=== PATIENT | female | born 1935 | race Caucasian/White ===

== ENCOUNTER 2016-09-29 20:48 | Inpatient (IN) ==
[2016-09-29] MEDS: SALINE FLUSH 10ml SYRINGE IVF PRN (20:55)
[2016-09-29] MEDS ORDERED: NS 1,000 ML IV ONE (21:09)
[2016-09-29] MEDS ORDERED: HYDRALAZINE 20 MG/ML INJECTION IVP ONE (21:35)
--- NOTE | 2016-09-29 21:39 | Emergency Department Report ---
General Adult HPI - General Chief complaint: Altered Mental Status Stated complaint: Numbness one side of body Time Seen by Provider: 09/29/16 21:09 - History of Present Illness HPI narrative: 80-year-old female presents with left-sided weakness onset at 6:30 PM. She noticed decreased and left-sided and strength initially, which lasted for about 20 minutes. They resolve spontaneously and she then had another episode of left- sided weakness which went more extensively left arm left leg and some facial numbness, which started at 7:30 PM. Her brought her to the ED approximately 9:00. I did a quick evaluation, noticed no slurring of speech, appropriate cranial nerves II through XII. She did have some decreased digital ad trafficker strength on the left, otherwise no muscular difference noted. She noted numbness on the left hand and arm, but sensation was intact. She takes no blood thinners and is on multiple blood pressure medication. CT head was ordered and Tylenol and neurology was consulted. Dr. Dawson returned the phone call immediately, listened to the history of the patient and recommended that we not considered TPA, we get an MRI in the morning, and give her an aspirin. He did agree to evaluate the patient and review the CT. - Related Data Home Medications Medication Instructions Recorded Confirmed Aspirin 1 tab PO DAILY #0 tab 01/28/14 Amlodipine Besylate [Norvasc] 5 mg PO DAILY #0 tab 08/20/14 Calcium Carbonate/Vitamin D3 1 tab PO DAILY #0 08/20/14 [Oystercal-D 500 mg-400 Unit Tb] Olmesartan/Hydrochlorothiazide 1 tab PO DAILY #0 08/20/14 [Benicar Hct 40-25 mg Tablet] Potassium Chloride ER Tab [K-Dur] 1 tab PO DAILY #0 08/20/14 Pravastatin Sodium 10 mg PO HS #0 tab 08/20/14 Sotalol HCl [Sotalol] 40 mg PO ACBID #0 tab 08/20/14 Allergies Allergy/AdvReac Type Severity Reaction Status Date / Time lisinopril Allergy Unknown Unverified 09/29/16 21:29 Penicillins Allergy Unknown Unverified 09/29/16 21:29 Review of Systems All systems: reviewed and negative except as stated PFSH Patient Stated Medical History Cataracts Yes Hearing Loss Yes Coronary Artery Disease Yes Hypertension Yes Medical History Updates: Hypertension - Social History Smoking status: Never smoker Substance use type: does not use Physical Exam - Limitations Limitations: no limitations - General General appearance: alert - Normal Exams: Head:: Normocephalic without trauma Chest/Respirations:: Clear all [place] Cardiovascular:: Regular rate and rhythm, without murmur or gallop, Pulses 2+ all extremities, capillary refill, <2 seconds all extremities Neurological:: Patient is alert, and oriented, cranial nerves, exams w/o gross deficits, to observation Psychiatric:: Patient exhibits, appropriate attention, emotion and affect - Head Head exam: other (slight droop left side of mouth.) - Neurological Exam Neurological exam: Present: other (left-sided digital ad trafficker strength decreased otherwise cranial nerves II through XII intact, strength and DTRs exam as well sensory exam normal except for that mentioned.) Course Vital Signs Temperature 97.8 F 09/29/16 20:52 Pulse Rate 75 09/29/16 20:52 Respiratory Rate 20 09/29/16 20:52 Blood Pressure 200/86 H 09/29/16 20:52 Pulse Oximetry 97 09/29/16 20:52 Temperature 97.8 F 09/29/16 20:52 Pulse Rate 75 09/29/16 20:52 Respiratory Rate 20 09/29/16 20:52 Blood Pressure 200/86 H 09/29/16 20:52 Pulse Oximetry 97 09/29/16 20:52 Medical Decision Making - [facility] Narrative Medical decision making narrative: Stroke protocol initiated. Patient sent to radiology for CT exam of head. Neuro exam performed and history obtained. Patient had very slight left-sided weakness in digital ad trafficker and facial droop. She felt she had numbness in the left hand. Sensory exam was appropriate. Telestroke was contacted, Dr. Dawson responded. History was given and he recommended no TPA, given aspirin, MRI in the a.m. He did agree to do an exam on the patient and review the CT brain. Esteban was activated. Initial blood pressure was 220 systolic. Hydralazine 5 mg IV was ordered. However on recheck patient's blood pressure dropped to 176/76 and nausea and was held. At this time blood pressure is maintained 170-185 systolic. Concern is that if she is truly had a TIA or CVA that we want to maintain slightly elevated blood pressure per protocol. Tele hospitalist contacted. Dr. Ngo agreed to admit the patient and the patient is turned over to him. - Differential Diagnosis TIA, CVA, atypical migraine - Lab Data Result diagrams: 09/29/16 21:04 09/29/16 21:04 Lab Results 09/29/16 09/29/16 09/29/16 Range/Units 21:04 21:04 21:04 WBC 10.4 (4.5-11.0) T/MM3 RBC 4.31 (4.00-5.20) M/MM3 Hgb 13.2 (12-16) GM/DL Hct 40.4 (36-46) % MCV 93.7 (80-100) UM3 MCH 30.6 (26-34) UUG MCHC 32.7 (31-37) GM/DL RDW Std Deviation 42.9 (36.9-50.2) FL Plt Count 245 (130-400) T/MM3 MPV 9.5 (9.4-12.4) UM3 Immature Gran % (Auto) Not performed Neut % (Auto) Not performed Lymph % (Auto) Not performed [place] % (Auto) Not performed Eos % (Auto) Not performed Baso % (Auto) Not performed Neut # Not performed Lymph # Not performed [place] # Not performed Eos # Not performed Baso # Not performed Abs Immat Gran (auto) Not performed Neutrophils % (Manual) 62.0 (33-66) % Lymphocytes % (Manual) 21.0 L (23-45) % Monocytes % (Manual) 11.0 H (0-9.0) % Eosinophils % (Manual) 6.0 H (0-4) % Neutrophils # (Manual) 6.4 (1.8-7.7) T/MM3 Lymphocytes # (Manual) 2.2 (1-4.8) T/MM3 Monocytes # (Manual) 1.1 H (0-0.8) T/MM3 Eosinophils # (Manual) 0.6 H (0-0.5) T/MM3 RBC Morph Comment Normal INR 1.07 (0.99-1.21) APTT 32.1 (24-36) SEC Turbidity < 20 (0-20) Sodium 135 (134-144) MEQ/L Potassium 4.3 (3.6-5) MEQ/L Chloride 99 (98-107) MEQ/L Carbon Dioxide 28 (22-30) MEQ/L Anion Gap 8 (5-15) MEQ/L BUN 19.0 H (7-17) MG/DL Creatinine 0.8 (0.7-1.2) MG/DL GFR Calculation 69 BUN/Creatinine Ratio 24 (6-26) RATIO Glucose 103 (65-110) MG/DL Calculated Osmolality 262 (261-280) MOSM/KG Calcium 9.9 (8.4-10.2) MG/DL Total Bilirubin 0.50 (0.20-1.30) MG/DL Icterus Index < 2 (0-7) AST 26 (14-36) U/L ALT 37 (9-52) U/L Alkaline Phosphatase 78 (38-126) U/L Troponin I < 0.012 (0-0.12) ng/ml Total Protein 7.0 (6.3-8.2) G/DL Albumin 4.5 (3.5-5.0) G/DL Globulin 2.5 (2.4-3.6) G/DL Albumin/Globulin Ratio 1.8 (1.1-2.2) RATIO TSH (0.47-4.68) MIU/L Specimen Hemolysis 22 (0-25) 07/14/17 Range/Units 21:04 WBC (4.5-11.0) T/MM3 RBC (4.00-5.20) M/MM3 Hgb (12-16) GM/DL Hct (36-46) % MCV (80-100) UM3 MCH (26-34) UUG MCHC (31-37) GM/DL RDW Std Deviation (36.9-50.2) FL Plt Count (130-400) T/MM3 MPV (9.4-12.4) UM3 Immature Gran % (Auto) Neut % (Auto) Lymph % (Auto) [place] % (Auto) Eos % (Auto) Baso % (Auto) Neut # Lymph # [place] # Eos # Baso # Abs Immat Gran (auto) Neutrophils % (Manual) (33-66) % Lymphocytes % (Manual) (23-45) % Monocytes % (Manual) (0-9.0) % Eosinophils % (Manual) (0-4) % Neutrophils # (Manual) (1.8-7.7) T/MM3 Lymphocytes # (Manual) (1-4.8) T/MM3 Monocytes # (Manual) (0-0.8) T/MM3 Eosinophils # (Manual) (0-0.5) T/MM3 RBC Morph Comment INR (0.99-1.21) APTT (24-36) SEC Turbidity (0-20) Sodium (134-144) MEQ/L Potassium (3.6-5) MEQ/L Chloride (98-107) MEQ/L Carbon Dioxide (22-30) MEQ/L Anion Gap (5-15) MEQ/L BUN (7-17) MG/DL Creatinine (0.7-1.2) MG/DL GFR Calculation BUN/Creatinine Ratio (6-26) RATIO Glucose (65-110) MG/DL Calculated Osmolality (261-280) MOSM/KG Calcium (8.4-10.2) MG/DL Total Bilirubin (0.20-1.30) MG/DL Icterus Index (0-7) AST (14-36) U/L ALT (9-52) U/L Alkaline Phosphatase (38-126) U/L Troponin I (0-0.12) ng/ml Total Protein (6.3-8.2) G/DL Albumin (3.5-5.0) G/DL Globulin (2.4-3.6) G/DL Albumin/Globulin Ratio (1.1-2.2) RATIO TSH 1.78 (0.47-4.68) MIU/L Specimen Hemolysis (0-25) Disposition Clinical Impression: Acute left-sided weakness Disposition: To [facility] Condition: Stable Prescriptions: No Action Aspirin 1 tab PO DAILY #0 tab Potassium Chloride ER Tab [K-Dur] 1 tab PO DAILY #0 Amlodipine Besylate [Norvasc] 5 mg PO DAILY #0 tab Olmesartan/Hydrochlorothiazide [Benicar Hct 40-25 mg Tablet] 1 tab PO DAILY # 0 Calcium Carbonate/Vitamin D3 [Oystercal-D 500 mg-400 Unit Tb] 1 tab PO DAILY #0 Pravastatin Sodium 10 mg PO HS #0 tab Sotalol HCl [Sotalol] 40 mg PO ACBID #0 tab Referrals: Deepak Duarte MD [Family Provider] - Time of Disposition: 22:28 - Seen By: physician
--- NOTE | 2016-09-30 00:07 | History & Physical Report ---
<Kiet Chavarria P - Last Filed: 09/30/16 00:03> History of Present Illness Date: 09/30/16 Chief complaint: left sided weakness HPI: Please note that the patient was seen with nursing assistance via telemedicine on 09/29/2016 Mrs. Machado is an 80yo woman with h/o HTN, bilateral CEAs for PAD, and cataract surgeries who denies previous CAD, CVA or DM2. She denies arrhythmias as well despite being on sotalol, and her daughter and are at the bedside and confirm. The patient denies constitutional complaints or recent medication changes prior to 09/29 onset of L hand/arm numbness and weakness which improved in 20min only to have recurrence 1929 which was worse with leg involved along with face as well. ED presentation 2100 and please see that documentation. All agree that she is now normalized with no other headache with SBP over 200 on arrival. R handed with NIH stroke scale by nursing to be done, but seems better. NO fevers, chills, nausea, pain, other. Review of Systems Review of systems: 10+ systems reviewed and negative aside from in HPI PFSH Medical History Updates: Hypertension Surgical History: cataracts and 2016 bilateral CEAs - Social History Smoking status: Former smoker Alcohol intake frequency: does not drink Housing: house Household members: spouse Current occupational status: retired Medications Home Medications Medication Instructions Recorded Confirmed Type Aspirin 1 tab PO DAILY #0 tab 01/28/14 09/29/16 History Amlodipine Besylate [Norvasc] 5 mg PO DAILY #0 tab 08/20/14 09/29/16 History Calcium Carbonate/Vitamin D3 1 tab PO DAILY #0 08/20/14 09/29/16 History [Oystercal-D 500 mg-400 Unit Tb] Potassium Chloride ER Tab [K-Dur] 1 tab PO DAILY #0 08/20/14 09/29/16 History Pravastatin Sodium 10 mg PO HS #0 tab 08/20/14 09/29/16 History Sotalol HCl [Sotalol] 40 mg PO ACBID #0 tab 08/20/14 09/29/16 History Anastrozole 1 mg PO QDRHS 09/29/16 09/30/16 History Losartan/Hctz 100/25 [Hyzaar 1 tab PO DAILY 09/30/16 09/30/16 History 100/25] Allergies Allergy/AdvReac Type Severity Reaction Status Date / Time lisinopril Allergy Unknown Verified 09/30/16 11:58 Penicillins Allergy Unknown Verified 09/30/16 11:58 Exam Vital Signs: Temperature 98.1 F 09/29/16 23:16 Pulse Rate 80 09/29/16 23:16 Respiratory Rate 18 09/29/16 23:16 Blood Pressure 171/71 H 09/29/16 23:16 Pulse Oximetry 98 09/29/16 23:16 Oxygen Delivery Method Room Air Telemetry Rhythm: Sinus Rhythm Height: 1.68 m Weight: 74 kg - Constitutional Present: no acute distress - Routine HEENT Exam Head: Present: normocephalic, atraumatic Eye: Present: EOMI, normal accommodation - Routine Neck Exam Present: full ROM - Routine Respiratory Exam Present: CTA bilaterally. Absent: accessory muscle use, respiratory distress - Routine Cardiovascular Exam Present: RRR, S1, S2, no murmur - Routine Abdominal Exam Present: soft, normoactive bowel sounds - Routine Skin Exam Present: intact. Absent: cyanosis, erythema - Routine Neurological Exam Present: alert, oriented X3, CN II-XII intact, normal speech Results - Labs CBC & Chem 7: 09/29/16 21:04 09/29/16 21:04 Assessment and Plan (1) TIA (transient ischemic attack) Current visit: Yes Status: Acute 09/30/16 00:10 obs admit with telemetry and noted no DM2 or tobacco. statin higher dose with am lipid profile and MRVee Continue ASA and await teleneurology formal recc. Consider carotids and echo if available on weekend. (2) HTN (hypertension) Current visit: Yes Status: Acute 09/30/16 00:11 amlodipine extra dose now and confirm olmesartan/hct dose, monitor with likely elevation reflexive with TIA (3) Dyslipidemia Current visit: Yes Status: Acute 09/30/16 00:11 patient denies being on pravastatin 10mg which is on med list. Atorvastatin 20mg PO now and am lipid profile (4) PAD (peripheral artery disease) Current visit: Yes Status: Acute 09/30/16 00:12 see above DVT Prophylaxis: SCD's Resuscitation Status: Full Code Hospital Course Summary Disclaimer: The visit summary below is not to be considered part of the above Progress Note. <Nga Lopez - Last Filed: 09/30/16 15:53> History of Present Illness Date: 09/30/16 [facility] Patient Stated Medical History Cataracts Yes Hearing Loss Yes Coronary Artery Disease Yes Hypertension Yes Exam Vital Signs: Temperature 97.7 F 09/30/16 07:41 Pulse Rate 82 09/30/16 08:00 Respiratory Rate 16 09/30/16 07:41 Blood Pressure 169/73 H 09/30/16 07:41 Pulse Oximetry 99 09/30/16 07:41 Oxygen Delivery Method Room Air Height: 1.68 m Weight: 76.6 kg Results - Labs CBC & Chem 7: 09/29/16 21:04 09/29/16 21:04 Assessment and Plan (1) TIA (transient ischemic attack) Current visit: Yes Status: Acute (2) HTN (hypertension) Current visit: Yes Status: Acute (3) Dyslipidemia Current visit: Yes Status: Acute (4) PAD (peripheral artery disease) Current visit: Yes Status: Acute Assessment and Plan: 09/30/2016-Dr. Lopez I reviewed the H&P above from the telemedicine hospitalist. I have seen and examined the patient independently. I agree with H&P above, please see my additions below. The patient was seen today accompanied by her daughter, son-in- law, and the patient's . Chief complaint: Numbness of the left side of the face, hand and leg History of present illness: The patient states that yesterday afternoon she had some numbness in the left hand, face and leg. It resolved and then returned. She did present to the emergency room and symptoms had almost completely resolved. She did have elevated blood pressure in the emergency room and was given hydralazine. Currently, the numbness has completely resolved. She has no new symptoms such as weakness, vision difficulties, speech problems or swallowing problems. She states that a week ago she noticed that when she would roll over in bed she felt like she might pass out and this happened on 2 occasions. She never did pass out. She otherwise denies any TIA or strokelike symptoms other than yesterday. Today she states she feels back to normal. Any chest pains or palpitations. She is eating and drinking well. She was able to walk in the halls with the nurse without any difficulties. Past medical history significant for hypertension, bilateral carotid endarterectomies, and cataract surgery. She also has history of breast cancer and underwent what sounds like lumpectomy and was placed on anastrozole by Dr. Monreal. Social history significant for the patient being a former smoker Family history significant for stroke in her mother. No family history of clots. Medication list is reviewed and losartan hydrochlorothiazide was not listed as a home medicine but this will be added. Comprehensive review of systems as above in history of present illness Physical exam GEN-alert, oriented, no acute distress, speech is normal HEENT-pupils are equal round and reactive, extraocular movements are intact, oropharynx is moist NECK-, bilateral carotid bruits greater on the left CV-regular rate and rhythm with a 2/6 systolic murmur. Telemetry shows sinus rhythm CHEST-clear to auscultation bilaterally ABD-soft, nontender, nondistended with positive bowel sounds -no Cummings EXT-trace pretibial edema and trace to +1 bilateral pedal edema NEURO-patient is alert and oriented 3. Cranial nerves II through XII are grossly intact. Motor strength is equal bilaterally. Sensation is normal. SKIN-warm and dry and without rashes MRI brain shows acute posterior circulation infarcts involving the right occipital lobe and left cerebellum CT head reveals no acute findings Chest x-ray on my read shows no acute cardiopulmonary abnormalities. EKG reveals sinus rhythm with occasional PVCs. 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 Increase Lipitor to 80 mg. Await lipid panel. Discussed with Dr. Galvez and he recommends CTA head and neck. Echocardiogram and carotid Dopplers have been ordered. Continue Norvasc, add sotalol. Hold losartan and hydrochlorothiazide for now to allow some mild permissive hypertension and since we are giving IV contrast. Repeat lab tomorrow Every 4 hours neuro checks Every 4 hours vital signs Change to full admission secondary to acute stroke and need for continued monitoring and workup. Hold anastrozole for now since it can increase risk of stroke and discussed with Dr. Arrieta. Greater than 1 hour of time spent seeing and evaluating the patient today. Hospital Course Summary Disclaimer: The visit summary below is not to be considered part of the above Progress Note.
[2016-09-30] MEDS ORDERED: ATORVASTATIN 20 MG TABLET PO SCH (00:15)
[2016-09-30 00:17] VITALS: BMI 27.5
[2016-09-30] MEDS ORDERED: ONDANSETRON 4 MG/2 ML INJECTION IVP PRN (00:23)
[2016-09-30] MEDS ORDERED: ACETAMINOPHEN 325 MG TABLET PO PRN (00:23)
[2016-09-30] MEDS: AMLODIPINE 5 MG TABLET PO SCH ×2 (00:50→08:16)
[2016-09-30] MEDS ORDERED: SALINE FLUSH 10ml SYRINGE ONE ×3 (08:40→16:52)
[2016-09-30] MEDS ORDERED: GADOBUTROL 10mMol/10ml INJECTION IVP ONE (08:40)
[2016-09-30] MEDS ORDERED: ASPIRIN 325 MG TABLET PO SCH (09:00)
--- NOTE | 2016-09-30 09:42 | Magnetic Resonance Report ---
Indication: TIA vs CVA left-sided tingling numbness and weakness PROCEDURE: MR head/brain wo/w con: Encounter: Initial Comparisons: Head CT dated September 29, 2016 Technique: Multiplanar, multisequence, MR imaging of the head with and without contrast was acquired. Contrast: 7.5 mL of Gadavist FINDINGS: Acute diffusion restriction seen in the left cerebellum with a small focus in the medial anterior right occipital lobe. These areas have expected T2/FLAIR hyperintensity. Mild atrophy. The ventricles are of normal size, shape, and contour for the patient's age. There are small nonspecific punctate areas of T2-weighted and T2 FLAIR weighted signal abnormality in the deep frontoparietal white matter that most likely represent small vessel ischemic disease. This is of a degree that is considered to be normal for the patient's age. The brain stem, cerebellum, and cerebral hemispheres otherwise have a normal morphologic appearance as well as MR signal intensity on all pulse sequences. Following intravenous administration of contrast, no areas of abnormal enhancement are evident. There is no evidence of an intracranial mass lesion, intracranial hemorrhage, or hydrocephalus. The visualized portions of the orbits, calvarium, paranasal sinuses, and skull base demonstrate no significant abnormality. IMPRESSION: Acute posterior circulation infarcts involving the right occipital lobe and left cerebellum. .
[2016-09-30] MEDS ORDERED: CLOPIDOGREL 75 MG TABLET PO SCH (15:15)
[2016-09-30] MEDS ORDERED: IOHEXOL 350mg/ml 75ml INJECTION ONE (16:28)
[2016-09-30] MEDS ORDERED: NS 100 ML ONE (16:28)
[2016-09-30] MEDS: SOTALOL 80 MG TABLET PO SCH (16:38)
[2016-09-30] MEDS: ATORVASTATIN 40 MG TABLET PO SCH (22:18)
[2016-10-01] MEDS: SOTALOL 80 MG TABLET PO SCH ×2 (06:12→17:19)
--- NOTE | 2016-10-01 08:50 | Progress Note ---
<Karli King V - Last Filed: 10/01/16 08:57> Subjective: Belen is seen this morning in follow up rounding. She is alert and orientated. States that she had a difficult time sleeping overnight as the bed is not comfortable. Telemetry reports she did go into A-fib overnight however has not converted to sinus rhythm. She denies any known history of "Afib" however she is on Sotolol chronically. During her A-fib overnight she remained asymptomatic. This morning she denies having chest pain. dizziness/ lightheadedness, shortness of breath, numbness or other complaints. Objective Vital signs: Temperature 98.4 F 10/01/16 04:23 Pulse Rate 71 10/01/16 08:00 Respiratory Rate 18 10/01/16 08:00 Blood Pressure 156/69 H 10/01/16 08:00 Pulse Oximetry 95 10/01/16 08:00 Oxygen Delivery Method Room Air Rhythm: Normal Sinus Rhythm Weight: 76.6 kg - Constitutional Present: no acute distress - Routine HEENT Exam Head: Present: normocephalic, atraumatic Eye: Present: EOMI, PERRL ENT: Present: mucous membranes moist, dentition normal - Routine Respiratory Exam Present: CTA bilaterally. Absent: wheezes - Routine Cardiovascular Exam Present: RRR, S1, S2. Absent: murmur - Routine Abdominal Exam Present: soft, normoactive bowel sounds, non distended, non tender. Absent: tenderness - Routine Extremities Exam Present: full ROM, normal capillary refill - Routine Back/Spine/Pelvis Exam Back/Spine: Present: full ROM - Routine Skin Exam Present: dry, warm - Routine Neurological Exam Present: alert, oriented X3, CN II-XII intact - Routine Lymphatic Exam Lymphatic: Absent: adenopathy - Routine Psychiatric Exam Present: normal affect Results - Labs CBC & Chem 7: 09/29/16 21:04 09/29/16 21:04 Assessment and Plan (1) TIA (transient ischemic attack) Current visit: Yes Status: Acute 09/30/16 00:10 obs admit with telemetry and noted no DM2 or tobacco. statin higher dose with am lipid profile and Continue ASA and await teleneurology formal recc. Consider carotids and echo if available on weekend. (2) HTN (hypertension) Current visit: Yes Status: Acute 09/30/16 00:11 amlodipine extra dose now and confirm olmesartan/hct dose, monitor with likely elevation reflexive with TIA (3) Dyslipidemia Current visit: Yes Status: Acute 09/30/16 00:11 patient denies being on pravastatin 10mg which is on med list. Atorvastatin 20mg PO now and am lipid profile (4) PAD (peripheral artery disease) Current visit: Yes Status: Acute 09/30/16 00:12 see above Assessment and Plan: 10/01 She did have A-fib overnight, however has now converted to NSR. Carotid doppler and ECHO completed and pending cardiology read. Consult placed for further cardiac evalaution. All symptoms of CVA have resolved. Continues on ASA, Plavix and Lovenox Continue to monitor blood pressure 150s systolic this morning. Continue on Sotolol and Norvasc Continue with Lipitor Discuss further orders and plan of care with attending, Dr Lopez. Sepsis Assessment - Evaluation Sepsis screening result: No Definite Risk Hospital Course Summary Disclaimer: The visit summary below is not to be considered part of the above Progress Note. Hospital Course: 09/30 Will add Plavix to the patient's aspirin. Increase Lipitor to 80 mg. Await lipid panel. Discussed with Dr. Galvez and he recommends CTA head and neck. Echocardiogram and carotid Dopplers have been ordered. Continue Norvasc, add sotalol. Hold losartan and hydrochlorothiazide for now to allow some mild permissive hypertension and since we are giving IV contrast. Repeat lab tomorrow Every 4 hours neuro checks Every 4 hours vital signs Change to full admission secondary to acute stroke and need for continued monitoring and workup. Hold anastrozole for now since it can increase risk of stroke and discussed with Dr. Arrieta. Greater than 1 hour of time spent seeing and evaluating the patient today. 10/01 She did have A-fib overnight, however has now converted to NSR. Carotid doppler and ECHO completed and pending cardiology read. Consult placed for further cardiac evalaution. All symptoms of CVA have resolved. Continues on ASA, Plavix and Lovenox Continue to monitor blood pressure 150s systolic this morning. Continue on Sotolol and Norvasc Continue with Lipitor Discuss further orders and plan of care with attending, Dr Lopez. <Nga Lopez - Last Filed: 10/01/16 11:38> Objective Vital signs: Temperature 98.4 F 10/01/16 04:23 Pulse Rate 71 10/01/16 08:00 Respiratory Rate 18 10/01/16 08:00 Blood Pressure 156/69 H 10/01/16 08:00 Pulse Oximetry 95 10/01/16 08:00 Oxygen Delivery Method Room Air Results - Labs CBC & Chem 7: 09/29/16 21:04 09/29/16 21:04 Assessment and Plan (1) TIA (transient ischemic attack) Current visit: Yes Status: Acute (2) HTN (hypertension) Current visit: Yes Status: Acute (3) Dyslipidemia Current visit: Yes Status: Acute (4) PAD (peripheral artery disease) Current visit: Yes Status: Acute Assessment and Plan: 10/01/2016-I reviewed this chart, the patient history, and the HADOOP ADMIN's/PA's documented findings as above. We discussed and formulated the assessment and plan as above with the additions below. I've seen and examined the patient independently-Dr. Lopez Patient was seen this morning in her room accompanied by her daughter and . The patient states that she feels normal. She denies any recurrence of numbness or tingling. She denies any new stroke symptoms such as weakness, speech difficulties, swallowing difficulties, gait instability or vision problems. She denies any complaints today. She did go into A. fib with RVR last night and it appears she is going in and out of A. fib at this time. Heart rate was as high as 120 last night. She denied having any chest discomfort or pressure yesterday or today. She denied any pain in her neck, jaw or shoulders or back. She denied any shortness of breath or nausea. She states she feels normal. The night hospitalist was notified of the patient's A. fib with RVR last night and EKG and troponin were ordered. The patient was given Lovenox subcutaneous twice a day Troponin was 0.4 and on recheck is 1.49. EKG last night showed A. fib with RVR with rate of [address]-T wave abnormality with ST depression throughout On exam today the patient is alert and oriented and in no acute distress. On neurologic exam her speech is normal and fluent. Cranial nerves II through XII are grossly intact. Motor strength is equal in upper and lower extremities. Sensation is intact. HEENT reveals sclerae to be anicteric and oropharynx is moist. Neck is supple. Chest is clear to auscultation. Cardiovascular reveals a normal rate with a mildly irregular rhythm. Abdomen is soft and nontender. Extremities are free of edema. Skin is warm and dry and without rashes. Potassium is 3.3 Echocardiogram is pending but verbal report shows normal LV with EF of 65%, mild MR, mild to moderate AI, aortic sclerosis, mild TR with PA pressure of 35, mild PI. No intracardiac thrombus or mass seen. CTA head showed no signs of stenosis or occlusion, no thrombus, no aneurysm, no infarct, hemorrhage or mass were seen. CTA neck showed 60% left subclavian proximal artery lesion which is moderate. No hemodynamically significant stenosis of the carotids or vertebrals. No occlusion or dissection. Carotid Doppler 50-60% stenosis in both proximal ICAs by velocity criteria although the ICA to CCA ratios would suggest a lesser degree of stenosis. 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 fib with RVR, now with a controlled rate and what looks like intermittent A. fib (uncertain if the patient has had A. fib in the past-she is chronically on sotalol) Elevated troponin with ST T-wave abnormality on EKG last night. Mild Hypokalemia Hyperlipidemia History of hypertension History of breast cancer on anastrozole which is on hold Plan Continue on telemetry. We'll discuss optimal anticoagulation versus antiplatelets with neurology. Will hold Lovenox, Plavix and aspirin at this time. Discuss anastrozole with Dr. Arrieta tomorrow. Replace potassium orally and check magnesium level. Continue SCDs for DVT prophylaxis. Dr. Matson has been consulted regarding A. fib with RVR and elevated troponin. Continue statin Hospital Course Summary Disclaimer: The visit summary below is not to be considered part of the above Progress Note.
[2016-10-01] MEDS: AMLODIPINE 5 MG TABLET PO SCH (08:58)
[2016-10-01] MEDS ORDERED: ENOXAPARIN 80 MG/0.8 ML INJECTION SQ SCH (09:00)
--- NOTE | 2016-10-01 10:08 | Ultrasound Report ---
Indication: acute cva PROCEDURE: US carotid doppler BI: TECHNIQUE: Grayscale, color and duplex Doppler imaging was performed of the carotid systems bilaterally. Velocities in cm/sec - validated velocity measurements with angiographic measurements, velocity criteria are extrapolated from diameter data as defined by the Society of Radiologists in Ultrasound Consensus Conference Radiology 2003; 229;340-346. RIGHT: PSV ICA 128 EDV ICA 14 PSV CCA 122 EDV CCA 10.3 SVR 1.0 PSV ECA 229 ICA Diameter reduction 50-60% LEFT: PSV ICA 132 EDV ICA 11.2 PSV CCA 186 EDV CCA 20.5 SVR .7 PSV ECA 275 ICA Diameter reduction 50-60% The right vertebral artery is patent with cephalic flow. The left vertebral artery is patent with cephalic flow. History of bilateral carotid endarterectomies. Scattered atherosclerotic plaque in the carotid bulbs and ICAs. Intimal wall thickening in both common carotid arteries. 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 There is a preliminary report by [facility]. .
--- NOTE | 2016-10-01 10:58 | CT Scan Report ---
Indication: acute ischemic cva posterior circulation PROCEDURE: CT angio head and neck: Encounter: Initial Comparison: Brain MRI dated September 30, 2016 Technique: CT Head: Axial images were obtained through the head without and with intravenous contrast. CTA: Angiographic phase axial images were acquired from the aortic arch through the entire head following intravenous contrast administration. Multiplanar 2-D reconstructions and maximum intensity projection images were produced for additional assessment. 3-D volume rendered images of the [place] were also produced by the technologist. Automated Exposure Control and Iterative Reconstruction dose reducing techniques were utilized. Contrast: Omnipaque 300 74mL Findings: CT head without and with contrast: Left cerebellar infarct seen on MRIs faintly visible by CT. The ventricles are of normal size, shape, and contour for the patient's age. The brainstem, cerebellum, and cerebral hemispheres otherwise have a normal morphology and CT attenuation. No hemorrhage, mass effect, mass lesions, or edema is evident. No areas of abnormal enhancement are seen. The visualized portions of the skull base and calvarium demonstrate no acute abnormality. CTA head with intravenous contrast: The distal cervical, petrous, cavernous, and supraclinoid segments of the internal carotid arteries are widely patent without significant stenosis or other vascular abnormalities. The anterior, middle, and posterior cerebral arteries are also widely patent without significant stenosis or occlusion. No aneurysms, vascular malformations, flow-limiting stenoses, or other arterial abnormality are evident. The visualized portion of the dural sinuses and cortical veins are also well seen and show no definite stenosis or occlusion. 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 Prior bilateral carotid endarterectomies. No significant focal plaque formation or luminal narrowing identified. Scattered tiny areas of peripheral calcified plaque. The aortic arch, brachiocephalic artery, right subclavian artery, bilateral common carotid arteries, bilateral vertebral arteries, and bilateral internal carotid arteries are widely patent without significant stenosis or other vascular abnormality. The carotid bifurcations are widely patent without significant stenosis or occlusion. 1. CT head: Subtle left cerebellar infarct better seen on MRI. No acute intracranial hemorrhage. 2. CTA head: No aneurysms, vascular malformations, or flow limiting stenoses. 3. CTA neck: No flow limiting stenosis of the carotids. No hemodynamically significant carotid stenosis by NASCET criteria. 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 There is a preliminary report by [facility]. .
--- NOTE | 2016-10-01 11:00 | XRay Report ---
INDICATION: weakness PROCEDURE: CHEST 2-VIEWS UPRIGHT (PA & LAT) Encounter: Initial COMPARISON: August 21, 2014 FINDINGS: Bilateral calcified granulomas. No focal consolidation. There is no pleural effusion or pneumothorax. The heart size, mediastinal contours and pulmonary vascularity are within normal limits. There is no significant skeletal abnormality. IMPRESSION: No acute cardiopulmonary disease. .
--- NOTE | 2016-10-01 11:03 | CT Scan Report ---
Indication: unilateral weakness PROCEDURE: CT head/brain wo con: Encounter: Initial Comparison: Brain MRI dated September 30, 2016 Technique: Axial CT images through the head were performed without contrast. Iterative Reconstruction dose reducing technique was utilized. FINDINGS: Mild atrophy. The ventricles are of normal size, shape, and contour for the patient's age. There are scattered areas of low attenuation in the white matter which most likely represent changes from chronic microvascular ischemia. The brainstem, cerebellum, and cerebral hemispheres otherwise have a normal morphology and CT attenuation. There is no evidence of midline displacement. No hemorrhage, signs of acute territorial stroke, mass effect, mass lesions, or edema is evident. The visualized portions of the skull base, midface, and calvarium demonstrate no abnormality. Chronic appearing opacification of the right sphenoid sinus. The tympanic and mastoid cavities appear normal. IMPRESSION: No acute intracranial abnormality or hemorrhage. There is a preliminary report by [facility]. .
--- NOTE | 2016-10-01 13:19 | Cardiology Consult Note ---
History of Present Illness Consult date: 10/01/16 <Evelyn Calvillo - 10/01/16 13:19> Requesting physician: Nga Lopez <Evelyn Calvillo - 10/01/16 15:50> Consult reason: atrial fibrillation <Evelyn Calvillo - 10/01/16 13:19> Chief complaint: Afib RVR, CVA <Evelyn Calvillo - 10/01/16 15:50> History of present illness: Pt presented to the ED eulalia night, 09/29/16, with left sided numbness and CVA symptoms. CT scan was negative and she was admitted for observation. MRI revealed to small areas of infarct, consistent with ischemic CVA. She was placed on aspirin and plavix. An echo was obtained yesterday to asses thrombus and cardiac function. Her left sided numbness resolved. Last night she had an episode of AFib RVT rate 130's, captured on ECG, ECG revealed significant ST depression which corrected in repeat ECG this am after conversion back to SR. Her subsequent Troponin's were elevated at .14, 1.4 and a pending 1600 value. Upon interview with pt and family she denies chest pain, palpitations, exertional dyspnea, near syncope. She denies a previously known history of AFib ; of note she is on sotalol 40mg bid as a home med, she believes she's been on for many years. Positive for hx of bilateral CEA's, her CTA of neck revealed no significant carotid stenosis at this time, she does have a left bruit. She lives at home with her spouse, she denies frequent falls, ambulates without assistive devices. <Evelyn Calvillo - 10/01/16 15:50> Review of Systems - Constitutional Constitutional: Absent: fatigue, weakness <Evelyn Calvillo 10/01/16 15:50> - EENMT Eyes: Absent: loss of vision <Evelyn Calvillo 10/01/16 15:50> Ears: Absent: tinnitus <Evelyn Calvillo 10/01/16 15:50> Balance: Absent: vertigo, falling to one side <Evelyn Calvillo 10/01/16 15: 50> Mouth/Throat: Absent: dry mouth <Evelyn Calvillo L 10/01/16 15:50> - Cardiovascular Cardiovascular: Present: heart murmur. Absent: chest pain, palpitations, syncope, dyspnea on exertion, edema <Evelyn Calvillo L 10/01/16 15:50> Rhythm: Present: regular rhythm <Evelyn Calvillo L 10/01/16 15:50> Vascular: Absent: pedal edema <Evelyn Calvillo 10/01/16 15:50> - Respiratory Respiratory: Absent: dyspnea <Evelyn Calvillo 10/01/16 15:50> - Gastrointestinal Gastrointestinal: Absent: abdominal pain <Evelyn Calvillo 10/01/16 15:50> - Musculoskeletal Musculoskeletal: Present: arthralgias <Evelyn Calvillo 10/01/16 15:50> - Integumentary/Breasts Integumentary: Absent: erythema, rash <Evelyn Calvillo 10/01/16 15:50> - Neurological Neurological: Absent: focal weakness <Evelyn Calvillo 10/01/16 15:50> - Psychiatric Psychiatric: Absent: abnormal sleep pattern <Evelyn Calvillo 10/01/16 15:50 > - Endocrine Endocrine: Absent: palpitations <Evelyn Calvillo 10/01/16 15:50> - Hematologic/Lymphatic Hematologic/Lymphatic: Absent: lymphadenopathy <Evelyn Calvillo 10/01/16 15 :50> [facility], [facility] Medical History Updates: Hypertension <Evelyn Calvillo 10/01/16 13:19> Surgical History: cataracts and 2016 bilateral CEAs <QuitaEvelyn 15:50> - Social History Smoking status: Former smoker <Evelyn Calvillo 10/01/16 13:19> Housing: house <Evelyn Calvillo 10/01/16 15:50> Household members: spouse <Evelyn Calvillo 10/01/16 15:50> service: No <Evelyn Calvillo 10/01/16 15:50> Current occupational exposures/hazards: No <QuitamaryEvelyn Raines - 10/01/16 15:50> Current residence: Apartment/Private Home <Evelyn Calvillo - 10/01/16 15:50> Medications Home Medications Medication Instructions Recorded Confirmed Type Aspirin 1 tab PO DAILY #0 tab 01/28/14 09/29/16 History Amlodipine Besylate [Norvasc] 5 mg PO DAILY #0 tab 08/20/14 09/29/16 History Calcium Carbonate/Vitamin D3 1 tab PO DAILY #0 08/20/14 09/29/16 History [Oystercal-D 500 mg-400 Unit Tb] Potassium Chloride ER Tab [K-Dur] 1 tab PO DAILY #0 08/20/14 09/29/16 History Pravastatin Sodium 10 mg PO HS #0 tab 08/20/14 09/29/16 History Sotalol HCl [Sotalol] 40 mg PO ACBID #0 tab 08/20/14 09/29/16 History Anastrozole 1 mg PO AM 09/29/16 10/01/16 History Losartan/Hctz 100/25 [Hyzaar 1 tab PO DAILY 09/30/16 09/30/16 History 100/25] <Rodolfo Matson - 10/04/16 11:40> Allergies Allergy/AdvReac Type Severity Reaction Status Date / Time lisinopril Allergy Unknown Verified 09/30/16 11:58 Penicillins Allergy Unknown Verified 09/30/16 11:58 <Rodolfo Matson - 10/04/16 11:40> Exam Vital signs: Temperature 98.1 F 10/02/16 15:44 Pulse Rate 109 H 10/02/16 18:30 Respiratory Rate 17 10/02/16 18:30 Blood Pressure 193/81 H 10/02/16 18:30 Pulse Oximetry 95 10/02/16 18:30 Oxygen Delivery Method Room Air <Rodolfo Matson - 10/04/16 11:40> Temperature 98.4 F 10/01/16 04:23 Pulse Rate 71 10/01/16 08:00 Respiratory Rate 18 10/01/16 08:00 Blood Pressure 156/69 H 10/01/16 08:00 Pulse Oximetry 95 10/01/16 08:00 Oxygen Delivery Method Room Air <Mikayla Calvilloca L - 10/01/16 13:19> - Constitutional no acute distress, well developed, cooperative <Mikayla Calvilloca L - 10/01/16 15 :50> - Routine HEENT Exam Head: Present: normocephalic, atraumatic <Mikayla Calvilloca L - 10/01/16 15:50> Eye: Present: PERRL, conjunctivae pink <Mikayla Calvilloca L - 10/01/16 15:50> ENT: Present: mucous membranes moist <QuitaiMikaylaEvelyn L - 10/01/16 15:50> Nose: moist mucous membranes <QuitaiEvelyn L 10/01/16 15:50> - Routine Neck Exam Present: carotid bruit (left), trachea midline. Absent: JVD <Mikayla Calvilloca L - 10/01/16 15:50> - Routine Chest/Breast/Axilla Exam Chest wall: Absent: tenderness <Mikayla Calvilloca L 10/01/16 15:50> - Routine Respiratory Exam Present: CTA bilaterally <Mikayla Calvilloca L 10/01/16 15:50> - Routine Cardiovascular Exam Present: murmur (II/IV) <Mikayla Calvilloca L - 10/01/16 15:50> - Routine Abdominal Exam Present: soft, normoactive bowel sounds, non tender <Mikayla Calvilloca L 15:50> - Routine Extremities Exam Present: no edema, normal capillary refill <Mikayla Calvilloca L 10/01/16 15:50> - Routine Back/Spine/Pelvis Exam Back/Spine: Absent: pain with flexion <Mikayla Calvilloca L 10/01/16 15:50> - Routine Skin Exam Present: intact <Mikayla Calvilloca L - 10/01/16 15:50> - Routine Neurological Exam Present: alert, oriented X3 <Mikayla Calvilloca L - 10/01/16 15:50> grossly intact <KarliEvelyn L 10/01/16 15:50> - Routine Psychiatric Exam Present: normal affect, normal thought process, cooperative <Quitai,Evelyn L - 10/01/16 15:50> Results 10/02/16 03:54 10/02/16 03:54 <Rodolfo Matson - 10/04/16 11:40> Cardiac Enzymes 10/01/16 10/01/16 Range/Units 05:05 10:16 Troponin I 0.415 H D 1.490 H D (0-0.12) ng/ml CBC 10/01/16 Range/Units 05:05 WBC 9.4 (4.5-11.0) T/MM3 RBC 3.74 L (4.00-5.20) M/MM3 Hgb 11.3 L (12-16) GM/DL Hct 34.8 L (36-46) % Plt Count 200 (130-400) T/MM3 Comprehensive Metabolic Panel 10/01/16 10/01/16 Range/Units 05:05 10:16 Sodium 138 Cancelled (134-144) MEQ/L Potassium 3.3 L Cancelled (3.6-5) MEQ/L Chloride 105 Cancelled (98-107) MEQ/L Carbon Dioxide 26 Cancelled (22-30) MEQ/L BUN 12.0 Cancelled (7-17) MG/DL Creatinine 0.6 L Cancelled (0.7-1.2) MG/DL Glucose 91 Cancelled (65-110) MG/DL Calcium 9.2 Cancelled (8.4-10.2) MG/DL Intake and Output 09/30/16 10/01/16 10/01/16 22:59 06:59 14:59 Intake Total 400 / 400 150 / 150 250 / 250 Balance 400 / 400 150 / 150 250 / 250 Intake: Oral 400 / 400 150 / 150 250 / 250 Other: # Voids 1 1 Weight 76.6 kg Patient Weight 10/02/16 06:59 Weight 76.6 kg <KarliMikaylaEvelyn L - 10/01/16 15:50> - Imaging and Cardiology Echo: other (discussed with Dano) <KarliMikaylaEvelyn L - 10/01/16 15:50> EKG results: image reviewed <KarliEvelyn L - 10/01/16 15:50> Imaging & Cardiology Narrative: 10/01/16 15:33 Echo shows EF 65%, Mild MR, mild to moderate AI, Aortic sclerosis with no Stenosis, Mild TR, PA pressure 35mmHg, mild PI, no intracardiac thrombus or mass. 10/01/16 15:54 Carotid duplex IMPRESSION: 50-60% stenosis in both proximal ICAs by velocity criteria although the ICA to CCA ratios would suggest a lesser degree of stenosis. <Mikayla Calvilloca L - 10/01/16 16:07> - EKG Interpretation EKG shows: sinus rhythm, atrial fibrillation (RVR w/ST depression) <Anginli Evelyn L - 10/01/16 15:50> EKG interpretations - EKG EKG shows: sinus rhythm, atrial fibrillation <AnginliEvelyn L - 10/01/16 15: 50> - Dysrhythmias Supraventricular dysrhythmia: atrial fibrillation <AnginliEvelyn L - 15:50> Assessment and Plan (1) TIA (transient ischemic attack) Status: Acute (2) HTN (hypertension) Status: Chronic (3) Dyslipidemia Status: Chronic (4) PAD (peripheral artery disease) Status: Chronic (5) Atrial fibrillation Status: Acute (6) NSTEMI (non-ST elevated myocardial infarction) Status: Acute <Rodolfo Matson - 10/04/16 11:40> (1) Atrial fibrillation Status: Acute Continue sotalol 40mg PO bid. Initiate lovenox 1mg/kg bid 2/2 NSTEMI. Monitor tele, ecg prn rhythm changes. (2) TIA (transient ischemic attack) Status: Acute Hold aspirin and plavix, initiate lovenox 2/2 NSTEMI. Benefit of lovenox outweighs risk for NSTEMI management, CVA small with no residual effects. (3) Dyslipidemia Status: Chronic Atorvastatin 40mg daily. Lipid panel pending. (4) HTN (hypertension) Status: Chronic Continue home meds, monitor. (5) PAD (peripheral artery disease) Status: Chronic aspirin and plavix on hold for now, plan resume as NSTEMI, CVA, Afib management indicates. On atorvastatin. (6) NSTEMI (non-ST elevated myocardial infarction) Status: Acute Significant ST depression on ECG during AFib RVR. Subsequent troponin elevated .14, 1.4, third pending. Recommend lovenox 1mg/kg bid, benefit outweighs the risk in the context of NSTEMI, CVA small with no major effects. NPO after MN, hold AM lovenox in prep for possible Cardiac cath tomorrow after full evaluation by Dr. Matson. Unable to initiate KASSY therapy, pt is allergic. On atorvastatin daily. Holding aspirin therapy 2/2 to acute CVA. <Evelyn Calvillo - 10/01/16 15:54> - Attestation Attestation Narrative: 10/04/16 11:40 Recommendation After examining the patient I agree with the above assessment. I am involved in the formulation of the patient's plan of care. <Rodolfo Matson - 10/04/16 11:40> Hospital Course Summary Disclaimer: The visit summary below is not to be considered part of the above Progress Note. <Rodolfo Matson - 10/04/16 11:40> The visit summary below is not to be considered part of the above Progress Note. <Evelyn Calvillo - 10/01/16 16:07> Hospital Course: 09/30 Will add Plavix to the patient's aspirin. Increase Lipitor to 80 mg. Await lipid panel. Discussed with Dr. Galvez and he recommends CTA head and neck. Echocardiogram and carotid Dopplers have been ordered. Continue Norvasc, add sotalol. Hold losartan and hydrochlorothiazide for now to allow some mild permissive hypertension and since we are giving IV contrast. Repeat lab tomorrow Every 4 hours neuro checks Every 4 hours vital signs Change to full admission secondary to acute stroke and need for continued monitoring and workup. Hold anastrozole for now since it can increase risk of stroke and discussed with Dr. Arrieta. Greater than 1 hour of time spent seeing and evaluating the patient today. 10/01 She did have A-fib overnight, however has now converted to NSR. Carotid doppler and ECHO completed and pending cardiology read. Consult placed for further cardiac evalaution. All symptoms of CVA have resolved. Continues on ASA, Plavix and Lovenox Continue to monitor blood pressure 150s systolic this morning. Continue on Sotolol and Norvasc Continue with Lipitor Discuss further orders and plan of care with attending, Dr Lopez. <Evelyn Calvillo - 10/01/16 13:19> Sepsis Assessment - Evaluation Sepsis screening result: No Definite Risk <Evelyn Calvillo - 10/01/16 13:19>
[2016-10-01] MEDS: SALINE FLUSH 10ml SYRINGE IVF PRN (21:12)
[2016-10-01] MEDS: ATORVASTATIN 40 MG TABLET PO SCH (21:13)
[2016-10-01] MEDS: ENOXAPARIN 80 MG/0.8 ML INJECTION SQ SCH (21:14)
[2016-10-02] MEDS: SOTALOL 80 MG TABLET PO SCH (06:18)
[2016-10-02] MEDS ORDERED: NS 1,000 ML IV SCH (08:45)
[2016-10-02] MEDS: AMLODIPINE 5 MG TABLET PO SCH (09:09)
[2016-10-02] MEDS: ENOXAPARIN 80 MG/0.8 ML INJECTION SQ SCH (10:18)
[2016-10-02 12:25] VITALS: TEMP 98.1
--- NOTE | 2016-10-02 14:26 | Progress Note ---
Subjective: Patient was seen in her room earlier this morning. She denies any recurrence of numbness or tingling. She denies any other symptoms of stroke such as vision difficulties, speech problems, swallowing difficulties, or weakness. Her appetite is good. She denies any chest pains or palpitations. She denies shortness of breath. She denies lightheadedness. She states she feels like normal. Objective Vital signs: Temperature 98.1 F 10/02/16 12:00 Pulse Rate 118 H 10/02/16 12:00 Respiratory Rate 16 10/02/16 12:00 Blood Pressure 162/75 H 10/02/16 12:00 Pulse Oximetry 96 10/02/16 12:00 Oxygen Delivery Method Room Air Weight: 75.8 kg Comments: GEN-alert, oriented, no acute distress HEENT-sclera anicteric, pupils equal, oropharynx is moist NECK-supple CV-irregular with a borderline tachycardic rate CHEST-clear to auscultation bilaterally ABD-soft, nontender with positive bowel sounds -no Cummings EXT-no edema NEURO-cranial nerves II-12 are grossly intact, motor strength is equal bilaterally, speech is normal SKIN-warm and dry and without rashes Results - Labs CBC & Chem 7: 10/02/16 03:54 10/02/16 03:54 Labs: Troponin got up to 1.6 yesterday afternoon and today is down to 0.9 Assessment and Plan (1) TIA (transient ischemic attack) Current visit: Yes Status: Acute (2) HTN (hypertension) Current visit: Yes Status: Chronic (3) Dyslipidemia Current visit: Yes Status: Chronic (4) PAD (peripheral artery disease) Current visit: Yes Status: Chronic Assessment and Plan: 10/02/2016 Impression Non-ST elevation ND -asymptomatic, troponin is trending down this morning 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 fib with RVR, Mild Hypokalemia Hyperlipidemia Hypertension-the patient is on amlodipine. Losartan hydrochlorothiazide is currently on hold. History of breast cancer on anastrozole which is on hold Plan Continue on telemetry. After discussion yesterday with family and consultants, the decision was made to continue Lovenox for non-ST elevation ND and A. fib. The patient did have small strokes on admission and has a slight risk of hemorrhagic conversion with Lovenox. Fortunately the patient continues to be asymptomatic from a neurologic standpoint. Without full anticoagulation, the patient also is at risk for worsening of non-ST elevation ND and at risk for recurrent ischemic strokes. Discuss anastrozole with Dr. Arrieta . Replace potassium orally, and recheck level tomorrow. Possible heart catheter today with Dr. Matson regarding non-ST elevation ND Continue statin Sepsis Assessment - Evaluation Sepsis screening result: No Definite Risk Hospital Course Summary Disclaimer: The visit summary below is not to be considered part of the above Progress Note. Hospital Course: 09/30 Will add Plavix to the patient's aspirin. Increase Lipitor to 80 mg. Await lipid panel. Discussed with Dr. Galvez and he recommends CTA head and neck. Echocardiogram and carotid Dopplers have been ordered. Continue Norvasc, add sotalol. Hold losartan and hydrochlorothiazide for now to allow some mild permissive hypertension and since we are giving IV contrast. Repeat lab tomorrow Every 4 hours neuro checks Every 4 hours vital signs Change to full admission secondary to acute stroke and need for continued monitoring and workup. Hold anastrozole for now since it can increase risk of stroke and discussed with Dr. Arrieta. Greater than 1 hour of time spent seeing and evaluating the patient today. 10/01 She did have A-fib overnight, however has now converted to NSR. Carotid doppler and ECHO completed and pending cardiology read. Consult placed for further cardiac evalaution. All symptoms of CVA have resolved. Continues on ASA, Plavix and Lovenox Continue to monitor blood pressure 150s systolic this morning. Continue on Sotolol and Norvasc Continue with Lipitor Discuss further orders and plan of care with attending, Dr Lopez. 10/01/2016-Dr. Lopez Impression Acute ischemic CVA of the right occipital lobe and left cerebellum-her only symptoms were numbness on the left side of the body which have resolved completely A. fib with RVR, now with a controlled rate and what looks like intermittent A. fib (uncertain if the patient has had A. fib in the past-she is chronically on sotalol) Elevated troponin with ST T-wave abnormality on EKG last night. Mild Hypokalemia Hyperlipidemia History of hypertension History of breast cancer on anastrozole which is on hold Plan Continue on telemetry. We'll discuss optimal anticoagulation versus antiplatelets with neurology. Will hold Lovenox, Plavix and aspirin at this time. Discuss anastrozole with Dr. Arrieta tomorrow. Replace potassium orally and check magnesium level. Continue SCDs for DVT prophylaxis. Dr. Matson has been consulted regarding A. fib with RVR and elevated troponin. Continue statin
--- NOTE | 2016-10-02 16:14 | Echocardiogram ---
DATE OF PROCEDURE September 30, 2016 This is a two-dimensional echo with spectral Doppler, color-flow and M-mode. It was obtained in a patient with CVA. Left atrial dimension is normal. Left ventricular end-diastolic dimension is normal. Left ventricular wall thickness is normal. LV systolic function is normal with ejection fraction of 60%. Right atrium is normal. Right ventricle is normal. Aortic root dimension is normal. Mitral valve annulus is calcified. Mitral valve leaflets are normal with mild mitral regurgitation. Aortic valve is a trileaflet structure with fibrocalcific changes with no stenosis. Mloa-xs-[id number] aortic insufficiency is present. Tricuspid valve shows mild tricuspid regurgitation with mild pulmonary hypertension with estimated pulmonary artery systolic pressure of 38. Pulmonary valve shows mild pulmonary insufficiency. There is no pericardial effusion. Grossly, there is no intracardiac thrombus or mass. IMPRESSION 1. Normal LV systolic function with ejection fraction of 60%. 2. Grossly, no intracardiac thrombus or mass. 3. Mitral annulus calcification with mild mitral regurgitation. 4. Aortic sclerosis with [id number] aortic insufficiency. 5. Mild tricuspid regurgitation with mild pulmonary hypertension with estimated pulmonary artery systolic pressure of 38. 6. Mild pulmonary insufficiency. MTDD
[2016-10-02] MEDS ORDERED: HEPARIN 1,000 UNITS/500 ML PREMIX (*CVL ONLY*) IV ONE (17:09)
[2016-10-02] MEDS ORDERED: LIDOCAINE 1% (10mg/ml) 30ml SDV INJ ONE (17:09)
[2016-10-02] MEDS ORDERED: NITROGLYCERIN 50MG INJECTION IV ONE (17:13)
[2016-10-02] MEDS ORDERED: HEPARIN 1,000unit/ml INJECTION 10ml ONE (17:13)
[2016-10-02] MEDS ORDERED: FentaNYL 100 MCG/2 ML INJECTION ONE (17:13)
[2016-10-02] MEDS ORDERED: MIDAZOLAM 2mg/2ml INJECTION ONE (17:13)
[2016-10-02] MEDS ORDERED: Verapamil 5 MG/2 ML VIAL ONE (17:13)
[2016-10-02] MEDS ORDERED: PROMETHAZINE 25 MG INJECTION IVP PRN (17:52)
[2016-10-02] MEDS ORDERED: NITROGLYCERIN 0.4 MG SUBLINGUAL TABLET SL PRN (17:52)
[2016-10-02] MEDS ORDERED: ATROPINE 1 MG/ML INJECTION IVP PRN (17:52)
[2016-10-02] MEDS ORDERED: MORPHINE SULFATE 4mg INJECTION IVP PRN ×2 (17:52)
[2016-10-02] MEDS ORDERED: METOCLOPRAMIDE 10mg/2ml INJECTION IVP PRN (17:52)
[2016-10-02] MEDS ORDERED: BISACODYL 10 MG SUPPOSITORY RECTALLY PRN (17:52)
[2016-10-02] MEDS ORDERED: MAG-AL + SIM ORAL LIQUID 30ml PO PRN (17:52)
[2016-10-02] MEDS ORDERED: ONDANSETRON 4 MG/2 ML INJECTION IVP PRN (17:52)
[2016-10-02] MEDS ORDERED: Bisacodyl EC TAB 5 MG TABLET PO PRN (17:52)
[2016-10-02] MEDS ORDERED: LORazepam 0.5 MG TABLET PO PRN (17:52)
[2016-10-02] MEDS ORDERED: ACETAMINOPHEN 325 MG TABLET PO PRN (17:52)
[2016-10-02] MEDS ORDERED: HYDROCODONE/APAP 5mg/325mg TABLET PO PRN (17:52)
--- NOTE | 2016-10-02 18:13 | Discharge Instructions ---
<Norma Ann - Last Filed: 10/02/16 18:05> Discharge Plan - Med Rec/Dispo Referrals/Follow Up: Rodolfo Matson MD [Physician] - [facility] Instructions: [facility] Heart Cath Trans Rad, Transient Ischemic Attack (GEN) Prescriptions: New Aspirin *EC* [Ecotrin] 81 mg PO DAILY tablet Enoxaparin Sodium [Lovenox] 80 mg SQ BID syringe Continue Aspirin 1 tab PO DAILY #0 tab Potassium Chloride ER Tab [K-Dur] 1 tab PO DAILY #0 Amlodipine Besylate [Norvasc] 5 mg PO DAILY #0 tab Losartan/Hctz 100/25 [Hyzaar 100/25] 1 tab PO DAILY Calcium Carbonate/Vitamin D3 [Oystercal-D 500 mg-400 Unit Tb] 1 tab PO DAILY #0 Pravastatin Sodium 10 mg PO HS #0 tab Sotalol HCl [Sotalol] 40 mg PO ACBID #0 tab Anastrozole 1 mg PO AM - Disposition 02 To [facility] Acute Care <Rodolfo Matson - Last Filed: 10/04/16 11:59> Discharge Plan - Med Rec/Dispo - Attestation Attestation Narrative: 10/04/16 11:59 Recommendation After examining the patient I agree with the above assessment. I am involved in the formulation of the patient's plan of care.
[2016-10-02 19:30] VITALS: BP 193/81; PULSE 109; RESP 17; O2SAT 95
--- NOTE | 2016-10-03 07:34 | Cardiac Catheterization Report ---
DATE OF PROCEDURE October 02, 2016 HISTORY Patient is a pleasant 80-year-old lady with [id number] myocardial infarction and ST-T changes and was referred for further evaluation by cardiac catheterization and possible intervention. Informed consent was obtained after explaining the procedure and the potential risks to the patient who agreed to proceed with the procedure. PROCEDURE 1. Left heart catheterization. 2. Coronary angiography. 3. Left ventriculography. TECHNIQUE The patient was prepped and draped in the usual sterile techniques. Conscious sedation was performed using Versed and fentanyl. 1% lidocaine was used for local anesthesia. Using modified Seldinger technique, arterial access was obtained into the right radial artery with placement of a 6-[place] arterial sheath. LEFT VENTRICULOGRAPHY Left ventriculography in single-plane HARDING shallow projection showed normal LV systolic function with ejection fraction of about 70% with no mitral regurgitation or gradient across the aortic valve. LVEDP was about 16. CORONARY ANGIOGRAPHY Left main had distal 60-70% stenosis. LAD was a medium caliber vessel which was diffusely irregular with no hemodynamically significant lesions. Left circumflex artery was small with no significant lesions. Right coronary artery was dominant with subtotal occlusion in mid segment with thrombus. The patient tolerated the procedure well with no complications. IMPRESSION 1. Multivessel coronary artery disease including left main. 2. Normal LV systolic function with ejection fraction of 70%. PLAN Will transfer and consult surgery for possible surgical revascularization of his coronary artery disease. TEJA
[2016-10-03] MEDS ORDERED: ASPIRIN *EC* 81 MG TABLET PO SCH (09:00)
--- NOTE | 2016-12-19 11:46 | Discharge Summary ---
Discharge Information Date of admission: 09/30/16 15:54 Attending Physician: Nga Lopez MD Primary care physician: Deepak Duarte MD Consults: 10/01/16 08:15 Physician Consult [CONS] Routine Consulting Provider: Rodolfo Matson Reason For Exam: A-fib Ordering Provider has Notified Teaching Fellow: Yes Comment: called Nissa - Discharge Diagnosis (1) HTN (hypertension) Status: Chronic (2) Dyslipidemia Status: Chronic (3) PAD (peripheral artery disease) Status: Chronic (4) NSTEMI (non-ST elevated myocardial infarction) Status: Acute (5) CVA (cerebral vascular accident) Status: Acute - Procedures Procedures: Heart catheterization with Dr. Matson DATE OF PROCEDURE October 02, 2016 HISTORY Patient is a pleasant 80-year-old lady with [id number] myocardial infarction and ST-T changes and was referred for further evaluation by cardiac catheterization and possible intervention. Informed consent was obtained after explaining the procedure and the potential risks to the patient who agreed to proceed with the procedure. PROCEDURE 1. Left heart catheterization. 2. Coronary angiography. 3. Left ventriculography. TECHNIQUE The patient was prepped and draped in the usual sterile techniques. Conscious sedation was performed using Versed and fentanyl. 1% lidocaine was used for local anesthesia. Using modified Seldinger technique, arterial access was obtained into the right radial artery with placement of a 6-Bangladeshi arterial sheath. LEFT VENTRICULOGRAPHY Left ventriculography in single-plane HARDING shallow projection showed normal LV systolic function with ejection fraction of about 70% with no mitral regurgitation or gradient across the aortic valve. LVEDP was about 16. CORONARY ANGIOGRAPHY Left main had distal 60-70% stenosis. LAD was a medium caliber vessel which was diffusely irregular with no hemodynamically significant lesions. Left circumflex artery was small with no significant lesions. Right coronary artery was dominant with subtotal occlusion in mid segment with thrombus. The patient tolerated the procedure well with no complications. IMPRESSION 1. Multivessel coronary artery disease including left main. 2. Normal LV systolic function with ejection fraction of 70%. PLAN Will transfer and consult surgery for possible surgical revascularization of his coronary artery disease. - Laboratory Labs: 10/02/16 03:54 10/02/16 03:54 Troponin max was 1.6 on 10/01/2016 and trended down to 0.9 on 10/02/2016 Lipid panel showed triglycerides 43, cholesterol total 111, LDL 60.4, VLDL 8.6, HDL 42, cholesterol/HDL ratio 2.6 TSH normal at 1.78 Liver enzymes essentially normal - Radiology Radiology: Chest x-ray on 09/29/2016 showed no acute cardiopulmonary disease CT head Type of Exam(s): CT head/brain wo con Reason for Exam(s): unilateral weakness Indication: unilateral weakness PROCEDURE: CT head/brain wo con: Encounter: Initial Comparison: Brain MRI dated September 30, 2016 Technique: Axial CT images through the head were performed without contrast. Iterative Reconstruction dose reducing technique was utilized. FINDINGS: Mild atrophy. The ventricles are of normal size, shape, and contour for the patient's age. There are scattered areas of low attenuation in the white matter which most likely represent changes from chronic microvascular ischemia. The brainstem, cerebellum, and cerebral hemispheres otherwise have a normal morphology and CT attenuation. There is no evidence of midline displacement. No hemorrhage, signs of acute territorial stroke, mass effect, mass lesions, or edema is evident. The visualized portions of the skull base, midface, and calvarium demonstrate no abnormality. Chronic appearing opacification of the right sphenoid sinus. The tympanic and mastoid cavities appear normal. IMPRESSION: No acute intracranial abnormality or hemorrhage. Carotid Doppler showed 50-60% stenosis in both proximal ICAs by velocity criteria although the ICA to CCA ratios would suggest a lesser degree of stenosis Echocardiogram DATE OF PROCEDURE September 30, 2016 This is a two-dimensional echo with spectral Doppler, color-flow and M-mode. It was obtained in a patient with CVA. Left atrial dimension is normal. Left ventricular end-diastolic dimension is normal. Left ventricular wall thickness is normal. LV systolic function is normal with ejection fraction of 60%. Right atrium is normal. Right ventricle is normal. Aortic root dimension is normal. Mitral valve annulus is calcified. Mitral valve leaflets are normal with mild mitral regurgitation. Aortic valve is a trileaflet structure with fibrocalcific changes with no stenosis. Nbsu-gd-vuzluisx aortic insufficiency is present. Tricuspid valve shows mild tricuspid regurgitation with mild pulmonary hypertension with estimated pulmonary artery systolic pressure of 38. Pulmonary valve shows mild pulmonary insufficiency. There is no pericardial effusion. Grossly, there is no intracardiac thrombus or mass. IMPRESSION 1. Normal LV systolic function with ejection fraction of 60%. 2. Grossly, no intracardiac thrombus or mass. 3. Mitral annulus calcification with mild mitral regurgitation. 4. Aortic sclerosis with rinz-qs-[id number] aortic insufficiency. 5. Mild tricuspid regurgitation with mild pulmonary hypertension with estimated pulmonary artery systolic pressure of 38. 6. Mild pulmonary insufficiency. MRI brain PROCEDURE: MR head/brain wo/w con: Encounter: Initial Comparisons: Head CT dated September 29, 2016 Technique: Multiplanar, multisequence, MR imaging of the head with and without contrast was acquired. Contrast: 7.5 mL of Gadavist FINDINGS: Acute diffusion restriction seen in the left cerebellum with a small focus in the medial anterior right occipital lobe. These areas have expected T2/FLAIR hyperintensity. Mild atrophy. The ventricles are of normal size, shape, and contour for the patient's age. There are small nonspecific punctate areas of T2-weighted and T2 FLAIR weighted signal abnormality in the deep frontoparietal white matter that most likely represent small vessel ischemic disease. This is of a degree that is considered to be normal for the patient's age. The brain stem, cerebellum, and cerebral hemispheres otherwise have a normal morphologic appearance as well as MR signal intensity on all pulse sequences. Following intravenous administration of contrast, no areas of abnormal enhancement are evident. There is no evidence of an intracranial mass lesion, intracranial hemorrhage, or hydrocephalus. The visualized portions of the orbits, calvarium, paranasal sinuses, and skull base demonstrate no significant abnormality. IMPRESSION: Acute posterior circulation infarcts involving the right occipital lobe and left cerebellum. CTA head and neck Type of Exam(s): CT angio head Reason for Exam(s): acute ischemic cva posterior circulation Indication: acute ischemic cva posterior circulation PROCEDURE: CT angio head and neck: Encounter: Initial Comparison: Brain MRI dated September 30, 2016 Technique: CT Head: Axial images were obtained through the head without and with intravenous contrast. CTA: Angiographic phase axial images were acquired from the aortic arch through the entire head following intravenous contrast administration. Multiplanar 2-D reconstructions and maximum intensity projection images were produced for additional assessment. 3-D volume rendered images of the [place] of [place] were also produced by the technologist. Automated Exposure Control and Iterative Reconstruction dose reducing techniques were utilized. Contrast: Omnipaque 300 74mL Findings: CT head without and with contrast: Left cerebellar infarct seen on MRIs faintly visible by CT. The ventricles are of normal size, shape, and contour for the patient's age. The brainstem, cerebellum, and cerebral hemispheres otherwise have a normal morphology and CT attenuation. No hemorrhage, mass effect, mass lesions, or edema is evident. No areas of abnormal enhancement are seen. The visualized portions of the skull base and calvarium demonstrate no acute abnormality. CTA head with intravenous contrast: The distal cervical, petrous, cavernous, and supraclinoid segments of the internal carotid arteries are widely patent without significant stenosis or other vascular abnormalities. The anterior, middle, and posterior cerebral arteries are also widely patent without significant stenosis or occlusion. No aneurysms, vascular malformations, flow-limiting stenoses, or other arterial abnormality are evident. The visualized portion of the dural sinuses and cortical veins are also well seen and show no definite stenosis or occlusion. origin of the left PHOTOLITHOGRAPHIC STRIPPER, normal anatomic variant. 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 Prior bilateral carotid endarterectomies. No significant focal plaque formation or luminal narrowing identified. Scattered tiny areas of peripheral calcified plaque. The aortic arch, brachiocephalic artery, right subclavian artery, bilateral common carotid arteries, bilateral vertebral arteries, and bilateral internal carotid arteries are widely patent without significant stenosis or other vascular abnormality. The carotid bifurcations are widely patent without significant stenosis or occlusion. 1. CT head: Subtle left cerebellar infarct better seen on MRI. No acute intracranial hemorrhage. 2. CTA head: No aneurysms, vascular malformations, or flow limiting stenoses. 3. CTA neck: No flow limiting stenosis of the carotids. No hemodynamically significant carotid stenosis by NASCET criteria. 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 There is a preliminary report by [employer]. . History of Present Illness HPI: Please note that the patient was seen with nursing assistance via telemedicine on 09/29/2016 Mrs. Machado is an 80yo woman with h/o HTN, bilateral CEAs for PAD, and cataract surgeries who denies previous CAD, CVA or DM2. She denies arrhythmias as well despite being on sotalol, and her daughter and are at the bedside and confirm. The patient denies constitutional complaints or recent medication changes prior to 09/29 onset of L hand/arm numbness and weakness which improved in 20min only to have recurrence 1929 which was worse with leg involved along with face as well. ED presentation 2100 and please see that documentation. All agree that she is now normalized with no other headache with SBP over 200 on arrival. R handed with NIH stroke scale by nursing to be done, but seems better. NO fevers, chills, nausea, pain, other. Objective Vital signs: Temperature 98.1 F 10/02/16 15:44 Pulse Rate 109 H 10/02/16 18:30 Respiratory Rate 17 10/02/16 18:30 Blood Pressure 193/81 H 10/02/16 18:30 Pulse Oximetry 95 10/02/16 18:30 Rhythm: Normal Sinus Rhythm Height/Weight/BMI: Weight 75.8 kg Hospital Course This is a general summary of the patient's hospital course. For more details refer to the complete medical record. Hospital course: 09/30 Will add Plavix to the patient's aspirin. Increase Lipitor to 80 mg. Await lipid panel. Discussed with Dr. Galvez and he recommends CTA head and neck. Echocardiogram and carotid Dopplers have been ordered. Continue Norvasc, add sotalol. Hold losartan and hydrochlorothiazide for now to allow some mild permissive hypertension and since we are giving IV contrast. Repeat lab tomorrow Every 4 hours neuro checks Every 4 hours vital signs Change to full admission secondary to acute stroke and need for continued monitoring and workup. Hold anastrozole for now since it can increase risk of stroke and discussed with Dr. Arrieta. Greater than 1 hour of time spent seeing and evaluating the patient today. 10/01 She did have A-fib overnight, however has now converted to NSR. Carotid doppler and ECHO completed and pending cardiology read. Consult placed for further cardiac evalaution. All symptoms of CVA have resolved. Continues on ASA, Plavix and Lovenox Continue to monitor blood pressure 150s systolic this morning. Continue on Sotolol and Norvasc Continue with Lipitor Discuss further orders and plan of care with attending, Dr Lopez. 10/01/2016-Dr. Lopez Impression Acute ischemic CVA of the right occipital lobe and left cerebellum-her only symptoms were numbness on the left side of the body which have resolved completely A. fib with RVR, now with a controlled rate and what looks like intermittent A. fib (uncertain if the patient has had A. fib in the past-she is chronically on sotalol) Elevated troponin with ST T-wave abnormality on EKG last night. Mild Hypokalemia Hyperlipidemia History of hypertension History of breast cancer on anastrozole which is on hold Plan Continue on telemetry. We'll discuss optimal anticoagulation versus antiplatelets with neurology. Will hold Lovenox, Plavix and aspirin at this time. Discuss anastrozole with Dr. Arrieta tomorrow. Replace potassium orally and check magnesium level. Continue SCDs for DVT prophylaxis. Dr. Matson has been consulted regarding A. fib with RVR and elevated troponin. Continue statin 10/02/2016 Impression Non-ST elevation VA -asymptomatic, troponin is trending down this morning 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 fib with RVR, Mild Hypokalemia Hyperlipidemia Hypertension-the patient is on amlodipine. Losartan hydrochlorothiazide is currently on hold. History of breast cancer on anastrozole which is on hold Plan Continue on telemetry. After discussion yesterday with family and consultants, the decision was made to continue Lovenox for non-ST elevation VA and A. fib. The patient did have small strokes on admission and has a slight risk of hemorrhagic conversion with Lovenox. Fortunately the patient continues to be asymptomatic from a neurologic standpoint. Without full anticoagulation, the patient also is at risk for worsening of non-ST elevation VA and at risk for recurrent ischemic strokes. Discuss anastrozole with Dr. Arrieta . Replace potassium orally, and recheck level tomorrow. Possible heart catheter today with Dr. Matson regarding non-ST elevation VA Continue statin Addendum The patient went for heart catheterization later in the day with significant atherosclerosis as noted above under heart catheter report. Dr. Matson did recommend transfer to [facility] for surgical evaluation for possible bypass. The patient was transferred later that day. Discharge Plan - Med Rec/Dispo Referrals/Follow Up: Rodolfo Matson MD [Physician] - [place] Instructions: [facility] [place] Heart Cath Trans Rad, Transient Ischemic Attack (GEN) Prescriptions: No Action Calcium Carbonate/Vitamin D2 [Oyster Shell Calcium-Vit D Tab] 1 tab PO NOON Aspirin [Adult Low Dose Aspirin EC] 81 mg PO DAILY Nitroglycerin 0.4 mg SL [id number] PRN PRN Reason: Chest Pain Anastrozole [Arimidex] 1 mg PO DAILY tablet DiltiaZEM CD [Cardizem Cd] 240 mg PO DAILY #30 cap Mirtazapine [Remeron] 15 mg PO HS #30 tab Bumetanide Tab [Bumex Tab] 2 mg PO DAILY #60 tab Magnesium Oxide [Magox] 400 mg PO HS #30 tab Atorvastatin [Lipitor] 20 mg PO HS Rivaroxaban [Xarelto] 20 mg PO NOON Ascorbic Acid [Vitamin C] 500 mg PO WL tablet Ferrous Sulfate [Feosol] 325 mg PO WL Metoprolol Tartrate [Lopressor] 100 mg PO BID #60 tab Potassium Chloride [K-Dur] 20 meq PO NOON - Disposition 02 To [facility] Acute Care
== END 2016-10-02 18:45 | disposition short-term general hospital (02) | DRG 64 ==
LOC: ED 20:48 → MED 20:48 → SRG 10-02 17:40
PROVIDERS: ADMIT Internal Medicine; ATTEND Internal Medicine

== ENCOUNTER 2016-10-24 09:31 | Inpatient (IN) ==
[2016-10-24] MEDS ORDERED: DiltiaZEM 25 MG/5 ML INJECTION IVP ONE ×2 (09:54→10:55)
[2016-10-24] MEDS ORDERED: DiltiaZEM Drip 125 MG in NS 100 ML IV SCH ×2 (10:00→10:31)
--- NOTE | 2016-10-24 10:01 | Emergency Department Report ---
General Adult HPI - General Chief complaint: Shortness of Breath/Dyspnea Stated complaint: unk Time Seen by Provider: 10/24/16 09:41 Source: patient, family Mode of arrival: EMS Limitations: no limitations - History of Present Illness HPI narrative: 81-year-old female presents to the emergency department with a chief complaint of feeling off. Patient notes that she is feeling short of breath and lightheadedness which is how she describes her symptoms. Patient denies any pain or discomfort. Patient noted onset of symptoms earlier today prior to arrival to the emergency department. Patient denies any other complaints or associated symptoms. Patient does note that she had CABG [address] Jayro Lindquist in via [facility] 2 weeks ago. Patient is anticoagulated on Xarelto. She was at home when her symptoms began. Symptoms have been persistent in nature since onset. She does not note any exacerbating or remitting factors. - Related Data Home Medications Medication Instructions Recorded Confirmed Potassium Chloride ER Tab [K-Dur] 20 meq PO NOON #0 08/20/14 10/24/16 Anastrozole 1 mg PO DAILY 09/29/16 10/24/16 Aspirin [Adult Low Dose Aspirin EC] 81 mg PO DAILY 10/24/16 10/24/16 Atorvastatin [Lipitor] 20 mg PO HS 10/24/16 10/24/16 Calcium Carbonate/Vitamin D2 1 tab PO NOON 10/24/16 10/24/16 [Oyster Shell Calcium-Vit D Tab] Digoxin 125 mcg PO DAILY 10/24/16 10/24/16 Furosemide [Lasix] 20 mg PO DAILY 10/24/16 10/24/16 Losartan [Cozaar] 50 mg PO DAILY 10/24/16 10/24/16 Metoprolol Tartrate [Lopressor] 100 mg PO BID 10/24/16 10/24/16 Nitroglycerin 0.4 mg SL Q5MIN3 PRN 10/24/16 10/24/16 Rivaroxaban [Xarelto] 20 mg PO NOON 10/24/16 10/24/16 Allergies Allergy/AdvReac Type Severity Reaction Status Date / Time lisinopril Allergy Unknown Verified 10/24/16 10:17 Penicillins Allergy Unknown Verified 10/24/16 10:17 Review of Systems Constitutional: Denies: fever, chills Eyes: Denies: eye pain, vision change ENT: Denies: ear pain, throat pain Cardiovascular: Reports: palpitations. Denies: chest pain, dyspnea on exertion Respiratory: Reports: dyspnea. Denies: cough Gastrointestinal: Denies: abdominal pain, nausea Genitourinary: Denies: urgency, dysuria Musculoskeletal: Denies: back pain, arthralgia Integumentary: Denies: erythema, rash Neurological: Denies: headache, numbness Psychiatric: Denies: anxiety, depression Endocrine: Denies: fatigue, heat or cold intolerance Hematological/Lymphatic: Denies: easy bleeding, easy bruising Allergic/Immunologic: Denies: facial swelling, urticaria PFSH Patient Stated Medical History Cerebrovascular Accident Yes: 09/29/16 Cataracts Yes Hearing Loss Yes Coronary Artery Disease Yes Hypertension Yes Hx Renal Disease No Medical History Updates: Hypertension, Afib, CAD, Surgical History: cataracts and 2016 bilateral CEAs, CABG Family History: Reviewed and Non-contributory. - Social History Smoking status: Former smoker Substance use type: does not use Alcohol intake frequency: does not drink Physical Exam - Limitations Limitations: no limitations - General General appearance: alert, in no apparent distress - Normal Exams: Head:: Normocephalic without trauma Eyes:: Pupils are PERRLA w/ EOMI, No scleral icterus, irritation, or foreign bodies noted ENMT:: No facial trauma, nasal exudates, pharyngeal erythema, or exudates are noted Dental: No fractured, loose, or missing teeth noted Neck:: Full range of motion, without adenopathy, JVD, bruits or thyromegaly Chest/Respirations:: Clear all santana, with good airflow, and symmetry bilaterally Cardiovascular:: without murmur or gallop, Pulses 2+ all extremities, capillary refill, <2 seconds all extremities (Irregularly Irregular) Abdomen:: Bowel sounds positive, soft, non-tender, non-distended, no hepatosplenomegaly, masses or bruits noted Lymphatic:: No lymphadenopathy, or lymphedema noted Musculoskeletal:: No tenderness, or deformity noted, good range of motion, all extremities (1+ BLE Edema.) Integumentary:: No rashes, hives, or bruising noted, hair and nails, without abnormality Neurological:: Patient is alert, and oriented, cranial nerves, motor/sensory/ cerebellar, exams w/o gross deficits, to observation Psychiatric:: Patient exhibits, appropriate attention, emotion and affect Course Vital Signs Temperature 98.1 F 10/24/16 09:31 Pulse Rate 144 H 10/24/16 09:31 Respiratory Rate 22 10/24/16 09:31 Blood Pressure 176/85 H 10/24/16 09:31 Pulse Oximetry 99 10/24/16 09:31 Temperature 98.1 F 10/24/16 09:31 Pulse Rate 134 H 10/24/16 12:15 Respiratory Rate 46 H 10/24/16 12:15 Blood Pressure 186/81 H 10/24/16 12:15 Pulse Oximetry 95 10/24/16 12:15 Medical Decision Making - MDM Narrative Medical decision making narrative: Labs / imaging were discussed in detail with the patient and family and questions are answered. Patient is given 500 mL normal saline bolus times one. Patient is started on a Cardizem drip and titrated to effect after receiving a 10 mg bolus of Cardizem in the emergency Department. Patient is anticoagulated on Xarelto. Patient is discussed with her job putter up and ticket preparer Dr. Matson who agrees to accept the patient to his service. Patient was started on Doxycycline in the ED at 1049 when the CXR was reviewed and the pleural effusion was noted and we are unable to rule out infiltrate in the LLL of the lung. 60 minutes of critical care time was assessed to the patient as the patient was maintained on a Cardizem drip in the emergency department. Patient required repeated assessment at bedside, had potential for decompensation, and required complex medical decision-making. Patient is admitted to the ICU in improved condition to cardiology. No further orders from cardiology who is in agreement with the current plan of management. EKG was reviewed by Cardiology who is in agreement with the current plan of management and will keep the patient at [facility] at this time. Patient is admitted to the hospital in improved condition. Patient and family are in agreement with the current plan of management. - Differential Diagnosis afib with rvr, metabolic disorder, pleural effusion, chf - Lab Data Result diagrams: 10/24/16 10:40 10/24/16 10:40 Lab Results 10/24/16 10/24/16 10/24/16 Range/Units 10:40 10:40 11:09 WBC 15.9 H (4.5-11.0) T/MM3 RBC 3.18 L (4.00-5.20) M/MM3 Hgb 9.6 L (12-16) GM/DL Hct 30.7 L (36-46) % MCV 96.5 (80-100) UM3 MCH 30.2 (26-34) UUG MCHC 31.3 (31-37) GM/DL RDW Std Deviation 48.6 (36.9-50.2) FL Plt Count 379 D (130-400) T/MM3 MPV 9.3 L (9.4-12.4) UM3 Immature Gran % (Auto) Not performed Neut % (Auto) Not performed Lymph % (Auto) Not performed [place] % (Auto) Not performed Eos % (Auto) Not performed Baso % (Auto) Not performed Neut # Not performed Lymph # Not performed [place] # Not performed Eos # Not performed Baso # Not performed Abs Immat Gran (auto) Not performed Neutrophils % (Manual) 83.0 H (33-66) % Band Neutrophils % 4.0 (0-6) % Lymphocytes % (Manual) 11.0 L (23-45) % Monocytes % (Manual) 2.0 (0-9.0) % Neutrophils # (Manual) 13.2 H (1.8-7.7) T/MM3 Band Neutrophils # 0.6 T/MM3 Lymphocytes # (Manual) 1.7 (1-4.8) T/MM3 Monocytes # (Manual) 0.3 (0-0.8) T/MM3 RBC Morph Comment Normal Turbidity < 20 (0-20) Sodium 139 (134-144) MEQ/L Potassium 4.3 (3.6-5) MEQ/L Chloride 102 (98-107) MEQ/L Carbon Dioxide 28 (22-30) MEQ/L Anion Gap 9 (5-15) MEQ/L BUN 40.0 H (7-17) MG/DL Creatinine 0.6 L (0.7-1.2) MG/DL GFR Calculation 96 BUN/Creatinine Ratio 67 H (6-26) RATIO Glucose 113 H (65-110) MG/DL Calculated Osmolality 279 (261-280) MOSM/KG Calcium 9.1 (8.4-10.2) MG/DL Total Bilirubin 0.60 (0.20-1.30) MG/DL Icterus Index < 2 (0-7) AST 21 (14-36) U/L ALT 42 (9-52) U/L Alkaline Phosphatase 97 (38-126) U/L Troponin I 0.037 (0-0.12) ng/ml Total Protein 6.1 L (6.3-8.2) G/DL Albumin 3.5 (3.5-5.0) G/DL Globulin 2.6 (2.4-3.6) G/DL Albumin/Globulin Ratio 1.3 (1.1-2.2) RATIO Plasma Lactate 1.2 (0.6-2.2) MMOL/L Specimen Hemolysis 28 H (0-25) Digoxin 0.7 L (0.8-2.0) NG/ML - Radiology Data CXR: Moderate left-sided pleural effusion. Otherwise no acute processes. - EKG Data EKG #1 EKG results narrative: Atrial fibrillation with rapid ventricular response. 127 bpm. No STEMI. Critical Care Time Critical Care Time: Yes Total Critical Care Time: 60 Attestation: 60 minutes of critical care time was assessed to the patient due to the complex medical decision-making, repeated assessment at bedside and potential for decompensation. The critical care time was spent treating the patient, discussing the patient's labs and condition with family, making telephone calls related to patient care, and documenting the medical record. Disposition Clinical Impression: AFIB, Pleural effusion Disposition: 02 To [facility] Condition: Improved Time of Disposition: 11:00 - Seen By: physician
[2016-10-24] MEDS: SALINE FLUSH 10ml SYRINGE IVF PRN ×2 (10:02→11:02)
--- NOTE | 2016-10-24 10:10 | XRay Report ---
Indication: Afib XR chest 1V: Comparison: 09/29/2016 Technique: Single portable upright chest Findings: Since patient's previous study patient has undergone coronary artery bypass graft changes. Moderate size left-sided pleural effusion and either infiltrate or atelectasis suspected in the left base with obliteration of the diaphragm. Heart size and central vascularity are unremarkable. Patient shows a series of stable granulomas. No new bony abnormality appreciated. Impression: 1. Since previous study postop changes of recent coronary artery bypass grafting with left-sided pleural effusion and either infiltrate or atelectasis with obliteration of the left diaphragm. 2. No suggestion of cardiac decompensation identified. 3. Stable granulomatous changes. .
[2016-10-24] MEDS ORDERED: DOXYCYCLINE 100 MG in NS 250ml 250 ML IV ONE (10:49)
[2016-10-24] MEDS ORDERED: NS 1,000 ML IV ONE (11:00)
[2016-10-24] MEDS ORDERED: --POM--FUROSEMIDE 20 MG TABLET PO SCH (12:56)
--- NOTE | 2016-10-24 14:19 | Cardiology History & Physical ---
History of Present Illness Chief complaint: SOA, lightheadedness HPI: Sayda is a 81-year-old female who is well known to Dr. Matson with a history of CAD with CABG X2 on 10/04/16, chronic AFib, ischemic stroke on 09/30/16, HTN, HLD, and anemia. She presented to the ED feeling short of breath and lightheaded. She reports being unable to lay flat due to breathing difficulty. She denies any pain or discomfort. She is anticoagulated on Xarelto. Her EKG revealed Atrial fibrillation, HR 127. She was given bolus of cardizem and drip began while in the ED and admitted to CCU for rate control. Review of Systems - Constitutional Constitutional: Present: weakness. Absent: chills, fever(s) - EENMT Eyes: Absent: change in vision Balance: Absent: vertigo Mouth/Throat: Absent: sore throat - Cardiovascular Cardiovascular: Present: chest pain, dyspnea on exertion, orthopnea. Absent: palpitations, syncope Vascular: Present: pedal edema - Respiratory Respiratory: Absent: cough - Gastrointestinal Gastrointestinal: Absent: diarrhea, nausea, vomiting - Genitourinary Genitourinary: Absent: dysuria - Neurological Neurological: Present: dizziness - Endocrine Endocrine: Absent: palpitations PFSH Patient Stated Medical History Cerebrovascular Accident Yes: 09/29/16 Cataracts Yes Hearing Loss Yes Cardiac Arrhythmia Yes: afib Coronary Artery Disease Yes Hypertension Yes Myocardial Infarction Yes Hx Renal Disease No Osteoarthritis Yes Medical History Updates: Hypertension, Afib, CAD, Surgical History: cataracts and 2016 bilateral CEAs, CABG - Social History Smoking status: Former smoker Substance use type: does not use Alcohol intake frequency: does not drink Household members: spouse Current occupational status: retired Current residence: Apartment/Private Home Medications Home Medications Medication Instructions Recorded Confirmed Type Potassium Chloride ER Tab [K-Dur] 20 meq PO NOON #0 08/20/14 10/24/16 History Anastrozole 1 mg PO DAILY 09/29/16 10/24/16 History Aspirin [Adult Low Dose Aspirin EC] 81 mg PO DAILY 10/24/16 10/24/16 History Atorvastatin [Lipitor] 20 mg PO HS 10/24/16 10/24/16 History Calcium Carbonate/Vitamin D2 1 tab PO NOON 10/24/16 10/24/16 History [Oyster Shell Calcium-Vit D Tab] Digoxin 125 mcg PO DAILY 10/24/16 10/24/16 History Furosemide [Lasix] 20 mg PO DAILY 10/24/16 10/24/16 History Losartan [Cozaar] 50 mg PO DAILY 10/24/16 10/24/16 History Metoprolol Tartrate [Lopressor] 100 mg PO BID 10/24/16 10/24/16 History Nitroglycerin 0.4 mg SL Q5MIN3 PRN 10/24/16 10/24/16 History Rivaroxaban [Xarelto] 20 mg PO NOON 10/24/16 10/24/16 History Allergies Allergy/AdvReac Type Severity Reaction Status Date / Time lisinopril Allergy Unknown Verified 10/24/16 10:17 Penicillins Allergy Unknown Verified 10/24/16 10:17 Exam Vital signs: Temperature 98.4 F 10/24/16 12:30 Pulse Rate 124 H 10/24/16 13:15 Respiratory Rate 24 10/24/16 13:15 Blood Pressure 196/93 H 10/24/16 13:15 Pulse Oximetry 100 10/24/16 13:15 - Constitutional no acute distress, cooperative - Routine HEENT Exam Head: Present: normocephalic - Routine Neck Exam Absent: JVD, carotid bruit - Routine Chest/Breast/Axilla Exam Chest wall: Absent: tenderness - Routine Respiratory Exam Present: decreased breath sounds (left), rales. Absent: CTA bilaterally, wheezes - Routine Cardiovascular Exam Present: irregularly irregular. Absent: JVD - Routine Abdominal Exam Present: soft, normoactive bowel sounds - Routine Extremities Exam Present: edema - Routine Skin Exam Present: intact, dry, warm - Routine Neurological Exam Present: alert, oriented X3 - Routine Psychiatric Exam Present: normal affect, normal thought process Results 10/26/16 04:24 10/26/16 04:24 Intake and Output 10/23/16 10/24/16 10/24/16 22:59 06:59 14:59 Intake Total 12.06 Balance 12.06 Intake: IV 12.06 Cardizem IV 125 mg In 12.06 Normal Saline 100 ml @ Per Protocol IV .Q0M [facility] Rx#:[id number] Other: Weight 164 lb 7.437 oz Patient Weight 10/25/16 06:59 Weight 164 lb 7.437 oz Laboratory Results - last 72 hr 10/24/16 10/24/16 10/24/16 10:40 10:40 11:09 WBC 15.9 H RBC 3.18 L Hgb 9.6 L Hct 30.7 L MCV 96.5 MCH 30.2 MCHC 31.3 RDW Std Deviation 48.6 Plt Count 379 D MPV 9.3 L Immature Gran % (Auto) Not performed Neut % (Auto) Not performed Lymph % (Auto) Not performed [place] % (Auto) Not performed Eos % (Auto) Not performed Baso % (Auto) Not performed Neut # Not performed Lymph # Not performed [place] # Not performed Eos # Not performed Baso # Not performed Abs Immat Gran (auto) Not performed Neutrophils % (Manual) 83.0 H Band Neutrophils % 4.0 Lymphocytes % (Manual) 11.0 L Monocytes % (Manual) 2.0 Neutrophils # (Manual) 13.2 H Band Neutrophils # 0.6 Lymphocytes # (Manual) 1.7 Monocytes # (Manual) 0.3 RBC Morph Comment Normal Turbidity < 20 Sodium 139 Potassium 4.3 Chloride 102 Carbon Dioxide 28 Anion Gap 9 BUN 40.0 H Creatinine 0.6 L GFR Calculation 96 BUN/Creatinine Ratio 67 H Glucose 113 H Calculated Osmolality 279 Calcium 9.1 Total Bilirubin 0.60 Icterus Index < 2 AST 21 ALT 42 Alkaline Phosphatase 97 Troponin I 0.037 Total Protein 6.1 L Albumin 3.5 Globulin 2.6 Albumin/Globulin Ratio 1.3 Plasma Lactate 1.2 Specimen Hemolysis 28 H Digoxin 0.7 L - Imaging and Cardiology EKG results: image reviewed Imaging & Cardiology Narrative: Date of Exam: 10/24/16 Ordering Provider: Haim Vargas DO Type of Exam(s): XR chest 1V Reason for Exam(s): Afib Indication: Afib XR chest 1V: Comparison: 09/29/2016 Technique: Single portable upright chest Findings: Since patient's previous study patient has undergone coronary artery bypass graft changes. Moderate size left-sided pleural effusion and either infiltrate or atelectasis suspected in the left base with obliteration of the diaphragm. Heart size and central vascularity are unremarkable. Patient shows a series of stable granulomas. No new bony abnormality appreciated. Impression: 1. Since previous study postop changes of recent coronary artery bypass grafting with left-sided pleural effusion and either infiltrate or atelectasis with obliteration of the left diaphragm. 2. No suggestion of cardiac decompensation identified. 3. Stable granulomatous changes. 10/24/16 14:41 EKG interpretations - EKG EKG shows: atrial fibrillation - Blocks, axis, hypertrophy, ST abn Repolarization changes or abnormalities: nonspecific abnormality, ST segment, and/or T wave Hospital Course This is a general summary of the patient's hospital course. For more details refer to the complete medical record. Assessment and Plan (1) Atrial fibrillation Current visit: No Status: Chronic Chronic, poor rate control as Cardizem was discontinued during last hospitalization due to pauses. Plan to restart and watch cardiac telemetry. (2) Pleural effusion Current visit: Yes Status: Acute Appreciate Dr. Sarkar's help with thoracentesis. (3) Coronary artery disease Current visit: Yes Status: Chronic (4) S/P 2-vessel coronary artery bypass Current visit: Yes Status: Chronic (5) HTN (hypertension) Current visit: No Status: Chronic (6) Dyslipidemia Current visit: No Status: Chronic (7) PAD (peripheral artery disease) Current visit: No Status: Chronic - Attestation Attestation Narrative: 10/26/16 13:52 Recommendation After examining the patient I agree with the above assessment. I am involved in the formulation of the patient's plan of care. Sepsis Assessment - Evaluation Sepsis screening result: No Definite Risk
--- NOTE | 2016-10-24 17:01 | General Surgery Consult Note ---
Consult date: 10/24/16 Attending Physician: Rodolfo Matson MD Reason for consult: other (pleural effusion) [facility] Patient Stated Medical History Cerebrovascular Accident Yes: 09/29/16 Cataracts Yes Hearing Loss Yes Cardiac Arrhythmia Yes: afib Coronary Artery Disease Yes Hypertension Yes Myocardial Infarction Yes Hx Renal Disease No Osteoarthritis Yes Medical History Updates: Hypertension, Afib, CAD, stroke Surgical History: cataracts and 2016 bilateral CEAs, 2 vessel CABG 10-04-2016 Family History: non-contributory for reason of consult - Social History Smoking status: Former smoker Household members: spouse Current residence: Apartment/Private Home Medications Home Medications Medication Instructions Recorded Confirmed Type Potassium Chloride ER Tab [K-Dur] 20 meq PO NOON #0 08/20/14 10/24/16 History Anastrozole 1 mg PO DAILY 09/29/16 10/24/16 History Aspirin [Adult Low Dose Aspirin EC] 81 mg PO DAILY 10/24/16 10/24/16 History Atorvastatin [Lipitor] 20 mg PO HS 10/24/16 10/24/16 History Calcium Carbonate/Vitamin D2 1 tab PO NOON 10/24/16 10/24/16 History [Oyster Shell Calcium-Vit D Tab] Digoxin 125 mcg PO DAILY 10/24/16 10/24/16 History Furosemide [Lasix] 20 mg PO DAILY 10/24/16 10/24/16 History Losartan [Cozaar] 50 mg PO DAILY 10/24/16 10/24/16 History Metoprolol Tartrate [Lopressor] 100 mg PO BID 10/24/16 10/24/16 History Nitroglycerin 0.4 mg SL Q5MIN3 PRN 10/24/16 10/24/16 History Rivaroxaban [Xarelto] 20 mg PO NOON 10/24/16 10/24/16 History Allergies Allergy/AdvReac Type Severity Reaction Status Date / Time lisinopril Allergy Unknown Verified 10/24/16 10:17 Penicillins Allergy Unknown Verified 10/24/16 10:17 Review of Systems 10-point ROS: negative except for HPI and the following: (information gleaned from the family) - Eyes/Ears/Nose/Throat Ear Nose Throat: Present: hearing problems - Cardiovascular Cardiovascular: Present: chest pain (angina), irregular heart beat (a-fib), edema/swelling (legs) - Respiratory Respiratory: Present: difficulty breathing - Hematologic/Lymphatic Hematologic/Lymphatic: Present: easy bruising, use of blood thinners - Vital Signs Last Vital Signs Temp 98.4 F 10/24/16 15:35 Pulse 93 10/24/16 16:30 Resp 20 10/24/16 16:30 BP 159/77 H 10/24/16 16:30 Pulse Ox 100 10/24/16 16:30 - Laboratory Result Diagrams: 10/24/16 10:40 10/24/16 10:40 Hospital Course Summary Disclaimer: The visit summary below is not to be considered part of the above Progress Note. Sepsis Assessment - Evaluation Sepsis screening result: No Definite Risk
[2016-10-24] MEDS ORDERED: RIVAROXABAN 20 MG TABLET PO SCH (17:30)
[2016-10-24] MEDS ORDERED: --POM--RIVAROXABAN 20 MG TABLET PO SCH (17:30)
[2016-10-24] MEDS: LOSARTAN 50 MG TABLET PO SCH (17:41)
[2016-10-24] MEDS: ASPIRIN *EC* 81 MG TABLET PO SCH (17:42)
[2016-10-24] MEDS: DIGOXIN 125 MCG TABLET PO SCH (17:43)
[2016-10-24] MEDS: FUROSEMIDE 40 MG/4 ML INJECTION IVP SCH ×2 (17:50→21:34)
--- NOTE | 2016-10-24 20:50 | Consultation ---
DATE OF CONSULTATION 10/24/2016 FINDINGS Mrs. Machado is an 81-year-old female whom I was asked to see today for possible thoracentesis. The patient did undergo cardiac bypass grafting about three weeks ago at [facility]. Apparently she had originally presented to our facility as a result of suspicion of having a mini stroke. Further evaluation was undertaken and she did unremarkable go a heart catheterization that revealed severe atherosclerotic coronary artery disease. The patient, as stated above, had undergone coronary bypass grafting and was discharged to home. Ever since she has arrived at home the patient apparently has been sleeping in a recliner. She has been unable to lay flat for shortness of breath. Today the states that she had more difficulty with walking. She was requesting that she needed her "walker." Apparently also the states that the "patient didn't sleep very well last night" and did not seem to be her "normal self today." As a result of these circumstances they presented to the emergency room for further evaluation. The patient was resting quietly upon entering the ICU room this evening. PAST MEDICAL HISTORY, PAST SURGICAL HISTORY, MEDICATIONS, ALLERGIES, SOCIAL HISTORY, FAMILY HISTORY, REVIEW OF SYSTEMS Performed by my nurse practitioner, Jarrett Fernandez APRN. PHYSICAL EXAMINATION GENERAL: Mrs. Machado is an 81-year-old female who did appear fairly somnolent this evening. I was able to awaken the patient and she was conversant. She was without significant complaints this evening. VITAL SIGNS: Afebrile, slightly hypertensive. Current vitals include temperature 98.4, pulse 97, blood pressure 191/76, SAO2 100% on 2 L/nasal cannula, respiratory rate around 20. HEENT: Normocephalic. Pupils are equally round and react to light and accommodation. CHEST: Visualization of the chest reveals a healing sternotomy incision. Auscultation of the chest does reveal some diminished breath sounds on the left base compared to the right. A few rales are noted. ABDOMEN: Palpation of the abdomen reveals it to be soft and nontender. I do not appreciate any evidence for hepatosplenomegaly or other abnormal masses. EXTREMITIES: Without clubbing, cyanosis, or edema. NEURO: Cranial nerves II-XII grossly intact. Patient is without focal motor or sensory deficits. LABORATORY/RADIOGRAPHIC EVALUATION The patient had a CBC upon admission and her white count was elevated at 15.9. Hemoglobin slightly low at 9.6. CMP was obtained and her BUN was elevated at 40.0. Creatinine was elevated at 0.6. Radiographically, she did have a chest x-ray. I reviewed the chest x-ray personally as well as the dictated report. The patient has a [id number] left pleural effusion with some blunting of the costophrenic angle. Perhaps about half of the cardiac silhouette along the costophrenic angle is obliterated by atelectasis versus effusion. ASSESSMENT 81-year-old frail female with multiple associated medical comorbidities who recently had undergone coronary bypass grafting and is found to have small-to- moderate left pleural effusion. Patient does not appear to be in any respiratory distress at this time. PLAN I did discuss this case with Dr. Matson's nurse practitioner. I do feel that her pleural effusion is somewhat "borderline" and one could make an argument for perhaps proceeding with thoracentesis versus being conservative in nature and trying to see if the pleural effusion may improve with medical management/ diuresis. Given the fact she is anticoagulated, I would recommend that we be conservative initially and try to optimize the patient's medical management and diurese the patient. Will follow with serial chest x-rays. If pleural effusion would begin to increase in nature or if she develops increasing oxygen requirement, will proceed with thoracentesis at that time. TEJA
[2016-10-24] MEDS: ATORVASTATIN 20 MG TABLET PO SCH (21:36)
[2016-10-25] MEDS: SALINE FLUSH 10ml SYRINGE IVF PRN ×5 (04:37→22:20)
[2016-10-25] MEDS: DIGOXIN 125 MCG TABLET PO SCH (08:51)
[2016-10-25] MEDS: FUROSEMIDE 40 MG/4 ML INJECTION IVP SCH ×2 (08:51→22:20)
[2016-10-25] MEDS: ASPIRIN *EC* 81 MG TABLET PO SCH (08:51)
[2016-10-25] MEDS: LOSARTAN 50 MG TABLET PO SCH (08:52)
--- NOTE | 2016-10-25 10:00 | XRay Report ---
Indication: pleural effusion PROCEDURE: XR chest w decubitus: Encounter: Subsequent Comparison: Portable chest, 10/24/2016 Findings: Upright portable as well as left side down decubitus radiographs demonstrates a moderately large free-flowing left pleural effusion.. Some associated left basilar atelectasis. Calcified granuloma in the right mid lung. Median sternotomy. Monitor leads overlie the chest. Bony structures intact. Impression: Free-flowing left pleural effusion. .
--- NOTE | 2016-10-25 16:43 | Cardiology Progress Note ---
Subjective Principal diagnosis: AFib RVR <Norma Ann - 10/25/16 16:49> Interval history: Sayda is seen in her room on [facility], her and family are at the bedside. They have many questions about her need for a PPM. She denies cardiac complaints <Norma Ann - 10/27/16 10:34> Exam Vital signs: Temperature 97.6 F 10/29/16 08:16 Pulse Rate 73 10/29/16 08:16 Respiratory Rate 16 10/29/16 08:16 Blood Pressure 147/66 H 10/29/16 08:16 Pulse Oximetry 91 10/29/16 08:16 Oxygen Delivery Method [Pre- Nasal Cannula Procedure] Oxygen Delivery Method Room Air Oxygen Flow Rate [Pre- 0.5 Procedure] Oxygen Flow Rate 0.5 <Rodolfo Matson - 10/30/16 12:54> Temperature 96.8 F 10/25/16 15:14 Pulse Rate 71 10/25/16 15:14 Respiratory Rate 18 10/25/16 15:14 Blood Pressure 128/65 10/25/16 15:14 Pulse Oximetry 93 10/25/16 15:14 Oxygen Delivery Method Room Air <Norma Ann - 10/25/16 16:49> - Constitutional no acute distress, thin, cooperative <Norma Ann 10/25/16 16:49> - Routine HEENT Exam Head: Present: normocephalic <Norma Ann 10/25/16 16:49> ENT: Present: mucous membranes moist <Norma Ann 10/25/16 16:49> - Routine Neck Exam Absent: JVD, carotid bruit <Norma Ann 10/25/16 16:49> - Routine Chest/Breast/Axilla Exam Chest wall: Absent: tenderness <Norma Ann 10/25/16 16:49> - Routine Respiratory Exam Present: rales. Absent: CTA bilaterally, wheezes <Norma Ann 10/25/16 16:49> - Routine Cardiovascular Exam Present: no murmur, irregular rhythm. Absent: JVD <Norma Ann 10/25/16 16:49> - Routine Abdominal Exam Present: soft, normoactive bowel sounds <Norma Ann 10/25/16 16:49> - Routine Extremities Exam Present: edema <Norma Ann 10/25/16 16:49> - Routine Skin Exam Present: intact, dry, warm <Norma Ann 10/25/16 16:49> - Routine Neurological Exam Present: alert <Norma Ann 10/25/16 16:49> - Routine Psychiatric Exam Present: normal affect <Norma Ann 10/25/16 16:49> Progress Note-A&P (1) HTN (hypertension) Status: Chronic (2) Dyslipidemia Status: Chronic (3) PAD (peripheral artery disease) Status: Chronic (4) Atrial fibrillation Status: Chronic (5) Pleural effusion Status: Acute (6) Coronary artery disease Status: Chronic (7) 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 (2) Presence of permanent cardiac pacemaker (3) Pleural effusion Status: Acute Assessment and plan: No intervention needed by Surgical consult (4) Atrial fibrillation Status: Chronic Assessment and plan: Cardizem stopped due to tachy-bello syndrome (5) Coronary artery disease Status: Chronic (6) S/P 2-vessel coronary artery bypass Status: Chronic (7) HTN (hypertension) Status: Chronic (8) Dyslipidemia Status: Chronic (9) PAD (peripheral artery disease) Status: Chronic <Norma Ann 10/27/16 10:33> - Time Spent With Patient Total time spent is greater than 50% in coordination of care (as documented) at patient's floor/unit and/or counseling patient: <Prema Matsonsein 10/30/16 12:54> Total time spent is greater than 50% in coordination of care (as documented) at patient's floor/unit and/or counseling patient: <Norma Ann 10/25/16 16:49> less than 15 minutes <Norma Ann - 10/27/16 10:34> - Attestation Attestation Narrative: Recommendation After examining the patient I agree with the above assessment. I am involved in the formulation of the patient's plan of care. <Rodolfo Matson - 10/30/16 12:54> Sepsis Assessment - Evaluation Sepsis screening result: No Definite Risk <Norma Ann - 10/25/16 16:49> Hospital Course Summary Disclaimer: The visit summary below is not to be considered part of the above Progress Note. <Rodolfo Matson - 10/30/16 12:54> The visit summary below is not to be considered part of the above Progress Note. <Norma Ann - 10/25/16 16:49> Hospital Course: 10/24/16 Chronic, poor rate control as Cardizem was discontinued during last hospitalization due to pauses. Plan to restart and watch cardiac telemetry. 10/25/16 Multiple 2-3 second pauses seen on telemetry, plan to hold Xarelto and insert PPM tomorrow afternoon. <Norma Ann - 10/25/16 16:49>
[2016-10-25] MEDS ORDERED: --POM--RIVAROXABAN 20 MG TABLET PO SCH (17:30)
[2016-10-25] MEDS: CITALOPRAM 20 MG TABLET PO SCH (18:06)
[2016-10-25] MEDS: ATORVASTATIN 20 MG TABLET PO SCH (22:21)
[2016-10-25] MEDS: DOCUSATE SODIUM 100 MG CAPSULE PO SCH (22:59)
[2016-10-25] MEDS: SENNOSIDES 8.6 MG TABLET PO SCH (22:59)
[2016-10-25] MEDS ORDERED: METOCLOPRAMIDE 10mg/2ml INJECTION IVP PRN (23:17)
[2016-10-25] MEDS ORDERED: MAG-AL + SIM ORAL LIQUID 30ml PO PRN ×2 (23:19)
[2016-10-25] MEDS ORDERED: CALCIUM CARBONATE Chewable 500mg TABLET PO PRN (23:22)
[2016-10-25] MEDS: ONDANSETRON 4 MG/2 ML INJECTION IVP PRN (23:36)
[2016-10-26] MEDS ORDERED: CALCIUM CARBONATE Chewable 500mg TABLET PO PRN (01:19)
--- NOTE | 2016-10-26 08:10 | Progress Note ---
DATE 10/25/2016 FINDINGS Ms. Machado this evening stated she is feeling somewhat nauseated. She denied significant shortness of breath. She was off oxygen at this time. VITALS: Temperature 96.8, pulse 75, respirations 18, blood pressure 128/65, SaO2 93% on room air. HEENT: Normocephalic. Pupils are equal, round and reactive to light and accommodation. CHEST: Auscultation of the chest revealed a few rales bilaterally. Upon auscultation of the posterior chest one can appreciate some diminished breath sounds on the left when compared to the right. HEART: Regular rate and rhythm. ABDOMEN: Soft, nontender. LABORATORY/RADIOGRAPH EVALUATION The patient had a CBC today and the white count was 15.6. Hemoglobin overall stable at 8.1. BMP obtained and found to be within normal limits with the exception that her BUN is elevated at 30.0. This improved from yesterday. Chest x-ray was obtained that revealed that the patient had a moderate-sized effusion that was layering out upon decubitus film. There was no type of underlying infiltrate noted within the left base. ASSESSMENT 81-year-old female status post coronary bypass grafting. Patient with finding to of tachy-bello syndrome. Left pleural effusion stable. PLAN Apparently tomorrow the patient is undergoing placement of a permanent pacemaker as a result of her tachy-bello syndrome. Will go ahead and repeat a chest x-ray tomorrow. If the patient continues to have a moderate pleural effusion and is off her anticoagulation, may also proceed tomorrow with thoracentesis. TEJA
[2016-10-26 08:58] VITALS: BMI 27.4
[2016-10-26] MEDS: CITALOPRAM 20 MG TABLET PO SCH (09:05)
[2016-10-26] MEDS: SENNOSIDES 8.6 MG TABLET PO SCH (09:05)
[2016-10-26] MEDS: DOCUSATE SODIUM 100 MG CAPSULE PO SCH ×2 (09:05→22:55)
[2016-10-26] MEDS: DIGOXIN 125 MCG TABLET PO SCH (09:06)
[2016-10-26] MEDS: LOSARTAN 50 MG TABLET PO SCH (09:06)
[2016-10-26] MEDS: FUROSEMIDE 40 MG/4 ML INJECTION IVP SCH ×2 (09:07→22:56)
[2016-10-26] MEDS: ASPIRIN *EC* 81 MG TABLET PO SCH (09:07)
[2016-10-26] MEDS: ONDANSETRON 4 MG/2 ML INJECTION IVP PRN (09:17)
[2016-10-26] MEDS ORDERED: BACITRACIN 50,000 UNIT INJECTION ONE (12:03)
[2016-10-26] MEDS ORDERED: SALINE FLUSH 10ml SYRINGE ONE ×2 (12:03→13:30)
[2016-10-26] MEDS ORDERED: LIDOCAINE 1% (10mg/ml) 30ml SDV INJ ONE (12:03)
[2016-10-26] MEDS ORDERED: FentaNYL 100 MCG/2 ML INJECTION ONE (13:20)
[2016-10-26] MEDS ORDERED: MIDAZOLAM 2mg/2ml INJECTION ONE (13:22)
--- NOTE | 2016-10-26 13:52 | XRay Report ---
Indication: effusion PROCEDURE: XR chest 2V: Encounter: Initial Comparison: 10/25/2016 Findings: There is a moderate left pleural effusion that is similar in severity to prior exam. The patient is status post median sternotomy. No pneumothorax. There is a calcified granuloma in the lateral right midlung. Impression: Evidence for prior granulomatous disease. Moderate left pleural effusion, similar to prior exam. .
[2016-10-26] MEDS ORDERED: SALINE FLUSH 10ml SYRINGE IVF PRN (14:44)
[2016-10-26] MEDS: CEFAZOLIN 1 G in NS 100 ML IV SCH (16:45)
--- NOTE | 2016-10-26 17:30 | XRay Report ---
Indication: PPM PROCEDURE: XR chest 1V: Encounter: Initial Comparison: 10/26/2016 Findings: There is a moderate left pleural effusion, similar to prior exam. Patient is status post median sternotomy. There is a left subclavian single-lead pacemaker in place. No pneumothorax. There is mild process of the cardiac silhouette which is probably accentuated by the AP portable technique. Impression: Persistent left pleural effusion. No pneumothorax post left subclavian pacer insertion. .
[2016-10-26] MEDS: SALINE FLUSH 10ml SYRINGE IVF PRN (22:56)
[2016-10-26] MEDS: ATORVASTATIN 20 MG TABLET PO SCH (23:31)
[2016-10-27] MEDS: CEFAZOLIN 1 G in NS 100 ML IV SCH ×3 (01:49→17:05)
--- NOTE | 2016-10-27 08:29 | XRay Report ---
Indication: PPM Procedure: XR chest 2V: Encounter: Subsequent Comparison: 10/26/2016 Technique: Life support devices: Unchanged left pectoral single chamber pacer device. Findings: Lungs and airways: Normal lung volumes. Persistent left basilar relaxation atelectasis. Normal pulmonary vasculature. Pleura: Persistent small to moderate left pleural effusion. No pneumothorax. Heart and mediastinum: The cardiomediastinal silhouette and great vessels appear unchanged with redemonstration of aortic atherosclerosis and postoperative changes of CABG. Osseous structures and soft tissues: No acute osseous abnormality is seen. Postoperative changes of median sternotomy. Impression: Persistent small to moderate left pleural effusion with associated left basilar relaxation atelectasis. .
[2016-10-27] MEDS: CITALOPRAM 20 MG TABLET PO SCH (08:53)
[2016-10-27] MEDS: DOCUSATE SODIUM 100 MG CAPSULE PO SCH (08:54)
[2016-10-27] MEDS: LOSARTAN 50 MG TABLET PO SCH (08:55)
[2016-10-27] MEDS: ASPIRIN *EC* 81 MG TABLET PO SCH (08:56)
[2016-10-27] MEDS: DIGOXIN 125 MCG TABLET PO SCH (08:56)
[2016-10-27] MEDS: MINOCYCLINE 100 MG CAPSULE PO SCH ×2 (08:57→21:08)
[2016-10-27] MEDS: SENNOSIDES 8.6 MG TABLET PO SCH (08:58)
[2016-10-27] MEDS: FUROSEMIDE 40 MG/4 ML INJECTION IVP SCH (09:14)
--- NOTE | 2016-10-27 10:54 | Progress Note ---
DATE 10/26/2016 FINDINGS Ms. Machado this evening was resting. She has been fairly nonverbal since her admission. She did have a pacemaker placed earlier today. The patient's family states that she has been doing well overall. VITALS: Afebrile. Normotensive. Current vitals include temperature 96.1, pulse 72, blood pressure 149/65, SaO2 96% on 1 liter per nasal cannula. LABORATORY/RADIOGRAPH EVALUATION I did go ahead and repeat her chest x-ray this morning. I have reviewed her films personally as well as the dictated report. On her lateral view it does appear that she has more fluid than is appreciated on her AP film that only shows some element of obscuring the cardiophrenic angle. ASSESSMENT 81-year-old female status post coronary artery bypass grafting, status post, today, placement of a permanent pacemaker. Patient with a stable moderate- sized left pleural effusion. PLAN Will discuss with cardiology. Will see if cardiology feels that they can manage this effusion with diuretics and improved cardiac function following placement of pacemaker versus proceeding with thoracentesis. Clinically the patient does seem to be tolerating this moderate-sized pleural effusion without difficulty. She is only on 1 liter per nasal cannula. Will continue with current care at this time. TEJA
--- NOTE | 2016-10-27 12:59 | Cardiology Progress Note ---
Subjective Principal diagnosis: AFib RVR, tachy-bello syndrome, S/P PPM <Norma Ann - 10/27/16 13:06> Interval history: Sayda is seen in her room on [facility], she is sitting in the recliner with her at the bedside. She asks if her pulse oximeter is okay on her left hand due to the restricted extremity bracelet on the left arm. I reassured her that the restricted extremity bracelet is due to the PPM. She denies chest pain. She is currently on O2 at 2L/NC. Dr. Sarkar has decided to proceed with thoracentesis today. <Norma Ann - 10/27/16 13:06> Exam Vital signs: Temperature 97.6 F 10/29/16 08:16 Pulse Rate 73 10/29/16 08:16 Respiratory Rate 16 10/29/16 08:16 Blood Pressure 147/66 H 10/29/16 08:16 Pulse Oximetry 91 10/29/16 08:16 Oxygen Delivery Method [Pre- Nasal Cannula Procedure] Oxygen Delivery Method Room Air Oxygen Flow Rate [Pre- 0.5 Procedure] Oxygen Flow Rate 0.5 <Rodolfo Matson - 10/30/16 12:54> Temperature 96.1 F L 10/27/16 08:00 Pulse Rate 77 10/27/16 08:56 Respiratory Rate 16 10/27/16 08:00 Blood Pressure 144/74 H 10/27/16 08:00 Pulse Oximetry 99 10/27/16 08:00 Oxygen Delivery Method Nasal Cannula Oxygen Flow Rate 2 <Norma Ann - 10/27/16 13:06> - Constitutional no acute distress, thin, cooperative <Norma Ann - 10/27/16 13:06> - Routine HEENT Exam Head: Present: normocephalic <Norma Ann - 10/27/16 13:06> ENT: Present: mucous membranes moist <Norma Ann - 10/27/16 13:06> - Routine Neck Exam Absent: JVD, carotid bruit <Norma Ann - 10/27/16 13:06> - Routine Chest/Breast/Axilla Exam Chest wall: Present: tenderness, pacemaker <Norma Ann - 10/27/16 13:06> - Routine Respiratory Exam Present: rales (bibasilar). Absent: CTA bilaterally <Norma Ann 13:06> - Routine Cardiovascular Exam Present: RRR, no murmur. Absent: JVD <Norma Ann 10/27/16 13:06> - Routine Abdominal Exam Present: soft, normoactive bowel sounds <Norma Ann 10/27/16 13:06> - Routine Extremities Exam Present: no edema <Norma Ann 10/27/16 13:06> - Routine Skin Exam Present: intact, dry, warm <Norma Ann 10/27/16 13:06> Comments: pacer incision well approximated, BEULAH <Norma Ann 10/27/16 13:06> - Routine Neurological Exam Present: alert, oriented X3 <Norma Ann 10/27/16 13:06> - Routine Psychiatric Exam Present: normal thought process, depressed <Norma Ann 10/27/16 13:06> - Additional findings Additional findings: Laboratory Results - last 48 hr 10/26/16 10/26/16 10/27/16 04:24 04:24 01:39 WBC 14.5 H RBC 2.87 L Hgb 8.6 L Hct 28.4 L MCV 99.0 MCH 30.0 MCHC 30.3 L RDW Std Deviation 50.0 Plt Count 327 MPV 9.8 Immature Gran % (Auto) Neut % (Auto) Lymph % (Auto) Starr % (Auto) Eos % (Auto) Baso % (Auto) Neut # Lymph # Starr # Eos # Baso # Abs Immat Gran (auto) Neutrophils % (Manual) Lymphocytes % (Manual) Monocytes % (Manual) Neutrophils # (Manual) Lymphocytes # (Manual) Monocytes # (Manual) Anisocytosis RBC Morph Comment Turbidity < 20 Sodium 141 Potassium 4.1 Chloride 101 Carbon Dioxide 32 H Anion Gap 8 BUN 32.0 H Creatinine 0.7 GFR Calculation 80 BUN/Creatinine Ratio 46 H Glucose 119 H Glucometer 137 Calculated Osmolality 279 Calcium 8.9 Magnesium Icterus Index < 2 Specimen Hemolysis < 15 10/27/16 10/27/16 10/27/16 04:30 04:30 04:30 WBC 16.6 H RBC 2.70 L Hgb 8.2 L Hct 26.9 L MCV 99.6 MCH 30.4 MCHC 30.5 L RDW Std Deviation 51.4 H Plt Count 298 MPV 9.4 Immature Gran % (Auto) Not performed Neut % (Auto) Not performed Lymph % (Auto) Not performed Starr % (Auto) Not performed Eos % (Auto) Not performed Baso % (Auto) Not performed Neut # Not performed Lymph # Not performed Starr # Not performed Eos # Not performed Baso # Not performed Abs Immat Gran (auto) Not performed Neutrophils % (Manual) 88.0 H Lymphocytes % (Manual) 8.0 L Monocytes % (Manual) 4.0 Neutrophils # (Manual) 14.6 H Lymphocytes # (Manual) 1.3 Monocytes # (Manual) 0.7 Anisocytosis 2+ RBC Morph Comment Abnormal Turbidity < 20 Sodium 143 Potassium 3.2 L D Chloride 101 Carbon Dioxide 33 H Anion Gap 9 BUN 35.0 H Creatinine 0.9 D GFR Calculation 60 BUN/Creatinine Ratio 39 H Glucose 112 H Glucometer Calculated Osmolality 284 H Calcium 8.8 Magnesium 2.0 Icterus Index < 2 Specimen Hemolysis < 15 Acetaminophen/Codeine Phosphate (Tylenol With Codeine #3 (300/30)) 1 - 2 tab PO Q4H PRN PRN Reason: Pain Al Hydroxide/Mg Hydroxide (Maalox Plus) 30 ml PO DAILY PRN PRN Reason: Indigestion Aspirin (Ecotrin) 81 mg PO DAILY [facility] Last Admin: 10/27/16 08:56 Dose: 81 mg Atorvastatin Calcium (Lipitor) 20 mg PO HS [facility] Last Admin: 10/26/16 23:31 Dose: 20 mg Calcium Carbonate (Tums) 500 mg PO Q4H PRN Citalopram Hydrobromide (Celexa) 20 mg PO DAILY [facility] Last Admin: 10/27/16 08:53 Dose: 20 mg Digoxin (Lanoxin) 125 mcg PO DAILY [facility] Last Admin: 10/27/16 08:56 Dose: 125 mcg Diltiazem HCl (Cardizem Cd) 120 mg PO DAILY [facility] Last Admin: 10/27/16 08:58 Dose: 120 mg Docusate Sodium (Colace) 100 mg PO BID [facility] Last Admin: 10/27/16 08:54 Dose: 100 mg Furosemide (Lasix) 40 mg IVP Q12HR [facility] Last Admin: 10/27/16 09:14 Dose: 40 mg Cefazolin Sodium 1 g/ Sodium (Chloride) 100 mls @ 200 mls/hr IV Q8HR [facility] Last Infusion: 10/27/16 09:22 Dose: Infused Losartan Potassium (Cozaar) 50 mg PO DAILY [facility] Last Admin: 10/27/16 08:55 Dose: 50 mg Metoclopramide HCl (Reglan) 10 mg IVP Q6H PRN Metoprolol Tartrate (Lopressor) 100 mg PO BIDBS [facility] Last Admin: 10/27/16 08:52 Dose: 100 mg Minocycline HCl (Minocin) 100 mg PO BID [facility] Last Admin: 10/27/16 08:57 Dose: 100 mg Ondansetron HCl (Zofran) 4 mg IVP Q6H PRN PRN Reason: Nausea &/or vomiting Last Admin: 10/26/16 09:17 Dose: 4 mg Potassium Chloride (K-Dur) 20 meq PO NOON [facility] Last Admin: 10/27/16 12:19 Dose: 20 meq Rivaroxaban (Xarelto) 20 mg PO [facility] Senna (Senna Lax) 8.6 mg PO DAILY [facility] Last Admin: 10/27/16 08:58 Dose: 8.6 mg Sodium Chloride (Iv Flush) 10 - 80 ml IVF PRN PRN PRN Reason: Flushing Last Admin: 10/26/16 22:56 Dose: 10 ml Sodium Chloride (Iv Flush) 10 - 80 ml IVF PRN PRN PRN Reason: Flushing <Norma Ann - 10/27/16 13:06> Progress Note-A&P (1) HTN (hypertension) Status: Chronic (2) Dyslipidemia Status: Chronic (3) PAD (peripheral artery disease) Status: Chronic (4) Atrial fibrillation Status: Chronic (5) Pleural effusion Status: Acute (6) Coronary artery disease Status: Chronic (7) S/P 2-vessel coronary artery bypass Status: Chronic (8) Tachy-bello syndrome Status: Acute (9) Presence of permanent cardiac pacemaker Status: Acute (10) Leukocytosis Status: Acute <Rodolfo Matson - 10/30/16 12:54> (1) Tachy-bello syndrome Status: Acute Assessment and plan: S/P [employer] PPM (2) Presence of permanent cardiac pacemaker Status: Acute (3) Pleural effusion Status: Acute Assessment and plan: On lateral view it does appear that she has more fluid than is appreciated on her AP film. will proceed with Thoracentesis today. Decrease Lasix to daily (4) Atrial fibrillation Status: Chronic Assessment and plan: Cardizem restarted since S/P PPM for rate control. Stop digoxin, may need to adjust Cardizem, rate controlled well now. (5) Coronary artery disease Status: Chronic (6) S/P 2-vessel coronary artery bypass Status: Chronic (7) HTN (hypertension) Status: Chronic (8) Dyslipidemia Status: Chronic (9) PAD (peripheral artery disease) Status: Chronic (10) Leukocytosis Status: Acute Assessment and plan: Consult Hospitalist <Norma Ann - 10/27/16 13:59> - Time Spent With Patient Total time spent is greater than 50% in coordination of care (as documented) at patient's floor/unit and/or counseling patient: <Rodolfo Matson - 10/30/16 12:54> Total time spent is greater than 50% in coordination of care (as documented) at patient's floor/unit and/or counseling patient: <Norma Ann - 10/27/16 13:06> less than 15 minutes <Norma Ann - 10/27/16 13:06> - Attestation Attestation Narrative: Recommendation After examining the patient I agree with the above assessment. I am involved in the formulation of the patient's plan of care. <Rodolfo Matson - 10/30/16 12:54> Sepsis Assessment - Evaluation Sepsis screening result: No Definite Risk <Norma Ann - 10/27/16 13:06> Hospital Course Summary Disclaimer: The visit summary below is not to be considered part of the above Progress Note. <Rodolfo Matson - 10/30/16 12:54> The visit summary below is not to be considered part of the above Progress Note. <Norma Ann - 10/27/16 13:06> Hospital Course: 10/24/16 Chronic, poor rate control as Cardizem was discontinued during last hospitalization due to pauses. Plan to restart and watch cardiac telemetry. 10/25/16 Multiple 2-3 second pauses seen on telemetry, plan to hold Xarelto and insert PPM tomorrow afternoon. <Norma Ann - 10/27/16 13:06>
[2016-10-27] MEDS ORDERED: FALL RISK - PHARMACY CONSULT MC PRN (13:24)
[2016-10-27] MEDS ORDERED: PredniSONE 20 MG TABLET PO ONE (14:07)
[2016-10-27] MEDS ORDERED: PredniSONE 20 MG TABLET PO SCH (14:15)
--- NOTE | 2016-10-27 14:21 | Progress Note ---
DATE 10/27/2016 FINDINGS Ms. Machado still was essentially nonverbal today. It is difficult to have the patient speak to you during the process of conversation. Apparently the patient has been complaining of some nausea but is refusing antiemetics. She did require being placed back on supplemental oxygen this afternoon. The patient was sitting in the chair and did not appear to be in acute distress. PHYSICAL EXAM VITALS: Temperature 96.1. Pulse 77. Respirations 16. Blood pressure 144/74. SaO2 99% on 2 liters per nasal cannula. CHEST: Diminished breath sounds on the left. HEART: Regular rate and rhythm. ABDOMEN: Soft, nontender. LABORATORY/RADIOGRAPHIC EVALUATION The patient had a CBC today and her white count remains to be slightly elevated at 16.6. Hemoglobin is overall stable at 8.2. BMP was obtained and she was found to be hypokalemic. The patient is receiving potassium supplementation. Radiographically she did have a chest x-ray obtained again today. She continues to have a moderate sized left pleural effusion. This is more noted on her lateral film than the AP. ASSESSMENT 81-year-old female with multiple medical comorbidities, status post coronary artery bypass grafting, status post placement of permanent pacemaker, patient with persistent moderate sized left pleural effusion. PLAN Left thoracentesis. Given her ongoing oxygen requirements and the fact that upon radiograph evaluation, her pleural effusion does not appear to be improving , it would be my recommendation that we go ahead and proceed with a left thoracentesis. I did discuss with the patient and her what a thoracentesis entailed and its associated risks, which include but are not exclusive of, hemopneumothorax. Patient and understood and wished to proceed. TEJA
--- NOTE | 2016-10-27 15:37 | Consult Note ---
<Gilda Stewart Stefano - Last Filed: 10/27/16 15:32> Consult Information - Data of Consult Patient: known to practice within the last 3 years Consult date: 10/27/16 Requesting Physician: Rodolfo Matson MD Primary Care Provider: Deepak Duarte MD Family Provider: Deepak Duarte MD - Consult Narrative Reason for consult: nausea, depressed affect History of present illness: Sayda Machado is an 81 y/o seen in consultation from Dr. Matson for weakness, nausea, and depression. Her of 59 years, Louis, was present and provided much of the hx. Sayda has had multiple diagnoses since September - she had a stroke in September then underwent CABG X2 on 10/04/16 (Dr. Jayro Plaza). Per Louis, she was able to go home and was moving around fairly well until just a few days ago when she became short of breath and lightheaded. He took her to [facility], where she was found to be in A-fib with RVR (hx of chronic A-fib, rate controlled) and she also had a right pleural effusion. She was given IV cardizem and telemetry was monitored. Multiple 2-3 second pauses were seen, and a PPM was inserted by Dr. Matson on 10/26/16. Dr. Sarkar was consulted for the effusion and is planning on thoracentesis on 10/27/16. She has had persistent leukocytosis as well. Initial sepsis w/u on admission has been neg thus far. Sayda has a flat affect and kept her eyes closed most of the time, but did smile and chuckle a few times, especially when her spoke. She states that she feels miserable and is "just sick of it". She denies feeling depressed, hopeless, or anxious. Her agrees - he doesn't think she's depressed, just feels terrible. (Celexa was started during this hospital course for depression.) She hasn't been sleeping well b/c feet cramps wake her up at inconvenient hours. She denies nausea at the moment but has an emesis bag in her lap. She denies abdominal pain but c/o not being able to swallow well and food not tasting well. She doesn't have any appetite. Her also reports that her bowels are working like they used to - she is having looser but small stools. Ns staff describe "smears" that are black in color and quite infrequent. She denies feeling short of breath and denies any pain. No dysuria. She was able to ambulate 67' today - much improved from yesterday when she walked 8'. They are hopeful that with the thoracentesis she will feel better. The plan is to go to IRU, and she's already been accepted there. [facility] Acute ischemic stroke involving the posterior circulation in the right occipital lobe and left cerebellum - September, History of peripheral vascular disease with bilateral carotid endarterectomies in the remote past Atrial fibrillation CAD, recent CABGx2 10/04/16 Hypertension Hyperlipidemia History of breast cancer Overweight BMI 27.4 Surgical History: cataracts. 2016 bilateral CEAs. Echo September,. 1. Normal LV systolic function with ejection fraction of 60%. 2. Grossly, no intracardiac thrombus or mass. 3. Mitral annulus calcification with mild mitral regurgitation. 4. Aortic sclerosis with [id number] aortic insufficiency. 5. Mild tricuspid regurgitation with mild pulmonary hypertension with estimated pulmonary artery systolic pressure of 38. 6. Mild pulmonary insufficiency. 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 Jayro Plaza. 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 Matson Family History: Mother - stroke - Social History Smoking status: Former smoker Substance use type: does not use Alcohol intake frequency: does not drink Household members: spouse ( x 59 years - Louis) Current occupational status: retired Current residence: Apartment/Private Home Review of Systems Comprehensive ROS: completed and no additional positive findings except those as stated - Constitutional Constitutional: Present: as per HPI - EENMT Mouth/Throat: Present: as per HPI - Cardiovascular Vascular: Present: pedal edema - Respiratory Respiratory: Present: as per HPI - Gastrointestinal Gastrointestinal: Present: as per HPI - Genitourinary Genitourinary: Present: as per HPI - Musculoskeletal Musculoskeletal: Present: as per HPI - Integumentary/Breasts Integumentary: Present: as per HPI - Neurological Neurological: Present: as per HPI - Psychiatric Psychiatric: Present: as per HPI - Hematologic/Lymphatic Hematologic/Lymphatic: Present: easy bruising Medications Home Medications Medication Instructions Recorded Confirmed Type Potassium Chloride ER Tab [K-Dur] 20 meq PO NOON #0 08/20/14 10/24/16 History Anastrozole 1 mg PO DAILY 09/29/16 10/24/16 History Aspirin [Adult Low Dose Aspirin EC] 81 mg PO DAILY 10/24/16 10/24/16 History Atorvastatin [Lipitor] 20 mg PO HS 10/24/16 10/24/16 History Calcium Carbonate/Vitamin D2 1 tab PO NOON 10/24/16 10/24/16 History [Oyster Shell Calcium-Vit D Tab] Digoxin 125 mcg PO DAILY 10/24/16 10/24/16 History Furosemide [Lasix] 20 mg PO DAILY 10/24/16 10/24/16 History Losartan [Cozaar] 50 mg PO DAILY 10/24/16 10/24/16 History Metoprolol Tartrate [Lopressor] 100 mg PO BID 10/24/16 10/24/16 History Nitroglycerin 0.4 mg SL Q5MIN3 PRN 10/24/16 10/24/16 History Rivaroxaban [Xarelto] 20 mg PO NOON 10/24/16 10/24/16 History Allergies Allergy/AdvReac Type Severity Reaction Status Date / Time lisinopril Allergy Unknown Verified 10/24/16 10:17 Penicillins Allergy Unknown Verified 10/24/16 10:17 Exam Vital Signs: Temperature 98.4 F 10/27/16 15:15 Pulse Rate 73 10/27/16 15:15 Respiratory Rate 20 10/27/16 15:15 Blood Pressure 133/79 10/27/16 15:15 Pulse Oximetry 96 10/27/16 15:15 Oxygen Delivery Method [Pre- Nasal Cannula Procedure] Oxygen Delivery Method Nasal Cannula Oxygen Flow Rate [Pre- 1 Procedure] Oxygen Flow Rate 0.5 Height: 1.68 m Weight: 77.111 kg Body Mass Index: 27.4 - Constitutional Present: mild distress, well nourished, well developed, thin - Routine HEENT Exam Eye: Present: PERRL. Absent: conjunctival icterus, scleral injection ENT: Present: mucous membranes dry, oropharynx clear - Routine Neck Exam Absent: lymphadenopathy - Routine Chest/Breast/Axilla Exam Comments: PPM - Routine Respiratory Exam Present: decreased breath sounds, crackles (at bases) - Routine Cardiovascular Exam Present: RRR, S1, S2 - Routine Abdominal Exam Present: non tender, distended (mild). Absent: normoactive bowel sounds ( hypoactive) - Routine Extremities Exam Present: edema (b/l) - Routine Skin Exam Present: dry, pallor - Routine Neurological Exam Present: alert, oriented X3, CN II-XII intact, vision grossly intact, hearing grossly intact (slightly [place]K), normal speech. Absent: sensory deficit, hemineglect, facial asymmetry - Routine Psychiatric Exam Present: normal thought process, cooperative, good insight, good judgment. Absent: normal affect (flat/depressed) Results - Labs CBC & Chem 7: 10/27/16 04:30 10/27/16 04:30 Assessment and Plan (1) Leukocytosis Current visit: Yes Status: Acute DVT Prophylaxis: Xarelto GI Prophylaxis: Protonix Assessment and Plan: ASSESSMENT Leukocytosis Progressive normocytic anemia with reports of black colored stools Nausea, dysphagia, anorexia, constipation Hypokalemia Feet cramps/spasms, worse at night Hypoxia; acute resp failure Atrial fibrillation on Xarelto, ASA CAD, recent CABGx2 10/04/16 Acute ischemic stroke involving the posterior circulation in the right occipital lobe and left cerebellum - September, History of peripheral vascular disease with bilateral carotid endarterectomies in the remote past Hypertension Hyperlipidemia History of breast cancer Overweight BMI 27.4 PLAN Leukocytosis -check procalcitonin -BC neg. Lactate neg on admit. -UA neg. Denies dysuria. -Pleural fluid to be sent s/p thoracentesis. Normocytic anemia -check stool for occult blood - consider scope -September hgb was 13.2; now 8.2, which is interesting considering she's been diuresing (though she's also postop so some degree of ABLA is expected) -assess iron studies Nausea, dysphagia, anorexia, constipation -concern for ileus -check KUB -decrease dose of Celexa to 10 mg and change to HS - has side effect of nausea - ? need to continue Celexa -consult speech therapy d/t dysphagia -start Protonix IV, switch to oral when sx improve Feet cramps/spasms -hypokalemia - potassium being replaced per attending. mg is stable. -start magnesium to help with cramps -iron deficiency can also contribute to RLS Hypoxia/pleural effusion -Thoracentesis today per Dr. Antonina -wean oxygen as able CAD/A-fib/HTN/HLD/PPM -per attending Discharge planning -accepted for IRU on 10/29/[address] Rocha Hospital Course Summary Disclaimer: The visit summary below is not to be considered part of the above Progress Note. Hospital Course: 10/24/16 Chronic, poor rate control as Cardizem was discontinued during last hospitalization due to pauses. Plan to restart and watch cardiac telemetry. 10/25/16 Multiple 2-3 second pauses seen on telemetry, plan to hold Xarelto and insert PPM tomorrow afternoon. Sepsis Assessment - Evaluation Sepsis screening result: No Definite Risk <SundayCele Olu - Last Filed: 10/27/16 22:52> Consult Information - Data of Consult Requesting Physician: Rodolfo Matson MD Primary Care Provider: Deepak Duarte MD Family Provider: Deepak Duarte MD [facility] Patient Stated Medical History Sleep Apnea No Exam Vital Signs: Temperature 97.1 F 10/27/16 20:25 Pulse Rate 70 10/27/16 20:25 Respiratory Rate 16 10/27/16 20:25 Blood Pressure 137/66 10/27/16 20:25 Pulse Oximetry 98 10/27/16 20:25 Oxygen Delivery Method [Pre- Nasal Cannula Procedure] Oxygen Delivery Method Nasal Cannula Oxygen Flow Rate [Pre- 0.5 Procedure] Oxygen Flow Rate 0.5 Height: 1.68 m Weight: 77.111 kg Results - Labs CBC & Chem 7: 10/27/16 04:30 10/27/16 04:30 Microbiology Results: Microbiology 10/27/16 15:30 Thoracic Fluid Body Fluid Culture - Preliminary Culture Initiated - Results Pending Assessment and Plan (1) Leukocytosis Current visit: Yes Status: Acute Assessment and Plan: I have independently evaluated and examined this patient. I reviewed the chart, the patient's history, and the PRODUCE ASSOCIATE/PA's documented findings as above. We discussed and formulated the assessment and plan as above with additions as below: Mrs. Machado was seen following thoracentesis at which time she reported significant fatigue due to multiple recent procedures. She was unsure if her breathing was any more comfortable following thoracentesis. She described to recent episodes of nausea but did not correlate nausea specifically with recent surgery. She did describe increased belching compared to baseline. Examination revealed a drowsy frail-appearing female with generalized pallor. Left arm in sling-pacemaker site left upper chest wall clean and dry Respirations nonlabored decreased inspiratory effort, anterior lungs clear Regular cardiac rhythm Abdomen soft +1-2 bilateral lower extremity edema Repeat procalcitonin nondetectable; preliminary studies from thoracentesis reviewed-will obtain LDH and total protein level with a.m. labs for comparison not present at the time of my assessment, agree with need to evaluate anemia further and will check via [facility] records for discharge hemoglobin and if any assessment done at that time. I suspect there is need for continued use of an SSRI although may benefit from switching to mirtazapine if appetite remains poor after acid suppression initiated. We'll discuss esophagram versus EGD with Dr. Sarkar after initial anemia studies are available. Chest x-ray reviewed by myself-moderate left-sided pleural effusion, lungs appear hyperinflated, left-sided pacemaker, prior sternotomy. Status post with cardiology and nursing; old records reviewed. Hospital Course Summary Disclaimer: The visit summary below is not to be considered part of the above Progress Note.
--- NOTE | 2016-10-27 15:48 | General Surgery Procedure Note ---
Date of Procedure: 10/27/16 Surgeon: Antonina Postoperative Diagnosis: left pleural effustion Procedure: left thoracentesis with 800 slightly bloody fluid aspirated and sent for studies Estimated Blood Loss: See Anesthesia Record.
[2016-10-27] MEDS ORDERED: NS 1,000 ML IV SCH (16:00)
--- NOTE | 2016-10-27 16:25 | XRay Report ---
Indication: post thoracentesis Procedure: XR chest 1V: Encounter: Subsequent Comparison: Prior chest radiographs of the same day Technique: A single portable AP chest radiograph was obtained. Findings: Life support devices: Unchanged left pectoral single chamber pacer device. Lungs and airways: Normal lung volumes. Right middle lung zone calcified granuloma. Improved but persistent left basilar relaxation atelectasis.. Normal pulmonary vasculature. Pleura: Improved but persistent small left pleural effusion. No pneumothorax. Heart and mediastinum: The cardiomediastinal silhouette and great vessels appear unchanged with redemonstration of aortic atherosclerosis. Osseous structures and soft tissues: No acute osseous abnormality is seen. Postoperative changes of median sternotomy. Impression: Improved but persistent small left pleural effusion and associated left basilar atelectasis status post thoracentesis with no pneumothorax identified. .
[2016-10-27] MEDS: PANTOPRAZOLE 40 MG INJECTION IVP SCH (17:04)
[2016-10-27] MEDS: MAGNESIUM OXIDE 400 MG TABLET PO SCH ×2 (17:04→21:08)
[2016-10-27] MEDS: NS FLUSH BAG 500ml IV PRN (17:07)
[2016-10-27] MEDS: ATORVASTATIN 20 MG TABLET PO SCH (21:07)
[2016-10-27] MEDS: SENNA + DOCUSATE TABLET PO SCH (21:08)
[2016-10-27] MEDS: CITALOPRAM 10 MG TABLET PO SCH (21:08)
[2016-10-28] MEDS: CEFAZOLIN 1 G in NS 100 ML IV SCH ×2 (01:43→08:26)
--- NOTE | 2016-10-28 06:49 | XRay Report ---
Indication: nausea; constipation ?ileus PROCEDURE: XR KUB: Encounter: Initial Comparison: None Findings: Two supine abdominal radiographs demonstrates a nonspecific bowel gas pattern. There is moderate stool identified in the rectal vault. No free air. Psoas margins well-defined. Significant pathological abdominal calcifications are not apparent. Left pleural effusion with associated basilar atelectasis suspected. Age compatible degenerative changes of the bony elements. Median sternotomy. Monitor leads overlie the trunk. IMPRESSION: 1. Negative for obstruction, ileus, or pneumoperitoneum. 2. Moderate stool in the rectal vault. 3. Left basal atelectasis with effusion. .
[2016-10-28] MEDS: MINOCYCLINE 100 MG CAPSULE PO SCH ×2 (08:24→20:12)
[2016-10-28] MEDS: LOSARTAN 50 MG TABLET PO SCH (08:24)
[2016-10-28] MEDS: SENNA + DOCUSATE TABLET PO SCH ×2 (08:25→20:13)
[2016-10-28] MEDS: PANTOPRAZOLE 40 MG INJECTION IVP SCH (08:25)
[2016-10-28] MEDS: ASPIRIN *EC* 81 MG TABLET PO SCH (08:25)
[2016-10-28] MEDS: SENNOSIDES 8.6 MG TABLET PO SCH (08:25)
[2016-10-28] MEDS: POLYETHYL GLYCOL 3350 17gm PACKET PO SCH (08:25)
[2016-10-28] MEDS: NS FLUSH BAG 500ml IV PRN (08:43)
[2016-10-28] MEDS ORDERED: FUROSEMIDE 40 MG/4 ML INJECTION IVP SCH (09:00)
[2016-10-28] MEDS: APAP/CODEINE 300 MG/30 MG TABLET PO PRN ×2 (09:22→20:12)
--- NOTE | 2016-10-28 09:22 | Operative Note ---
DATE OF OPERATION 10/27/2016 SURGEON Santosh Sarkar MD PREOPERATIVE DIAGNOSIS Left symptomatic left pleural effusion. POSTOPERATIVE DIAGNOSIS Left symptomatic left pleural effusion. PROCEDURE Left thoracentesis. ANESTHESIA Local. BRIEF HISTORY/INDICATIONS Mrs. Machado is an 81-year-old female who recently had underwent coronary artery bypass grafting. She was recently admitted to our facility and was found to have a moderate-sized left pleural effusion. She has been complaining of some shortness of breath. She has been requiring some supplemental oxygen periodically. Initially I had elected to be conservative in nature and not proceed with thoracentesis. Her pleural effusion, however, has not been improving with medical therapy. A chest x-ray lateral film was obtained that did reveal a moderate amount of fluid more than what I had anticipated upon her prior AP films. As a result of the above indications, I recommended to the patient that she undergo left thoracentesis. DESCRIPTION OF PROCEDURE Patient was brought to the preoperative area and placed upon the table in a sitting position. Next, the level of the right hemidiaphragm was ascertained by percussion and auscultation. The level of the right hemidiaphragm was marked out percutaneously. A point parallel to this was then marked out upon the left posterior/lateral chest wall. This area was then prepped and draped in a sterile fashion. Then, 1% lidocaine was injected just beneath the intercostal space above the level of the left hemidiaphragm. A 22-gauge needle was then introduced through this area of analgesia and up and over the underlying rib and into the left thorax with aspiration. Serosanguineous fluid was obtained. Next, a 4-5 mm incision was then made overlying the area of analgesia. A thoracentesis needle and catheter were then advanced through the small incision and into the left thorax with aspiration. Once again serosanguineous fluid was obtained. Catheter was advanced over the needle as the needle was being withdrawn. A total of 800 mL of fluid was then aspirated without difficulty. Catheter was then removed. Sterile dressing was applied. Patient was subsequently sent to Radiology where a postprocedure chest x-ray was obtained. It did reveal marked improvement of her pleural effusion. There was still some small residual fluid present within the costophrenic angle. Patient was sent back to the surgical floor in stable condition. Patient is in the process of being sent back to the surgical floor in stable condition. [facility]ITALStefano
--- NOTE | 2016-10-28 13:42 | Progress Note ---
Subjective: Mrs. Machado was seen with her at the bedside. She complains of difficulty sleeping again last night due to persistent cramping in her feet all night long. She continues to describe difficulty eating but can't specify what the problem is. Her reports that she's been drinking ensure at home and she indicated that she likes it but doesn't like "shakes". Her expressed concern that her dentures don't fit well and her old/worn out which may contribute to difficulty chewing solid foods. Mrs. Machado reports nausea off and on. She denied dyspnea and thinks her breathing is better/deeper today than it was prior to thoracentesis. She is unsure when her last bowel movement was. She denied pain or lightheadedness. Objective Vital signs: Temperature 95.9 F L 10/28/16 12:14 Pulse Rate 71 10/28/16 12:14 Respiratory Rate 16 10/28/16 12:14 Blood Pressure 133/60 10/28/16 12:14 Pulse Oximetry 94 10/28/16 12:14 Oxygen Delivery Method Room Air EXAM General-NAD, drowsy, eyes typically closed, left arm in sling Lungs-respirations nonlabored, decreased airflow, crackles at the bases Cardiac-regular rhythm, S1-S2 Abd-soft, nontender, bowel sounds present/diminished Ext-+2 edema bilateral lower extremities Neuro-sensation intact 4 extremities, moving right upper extremity in normal pattern, no tremors Psych-flat affect although smiles occasionally, slow verbal responses - Body Mass Index: 27.4 Results - Labs CBC & Chem 7: 10/28/16 04:11 10/28/16 04:11 Labs: Iron studies pending Liver enzymes unremarkable, albumin 3.4, total protein 5.7, LDH 425 Pleural fluid studies: Glucose 138, total protein < 3, LDH 316, amylase 41, RBCs 42,000, WBCs 1450 with lymphocyte predominance Microbiology Results: Microbiology 10/27/16 15:30 Thoracic Fluid Gram Stain -no organisms seen 10/27/16 15:30 Thoracic Fluid Body Fluid Culture - Preliminary Culture Initiated - Results Pending 10/27/16 15:30 Fluid Acid Fast Bacilli Culture & Smear -negative Blood cultures 2 drawn 10/24 negative after 4 days Assessment and Plan (1) Leukocytosis Current visit: Yes Status: Acute DVT Prophylaxis: SCD's GI Prophylaxis: Protonix Assessment and Plan: Leukocytosis Progressive normocytic anemia with reports of black colored stools Nausea, dysphagia, anorexia, constipation Hypokalemia Depression, probable Feet cramps/spasms, worse at night Hypoxia; acute resp failure Left pleural effusion, exudate; thoracentesis 10/27 Atrial fibrillation on Xarelto, ASA CAD, recent CABGx2 10/04/16 Acute ischemic stroke involving the posterior circulation in the right occipital lobe and left cerebellum - September, History of peripheral vascular disease with bilateral carotid endarterectomies in the remote past Hypertension Hyperlipidemia History of breast cancer Overweight BMI 27.4 Persistent sleep disruption due to nocturnal leg cramps. Ongoing poor oral intake, leukocytosis slightly improved, hypoxia resolved, and hypokalemia improved following replacement yesterday. I remain concerned that there is a component of depression and am going to start low-dose mirtazapine 7.5 mg tonight with plan to titrate citalopram off over the next day or 2. Hopefully mirtazapine will help with appetite and sleep. Nutritional supplements with ensure and trial of Magic cups initiated. Diet switch to soft due to difficulty chewing. Hemoglobin down slightly, iron studies pending. If iron level low would benefit from IV iron for replacement. Patient is not overtly describe indigestion today, continue IV PPI today-will convert to by mouth tomorrow. Thoracentesis yesterday with removal of 800 mL slightly blood-tinged fluid, LDH elevated with racial compatible with exudate although clinical scenario more compatible with transudate. Cultures pending-no organisms seen on Gram stain. I don't believe antibiotics need to be continued for this purpose. Blood cultures negative after 4 days-although white count remains modestly elevated there is no clear indication of systemic infection and I'm inclined to discontinue his Ancef. Discussed with cardiology-surgical prophylaxis for pacemaker; discontinued. Anticipate transfer to IRU tomorrow for strengthening. Discussed with cardiology, supplemental history provided by patient's , discussed with nursing; laboratory data reviewed. Sepsis Assessment - Evaluation Sepsis screening result: No Definite Risk Hospital Course Summary Disclaimer: The visit summary below is not to be considered part of the above Progress Note. Hospital Course: 10/24/16 Chronic, poor rate control as Cardizem was discontinued during last hospitalization due to pauses. Plan to restart and watch cardiac telemetry. 10/25/16 Multiple 2-3 second pauses seen on telemetry, plan to hold Xarelto and insert PPM tomorrow afternoon. 10/28/16 14:16 Persistent sleep disruption due to nocturnal leg cramps. Ongoing poor oral intake, leukocytosis slightly improved, hypoxia resolved, and hypokalemia improved following replacement yesterday. I remain concerned that there is a component of depression and am going to start low-dose mirtazapine 7.5 mg tonight with plan to titrate citalopram off over the next day or 2. Hopefully mirtazapine will help with appetite and sleep. Nutritional supplements with ensure and trial of Magic cups initiated. Diet switch to soft due to difficulty chewing. Hemoglobin down slightly, iron studies pending. If iron level low would benefit from IV iron for replacement. Patient is not overtly describe indigestion today, continue IV PPI today-will convert to by mouth tomorrow. Thoracentesis yesterday with removal of 800 mL slightly blood-tinged fluid, LDH elevated with racial compatible with exudate although clinical scenario more compatible with transudate. Cultures pending-no organisms seen on Gram stain. I don't believe antibiotics need to be continued for this purpose. Blood cultures negative after 4 days-although white count remains modestly elevated there is no clear indication of systemic infection and I'm inclined to discontinue his Ancef. Discussed with cardiology-surgical prophylaxis for pacemaker; discontinued. Anticipate transfer to IRU tomorrow for strengthening. 10/28/16 14:18
--- NOTE | 2016-10-28 13:58 | Progress Note ---
DATE OF SERVICE 10/28/2016 FINDINGS Mrs. Machado this morning stated that she was up most of the evening as a result of cramps within her feet. Denies any chest discomfort. PHYSICAL EXAMINATION VITAL SIGNS: Afebrile. Normotensive. Current vitals include temperature 97.6 , pulse 77, blood pressure 134/71, SaO2 95% on 0.5 liters. CHEST: Clear to auscultation. Breath sounds are somewhat diminished bilaterally. HEART: Regular rate and rhythm. ABDOMEN: Soft, nontender. LABORATORY/RADIOGRAPH EVALUATION Patient's CBC was obtained and found to be stable. White count was 14.2. Hemoglobin stable at 8.1. BMP was obtained today and her potassium is improved at 3.9. ASSESSMENT An 81-year-old female with multiple medical comorbidities, status post coronary artery bypass grafting, placement of permanent pacemaker, status post left thoracentesis. PLAN Patient overall is doing well. I do believe that her recovery is going to be quite prolonged. We will go ahead and sign off the patient's care at this time after completing thoracentesis. TEJA
[2016-10-28] MEDS: RIVAROXABAN 20 MG TABLET PO SCH ×2 (14:15→18:11)
[2016-10-28] MEDS: SALINE FLUSH 10ml SYRINGE IVF PRN (14:19)
--- NOTE | 2016-10-28 16:18 | Cardiology Progress Note ---
Subjective Principal diagnosis: AFib RVR, tachy-bello syndrome, S/P PPM <Norma Ann - 10/28/16 16:22> Interval history: Sayda is seen in her room on [facility], she is sitting in the recliner with her at the bedside. She is non-verbal but in no acute distress. Her asks many questions about her move to IRU planned for tomorrow. <Norma Ann - 10/28/16 16:22> Exam Vital signs: Temperature 97.6 F 10/29/16 08:16 Pulse Rate 73 10/29/16 08:16 Respiratory Rate 16 10/29/16 08:16 Blood Pressure 147/66 H 10/29/16 08:16 Pulse Oximetry 91 10/29/16 08:16 Oxygen Delivery Method [Pre- Nasal Cannula Procedure] Oxygen Delivery Method Room Air Oxygen Flow Rate [Pre- 0.5 Procedure] Oxygen Flow Rate 0.5 <Rodolfo Matson - 10/30/16 13:16> Temperature 96.5 F L 10/28/16 15:56 Pulse Rate 70 10/28/16 16:00 Respiratory Rate 14 10/28/16 15:56 Blood Pressure 124/58 10/28/16 15:56 Pulse Oximetry 93 10/28/16 15:56 Oxygen Delivery Method [Pre- Nasal Cannula Procedure] Oxygen Delivery Method Room Air Oxygen Flow Rate [Pre- 0.5 Procedure] Oxygen Flow Rate 0.5 <Norma Ann - 10/28/16 16:22> - Constitutional no acute distress, thin <Norma Ann 10/28/16 16:22> - Routine HEENT Exam Head: Present: normocephalic <Norma Ann 10/28/16 16:22> ENT: Present: mucous membranes moist <Norma Ann 10/28/16 16:22> - Routine Neck Exam Absent: JVD, carotid bruit <Norma Ann 10/28/16 16:22> - Routine Chest/Breast/Axilla Exam Chest wall: Present: pacemaker. Absent: tenderness <Norma Ann 16:22> - Routine Respiratory Exam Present: rales (bibasilar). Absent: CTA bilaterally <Norma Ann - 16:22> - Routine Cardiovascular Exam Present: RRR, no murmur. Absent: JVD <Norma Ann 10/28/16 16:22> - Routine Abdominal Exam Present: soft, normoactive bowel sounds <Norma Ann 10/28/16 16:22> - Routine Extremities Exam Present: edema <Norma Ann 10/28/16 16:22> - Routine Skin Exam Present: intact, dry, warm <Norma Ann 10/28/16 16:22> - Routine Neurological Exam Present: alert <Norma Ann 10/28/16 16:22> - Routine Psychiatric Exam Present: depressed <Norma Ann 10/28/16 16:22> Progress Note-A&P (1) HTN (hypertension) Status: Chronic (2) Dyslipidemia Status: Chronic (3) PAD (peripheral artery disease) Status: Chronic (4) Atrial fibrillation Status: Chronic (5) Pleural effusion Status: Acute (6) Coronary artery disease Status: Chronic (7) S/P 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 change Lasix to 40mg PO daily (4) Atrial fibrillation Status: Chronic Assessment and plan: Cardizem restarted since S/P PPM for rate control. Stop digoxin, may need to adjust Cardizem, rate controlled well now. (5) Coronary artery disease Status: Chronic (6) S/P 2-vessel coronary artery bypass Status: Chronic (7) HTN (hypertension) Status: Chronic (8) Dyslipidemia Status: Chronic (9) PAD (peripheral artery disease) Status: Chronic (10) Leukocytosis Status: Acute Assessment and plan: Consult Hospitalist. thank you for your assistance <Norma Ann - 10/30/16 11:01> - Time Spent With Patient Total time spent is greater than 50% in coordination of care (as documented) at patient's floor/unit and/or counseling patient: <Rodolfo Matson - 10/30/16 13:16> Total time spent is greater than 50% in coordination of care (as documented) at patient's floor/unit and/or counseling patient: <Norma Ann - 10/28/16 16:22> less than 15 minutes <Norma Ann Tor - 10/30/16 11:02> - Attestation Attestation Narrative: Recommendation After examining the patient I agree with the above assessment. I am involved in the formulation of the patient's plan of care. <Prema Matsonsein - 10/30/16 13:16> Sepsis Assessment - Evaluation Sepsis screening result: No Definite Risk <Norma Ann - 10/28/16 16:22> Hospital Course Summary Disclaimer: The visit summary below is not to be considered part of the above Progress Note. <Prema Matsonsein - 10/30/16 13:16> The visit summary below is not to be considered part of the above Progress Note. <Norma Ann Tor - 10/28/16 16:22> Hospital Course: 10/24/16 Chronic, poor rate control as Cardizem was discontinued during last hospitalization due to pauses. Plan to restart and watch cardiac telemetry. 10/25/16 Multiple 2-3 second pauses seen on telemetry, plan to hold Xarelto and insert PPM tomorrow afternoon. 10/28/16 14:16 Persistent sleep disruption due to nocturnal leg cramps. Ongoing poor oral intake, leukocytosis slightly improved, hypoxia resolved, and hypokalemia improved following replacement yesterday. I remain concerned that there is a component of depression and am going to start low-dose mirtazapine 7.5 mg tonight with plan to titrate citalopram off over the next day or 2. Hopefully mirtazapine will help with appetite and sleep. Nutritional supplements with ensure and trial of Magic cups initiated. Diet switch to soft due to difficulty chewing. Hemoglobin down slightly, iron studies pending. If iron level low would benefit from IV iron for replacement. Patient is not overtly describe indigestion today, continue IV PPI today-will convert to by mouth tomorrow. Thoracentesis yesterday with removal of 800 mL slightly blood-tinged fluid, LDH elevated with racial compatible with exudate although clinical scenario more compatible with transudate. Cultures pending-no organisms seen on Gram stain. I don't believe antibiotics need to be continued for this purpose. Blood cultures negative after 4 days-although white count remains modestly elevated there is no clear indication of systemic infection and I'm inclined to discontinue his Ancef. Discussed with cardiology-surgical prophylaxis for pacemaker; discontinued. Anticipate transfer to IRU tomorrow for strengthening. 10/28/16 14:18 <Norma Ann - 10/28/16 16:22>
[2016-10-28 19:47] VITALS: RESP 16
[2016-10-28] MEDS: ATORVASTATIN 20 MG TABLET PO SCH (21:46)
[2016-10-28] MEDS: MAGNESIUM OXIDE 400 MG TABLET PO SCH (21:46)
[2016-10-28] MEDS: CITALOPRAM 10 MG TABLET PO SCH (21:52)
[2016-10-28] MEDS ORDERED: MIRTAZAPINE 15 MG TABLET PO SCH (22:00)
[2016-10-29 01:15] VITALS: O2SAT 91
[2016-10-29 08:16] VITALS: PULSE 73
[2016-10-29 08:25] VITALS: BP 147/66; TEMP 97.6
[2016-10-29] MEDS: PANTOPRAZOLE 40 MG INJECTION IVP SCH (08:46)
[2016-10-29] MEDS: POLYETHYL GLYCOL 3350 17gm PACKET PO SCH (08:46)
[2016-10-29] MEDS: MINOCYCLINE 100 MG CAPSULE PO SCH (08:46)
[2016-10-29] MEDS: LOSARTAN 50 MG TABLET PO SCH (08:47)
[2016-10-29] MEDS: ASPIRIN *EC* 81 MG TABLET PO SCH (08:47)
[2016-10-29] MEDS: SALINE FLUSH 10ml SYRINGE IVF PRN (08:47)
[2016-10-29] MEDS: SENNA + DOCUSATE TABLET PO SCH (08:47)
[2016-10-29] MEDS: SENNOSIDES 8.6 MG TABLET PO SCH (08:47)
[2016-10-29] MEDS ORDERED: FUROSEMIDE 40 MG TABLET PO SCH (09:00)
--- NOTE | 2016-10-29 10:08 | Discharge Summary ---
<Norma Ann - Last Filed: 10/29/16 10:05> Discharge Information Date of admission: 10/25/16 11:39 Anticipated date of discharge: 10/29/16 Attending Physician: Rodolfo Matson MD Primary care physician: Deepak Duarte MD Consults: 10/24/16 Physician consult Routine Consulting Provider: Santosh Sarkar Reason for Exam: Left pleural effusion 10/26/16 IRU Screening [Inpatient Rehab Screening] [CONS] Routine 10/27/16 09:48 Physician Consult [CONS] Routine Consulting Provider: Rex Bhagat Reason For Exam: cont care Ordering Provider has Notified Associate Professor Of Criminal Justice: Yes 10/27/16 13:58 Physician Consult [CONS] Routine Consulting Provider: Cele Brand Reason For Exam: medical management Ordering Provider has Notified Associate Professor Of Criminal Justice: Yes 10/27/16 14:47 Dietary Consult [CONS] Routine Comment: Reason For Exam: - Discharge Diagnosis Discharge Diagnosis: Atrial fibrillation with RVR, tachybrady syndrome with PPM insertion. CAD, S/P CABG, post op left pleural effusion with thoracentesis. - Procedures Procedures: 10/26/16 Medtronic single chamber permanent pacemaker insertion. DATE OF OPERATION 10/27/2016 SURGEON Santosh Sarkar MD PREOPERATIVE DIAGNOSIS Left symptomatic left pleural effusion. POSTOPERATIVE DIAGNOSIS Left symptomatic left pleural effusion. PROCEDURE Left thoracentesis. ANESTHESIA Local. BRIEF HISTORY/INDICATIONS Mrs. Machado is an 81-year-old female who recently had underwent coronary artery bypass grafting. She was recently admitted to our facility and was found to have a moderate-sized left pleural effusion. She has been complaining of some shortness of breath. She has been requiring some supplemental oxygen periodically. Initially I had elected to be conservative in nature and not proceed with thoracentesis. Her pleural effusion, however, has not been improving with medical therapy. A chest x-ray lateral film was obtained that did reveal a moderate amount of fluid more than what I had anticipated upon her prior AP films. As a result of the above indications, I recommended to the patient that she undergo left thoracentesis. DESCRIPTION OF PROCEDURE Patient was brought to the preoperative area and placed upon the table in a sitting position. Next, the level of the right hemidiaphragm was ascertained by percussion and auscultation. The level of the right hemidiaphragm was marked out percutaneously. A point parallel to this was then marked out upon the left posterior/lateral chest wall. This area was then prepped and draped in a sterile fashion. Then, 1% lidocaine was injected just beneath the intercostal space above the level of the left hemidiaphragm. A 22-gauge needle was then introduced through this area of analgesia and up and over the underlying rib and into the left thorax with aspiration. Serosanguineous fluid was obtained. Next, a 4-5 mm incision was then made overlying the area of analgesia. A thoracentesis needle and catheter were then advanced through the small incision and into the left thorax with aspiration. Once again serosanguineous fluid was obtained. Catheter was advanced over the needle as the needle was being withdrawn. A total of 800 mL of fluid was then aspirated without difficulty. Catheter was then removed. Sterile dressing was applied. Patient was subsequently sent to Radiology where a postprocedure chest x-ray was obtained. It did reveal marked improvement of her pleural effusion. There was still some small residual fluid present within the costophrenic angle. Patient was sent back to the surgical floor in stable condition. Patient is in the process of being sent back to the surgical floor in stable condition. - Laboratory Labs: 10/29/16 04:44 10/29/16 04:43 Laboratory Tests 10/24/16 10/24/16 10/24/16 10:10 10:40 10:40 WBC 15.9 H RBC 3.18 L Hgb 9.6 L Hct 30.7 L MCV 96.5 MCH 30.2 MCHC 31.3 RDW Std Deviation 48.6 Plt Count 379 D MPV 9.3 L Immature Gran % (Auto) Not performed Neut % (Auto) Not performed Lymph % (Auto) Not performed Wilkinson % (Auto) Not performed Eos % (Auto) Not performed Baso % (Auto) Not performed Neut # Not performed Lymph # Not performed Wilkinson # Not performed Eos # Not performed Baso # Not performed Abs Immat Gran (auto) Not performed Neutrophils % (Manual) 83.0 H Band Neutrophils % 4.0 Lymphocytes % (Manual) 11.0 L Monocytes % (Manual) 2.0 Neutrophils # (Manual) 13.2 H Band Neutrophils # 0.6 Lymphocytes # (Manual) 1.7 Monocytes # (Manual) 0.3 Anisocytosis RBC Morph Comment Normal Turbidity < 20 Sodium 139 Potassium 4.3 Chloride 102 Carbon Dioxide 28 Anion Gap 9 BUN 40.0 H Creatinine 0.6 L GFR Calculation 96 BUN/Creatinine Ratio 67 H Glucose 113 H Glucometer Calculated Osmolality 279 Calcium 9.1 Phosphorus Magnesium Total Bilirubin 0.60 Icterus Index < 2 AST 21 ALT 42 Alkaline Phosphatase 97 Lactate Dehydrogenase Troponin I 0.037 Total Protein 6.1 L Albumin 3.5 Globulin 2.6 Albumin/Globulin Ratio 1.3 Plasma Lactate 1.2 Procalcitonin TSH Specimen Hemolysis 28 H Ur Collection Type Not provided Urine Color Yellow Urine Clarity Clear Urine pH 5.5 Ur Specific [place] 1.015 Urine Protein Negative Urine Glucose (UA) Negative Urine Ketones Negative Urine Occult Blood Trace-intact Urine Nitrate Negative Urine Bilirubin Negative Urine Urobilinogen 0.2 Ur Leukocyte Esterase 1+ A Urine RBC 0-1 Urine WBC 1-3 Ur Squamous Epith Cells 0-5 Urine Bacteria None seen Ur Culture Indicated? Cult not indicated Urinalysis Comment Fluid Type Fluid Color Fluid Turbidity Fluid pH Fluid RBC Fld Tot Nucleated Cell Fluid Neutrophils Fluid Lymphocytes Fluid Monocytes Fluid Eosinophils Fluid Basophils Fluid Other Cells % Fluid Glucose Fluid Total Protein Fluid LDH Fluid Amylase Digoxin 10/24/16 10/24/16 10/24/16 10:40 11:09 14:42 WBC RBC Hgb Hct MCV MCH MCHC RDW Std Deviation Plt Count MPV Immature Gran % (Auto) Neut % (Auto) Lymph % (Auto) Wilkinson % (Auto) Eos % (Auto) Baso % (Auto) Neut # Lymph # Wilkinson # Eos # Baso # Abs Immat Gran (auto) Neutrophils % (Manual) Band Neutrophils % Lymphocytes % (Manual) Monocytes % (Manual) Neutrophils # (Manual) Band Neutrophils # Lymphocytes # (Manual) Monocytes # (Manual) Anisocytosis RBC Morph Comment Turbidity Sodium Potassium Chloride Carbon Dioxide Anion Gap BUN Creatinine GFR Calculation BUN/Creatinine Ratio Glucose Glucometer Calculated Osmolality Calcium Phosphorus Magnesium 1.9 Total Bilirubin Icterus Index AST ALT Alkaline Phosphatase Lactate Dehydrogenase Troponin I Total Protein Albumin Globulin Albumin/Globulin Ratio Plasma Lactate 1.0 Procalcitonin TSH 1.82 Specimen Hemolysis Ur Collection Type Urine Color Urine Clarity Urine pH Ur Specific [place] Urine Protein Urine Glucose (UA) Urine Ketones Urine Occult Blood Urine Nitrate Urine Bilirubin Urine Urobilinogen Ur Leukocyte Esterase Urine RBC Urine WBC Ur Squamous Epith Cells Urine Bacteria Ur Culture Indicated? Urinalysis Comment Fluid Type Fluid Color Fluid Turbidity Fluid pH Fluid RBC Fld Tot Nucleated Cell Fluid Neutrophils Fluid Lymphocytes Fluid Monocytes Fluid Eosinophils Fluid Basophils Fluid Other Cells % Fluid Glucose Fluid Total Protein Fluid LDH Fluid Amylase Digoxin 0.7 L 10/25/16 10/25/16 10/26/16 08: 08: 04:24 WBC 15.6 H 14.5 H RBC 2.70 L 2.87 L Hgb 8.1 L D 8.6 L Hct 26.5 L D 28.4 L MCV 98.1 99.0 MCH 30.0 30.0 MCHC 30.6 L 30.3 L RDW Std Deviation 49.3 50.0 Plt Count 313 327 MPV 9.1 L 9.8 Immature Gran % (Auto) Neut % (Auto) Lymph % (Auto) Wilkinson % (Auto) Eos % (Auto) Baso % (Auto) Neut # Lymph # Wilkinson # Eos # Baso # Abs Immat Gran (auto) Neutrophils % (Manual) Band Neutrophils % Lymphocytes % (Manual) Monocytes % (Manual) Neutrophils # (Manual) Band Neutrophils # Lymphocytes # (Manual) Monocytes # (Manual) Anisocytosis RBC Morph Comment Turbidity < 20 Sodium 140 Potassium 4.1 Chloride 104 Carbon Dioxide 30 Anion Gap 6 BUN 30.0 H Creatinine 0.6 L GFR Calculation 96 BUN/Creatinine Ratio 50 H Glucose 93 Glucometer Calculated Osmolality 275 Calcium 8.6 Phosphorus Magnesium 1.9 Total Bilirubin Icterus Index < 2 AST ALT Alkaline Phosphatase Lactate Dehydrogenase Troponin I Total Protein Albumin Globulin Albumin/Globulin Ratio Plasma Lactate Procalcitonin TSH Specimen Hemolysis < 15 Ur Collection Type Urine Color Urine Clarity Urine pH Ur Specific [place] Urine Protein Urine Glucose (UA) Urine Ketones Urine Occult Blood Urine Nitrate Urine Bilirubin Urine Urobilinogen Ur Leukocyte Esterase Urine RBC Urine WBC Ur Squamous Epith Cells Urine Bacteria Ur Culture Indicated? Urinalysis Comment Fluid Type Fluid Color Fluid Turbidity Fluid pH Fluid RBC Fld Tot Nucleated Cell Fluid Neutrophils Fluid Lymphocytes Fluid Monocytes Fluid Eosinophils Fluid Basophils Fluid Other Cells % Fluid Glucose Fluid Total Protein Fluid LDH Fluid Amylase Digoxin 10/26/16 10/27/16 10/27/16 04:24 01:39 04:27 WBC RBC Hgb Hct MCV MCH MCHC RDW Std Deviation Plt Count MPV Immature Gran % (Auto) Neut % (Auto) Lymph % (Auto) Wilkinson % (Auto) Eos % (Auto) Baso % (Auto) Neut # Lymph # Wilkinson # Eos # Baso # Abs Immat Gran (auto) Neutrophils % (Manual) Band Neutrophils % Lymphocytes % (Manual) Monocytes % (Manual) Neutrophils # (Manual) Band Neutrophils # Lymphocytes # (Manual) Monocytes # (Manual) Anisocytosis RBC Morph Comment Turbidity < 20 Sodium 141 Potassium 4.1 Chloride 101 Carbon Dioxide 32 H Anion Gap 8 BUN 32.0 H Creatinine 0.7 GFR Calculation 80 BUN/Creatinine Ratio 46 H Glucose 119 H Glucometer 137 Calculated Osmolality 279 Calcium 8.9 Phosphorus Magnesium Total Bilirubin Icterus Index < 2 AST ALT Alkaline Phosphatase Lactate Dehydrogenase Troponin I Total Protein Albumin Globulin Albumin/Globulin Ratio Plasma Lactate Procalcitonin < 0.05 TSH Specimen Hemolysis < 15 Ur Collection Type Urine Color Urine Clarity Urine pH Ur Specific [place] Urine Protein Urine Glucose (UA) Urine Ketones Urine Occult Blood Urine Nitrate Urine Bilirubin Urine Urobilinogen Ur Leukocyte Esterase Urine RBC Urine WBC Ur Squamous Epith Cells Urine Bacteria Ur Culture Indicated? Urinalysis Comment Fluid Type Fluid Color Fluid Turbidity Fluid pH Fluid RBC Fld Tot Nucleated Cell Fluid Neutrophils Fluid Lymphocytes Fluid Monocytes Fluid Eosinophils Fluid Basophils Fluid Other Cells % Fluid Glucose Fluid Total Protein Fluid LDH Fluid Amylase Digoxin 10/27/16 10/27/16 10/27/16 04:30 04:30 04:30 WBC 16.6 H RBC 2.70 L Hgb 8.2 L Hct 26.9 L MCV 99.6 MCH 30.4 MCHC 30.5 L RDW Std Deviation 51.4 H Plt Count 298 MPV 9.4 Immature Gran % (Auto) Not performed Neut % (Auto) Not performed Lymph % (Auto) Not performed Wilkinson % (Auto) Not performed Eos % (Auto) Not performed Baso % (Auto) Not performed Neut # Not performed Lymph # Not performed Wilkinson # Not performed Eos # Not performed Baso # Not performed Abs Immat Gran (auto) Not performed Neutrophils % (Manual) 88.0 H Band Neutrophils % Lymphocytes % (Manual) 8.0 L Monocytes % (Manual) 4.0 Neutrophils # (Manual) 14.6 H Band Neutrophils # Lymphocytes # (Manual) 1.3 Monocytes # (Manual) 0.7 Anisocytosis 2+ RBC Morph Comment Abnormal Turbidity < 20 Sodium 143 Potassium 3.2 L D Chloride 101 Carbon Dioxide 33 H Anion Gap 9 BUN 35.0 H Creatinine 0.9 D GFR Calculation 60 BUN/Creatinine Ratio 39 H Glucose 112 H Glucometer Calculated Osmolality 284 H Calcium 8.8 Phosphorus Magnesium 2.0 Total Bilirubin Icterus Index < 2 AST ALT Alkaline Phosphatase Lactate Dehydrogenase Troponin I Total Protein Albumin Globulin Albumin/Globulin Ratio Plasma Lactate Procalcitonin TSH Specimen Hemolysis < 15 Ur Collection Type Urine Color Urine Clarity Urine pH Ur Specific [place] Urine Protein Urine Glucose (UA) Urine Ketones Urine Occult Blood Urine Nitrate Urine Bilirubin Urine Urobilinogen Ur Leukocyte Esterase Urine RBC Urine WBC Ur Squamous Epith Cells Urine Bacteria Ur Culture Indicated? Urinalysis Comment Fluid Type Fluid Color Fluid Turbidity Fluid pH Fluid RBC Fld Tot Nucleated Cell Fluid Neutrophils Fluid Lymphocytes Fluid Monocytes Fluid Eosinophils Fluid Basophils Fluid Other Cells % Fluid Glucose Fluid Total Protein Fluid LDH Fluid Amylase Digoxin 10/27/16 10/27/16 10/27/16 15:30 15:30 16:48 WBC RBC Hgb Hct MCV MCH MCHC RDW Std Deviation Plt Count MPV Immature Gran % (Auto) Neut % (Auto) Lymph % (Auto) Wilkinson % (Auto) Eos % (Auto) Baso % (Auto) Neut # Lymph # Wilkinson # Eos # Baso # Abs Immat Gran (auto) Neutrophils % (Manual) Band Neutrophils % Lymphocytes % (Manual) Monocytes % (Manual) Neutrophils # (Manual) Band Neutrophils # Lymphocytes # (Manual) Monocytes # (Manual) Anisocytosis RBC Morph Comment Turbidity Sodium Potassium Chloride Carbon Dioxide Anion Gap BUN Creatinine GFR Calculation BUN/Creatinine Ratio Glucose Glucometer Calculated Osmolality Calcium Phosphorus Magnesium Total Bilirubin Icterus Index AST ALT Alkaline Phosphatase Lactate Dehydrogenase Troponin I Total Protein Albumin Globulin Albumin/Globulin Ratio Plasma Lactate Procalcitonin TSH Specimen Hemolysis Ur Collection Type Not provided Urine Color Yellow Urine Clarity Clear Urine pH 5.0 Ur Specific [place] 1.020 Urine Protein Negative Urine Glucose (UA) Negative Urine Ketones Negative Urine Occult Blood Negative Urine Nitrate Negative Urine Bilirubin Negative Urine Urobilinogen 0.2 Ur Leukocyte Esterase Negative Urine RBC Urine WBC Ur Squamous Epith Cells Urine Bacteria Ur Culture Indicated? Urinalysis Comment Microscopic not ind. Fluid Type Thoracentesis fluid Thoracente Fluid Color Red Fluid Turbidity Cloudy Fluid pH 7.82 Fluid RBC 95102 Fld Tot Nucleated Cell 1405 Fluid Neutrophils 21 Fluid Lymphocytes 48 Fluid Monocytes 6 Fluid Eosinophils 0 Fluid Basophils 0 Fluid Other Cells % 25 Fluid Glucose 138 Fluid Total Protein <3.0 Fluid LDH 316 Fluid Amylase 41 Digoxin 10/28/16 10/28/16 10/29/16 04:11 04:11 04:43 WBC 14.2 H RBC 2.68 L Hgb 8.1 L Hct 26.7 L MCV 99.6 MCH 30.2 MCHC 30.3 L RDW Std Deviation 52.4 H Plt Count 306 MPV 9.7 Immature Gran % (Auto) Neut % (Auto) Lymph % (Auto) Wilkinson % (Auto) Eos % (Auto) Baso % (Auto) Neut # Lymph # Wilkinson # Eos # Baso # Abs Immat Gran (auto) Neutrophils % (Manual) Band Neutrophils % Lymphocytes % (Manual) Monocytes % (Manual) Neutrophils # (Manual) Band Neutrophils # Lymphocytes # (Manual) Monocytes # (Manual) Anisocytosis RBC Morph Comment Turbidity < 20 < 20 Sodium 145 H 142 Potassium 3.9 D 3.4 L Chloride 103 102 Carbon Dioxide 34 H 34 H Anion Gap 8 6 BUN 39.0 H 42.0 H Creatinine 0.9 0.9 GFR Calculation 60 60 BUN/Creatinine Ratio 43 H 47 H Glucose 106 84 Glucometer Calculated Osmolality 288 H 283 H Calcium 9.2 9.1 Phosphorus 2.5 Magnesium 2.3 2.4 H Total Bilirubin 0.40 Icterus Index < 2 < 2 AST 28 ALT 32 Alkaline Phosphatase 86 Lactate Dehydrogenase 425 Troponin I Total Protein 5.7 L Albumin 3.4 L 3.1 L Globulin 2.3 L Albumin/Globulin Ratio 1.5 Plasma Lactate Procalcitonin TSH Specimen Hemolysis < 15 < 15 Ur Collection Type Urine Color Urine Clarity Urine pH Ur Specific [place] Urine Protein Urine Glucose (UA) Urine Ketones Urine Occult Blood Urine Nitrate Urine Bilirubin Urine Urobilinogen Ur Leukocyte Esterase Urine RBC Urine WBC Ur Squamous Epith Cells Urine Bacteria Ur Culture Indicated? Urinalysis Comment Fluid Type Fluid Color Fluid Turbidity Fluid pH Fluid RBC Fld Tot Nucleated Cell Fluid Neutrophils Fluid Lymphocytes Fluid Monocytes Fluid Eosinophils Fluid Basophils Fluid Other Cells % Fluid Glucose Fluid Total Protein Fluid LDH Fluid Amylase Digoxin 10/29/16 04:44 WBC 13.3 H RBC 2.69 L Hgb 7.9 L Hct 26.6 L MCV 98.9 MCH 29.4 MCHC 29.7 L RDW Std Deviation 51.2 H Plt Count 245 MPV 9.5 Immature Gran % (Auto) 0.2 Neut % (Auto) 69.8 H Lymph % (Auto) 17.2 L Wilkinson % (Auto) 12.2 H Eos % (Auto) 0.6 Baso % (Auto) 0.0 Neut # 9.3 H Lymph # 2.3 Wilkinson # 1.6 H Eos # 0.1 Baso # 0.0 Abs Immat Gran (auto) 0.02 Neutrophils % (Manual) Band Neutrophils % Lymphocytes % (Manual) Monocytes % (Manual) Neutrophils # (Manual) Band Neutrophils # Lymphocytes # (Manual) Monocytes # (Manual) Anisocytosis RBC Morph Comment Turbidity Sodium Potassium Chloride Carbon Dioxide Anion Gap BUN Creatinine GFR Calculation BUN/Creatinine Ratio Glucose Glucometer Calculated Osmolality Calcium Phosphorus Magnesium Total Bilirubin Icterus Index AST ALT Alkaline Phosphatase Lactate Dehydrogenase Troponin I Total Protein Albumin Globulin Albumin/Globulin Ratio Plasma Lactate Procalcitonin TSH Specimen Hemolysis Ur Collection Type Urine Color Urine Clarity Urine pH Ur Specific [place] Urine Protein Urine Glucose (UA) Urine Ketones Urine Occult Blood Urine Nitrate Urine Bilirubin Urine Urobilinogen Ur Leukocyte Esterase Urine RBC Urine WBC Ur Squamous Epith Cells Urine Bacteria Ur Culture Indicated? Urinalysis Comment Fluid Type Fluid Color Fluid Turbidity Fluid pH Fluid RBC Fld Tot Nucleated Cell Fluid Neutrophils Fluid Lymphocytes Fluid Monocytes Fluid Eosinophils Fluid Basophils Fluid Other Cells % Fluid Glucose Fluid Total Protein Fluid LDH Fluid Amylase Digoxin - Microbiology Microbiology 10/27/16 15:30 Thoracic Fluid Gram Stain - Final 10/27/16 15:30 Thoracic Fluid Body Fluid Culture - Preliminary No Growth After 1 Day 10/27/16 15:30 Fluid Acid Fast Bacilli Culture & Smear - Preliminary - Radiology Radiology: Date of Exam: 10/24/16 Ordering Provider: Haim Vargas DO Type of Exam(s): XR chest 1V Reason for Exam(s): Afib Indication: Afib XR chest 1V: Comparison: 09/29/2016 Technique: Single portable upright chest Findings: Since patient's previous study patient has undergone coronary artery bypass graft changes. Moderate size left-sided pleural effusion and either infiltrate or atelectasis suspected in the left base with obliteration of the diaphragm. Heart size and central vascularity are unremarkable. Patient shows a series of stable granulomas. No new bony abnormality appreciated. Impression: 1. Since previous study postop changes of recent coronary artery bypass grafting with left-sided pleural effusion and either infiltrate or atelectasis with obliteration of the left diaphragm. 2. No suggestion of cardiac decompensation identified. 3. Stable granulomatous changes. Date of Exam: 10/25/16 Ordering Provider: Arianne Fernandez APRN Type of Exam(s): XR chest w decubitus Reason for Exam(s): pleural effusion Indication: pleural effusion PROCEDURE: XR chest w decubitus: Encounter: Subsequent Comparison: Portable chest, 10/24/2016 Findings: Upright portable as well as left side down decubitus radiographs demonstrates a moderately large free-flowing left pleural effusion.. Some associated left basilar atelectasis. Calcified granuloma in the right mid lung. Median sternotomy. Monitor leads overlie the chest. Bony structures intact. Impression: Free-flowing left pleural effusion. Date of Exam: 10/26/16 Ordering Provider: Rodolfo Matson MD Type of Exam(s): XR chest 1V Reason for Exam(s): PPM Indication: PPM PROCEDURE: XR chest 1V: Encounter: Initial Comparison: 10/26/2016 Findings: There is a moderate left pleural effusion, similar to prior exam. Patient is status post median sternotomy. There is a left subclavian single-lead pacemaker in place. No pneumothorax. There is mild process of the cardiac silhouette which is probably accentuated by the AP portable technique. Impression: Persistent left pleural effusion. No pneumothorax post left subclavian pacer insertion. Date of Exam: 10/26/16 Ordering Provider: Santosh Sarkar MD Type of Exam(s): XR chest 2V Reason for Exam(s): effussion Indication: effusion PROCEDURE: XR chest 2V: Encounter: Initial Comparison: 10/25/2016 Findings: There is a moderate left pleural effusion that is similar in severity to prior exam. The patient is status post median sternotomy. No pneumothorax. There is a calcified granuloma in the lateral right midlung. Impression: Evidence for prior granulomatous disease. Moderate left pleural effusion, similar to prior exam. ate of Exam: 10/27/16 Ordering Provider: Rodolfo Matson MD Type of Exam(s): XR chest 2V Reason for Exam(s): PPM Indication: PPM Procedure: XR chest 2V: Encounter: Subsequent Comparison: 10/26/2016 Technique: Life support devices: Unchanged left pectoral single chamber pacer device. Findings: Lungs and airways: Normal lung volumes. Persistent left basilar relaxation atelectasis. Normal pulmonary vasculature. Pleura: Persistent small to moderate left pleural effusion. No pneumothorax. Heart and mediastinum: The cardiomediastinal silhouette and great vessels appear unchanged with redemonstration of aortic atherosclerosis and postoperative changes of CABG. Osseous structures and soft tissues: No acute osseous abnormality is seen. Postoperative changes of median sternotomy. Impression: Persistent small to moderate left pleural effusion with associated left basilar relaxation atelectasis. History of Present Illness HPI: Sayda is a 81-year-old female who is well known to Dr. Matson with a history of CAD with CABG X2 on 10/04/16, chronic AFib, ischemic stroke on 09/30/16, HTN, HLD, and anemia. She presented to the ED feeling short of breath and lightheaded. She reports being unable to lay flat due to breathing difficulty. She denies any pain or discomfort. She is anticoagulated on Xarelto. Her EKG revealed Atrial fibrillation, HR 127. She was given bolus of cardizem and drip began while in the ED and admitted to CCU for rate control. Hospital Course This is a general summary of the patient's hospital course. For more details refer to the complete medical record. Hospital course: 10/24/16 Atrial fibrillation: Chronic, poor rate control as Cardizem was discontinued during last hospitalization due to pauses. Plan to restart and watch cardiac telemetry. 10/25/16 Multiple 2-3 second pauses seen on telemetry, stop Cardizem, plan to hold Xarelto and insert PPM tomorrow afternoon. 10/26/16 Medtronic single chamber permanent pacemaker insertion without difficulty and patient returned to Surgical in stable condition. 10/27/16 Left thoracentesis performed by Dr. Sarkar. 800ml fluid removed. 10/28/16 14:16 Persistent sleep disruption due to nocturnal leg cramps. Ongoing poor oral intake, leukocytosis slightly improved, hypoxia resolved, and hypokalemia improved following replacement yesterday. I remain concerned that there is a component of depression and am going to start low-dose mirtazapine 7.5 mg tonight with plan to titrate citalopram off over the next day or 2. Hopefully mirtazapine will help with appetite and sleep. Nutritional supplements with ensure and trial of Magic cups initiated. Diet switch to soft due to difficulty chewing. Hemoglobin down slightly, iron studies pending. If iron level low would benefit from IV iron for replacement. Patient is not overtly describe indigestion today, continue IV PPI today-will convert to by mouth tomorrow. Thoracentesis yesterday with removal of 800 mL slightly blood-tinged fluid, LDH elevated with racial compatible with exudate although clinical scenario more compatible with transudate. Cultures pending-no organisms seen on Gram stain. I don't believe antibiotics need to be continued for this purpose. Blood cultures negative after 4 days-although white count remains modestly elevated there is no clear indication of systemic infection and I'm inclined to discontinue his Ancef. Discussed with cardiology-surgical prophylaxis for pacemaker; discontinued. Anticipate transfer to IRU tomorrow for strengthening. 10/28/16 14:18 Time spent with patient: 25 - 35 minutes DVT Prophylaxis: Xarelto Exam Vital signs: Temperature 97.6 F 10/29/16 08:16 Pulse Rate 73 10/29/16 08:16 Respiratory Rate 16 10/29/16 08:16 Blood Pressure 147/66 H 10/29/16 08:16 Pulse Oximetry 91 10/29/16 08:16 Oxygen Delivery Method [Pre- Nasal Cannula Procedure] Oxygen Delivery Method Room Air Oxygen Flow Rate [Pre- 0.5 Procedure] Oxygen Flow Rate 0.5 - Constitutional no acute distress, cooperative - Routine HEENT Exam Head: Present: normocephalic Nose: moist mucous membranes - Routine Neck Exam Absent: JVD, carotid bruit - Routine Chest/Breast/Axilla Exam Chest wall: Present: pacemaker. Absent: tenderness - Routine Respiratory Exam Present: rales (bibasilar), diminished air movement. Absent: CTA bilaterally - Routine Cardiovascular Exam Present: no murmur, irregularly irregular. Absent: JVD - Routine Abdominal Exam Present: soft, normoactive bowel sounds - Routine Extremities Exam Present: edema - Routine Skin Exam Present: intact, dry, warm - Routine Neurological Exam Present: alert, oriented X3 - Routine Psychiatric Exam Present: depressed - Additional findings Additional findings: Acetaminophen/Codeine Phosphate (Tylenol With Codeine #3 (300/30)) 1 - 2 tab PO Q4H PRN PRN Reason: Pain Last Admin: 10/28/16 20:12 Dose: 1 tab Al Hydroxide/Mg Hydroxide (Maalox Plus) 30 ml PO DAILY PRN PRN Reason: Indigestion Aspirin (Ecotrin) 81 mg PO DAILY [facility] Last Admin: 10/29/16 08:47 Dose: 81 mg Atorvastatin Calcium (Lipitor) 20 mg PO HS [facility] Last Admin: 10/28/16 21:46 Dose: 20 mg Calcium Carbonate (Tums) 500 mg PO Q4H PRN Citalopram Hydrobromide (Celexa) 10 mg PO HS [facility] Last Admin: 10/28/16 21:52 Dose: 10 mg Diltiazem HCl (Cardizem Cd) 120 mg PO DAILY [facility] Last Admin: 10/29/16 08:47 Dose: 120 mg Furosemide (Lasix) 40 mg PO DAILY [facility] Last Admin: 10/29/16 08:47 Dose: 40 mg Losartan Potassium (Cozaar) 50 mg PO DAILY [facility] Last Admin: 10/29/16 08:47 Dose: 50 mg Magnesium Hydroxide (Mom) 30 ml PO DAILY PRN PRN Reason: Constipation Magnesium Oxide (Magox) 400 mg PO HS [facility] Last Admin: 10/28/16 21:46 Dose: 400 mg Metoclopramide HCl (Reglan) 10 mg IVP Q6H PRN Metoprolol Tartrate (Lopressor) 100 mg PO BIDBS [facility] Last Admin: 10/29/16 08:47 Dose: 100 mg Minocycline HCl (Minocin) 100 mg PO BID [facility] Last Admin: 10/29/16 08:46 Dose: 100 mg Mirtazapine (Remeron) 7.5 mg PO HS [facility] Last Admin: 10/28/16 21:47 Dose: 7.5 mg Ondansetron HCl (Zofran) 4 mg IVP Q6H PRN PRN Reason: Nausea &/or vomiting Last Admin: 10/26/16 09:17 Dose: 4 mg Pantoprazole Sodium (Protonix Iv) 40 mg IVP DAILY [facility] Last Admin: 10/29/16 08:46 Dose: 40 mg Polyethylene Glycol (Miralax) 17 gm PO DAILY [facility] Last Admin: 10/29/16 08:46 Dose: 17 gm Potassium Chloride (K-Dur) 20 meq PO NOON [facility] Last Admin: 10/28/16 12:01 Dose: 20 meq Rivaroxaban (Xarelto) 20 mg PO WS [facility] Last Admin: 10/28/16 18:11 Dose: 20 mg Senna (Senna Lax) 8.6 mg PO DAILY [facility] Last Admin: 10/29/16 08:47 Dose: 8.6 mg Senna/Docusate Sodium (Senna Plus Tablet) 1 tab PO BID [facility] Last Admin: 10/29/16 08:47 Dose: 1 tab Sodium Chloride (Iv Flush) 10 - 80 ml IVF PRN PRN PRN Reason: Flushing Last Admin: 10/29/16 08:47 Dose: 20 ml Sodium Chloride (Iv Flush) 10 - 80 ml IVF PRN PRN PRN Reason: Flushing Sodium Chloride (Normal Saline) 500 ml IV PRN PRN Last Admin: 10/28/16 08:43 Dose: 500 ml Results 10/29/16 04:44 10/29/16 04:43 CBC 10/29/16 Range/Units 04:44 WBC 13.3 H (4.5-11.0) T/MM3 RBC 2.69 L (4.00-5.20) M/MM3 Hgb 7.9 L (12-16) GM/DL Hct 26.6 L (36-46) % Plt Count 245 (130-400) T/MM3 Neut # 9.3 H (1.8-7.7) T/MM3 Lymph # 2.3 (1-4.8) T/MM3 Wilkinson # 1.6 H (0-0.8) T/MM3 Eos # 0.1 (0-0.5) T/MM3 Baso # 0.0 (0-0.2) T/MM3 Comprehensive Metabolic Panel 10/29/16 Range/Units 04:43 Sodium 142 (134-144) MEQ/L Potassium 3.4 L (3.6-5) MEQ/L Chloride 102 (98-107) MEQ/L Carbon Dioxide 34 H (22-30) MEQ/L BUN 42.0 H (7-17) MG/DL Creatinine 0.9 (0.7-1.2) MG/DL Glucose 84 (65-110) MG/DL Calcium 9.1 (8.4-10.2) MG/DL Albumin 3.1 L (3.5-5.0) G/DL Intake and Output 10/28/16 10/29/16 10/29/16 22:59 06:59 14:59 Intake Total 1150 / 1150 190 / 190 Output Total 375 / 375 Balance 775 / 775 190 / 190 Intake: Oral 1150 / 1150 190 / 190 Output: Urine 375 / 375 Other: Weight 165 lb 5.547 oz 163 lb 2.273 oz Patient Weight 10/30/16 06:59 Weight 163 lb 2.273 oz - Imaging and Cardiology EKG results: image reviewed - EKG Interpretation EKG shows: atrial fibrillation Discharge Plan - Med Rec/Dispo Referrals/Follow Up: Rodolfo Matson MD [Physician] - Crow Instructions: [facility] [place], [place] Pacemaker, Pacemaker (DC) Prescriptions: New Magnesium Oxide [Magox] 400 mg PO HS #30 tablet Minocycline [Minocin] 100 mg PO BID #9 capsule Mirtazapine [Remeron] 7.5 mg PO HS #30 tablet Citalopram [Celexa] 10 mg PO HS #30 tablet DiltiaZEM CD [Cardizem Cd] 120 mg PO DAILY #30 capsule Continue Potassium Chloride ER Tab [K-Dur] 20 meq PO NOON #0 Calcium Carbonate/Vitamin D2 [Oyster Shell Calcium-Vit D Tab] 1 tab PO NOON Aspirin [Adult Low Dose Aspirin EC] 81 mg PO DAILY Metoprolol Tartrate [Lopressor] 100 mg PO BID Losartan [Cozaar] 50 mg PO DAILY Furosemide [Lasix] 20 mg PO DAILY Nitroglycerin 0.4 mg SL Q5MIN3 PRN PRN Reason: Chest Pain Anastrozole 1 mg PO DAILY Atorvastatin [Lipitor] 20 mg PO HS Rivaroxaban [Xarelto] 20 mg PO NOON Discontinued Digoxin 125 mcg PO DAILY - Disposition 62 To [facility] [place] [place] INPT Rehab <Rodolfo Matson - Last Filed: 10/30/16 13:15> Discharge Information Date of admission: 10/25/16 11:39 Attending Physician: Rodolfo Matson MD Primary care physician: Deepak Duarte MD Consults: 10/26/16 IRU Screening [Inpatient Rehab Screening] [CONS] Routine 10/27/16 09:48 Physician Consult [CONS] Routine Consulting Provider: Rex Bhagat Reason For Exam: cont care Ordering Provider has Notified Associate Professor Of Criminal Justice: Yes 10/27/16 13:58 Physician Consult [CONS] Routine Consulting Provider: Cele Brand Reason For Exam: medical management Ordering Provider has Notified Associate Professor Of Criminal Justice: Yes 10/27/16 14:47 Dietary Consult [CONS] Routine Comment: Reason For Exam: - Laboratory Labs: 10/29/16 04:44 10/29/16 04:43 - Microbiology Microbiology 10/27/16 15:30 Fluid Acid Fast Bacilli Culture & Smear - Preliminary 10/27/16 15:30 Thoracic Fluid Gram Stain - Final 10/27/16 15:30 Thoracic Fluid Body Fluid Culture - Preliminary No Growth After 2 Days Hospital Course This is a general summary of the patient's hospital course. For more details refer to the complete medical record. Exam Vital signs: Temperature 97.6 F 10/29/16 08:16 Pulse Rate 73 10/29/16 08:16 Respiratory Rate 16 10/29/16 08:16 Blood Pressure 147/66 H 10/29/16 08:16 Pulse Oximetry 91 10/29/16 08:16 Oxygen Delivery Method [Pre- Nasal Cannula Procedure] Oxygen Delivery Method Room Air Oxygen Flow Rate [Pre- 0.5 Procedure] Oxygen Flow Rate 0.5 Results 10/29/16 04:44 10/29/16 04:43 Discharge Plan - Med Rec/Dispo - Attestation Attestation Narrative: 10/30/16 13:15 Recommendation After examining the patient I agree with the above assessment. I am involved in the formulation of the patient's plan of care.
--- NOTE | 2016-10-29 13:11 | Progress Note ---
Subjective: Mrs. Machado reports that she slept a little last night; her reports that she slept well. Patient attributes improved sleep to her heels being raised off the bed. She complains that she can't chew well and subsequently is not eating well. She's remained off oxygen since it was discontinued yesterday and denied dyspnea. She denied pain and was noncommittal when asked about nausea. Objective Vital signs: Temperature 97.6 F 10/29/16 08:16 Pulse Rate 73 10/29/16 08:16 Respiratory Rate 16 10/29/16 08:16 Blood Pressure 147/66 H 10/29/16 08:16 Pulse Oximetry 91 10/29/16 08:16 Oxygen Delivery Method Room Air I/O 1380/825 Weight 74 kg, up 4 kg from admission EXAM General-NAD, drowsy, soft slow speech with some latency to responses HEENT-conjunctiva clear, eyes open during most of our interaction Lungs-respirations nonlabored, decreased airflow, breath sounds clear although slightly diminished left lateral base Cardiac-regular rhythm, S1 and S2 Abd-soft, nontender, bowel sounds present/diminished Ext-3+ edema bilateral lower extremities Skin-minor bruising at pacemaker site and along thoracotomy incision-both healing well Psych-flat - Weight: 74 kg Results - Labs CBC & Chem 7: 10/29/16 04:44 10/29/16 04:43 Labs: Mg 2.4 Microbiology Results: Microbiology 10/27/16 15:30 Thoracic Fluid Gram Stain - Final 10/27/16 15:30 Thoracic Fluid Body Fluid Culture - Preliminary No Growth After 1 Day 10/27/16 15:30 Fluid Acid Fast Bacilli Culture & Smear - Preliminary Assessment and Plan (1) Leukocytosis Status: Acute Assessment and Plan: Leukocytosis Progressive normocytic anemia with reports of black colored stools Nausea, dysphagia, anorexia, constipation Hypokalemia Depression, probable Feet cramps/spasms, worse at night Hypoxia; acute resp failure Left pleural effusion, exudate; thoracentesis 10/27 Atrial fibrillation on Xarelto, ASA CAD, recent CABGx2 10/04/16 Acute ischemic stroke involving the posterior circulation in the right occipital lobe and left cerebellum - September, History of peripheral vascular disease with bilateral carotid endarterectomies in the remote past Hypertension Hyperlipidemia History of breast cancer Overweight BMI 27.4 Suggestion of improved sleep after initial dose of mirtazapine-continue. Discontinue citalopram. Continue nutritional supplements. Leukocytosis slowly improving, no indication of systemic infection. Iron studies pending-should be run tomorrow. Potassium borderline low today-will give supplemental dose this evening with supper. Pleural fluid culture negative. Repeat chest x-ray in a couple of days to determine if reaccumulating. Oxygenation stable on room air today. Transferring to IRU. Discussed with nursing. Sepsis Assessment - Evaluation Sepsis screening result: No Definite Risk Hospital Course Summary Disclaimer: The visit summary below is not to be considered part of the above Progress Note. Hospital Course: 10/24/16 Atrial fibrillation: Chronic, poor rate control as Cardizem was discontinued during last hospitalization due to pauses. Plan to restart and watch cardiac telemetry. 10/25/16 Multiple 2-3 second pauses seen on telemetry, stop Cardizem, plan to hold Xarelto and insert PPM tomorrow afternoon. 10/26/16 [employer] single chamber permanent pacemaker insertion without difficulty and patient returned to Surgical in stable condition. 10/27/16 Left thoracentesis performed by Dr. Sarkar. 800ml fluid removed. 10/28/16 14:16 Persistent sleep disruption due to nocturnal leg cramps. Ongoing poor oral intake, leukocytosis slightly improved, hypoxia resolved, and hypokalemia improved following replacement yesterday. I remain concerned that there is a component of depression and am going to start low-dose mirtazapine 7.5 mg tonight with plan to titrate citalopram off over the next day or 2. Hopefully mirtazapine will help with appetite and sleep. Nutritional supplements with ensure and trial of Magic cups initiated. Diet switch to soft due to difficulty chewing. Hemoglobin down slightly, iron studies pending. If iron level low would benefit from IV iron for replacement. Patient is not overtly describe indigestion today, continue IV PPI today-will convert to by mouth tomorrow. Thoracentesis yesterday with removal of 800 mL slightly blood-tinged fluid, LDH elevated with racial compatible with exudate although clinical scenario more compatible with transudate. Cultures pending-no organisms seen on Gram stain. I don't believe antibiotics need to be continued for this purpose. Blood cultures negative after 4 days-although white count remains modestly elevated there is no clear indication of systemic infection and I'm inclined to discontinue his Ancef. Discussed with cardiology-surgical prophylaxis for pacemaker; discontinued. Anticipate transfer to IRU tomorrow for strengthening. 10/28/16 14:18
== END 2016-10-29 11:10 | DRG 243 ==
LOC: ED 09:31 → CCU 12:39 → INTOOBSV 12:39 → CCU 12:55 → SRG 10-25 13:19
PROVIDERS: ADMIT Internal Medicine Cardiovascular Disease; ATTEND Internal Medicine Cardiovascular Disease

== ENCOUNTER 2016-10-29 11:10 | Inpatient (IN) ==
[2016-10-29] MEDS ORDERED: NITROGLYCERIN 0.4 MG SUBLINGUAL TABLET SL PRN (13:00)
[2016-10-29] MEDS: RIVAROXABAN 20 MG TABLET PO SCH ×2 (17:36→18:49)
[2016-10-29] MEDS: ATORVASTATIN 20 MG TABLET PO SCH ×2 (20:08→21:06)
[2016-10-29] MEDS: MINOCYCLINE 100 MG CAPSULE PO SCH (20:08)
[2016-10-29] MEDS: MIRTAZAPINE 15 MG TABLET PO SCH ×2 (20:10→21:06)
[2016-10-29] MEDS: SALINE FLUSH 10ml SYRINGE IVF SCH (20:10)
[2016-10-29] MEDS: MAGNESIUM OXIDE 400 MG TABLET PO SCH ×2 (20:10→21:06)
[2016-10-29] MEDS ORDERED: CITALOPRAM 10 MG TABLET PO SCH (22:00)
--- NOTE | 2016-10-30 08:16 | Consult Note ---
<Gilda Stewart Stefano - Last Filed: 10/30/16 08:09> Consult Information - Data of Consult Patient: known to practice within the last 3 years Consult date: 10/30/16 Requesting Physician: Min Rocha MD Primary Care Provider: Deepak Duarte MD Family Provider: Deepak Duarte MD - Consult Narrative Reason for consult: anemia; depression History of present illness: Sayda Machado is an 81 y/o seen in consultation from Dr. Rocha for anemia, cerebrovascular disease, and depression. Sayda has had multiple diagnoses since September - she had a stroke in September then underwent CABG X2 on 10/04/16 (Dr. Jyaro Plaza). Per her , Louis, she was able to go home and was moving around fairly well until about 10/24/16 when she became short of breath and lightheaded. He took her to [facility], where she was found to be in A-fib with RVR and she also had a right pleural effusion. She was admitted to the CCU, where telemetry revealed multiple 2-[address] Matson subsequently inserted a PPM on 10/26/16. Dr. Sarkar was consulted for the effusion and took her for thoracentesis on 10/27/16. 800 mL fluid was removed, and following this procedure she was able to be weaned off of oxygen. She had persistent leukocytosis as well, but sepsis has been neg. Hgb decreased to the low 8's, but stabilized there. Iron studies were low. Sayda has had a flat affect and cardiology became concerned about depression - Celexa was started. The hospitalist service was also involved in her care and discontinued Celexa d/t concerns about nausea and started mirtazapine to counter both depression and anorexia. Despite all these diagnoses and complications, she improved clinically and was discharged from acute care to IRU on 10/29/16. She was seen along with her , Louis, who spent the night. She continues to have a flat aspect and kept her eyes closed most of the time. Her answered most of the questions. She states that she didn't sleep well last night , but her thought she had a peaceful night. She is weak and tired. She still doesn't have an appetite, but is no longer nauseated. She denies abdominal pain, bloating, diarrhea, or constipation. She had a bowel movement since arriving to IRU, and staff describe it as "black" in color. She denies dizziness. No chest pain or shortness of breath, cough/congestion. Her thinks that her leg swelling is better; she still has swelling to her right arm. ON LICENSE OF [facility] Acute ischemic stroke involving the posterior circulation in the right occipital lobe and left cerebellum - September, History of peripheral vascular disease with bilateral carotid endarterectomies in the remote past Atrial fibrillation CAD, recent CABGx2 10/04/16 Hypertension Hyperlipidemia History of breast cancer Overweight BMI 26.2 Surgical History: cataracts. 2016 bilateral CEAs. Echo September,. 1. Normal LV systolic function with ejection fraction of 60%. 2. Grossly, no intracardiac thrombus or mass. 3. Mitral annulus calcification with mild mitral regurgitation. 4. Aortic sclerosis with [id number] aortic insufficiency. 5. Mild tricuspid regurgitation with mild pulmonary hypertension with estimated pulmonary artery systolic pressure of 38. 6. Mild pulmonary insufficiency. 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 Jayro Plaza. 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 Matson. Thoracentesis with removal of 800 mL from left pleural effusion 10/27/[address] Sarkar. Family History: Mother -stroke - Social History Smoking status: Former smoker Substance use type: does not use Alcohol intake frequency: does not drink Household members: spouse ( to Louis x59 years) Current occupational status: retired Review of Systems Comprehensive ROS: completed and no additional positive findings except those as stated - Constitutional Constitutional: Present: as per HPI, anorexia - EENMT Eyes: Absent: change in vision Mouth/Throat: Absent: sore throat - Cardiovascular Cardiovascular: Absent: chest pain Vascular: Present: pedal edema (improving) - Respiratory Respiratory: Absent: cough, dyspnea - Gastrointestinal Gastrointestinal: Absent: abdominal pain, constipation, diarrhea, hematochezia, melena, nausea, vomiting - Musculoskeletal Musculoskeletal: Present: muscle weakness - Neurological Neurological: Present: weakness. Absent: dizziness, focal weakness - Psychiatric Psychiatric: Present: abnormal sleep pattern - Allergic/Immunologic Allergic/Immunologic: Absent: tongue swelling, lip swelling Medications Home Medications Medication Instructions Recorded Confirmed Type Potassium Chloride ER Tab [K-Dur] 20 meq PO NOON #0 08/20/14 10/29/16 History Anastrozole 1 mg PO DAILY 09/29/16 10/29/16 History Aspirin [Adult Low Dose Aspirin EC] 81 mg PO DAILY 10/24/16 10/29/16 History Atorvastatin [Lipitor] 20 mg PO HS 10/24/16 10/29/16 History Calcium Carbonate/Vitamin D2 1 tab PO NOON 10/24/16 10/29/16 History [Oyster Shell Calcium-Vit D Tab] Furosemide [Lasix] 20 mg PO DAILY 10/24/16 10/29/16 History Losartan [Cozaar] 50 mg PO DAILY 10/24/16 10/29/16 History Metoprolol Tartrate [Lopressor] 100 mg PO BID 10/24/16 10/29/16 History Nitroglycerin 0.4 mg SL Q5MIN3 PRN 10/24/16 10/29/16 History Rivaroxaban [Xarelto] 20 mg PO NOON 10/24/16 10/29/16 History Allergies Allergy/AdvReac Type Severity Reaction Status Date / Time lisinopril Allergy Unknown Verified 10/24/16 10:17 Penicillins Allergy Unknown Verified 10/24/16 10:17 Exam Vital Signs: Temperature 97.1 F 10/29/16 23:34 Pulse Rate 65 10/29/16 23:34 Respiratory Rate 18 10/29/16 23:34 Blood Pressure 134/61 10/29/16 23:34 Pulse Oximetry 94 10/29/16 23:34 Oxygen Delivery Method Room Air Height: 1.68 m Weight: 73.5 kg Body Mass Index: 26.1 - Constitutional Present: no acute distress, well nourished, well developed - Routine HEENT Exam Head: Present: normocephalic Eye: Present: PERRL. Absent: conjunctival icterus, scleral injection ENT: Present: mucous membranes dry, oropharynx clear - Routine Neck Exam Present: supple - Routine Respiratory Exam Present: decreased breath sounds, crackles (RLL) - Routine Cardiovascular Exam Present: RRR, S1, S2 - Routine Abdominal Exam Present: soft, non tender, distended (minimal). Absent: normoactive bowel sounds (hypoactive) - Routine Extremities Exam Present: edema (1-2+ b/l), pulses intact. Absent: calf tenderness - Routine Skin Exam Present: intact, dry, warm - Routine Neurological Exam Present: alert, oriented X3, CN II-XII intact, moving all extremities, vision grossly intact, hearing grossly intact. Absent: facial asymmetry - Routine Psychiatric Exam Present: cooperative. Absent: normal affect (flat, quiet) Results - Labs CBC & Chem 7: 10/30/16 04:08 10/30/16 04:08 Assessment and Plan (1) Leukocytosis Current visit: No Status: Acute DVT Prophylaxis: Xarelto GI Prophylaxis: Protonix Resuscitation Status: Full Code Assessment and Plan: ASSESSMENT Leukocytosis Normocytic anemia; iron deficiency anemia Hypokalemia, resolved, low-normal on admission to IRU (3.6) LLL pleural effusion, s/p thoracentesis 10/27/16 with 800 mL fluid removed. Hypoxia; acute resp failure - resolved. Weaned off oxygen. Situational depression Anorexia Atrial fibrillation on Xarelto, ASA CAD, recent CABGx2 10/04/16 Acute ischemic stroke involving the posterior circulation in the right occipital lobe and left cerebellum in September, History of peripheral vascular disease with bilateral carotid endarterectomies in the remote past Hypertension Hyperlipidemia History of breast cancer Overweight BMI 26.2 PLAN Leukocytosis -sepsis w/u negative during acute admission -Pleural fluid - cultures pending. -BC negative after 5 days Normocytic anemia; iron deficiency (iron level was 18) -check stool for occult blood -start Protonix daily. -start iron + vitamin C. Check Vitamin B12. Depression & anorexia -continue mirtazapine - will need Rx at time of DC Hypokalemia - resolved -K low-normal; give extra KDur today -recheck BMP in am CAD s/p CABG/A-fib/HTN/HLD/PPM -Consult cardiology Thank you for this consultation. We will follow Mrs. Machado along with you during her stay in IRU. Hospital Course Summary Disclaimer: The visit summary below is not to be considered part of the above Progress Note. Hospital Course: ASSESSMENT Leukocytosis Normocytic anemia; iron deficiency anemia Hypokalemia, resolved, low-normal on admission to IRU (3.6) LLL pleural effusion, s/p thoracentesis 10/27/16 with 800 mL fluid removed. Hypoxia; acute resp failure - resolved. Weaned off oxygen. Situational depression Anorexia Atrial fibrillation on Xarelto, ASA CAD, recent CABGx2 10/04/16 Acute ischemic stroke involving the posterior circulation in the right occipital lobe and left cerebellum in September, History of peripheral vascular disease with bilateral carotid endarterectomies in the remote past Hypertension Hyperlipidemia History of breast cancer Overweight BMI 26.2 10/30/16 PLAN Leukocytosis -sepsis w/u negative during acute admission -Pleural fluid - cultures pending. Normocytic anemia; iron deficiency (iron level was 18) -check stool for occult blood -start Protonix daily -start iron + vitamin C. Check Vitamin B12. Depression & anorexia -continue mirtazapine - will need Rx at time of DC Hypokalemia - resolved -K low-normal; give extra KDur today CAD s/p CABG/A-fib/HTN/HLD/PPM - Consult cardiology Sepsis Assessment - Evaluation Sepsis screening result: No Definite Risk <Kalin Foster - Last Filed: 10/30/16 18:10> Consult Information - Data of Consult Requesting Physician: Min Rocha MD Primary Care Provider: Deepak Duarte MD Family Provider: Deepak Duarte MD ON LICENSE OF [facility] Patient Stated Medical History Cerebrovascular Accident Yes: 09/29/16 Cataracts Yes Hearing Loss Yes Cardiac Arrhythmia Yes: afib Coronary Artery Disease Yes Heart Murmur Yes Hypertension Yes Myocardial Infarction Yes Sleep Apnea No Constipation Yes Hx Incontinence No Hx Renal Disease No Osteoarthritis Yes Exam Vital Signs: Temperature 96.1 F L 10/30/16 16:00 Pulse Rate 75 10/30/16 16:00 Respiratory Rate 20 10/30/16 16:00 Blood Pressure 137/61 10/30/16 16:00 Pulse Oximetry 98 10/30/16 16:00 Oxygen Delivery Method Room Air Height: 1.68 m Weight: 73.5 kg Results - Labs CBC & Chem 7: 10/30/16 04:08 10/30/16 04:08 Assessment and Plan (1) Leukocytosis Current visit: No Status: Acute Assessment and Plan: ASSESSMENT Leukocytosis Normocytic anemia; iron deficiency anemia Hypokalemia, resolved, low-normal on admission to IRU (3.6) LLL pleural effusion, s/p thoracentesis 10/27/16 with 800 mL fluid removed. Hypoxia; acute resp failure - resolved. Weaned off oxygen. Situational depression Anorexia Atrial fibrillation on Xarelto, ASA CAD, recent CABGx2 10/04/16 Acute ischemic stroke involving the posterior circulation in the right occipital lobe and left cerebellum in September, History of peripheral vascular disease with bilateral carotid endarterectomies in the remote past Hypertension Hyperlipidemia History of breast cancer Overweight BMI 26.2 Have independently interviewed and examined pt. Chart reviewed. Case discussed with my INDEPENDENT CONSULTANT. Above care plan developed with my supervision; agree with above. Feels very tired this evening. Worked with therapy. Appetite decreased. No nausea or ab pain. Breathing stable-not having cough or congestion. No chest pain. Lungs: decreased bilaterally, scattered crackles. No distress on RA. CV: regular AB: Soft nt/nd +BS MSE: awake alert, mood appears down, makes minimal eye contact. Gen: looks tired and weak. Plan: Will have pharmacy calculate and give IVF iron-will help increase blood counts and may also help her legs to be less restless and maybe make her ab feel better. Continue mirtazapine to help mood; Dr Brand had stopped citalopram. Will stop citalopram for now and monitor mood-may need to restart if mood not improving. Encourage continuation of therapy to improve strength and functional status-likely improved strength will increase her mood and spirits as well. Monitor respiratory status. Monitor lab. Medically stable for IRU floor activities. Hospital Course Summary Disclaimer: The visit summary below is not to be considered part of the above Progress Note.
[2016-10-30] MEDS ORDERED: ASPIRIN *EC* 81 MG TABLET PO SCH (09:00)
[2016-10-30] MEDS ORDERED: APAP/CODEINE 300 MG/30 MG TABLET PO PRN (09:48)
[2016-10-30] MEDS ORDERED: SALINE FLUSH 10ml SYRINGE IVF PRN (09:48)
[2016-10-30] MEDS ORDERED: CALCIUM CARBONATE Chewable 500mg TABLET PO PRN (09:48)
[2016-10-30] MEDS ORDERED: NS FLUSH BAG 500ml IV PRN (09:48)
[2016-10-30] MEDS ORDERED: FALL RISK - PHARMACY CONSULT MC PRN (09:48)
[2016-10-30] MEDS ORDERED: MAG-AL + SIM ORAL LIQUID 30ml PO PRN (09:48)
[2016-10-30] MEDS: LOSARTAN 50 MG TABLET PO SCH (10:07)
[2016-10-30] MEDS: PANTOPRAZOLE 20 MG TABLET PO SCH (10:08)
[2016-10-30] MEDS: ANASTROZOLE 1 MG TABLET PO SCH (10:08)
[2016-10-30] MEDS: MINOCYCLINE 100 MG CAPSULE PO SCH ×2 (10:08→20:34)
[2016-10-30] MEDS: SALINE FLUSH 10ml SYRINGE IVF SCH ×2 (10:15→20:45)
[2016-10-30] MEDS: FUROSEMIDE 20 MG TABLET PO SCH (10:15)
--- NOTE | 2016-10-30 11:27 | IRU History & Physical Report ---
[facility] Date: Chief complaint: I'm weak HPI: Sayda was interviewed and examined in her room with her present. She has had a very eventful last 4-6 weeks. Patient suffered a stroke back in September 2016. This was characterized predominately by left hand and left leg weakness. Most of that resolved apparently. On 09/30/2016 MRI was done demonstrating infarction in the right occipital lobe as well as left cerebellar region. The patient is noted to have paroxysmal atrial fibrillation. She subsequently underwent cardiac catheterization on 10/02/[address] Glass. She was noted to have multivessel disease. Left ventriculogram was done demonstrating ejection fraction of 70%. Her was a 60-70% left main lesion as well as right coronary artery in the midportion demonstrating a thrombus. She was transferred to [facility] and underwent coronary artery bypass graft procedure on 2 vessels on 10/02/[address] Ty. Ever since the bypass in the midportion of September she has developed extreme weakness and anorexia. According to her who is with her in the room, she did fairly well for several days after the bypass but then went downhill. On 10/24/2016 she presented with total body weakness and increased dyspnea. From her perspective she noted "shaking or pounding" in her head. She was noted to have atrial fibrillation with rapid ventricular response. She was again admitted to the hospital. 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 This resulted in the need for a permanent pacemaker which was placed in the last several days. She has also had elevated white blood cell count and anemia. She had developed a pleural effusion of uncertain etiology. This is on the left side. Attempts were made at medical management. However she was symptomatic with regard to hypoxemia and dyspnea and for this reason Dr. Sarkar was consulted who performed a thoracentesis on the left side. Approximately 800 cc of serosanguineous material was obtained. Analysis of this revealed 40% lymphocytes and 25% mesothelial cells. Even though the protein was less than 3.0 , LDH was elevated at 316 and it was felt to be an exudative effusion. Pathology on this is pending with regard to cytology. The patient does have history of breast cancer. In addition, she is had very poor eye contact and has had the appearance of depression. She was initially started on citalopram. This was discontinued and switched to mirtazapine to help with her appetite. She has therefore been on mirtazapine only for a short time. I asked her today if she felt blue or discouraged. She replied "I guess." According to her she has had severe anorexia for the past 30 days at least. Formerly she was living independently at home with her . They do have 3 steps at home. She has been having some edema over the past several weeks only. The following medical conditions are noted and require physician monitoring and treatment. 1. Recent left sided pleural exudative effusion, symptomatic with dyspnea and hypoxia 2. Leukocytosis 3. Depression: major 4. 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 Recent CVA with left sided weakness 6. Atrial fibrillation and risk for additional stroke 7. Anorexia and protein-calorie malnutrition The following therapies will be needed: 1. Physical therapy: for transfers and ambulation and stairs. 2. Occupational therapy: for ADL's and transfers. 3. Dietitian: to improve nutritional status 4. Medical management: for the above conditions. 5. 24 hour Rehabilitation Nursing to monitor and address the following: Monitoring neurologic status, hypoxemia, atrial fibrillation and evidence of bleeding related to her anticoagulant usage, chest pain recurrence (recent CABG) . Review of Systems - Constitutional Constitutional: Present: anorexia, fatigue, lethargy, malaise. Absent: headache (s) - EENMT Eyes: Absent: blurry vision, change in vision Mouth/Throat: Absent: sore throat - Cardiovascular Cardiovascular: Present: edema. Absent: chest pain, orthopnea Rhythm: Present: abnormal rhythm Vascular: Present: pedal edema (improving). Absent: intermittent claudication - Respiratory Respiratory: Present: dyspnea, dyspnea on exertion. Absent: cough, hemoptysis, wheezing - Gastrointestinal Gastrointestinal: Present: constipation. Absent: abdominal pain, change in bowel habits, change in stool character - Musculoskeletal Musculoskeletal: Present: muscle weakness - Neurological Neurological: Present: focal weakness. Absent: frequent falls, headache(s) - Psychiatric Psychiatric: Present: anhedonia, depression [facility] Patient Stated Medical History Cerebrovascular Accident Yes: 09/29/16 Cataracts Yes Hearing Loss Yes Cardiac Arrhythmia Yes: afib Coronary Artery Disease Yes Heart Murmur Yes Hypertension Yes Myocardial Infarction Yes Sleep Apnea No Constipation Yes Hx Incontinence No Hx Renal Disease No Osteoarthritis Yes Medical History Updates: Hypertension, Afib, CAD, tachy/bello syndrome with pauses, carotid artery stenoses, left exudative pleural effusion Surgical History: cataracts. 2016 bilateral CEAs. Echo September,. 1. Normal LV systolic function with ejection fraction of 60%. 2. Grossly, no intracardiac thrombus or mass. 3. Mitral annulus calcification with mild mitral regurgitation. 4. Aortic sclerosis with [id number] aortic insufficiency. 5. Mild tricuspid regurgitation with mild pulmonary hypertension with estimated pulmonary artery systolic pressure of 38. 6. Mild pulmonary insufficiency. 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 Jayro Plaza. 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 Matson. Thoracentesis with removal of 800 mL from left pleural effusion 10/27/[address] Sarkar. Family History: Her parents are . Father of heart attack and mother of reported stroke. - Social History Smoking status: Former smoker packs per day: 1 (Started smoking age19. 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 Medications Home Medications Medication Instructions Recorded Confirmed Type Potassium Chloride ER Tab [K-Dur] 20 meq PO NOON #0 08/20/14 10/29/16 History Anastrozole 1 mg PO DAILY 09/29/16 10/29/16 History Aspirin [Adult Low Dose Aspirin EC] 81 mg PO DAILY 10/24/16 10/29/16 History Atorvastatin [Lipitor] 20 mg PO HS 10/24/16 10/29/16 History Calcium Carbonate/Vitamin D2 1 tab PO NOON 10/24/16 10/29/16 History [Oyster Shell Calcium-Vit D Tab] Furosemide [Lasix] 20 mg PO DAILY 10/24/16 10/29/16 History Losartan [Cozaar] 50 mg PO DAILY 10/24/16 10/29/16 History Metoprolol Tartrate [Lopressor] 100 mg PO BID 10/24/16 10/29/16 History Nitroglycerin 0.4 mg SL Q5MIN3 PRN 10/24/16 10/29/16 History Rivaroxaban [Xarelto] 20 mg PO NOON 10/24/16 10/29/16 History Allergies Allergy/AdvReac Type Severity Reaction Status Date / Time lisinopril Allergy Unknown Verified 10/24/16 10:17 Penicillins Allergy Unknown Verified 10/24/16 10:17 Results IRU - Labs Labs: I reviewed extensive prior notes including lab results, echocardiogram, thoracentesis results etc. Exam Vital Signs: Temperature 97.9 F 10/30/16 08:56 Pulse Rate 75 10/30/16 08:56 Respiratory Rate 14 10/30/16 08:56 Blood Pressure 126/63 10/30/16 08:56 Pulse Oximetry 95 10/30/16 08:56 Oxygen Delivery Method Room Air Height: 1.68 m Weight: 73.5 kg Body Mass Index: 26.1 - Constitutional Present: no acute distress, disheveled, cooperative (Poor eye contact. Appears depressed. Answers slowly. ) - Routine HEENT Exam Head: Present: normocephalic, atraumatic Eye: Present: EOMI, PERRL ENT: Present: mucous membranes moist - Routine Neck Exam Present: supple, full ROM - Routine Chest/Breast/Axilla Exam Chest wall: Absent: tenderness - Routine Respiratory Exam Present: CTA bilaterally. Absent: accessory muscle use, dyspnea, decreased breath sounds, rhonchi, wheezes, crackles - Routine Cardiovascular Exam Present: RRR, S1, S2, no murmur - Routine Abdominal Exam Present: soft, normoactive bowel sounds, non distended, non tender. Absent: tenderness, organomegaly, mass - Routine Extremities Exam Present: edema. Absent: cyanosis - Routine Skin Exam Present: intact, dry. Absent: erythema, pallor - Routine Neurological Exam Present: oriented X3, CN II-XII intact - Routine Psychiatric Exam Present: normal thought process, cooperative, depressed. Absent: normal affect , good insight, good judgment Sepsis Assessment - Evaluation Sepsis screening result: No Definite Risk IRU A/P (1) Leukocytosis Qualifiers: Leukocytosis type: other Qualified Code(s): D72.828 - Other elevated white blood cell count Current visit: No Status: Acute Etiology unclear. Patient has had a recent thoracentesis. Battery lodged studies on that so far are negative. (2) TIA (transient ischemic attack) Qualifiers: Transient cerebral ischemia type: carotid artery syndrome (hemispheric) Qualified Code(s): G45.1 - Carotid artery syndrome (hemispheric) Current visit: No Status: Acute Patient had an episode of left-sided weakness in September. Further investigation has revealed atrial fibrillation. She is on Xarelto. She has had fairly good return of function bilaterally. However, she is at risk for further episodes. (3) Tachy-bello syndrome Current visit: No Status: Acute Patient was recently hospitalized with atrial fibrillation with rapid ventricular response. On telemetry was noted to have episodes of bradycardia with pauses around 3 seconds. A permanent pacemaker was placed. (4) Atrial fibrillation Qualifiers: Atrial fibrillation type: paroxysmal Qualified Code(s): I48.0 - Paroxysmal atrial fibrillation Current visit: No Status: Chronic On Xarelto. At risk for bleeding. Will monitor. (5) Presence of permanent cardiac pacemaker Current visit: No Status: Acute (6) Coronary artery disease Qualifiers: Coronary Disease-Associated Artery/Lesion type: [place] artery [place] vs. transplanted heart: [place] heart Associated angina: without angina Qualified Code(s): I25.10 - Atherosclerotic heart disease of [place] coronary artery without angina pectoris Current visit: No Status: Chronic Underwent coronary artery bypass graft surgery in mid September 2016. Since then she has "gone downhill" according to her . Much more weak and unable to take care of herself. Appears to be depressed as well. Denies any chest pain. Has some shortness of breath with activity. DVT Prophylaxis: Xarelto GI Prophylaxis: Protonix Resuscitation Status: Full Code - Course Hospital Course: Min Rocha MD: - Interventions to Obtain Goals PT Treatment Plan: Balance/Proprioception, Functional Activities, Gait Training , Patient/Family Education, Therapeutic Exercise Goals Progress/Modifications: Goal is for patient to be modified independent functioning and be able to return to her home with her .
--- NOTE | 2016-10-30 11:50 | IRU 24Hr Post Admit Eval ---
24 Hr Post Admission Physical - Relevant Changes Relevant Changes: No Reviewed: I have reviewed the patient's information and concur with the finding and results of the pre-admission screen. Certification: I certify the patient for rehabilitation. - Patient Condition (1) Leukocytosis Status: Acute Qualifiers: Leukocytosis type: other Qualified Code(s): D72.828 - Other elevated white blood cell count Code(s): D72.829 - Elevated white blood cell count, unspecified Additional Information: Monitor for episodes of sepsis/infection. Microbiologic studies on a pleural effusion negative. Repeat CBC. (2) TIA (transient ischemic attack) Status: Acute Qualifiers: Transient cerebral ischemia type: carotid artery syndrome (hemispheric) Qualified Code(s): G45.1 - Carotid artery syndrome (hemispheric) Code(s): G45.9 - Transient cerebral ischemic attack, unspecified (3) Tachy-bello syndrome Status: Acute Code(s): I49.5 - Sick sinus syndrome (4) Atrial fibrillation Status: Chronic Qualifiers: Atrial fibrillation type: paroxysmal Qualified Code(s): I48.0 - Paroxysmal atrial fibrillation Code(s): I48.91 - Unspecified atrial fibrillation (5) Presence of permanent cardiac pacemaker Status: Acute Code(s): Z95.0 - Presence of cardiac pacemaker (6) Coronary artery disease Status: Chronic Qualifiers: Coronary Disease-Associated Artery/Lesion type: [place] artery [place] vs. transplanted heart: [place] heart Associated angina: without angina Qualified Code(s): I25.10 - Atherosclerotic heart disease of [place] coronary artery without angina pectoris Code(s): I25.10 - Atherosclerotic heart disease of [place] coronary artery without angina pectoris - Prior Functional Status Lives With: Spouse Residence Type: Apartment/Private Home Assitive Devices: None Prior Functional Status: Indep. at home or school - Current Functional Status Failed Alternative Therapy: Arrived from Acute Care Patient Requirements: The patient requires oversight by rehabilitation physician to manage their rehabilitation treatment plan and multidisciplinary approach to care that can only be provided in an IRF and requires a multidisciplinary approach to care, provided by professional PTs, OTs, STs, dieticians, RTs, rehabilitation nurses and is not available in lesser levels of care. Limitiations Req: Mobility Impairment, ADL Impairment, Desire/Ability to Partici , Cognitive Impairment Speech Therapy Minutes: 30 Physical Therapy Minutes: 90 Occupational Therapy Minutes: 90 Therapy: The patient is to receive therapy at least 5 days a week. - Complications/Comorbidities Impact on Functional Outcomes: Patient's medical problems including recent placement of pacemaker, coronary artery disease, large pleural effusion with dyspnea, and depression all will impact her ability to recover and return home. Barriers to Discharge: Weakness, Endurance, Medical Limitation - Plan to Avoid Complications Plan to Avoid Complications: The patient cannot receive this care in a lesser intensive setting such as Assisted or Outpatient Therapy due to the patient requiring the following : Need for monitoring of her atrial fibrillation, chest pain, dyspnea in view of recent large pleural effusion which was evacuated. In addition she will need additional nutrition management to improve oral intake etc. .
--- NOTE | 2016-10-30 11:58 | Cardiology Consult Note ---
History of Present Illness Consult date: 10/30/16 <Norma Ann - 10/30/16 12:17> Requesting physician: Cele Brand <Norma Ann - 10/30/16 12:17> Consult reason: atrial fibrillation <Norma Ann - 10/30/16 12:17> Chief complaint: atrial fibrillation <Norma Ann - 10/30/16 12:17> History of present illness: Sayda is a 81-year-old female who is well known to Dr. Matson with a history of CAD with CABG X2 on 10/04/16, chronic AFib, ischemic stroke on 09/30/16, HTN, HLD, and anemia. She presented to the ED on 10/24 feeling short of breath and lightheaded. She reports being unable to lay flat due to breathing difficulty. She denies any pain or discomfort. She is anticoagulated on Xarelto. Her EKG revealed Atrial fibrillation, HR 127. She was given bolus of Cardizem and drip began while in the ED and admitted to CCU for rate control. During her last hospitalization Cardizem was discontinued due to pauses. On 10/25/16, Multiple 2-3 second pauses were seen on telemetry and Cardizem was stopped, Xarelto was held for PPM insertion. On 10/26/16, [employer] single chamber permanent pacemaker was inserted without difficulty and patient returned to the Surgical unit in stable condition. On 10/27/16 she underwent Left thoracentesis performed by Dr. Sarkar for post-CABG pleural effusion, 800ml of fluid was removed. On 10/29/16 she was transferred to IRU for strengthening. She is seen in the rehab gym, sitting in her wheelchair. She denies cardiac complaints. <Norma Ann - 10/30/16 14:39> Review of Systems - Constitutional Constitutional: Present: weakness. Absent: chills, fatigue, fever(s) < Norma Ann - 10/30/16 14:39> - EENMT Eyes: Absent: change in vision <Norma Ann - 10/30/16 14:39> Balance: Absent: vertigo <Seth,Norma Lentz - 10/30/16 14:39> Mouth/Throat: Absent: sore throat <Norma Ann 10/30/16 12:17> - Cardiovascular Cardiovascular: Present: orthopnea. Absent: palpitations, syncope, dyspnea on exertion <Norma Ann 10/30/16 14:39> Rhythm: Present: abnormal rhythm <Norma Ann 10/30/16 12:17> Vascular: Present: pedal edema (improving). Absent: intermittent claudication <Norma Ann 10/30/16 12:17> - Respiratory Respiratory: Absent: cough <Norma Ann 10/30/16 14:39> - Gastrointestinal Gastrointestinal: Absent: diarrhea, nausea, vomiting <Norma Ann 14:39> - Genitourinary Genitourinary: Absent: dysuria <Norma Ann 10/30/16 14:39> - Integumentary/Breasts Integumentary: Absent: rash <Norma Ann 10/30/16 14:39> - Neurological Neurological: Present: dizziness <Norma Ann 10/30/16 14:39> [facility] Patient Stated Medical History Cerebrovascular Accident Yes: 09/29/16 Cataracts Yes Hearing Loss Yes Cardiac Arrhythmia Yes: afib Coronary Artery Disease Yes Heart Murmur Yes Hypertension Yes Myocardial Infarction Yes Sleep Apnea No Constipation Yes Hx Incontinence No Hx Renal Disease No Osteoarthritis Yes <Rodolfo Matson - 11/02/16 12:48> Patient Stated Medical History Cerebrovascular Accident Yes: 09/29/16 Cataracts Yes Hearing Loss Yes Cardiac Arrhythmia Yes: afib Coronary Artery Disease Yes Heart Murmur Yes Hypertension Yes Myocardial Infarction Yes Sleep Apnea No Constipation Yes Hx Incontinence No Hx Renal Disease No Osteoarthritis Yes <Norma Ann 10/30/16 12:17> Medical History Updates: Hypertension, Afib, CAD, tachy/bello syndrome with pauses, carotid artery stenoses, left exudative pleural effusion <Norma Ann 10/30/16 12:17> Surgical History: cataracts. 2016 bilateral CEAs. Echo September,. 1. Normal LV systolic function with ejection fraction of 60%. 2. Grossly, no intracardiac thrombus or mass. 3. Mitral annulus calcification with mild mitral regurgitation. 4. Aortic sclerosis with [id number] aortic insufficiency. 5. Mild tricuspid regurgitation with mild pulmonary hypertension with estimated pulmonary artery systolic pressure of 38. 6. Mild pulmonary insufficiency. 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 Jayro Plaza. 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 Matson. Thoracentesis with removal of 800 mL from left pleural effusion 10/27/[address] Sarkar. <Norma Ann 10/30/16 12: 17> - Social History Smoking status: Former smoker <Norma Ann 10/30/16 12:17> Substance use type: does not use <Norma Ann 10/30/16 14:39> Alcohol intake frequency: does not drink <Norma Ann 10/30/16 14:39> Housing: house <Norma Ann 10/30/16 14:39> Household members: spouse <Norma Ann 10/30/16 14:39> Current occupational status: retired <Norma Ann 10/30/16 14:39> Does patient use chewing tobacco?: No <Norma Ann 10/30/16 12:17> Current residence: Apartment/Private Home <Norma Ann 10/30/16 12:17> Medications Home Medications Medication Instructions Recorded Confirmed Type Potassium Chloride ER Tab [K-Dur] 20 meq PO NOON #0 08/20/14 10/29/16 History Anastrozole 1 mg PO DAILY 09/29/16 10/29/16 History Aspirin [Adult Low Dose Aspirin EC] 81 mg PO DAILY 10/24/16 10/29/16 History Atorvastatin [Lipitor] 20 mg PO HS 10/24/16 10/29/16 History Calcium Carbonate/Vitamin D2 1 tab PO NOON 10/24/16 10/29/16 History [Oyster Shell Calcium-Vit D Tab] Furosemide [Lasix] 20 mg PO DAILY 10/24/16 10/29/16 History Losartan [Cozaar] 50 mg PO DAILY 10/24/16 10/29/16 History Metoprolol Tartrate [Lopressor] 100 mg PO BID 10/24/16 10/29/16 History Nitroglycerin 0.4 mg SL Q5MIN3 PRN 10/24/16 10/29/16 History Rivaroxaban [Xarelto] 20 mg PO NOON 10/24/16 10/29/16 History <Rodolfo Matson - 11/02/16 12:48> Allergies Allergy/AdvReac Type Severity Reaction Status Date / Time lisinopril Allergy Unknown Verified 10/24/16 10:17 Penicillins Allergy Unknown Verified 10/24/16 10:17 <Rodolfo Matson - 11/02/16 12:48> Exam Vital signs: Temperature 98.3 F 11/02/16 07:38 Pulse Rate 78 11/02/16 08:00 Respiratory Rate 14 11/02/16 07:38 Blood Pressure 129/66 11/02/16 07:38 Pulse Oximetry 95 11/02/16 07:38 Oxygen Delivery Method Nasal Cannula Oxygen Flow Rate 1 <Rodolfo Matson - 11/02/16 12:48> Temperature 97.9 F 10/30/16 08:56 Pulse Rate 75 10/30/16 08:56 Respiratory Rate 14 10/30/16 08:56 Blood Pressure 126/63 10/30/16 08:56 Pulse Oximetry 95 10/30/16 08:56 Oxygen Delivery Method Room Air <oNrma Ann 10/30/16 12:17> - Constitutional no acute distress, cooperative <Norma Ann - 10/30/16 14:39> - Routine HEENT Exam Head: Present: normocephalic <Norma Ann - 10/30/16 14:39> ENT: Present: mucous membranes moist <Norma Ann 10/30/16 14:39> - Routine Neck Exam Absent: JVD, carotid bruit <Norma Ann - 10/30/16 14:39> - Routine Chest/Breast/Axilla Exam Chest wall: Present: pacemaker. Absent: tenderness <Norma Ann 14:39> - Routine Respiratory Exam Present: rales (right basilar). Absent: CTA bilaterally, wheezes <Norma Ann 10/30/16 14:39> - Routine Cardiovascular Exam Present: no murmur, irregular rhythm. Absent: JVD <Norma Ann 10/30/16 14:39> - Routine Abdominal Exam Present: soft, normoactive bowel sounds <Norma Ann - 10/30/16 14:39> - Routine Extremities Exam Present: edema <Norma Ann - 10/30/16 14:39> - Routine Skin Exam Present: intact, dry, warm <Nomra Ann - 10/30/16 14:39> - Routine Neurological Exam Present: alert <Norma Ann - 10/30/16 14:39> - Routine Psychiatric Exam Present: normal affect <Norma Ann - 10/30/16 14:39> Results 11/02/16 09:59 11/02/16 09:59 <DanoTiaraRodolfo - 11/02/16 12:48> CBC 11/02/16 Range/Units 09:59 WBC 15.0 H (4.5-11.0) T/MM3 RBC 2.90 L (4.00-5.20) M/MM3 Hgb 8.6 L (12-16) GM/DL Hct 28.8 L (36-46) % Plt Count 253 (130-400) T/MM3 Neut # 10.9 H (1.8-7.7) T/MM3 Lymph # 2.0 (1-4.8) T/MM3 Real # 1.6 H (0-0.8) T/MM3 Eos # 0.4 (0-0.5) T/MM3 Baso # 0.0 (0-0.2) T/MM3 Comprehensive Metabolic Panel 11/02/16 Range/Units 09:59 Sodium 143 (134-144) MEQ/L Potassium 3.9 (3.6-5) MEQ/L Chloride 105 (98-107) MEQ/L Carbon Dioxide 29 (22-30) MEQ/L BUN 33.0 H (7-17) MG/DL Creatinine 0.8 (0.7-1.2) MG/DL Glucose 133 H (65-110) MG/DL Calcium 9.3 (8.4-10.2) MG/DL Intake and Output 11/01/16 11/02/16 11/02/16 22:59 06:59 14:59 Intake Total 240 / 240 120 / 120 237 / 237 Output Total 75 / 75 Balance 240 / 240 45 / 45 237 / 237 Intake: Oral 240 / 240 120 / 120 237 / 237 Output: Urine 75 / 75 Other: # Voids 1 1 # Incontinent Voids 0 # Bowel Movements 1 1 <Rodolfo Matson - 11/02/16 12:48> CBC 10/30/16 Range/Units 04:08 WBC 14.3 H (4.5-11.0) T/MM3 RBC 2.78 L (4.00-5.20) M/MM3 Hgb 8.2 L (12-16) GM/DL Hct 27.5 L (36-46) % Plt Count 231 (130-400) T/MM3 Neut # Not performed Lymph # Not performed Real # Not performed Eos # Not performed Baso # Not performed Comprehensive Metabolic Panel 10/30/16 Range/Units 04:08 Sodium 142 (134-144) MEQ/L Potassium 3.6 (3.6-5) MEQ/L Chloride 103 (98-107) MEQ/L Carbon Dioxide 34 H (22-30) MEQ/L BUN 44.0 H (7-17) MG/DL Creatinine 0.8 (0.7-1.2) MG/DL Glucose 78 (65-110) MG/DL Calcium 9.0 (8.4-10.2) MG/DL Intake and Output 10/29/16 10/30/16 10/30/16 22:59 06:59 14:59 Intake Total 236 / 236 Balance 236 / 236 Intake: Oral 236 / 236 <Norma Ann - 10/30/16 12:17> - Imaging and Cardiology Imaging & Cardiology Narrative: Date of Exam: 10/30/16 Ordering Provider: Norma Ann APRN Type of Exam(s): XR chest 2V Reason for Exam(s): right basilar rales INDICATION: right basilar rales PROCEDURE: CHEST 2-VIEWS UPRIGHT (PA & LAT) Encounter: Initial COMPARISON: October 27, 2016 FINDINGS: Increasing small to moderate left pleural effusion with associated compressive atelectasis. No pneumothorax. Trace right pleural effusion. No focal consolidative pneumonia. Calcified densities in the right midlung are unchanged. Heart size and mediastinal contours are stable. Prior CABG. Left pacemaker. Impression: Increasing small to moderate left effusion with trace right pleural fluid. 10/30/16 14:27 <Norma Ann - 10/30/16 14:39> - EKG Interpretation EKG shows: atrial fibrillation <Norma Ann - 10/30/16 14:39> EKG interpretations - EKG EKG shows: atrial fibrillation <Norma Ann - 10/30/16 14:39> Assessment and Plan (1) HTN (hypertension) Current visit: No Status: Chronic (2) Dyslipidemia Current visit: No Status: Chronic (3) PAD (peripheral artery disease) Current visit: No Status: Chronic (4) Atrial fibrillation Current visit: No Status: Chronic (5) Pleural effusion Current visit: No Status: Acute (6) Coronary artery disease Current visit: No Status: Chronic (7) S/P 2-vessel coronary artery bypass Current visit: No Status: Chronic (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 Continue Cardizem and Xarelto. Hold Aspirin (3) Coronary artery disease Current visit: No Status: Chronic (4) Dyslipidemia Current visit: No Status: Chronic (5) HTN (hypertension) Current visit: No Status: Chronic (6) Tachy-bello syndrome Current visit: No Status: Resolved (7) S/P 2-vessel coronary artery bypass Current visit: No Status: Chronic (8) PAD (peripheral artery disease) Current visit: No Status: Chronic (9) Presence of permanent cardiac pacemaker Current visit: No Status: Acute continue Minocycline through 11/02/16 <Norma Ann Tor - 10/30/16 14:23> - Attestation Attestation Narrative: 11/02/16 12:48 Recommendation After examining the patient I agree with the above assessment. I am involved in the formulation of the patient's plan of care. <Rodolfo Matson - 11/02/16 12:48> Hospital Course Summary Disclaimer: The visit summary below is not to be considered part of the above Progress Note. <Rodolfo Matson - 11/02/16 12:48> The visit summary below is not to be considered part of the above Progress Note. <Norma Ann - 10/30/16 12:17> Hospital Course: ASSESSMENT Leukocytosis Normocytic anemia; iron deficiency anemia Hypokalemia, resolved, low-normal on admission to IRU (3.6) LLL pleural effusion, s/p thoracentesis 10/27/16 with 800 mL fluid removed. Hypoxia; acute resp failure - resolved. Weaned off oxygen. Situational depression Anorexia Atrial fibrillation on Xarelto, ASA CAD, recent CABGx2 10/04/16 Acute ischemic stroke involving the posterior circulation in the right occipital lobe and left cerebellum in September, History of peripheral vascular disease with bilateral carotid endarterectomies in the remote past Hypertension Hyperlipidemia History of breast cancer Overweight BMI 26.2 10/30/16 PLAN Leukocytosis -sepsis w/u negative during acute admission -Pleural fluid - cultures pending. Normocytic anemia; iron deficiency (iron level was 18) -check stool for occult blood -start Protonix daily -start iron + vitamin C. Check Vitamin B12. Depression & anorexia -continue mirtazapine - will need Rx at time of DC Hypokalemia - resolved -K low-normal; give extra KDur today CAD s/p CABG/A-fib/HTN/HLD/PPM - Consult cardiology <Norma Ann - 10/30/16 14:39> Sepsis Assessment - Evaluation Sepsis screening result: No Definite Risk <Norma Ann - 10/30/16 12:17>
--- NOTE | 2016-10-30 12:25 | XRay Report ---
INDICATION: right basilar rales PROCEDURE: CHEST 2-VIEWS UPRIGHT (PA & LAT) Encounter: Initial COMPARISON: October 27, 2016 FINDINGS: Increasing small to moderate left pleural effusion with associated compressive atelectasis. No pneumothorax. Trace right pleural effusion. No focal consolidative pneumonia. Calcified densities in the right midlung are unchanged. Heart size and mediastinal contours are stable. Prior CABG. Left pacemaker. Impression: Increasing small to moderate left effusion with trace right pleural fluid. .
[2016-10-30] MEDS: ASCORBIC ACID 500 MG TABLET PO SCH (12:30)
[2016-10-30] MEDS: CALCIUM 500 + VIT D 200 TABLET PO SCH (12:30)
[2016-10-30] MEDS: FERROUS SULFATE 324 MG TABLET PO SCH (12:30)
[2016-10-30] MEDS ORDERED: RIVAROXABAN 20 MG TABLET PO SCH (17:30)
[2016-10-30] MEDS: RIVAROXABAN 20 MG TABLET PO SCH (18:30)
[2016-10-30] MEDS: MAGNESIUM OXIDE 400 MG TABLET PO SCH ×2 (20:34→21:35)
[2016-10-30] MEDS: SENNA + DOCUSATE TABLET PO SCH (20:35)
[2016-10-30] MEDS: ATORVASTATIN 20 MG TABLET PO SCH (20:35)
[2016-10-30] MEDS: MIRTAZAPINE 15 MG TABLET PO SCH ×2 (20:35→21:41)
[2016-10-30] MEDS ORDERED: MINOCYCLINE 100 MG CAPSULE PO SCH (21:00)
[2016-10-30] MEDS ORDERED: MIRTAZAPINE 15 MG TABLET PO SCH (21:00)
[2016-10-30] MEDS ORDERED: CITALOPRAM 10 MG TABLET PO SCH (22:00)
[2016-10-31] MEDS: LOSARTAN 50 MG TABLET PO SCH (08:33)
[2016-10-31] MEDS: ANASTROZOLE 1 MG TABLET PO SCH (08:34)
[2016-10-31] MEDS: FUROSEMIDE 20 MG TABLET PO SCH (08:34)
[2016-10-31] MEDS: PANTOPRAZOLE 20 MG TABLET PO SCH (08:34)
[2016-10-31] MEDS: POLYETHYL GLYCOL 3350 17gm PACKET PO SCH (08:37)
[2016-10-31] MEDS: SENNOSIDES 8.6 MG TABLET PO SCH (08:38)
[2016-10-31] MEDS ORDERED: IRON DEXTRAN COMPLEX 100mg/2ml INJECTION IV ONE (10:00)
[2016-10-31] MEDS: SALINE FLUSH 10ml SYRINGE IVF PRN ×2 (10:31→10:32)
[2016-10-31] MEDS: SENNA + DOCUSATE TABLET PO SCH ×2 (10:32→20:31)
--- NOTE | 2016-10-31 10:50 | IRU Progress Note ---
- Subjective/Serverity of Illness Mrs. Machado was evaluated in her room today after therapy. She is fatigued. She specifically denies any shortness of breath or chest pain. She is status post permanent pacemaker placement. I did review the telemetry strips. She is over 50% ventricular paced. Underlying rhythm appears to be atrial fibrillation. Concerning therapy, she does require encouragement but is cooperative. She is making good gains and is able to ambulate further. Requires assistance with transfers. She continues to appear to be depressed. She has virtually zero eye contact is her second tell. Answers slowly and in a weak voice. 1. Recent left sided pleural exudative effusion, symptomatic with dyspnea and hypoxia. She denies any current symptoms of dyspnea however since the thoracentesis. 2. Leukocytosis: Her white count is increased today. 3. Depression: major. She is on mirtazapine for both appetite and depression. 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 I reviewed the telemetry strips. She is greater than 50% ventricular paced. 5. Recent CVA with left sided weakness 6. Atrial fibrillation and risk for additional stroke: Remains on Xarelto. 7. Anorexia and protein-calorie malnutrition 8. Anemia: Stool is Hemoccult positive. However hemoglobin did increase today. Exam Vital Signs: Temperature 97.6 F 10/31/16 10:36 Pulse Rate 70 10/31/16 10:36 Respiratory Rate 24 10/31/16 10:36 Blood Pressure 118/45 10/31/16 10:36 Pulse Oximetry 94 10/31/16 10:36 Oxygen Delivery Method Room Air Height: 1.68 m Weight: 73.5 kg Body Mass Index: 26.1 - Constitutional Present: no acute distress Comments: The patient is awake, alert and oriented and in no acute distress. However she does appear to be depressed. She answers slowly. She is cooperative. She does not have eye contact.l. The neck is supple. Chest: Clear to auscultation bilaterally. Cor: irregular rhythm with no gallop nor click. There is a systolic murmur. Abd: soft with normo-active bowel sounds. There are no masses, no tenderness and no guarding. Extremities: 2+ edema is noted. Pulses are poor in the lower extremities. No cyanosis is present. Results IRU - Labs Labs: I reviewed her CBC today. Her white count is elevated. Hemoglobin is improved. Her stool is Hemoccult positive. Sepsis Assessment - Evaluation Sepsis screening result: No Definite Risk IRU A/P (1) Leukocytosis Qualifiers: Leukocytosis type: other Qualified Code(s): D72.828 - Other elevated white blood cell count Current visit: No Status: Acute White count increased to 17,000. No overt evidence of infection. Awaiting pathology/cytology report from pleural effusion. (2) Atrial fibrillation Qualifiers: Atrial fibrillation type: paroxysmal Qualified Code(s): I48.0 - Paroxysmal atrial fibrillation Current visit: No Status: Chronic Telemetry strips reviewed. She is greater than 50% ventricular paced. Underlying rhythm appears to be atrial fibrillation. (3) Presence of permanent cardiac pacemaker Current visit: No Status: Acute (4) Coronary artery disease Qualifiers: Coronary Disease-Associated Artery/Lesion type: [place] artery [place] vs. transplanted heart: [place] heart Associated angina: without angina Qualified Code(s): I25.10 - Atherosclerotic heart disease of [place] coronary artery without angina pectoris Current visit: No Status: Chronic She is status post coronary artery bypass graft procedure. Sternal precautions are being observed. Sternal wound is unremarkable. (5) CVA (cerebral vascular accident) Qualifiers: CVA mechanism: embolism Precerebral and cerebral artery: cerebellar artery Laterality of affected vessel: left Qualified Code(s): I63.442 - Cerebral infarction due to embolism of left cerebellar artery Current visit: Yes Status: Acute Patient expresses CVA about 30 days ago. This involved the left cerebellar region. Has had no further evidence of infarction at present. Remains on Xarelto. (6) Anemia Qualifiers: Anemia type: other cause Other causes of anemia: acute posthemorrhagic Qualified Code(s): D62 - Acute posthemorrhagic anemia Current visit: Yes Status: Acute Hemoglobin is improved at this time. However does have Hemoccult-positive stool. Uncertain how far to take the evaluation of view of her recent stroke, bypass etc. She is on Xarelto which could play a role as well. We will monitor hemoglobin for the time being. DVT Prophylaxis: Xarelto Resuscitation Status: Full Code - Course Hospital Course: Min Rocha MD: 10/31/16 10:56 She is making some good progress with therapy. Continues to be depressed. No evidence of active bleeding although stool is Hemoccult positive. Hemoglobin is up. White count is a bit worse today. Awaiting pathology/cytology from pleural effusion. - Interventions to Obtain Goals PT Treatment Plan: Balance/Proprioception, Functional Activities, Gait Training , Patient/Family Education, Therapeutic Exercise OT Treatment Plan: ADL (Basic Care), Balance Training, IADL, Pt./Family Education, Ther. Exercise for ADL
[2016-10-31] MEDS: SALINE FLUSH 10ml SYRINGE IVF SCH ×2 (10:53→20:30)
[2016-10-31] MEDS ORDERED: NS IV ONE ×2 (11:00→13:00)
[2016-10-31] MEDS ORDERED: IRON DEXTRAN IV ONE ×2 (11:00→13:00)
[2016-10-31] MEDS: MINOCYCLINE 100 MG CAPSULE PO SCH ×2 (11:06→20:30)
--- NOTE | 2016-10-31 11:46 | IRU Plan of Care ---
[facility] Overall Plan of Care - Date Date: 10/31/16 - Patient Impairments (1) Leukocytosis Qualifiers: Leukocytosis type: other Qualified Code(s): D72.828 - Other elevated white blood cell count Code(s): D72.829 - Elevated white blood cell count, unspecified Status: Acute Classification: Present on IRF Admission, IRF Tx That Should Address Diagnosis, Diagnosis Requiring Medical Follow Up (2) Atrial fibrillation Qualifiers: Atrial fibrillation type: paroxysmal Qualified Code(s): I48.0 - Paroxysmal atrial fibrillation Code(s): I48.91 - Unspecified atrial fibrillation Status: Chronic Classification: Present on IRF Admission, IRF Tx That Should Address Diagnosis, Diagnosis Requiring Medical Follow Up (3) Presence of permanent cardiac pacemaker Code(s): Z95.0 - Presence of cardiac pacemaker Status: Acute Classification: Present on IRF Admission, Diagnosis Requiring Medical Follow Up (4) Coronary artery disease Qualifiers: Coronary Disease-Associated Artery/Lesion type: [place] artery [place] vs. transplanted heart: [place] heart Associated angina: without angina Qualified Code(s): I25.10 - Atherosclerotic heart disease of [place] coronary artery without angina pectoris Code(s): I25.10 - Atherosclerotic heart disease of [place] coronary artery without angina pectoris Status: Chronic Classification: Present on IRF Admission, Diagnosis Requiring Medical Follow Up (5) CVA (cerebral vascular accident) Qualifiers: CVA mechanism: embolism Precerebral and cerebral artery: cerebellar artery Laterality of affected vessel: left Qualified Code(s): I63.442 - Cerebral infarction due to embolism of left cerebellar artery Code(s): I63.9 - Cerebral infarction, unspecified Status: Acute Classification: Present on IRF Admission, IRF Tx That Should Address Diagnosis, Diagnosis Requiring Medical Follow Up (6) Anemia Qualifiers: Anemia type: other cause Other causes of anemia: acute posthemorrhagic Qualified Code(s): D62 - Acute posthemorrhagic anemia Code(s): D64.9 - Anemia, unspecified Status: Acute Classification: Present on IRF Admission, IRF Tx That Should Address Diagnosis, Diagnosis Requiring Medical Follow Up - Relevant Changes Relevant Changes: No Reviewed: I have reviewed the patient's information and concur with the finding and results of the pre-admission screen. Certification: I certify the patient for rehabilitation. - Medical Prognosis Medical Prognosis: Good Vital Signs: Last Vital Signs Temp 97.8 F 10/31/16 11:17 Pulse 68 10/31/16 11:17 Resp 16 10/31/16 11:17 BP 116/62 10/31/16 11:17 Pulse Ox 95 10/31/16 11:17 - Anticipated Interventions Anticipated Interventions: The patient requires inpatient IRF care for PT, OT, and/or ST for residuals remaining from pleural effusion, recent CABG, recent permanent pacemaker due to tachy bello syndrome resulting in muscular weakness and strength deficits. - FIM Ambulation Distance: 78 Toileting Adaptive Equipment: Grab Bars Number of Continent Voids: 1 - Current Functional Status Failed Alternative Therapy: Arrived from Acute Care Patient Requires: The patient requires oversight by rehabilitation physician to manage their rehabilitation treatment plan and multidisciplinary approach to care that can only be provided in an IRF and requires a multidisciplinary approach to care, provided by professional PTs, OTs, STs, dieticians, RTs, rehabilitation nurses and is not available in lesser levels of care. Physical Therapy Minutes: 90 Occupational Therapy Minutes: 90 Therapy: The patient is to receive therapy at least [address] Treatment Plan: Swallow Retraining/Exercises, Swallow Precautions, Modified Diet ST Treatment Plan Duration: Two Weeks ST Treatment Plan Frequency: Five Times Per Week Plan of Care Comment: Continue POC. May consider a swallow function study if inconsistent s/s of aspiration persist. - Anticipated LOS/Outcomes Anticipated Functional Outcome: It is anticipated the patient will return to her home with independent functioning able to take care of herself. Anticipated DC Destination: Home, Self Long Term Safety Plan: The patient will be provided with the development of a Home Safety Plan for return to a home or home-like environment and and to ensure safety post discharge. - Plan to Avoid Complications Barriers to Attaining Goals: Weakness, Endurance, Medical Limitation Plan to Avoid Complications: The patient cannot receive this care in a lesser intensive setting such as Penitentiary or Outpatient Therapy due to the patient requiring the following : 24 hour rehabilitation nursing monitoring for chest discomfort, evidence of bleeding, recurrence of pleural effusion and shortness of breath. .
[2016-10-31] MEDS ORDERED: FUROSEMIDE 20 MG TABLET PO ONE (13:56)
--- NOTE | 2016-10-31 13:56 | Progress Note ---
Subjective: Belen is seen and examined today with her at the bedside. He verbalizes concern for her lack of appetite and oral intake. She has tried [employer] breakfast shakes that she does like and was able to finish one for lunch. She has been working with dietary regarding nutritional intake. She did complain of feeling short of breath earlier today and overnight and was placed on 1 liter of oxygen intermittently. Nursing staff does report that her sats did decrease into the upper 80s following ambulation. Test x-ray from yesterday did reveal increasing moderate left pleural effusion. Denies having chest pain, or GI complaints. Vital signs have been stable, blood pressure at noon, 110/67, room air saturations 95%. Objective Vital signs: Temperature 98.2 F 10/31/16 12:00 Pulse Rate 74 10/31/16 12:00 Respiratory Rate 22 10/31/16 12:00 Blood Pressure 110/67 10/31/16 12:00 Pulse Oximetry 95 10/31/16 12:00 Oxygen Delivery Method Room Air Height/Weight/BMI: Height 1.68 m Weight 73.5 kg Body Mass Index 26.1 - Constitutional Present: no acute distress, well nourished, well developed Comments: Anorexia - Routine HEENT Exam ENT: Present: mucous membranes moist, dentition normal - Routine Respiratory Exam Present: CTA bilaterally. Absent: wheezes - Routine Cardiovascular Exam Present: RRR, S1, S2. Absent: murmur - Routine Abdominal Exam Present: soft, normoactive bowel sounds, non distended. Absent: tenderness - Routine Extremities Exam Present: edema (trace), normal capillary refill - Routine Skin Exam Present: intact, dry, warm - Routine Neurological Exam Present: alert, oriented X3, CN II-XII intact - Routine Lymphatic Exam Lymphatic: Absent: adenopathy - Routine Psychiatric Exam Present: normal affect Results - Labs CBC & Chem 7: 10/31/16 04:19 10/31/16 04:19 Assessment and Plan (1) Leukocytosis Current visit: No Status: Acute Assessment and Plan: ASSESSMENT Leukocytosis Normocytic anemia; iron deficiency anemia Hypokalemia, resolved, low-normal on admission to IRU (3.6) LLL pleural effusion, s/p thoracentesis 10/27/16 with 800 mL fluid removed. Hypoxia; acute resp failure - resolved. Weaned off oxygen. Situational depression Anorexia Atrial fibrillation on Xarelto, ASA CAD, recent CABGx2 10/04/16 Acute ischemic stroke involving the posterior circulation in the right occipital lobe and left cerebellum in September, History of peripheral vascular disease with bilateral carotid endarterectomies in the remote past Hypertension Hyperlipidemia History of breast cancer Overweight BMI 26.2 Plan Chest x-ray from yesterday, 10/30 did reveal moderate left pleural effusion. Patient is status post thoracentesis from 10/27. Overnight with ambulation. Patient's sats did decrease into the high 80s and patient complained of feeling short of breath. We will give an extra dose of Lasix 20 milligrams by mouth 1 now. Will continue with daily Lasix. Will recheck a Chest x-ray tomorrow morning Increased Leukocytosis to 17.8. Condition did receive IV iron today without difficulty. Discussed case with dietitian regarding increased appetite and trial of different nutritional supplementations. Patient does like the Spangle breakfast drink. Discussed status and plan of care with patient's . He has no further questions. Overall feels patient is doing well and making improvements. Check CBC and BMP tomorrow morning to follow leukocytosis, electrolytes and renal function Sepsis Assessment - Evaluation Sepsis screening result: No Definite Risk Hospital Course Summary Disclaimer: The visit summary below is not to be considered part of the above Progress Note. Hospital Course: ASSESSMENT Leukocytosis Normocytic anemia; iron deficiency anemia Hypokalemia, resolved, low-normal on admission to IRU (3.6) LLL pleural effusion, s/p thoracentesis 10/27/16 with 800 mL fluid removed. Hypoxia; acute resp failure - resolved. Weaned off oxygen. Situational depression Anorexia Atrial fibrillation on Xarelto, ASA CAD, recent CABGx2 10/04/16 Acute ischemic stroke involving the posterior circulation in the right occipital lobe and left cerebellum in September, History of peripheral vascular disease with bilateral carotid endarterectomies in the remote past Hypertension Hyperlipidemia History of breast cancer Overweight BMI 26.2 10/30/16 PLAN Leukocytosis -sepsis w/u negative during acute admission -Pleural fluid - cultures pending. Normocytic anemia; iron deficiency (iron level was 18) -check stool for occult blood -start Protonix daily -start iron + vitamin C. Check Vitamin B12. Depression & anorexia -continue mirtazapine - will need Rx at time of DC Hypokalemia - resolved -K low-normal; give extra KDur today CAD s/p CABG/A-fib/HTN/HLD/PPM - Consult cardiology 10/31/16 Plan Chest x-ray from yesterday, 10/30 did reveal moderate left pleural effusion. Patient is status post thoracentesis from 10/27. Overnight with ambulation. Patient's sats did decrease into the high 80s and patient complained of feeling short of breath. We will give an extra dose of Lasix 20 milligrams by mouth 1 now. Will continue with daily Lasix. Will recheck a Chest x-ray tomorrow morning Increased Leukocytosis to 17.8. Condition did receive IV iron today without difficulty. Discussed case with dietitian regarding increased appetite and trial of different nutritional supplementations. Patient does like the Spangle breakfast drink. Discussed status and plan of care with patient's . He has no further questions. Overall feels patient is doing well and making improvements. Check CBC and BMP tomorrow morning to follow leukocytosis, electrolytes and renal function
[2016-10-31] MEDS: FERROUS SULFATE 324 MG TABLET PO SCH (14:03)
[2016-10-31] MEDS: ASCORBIC ACID 500 MG TABLET PO SCH (14:03)
[2016-10-31] MEDS: CALCIUM 500 + VIT D 200 TABLET PO SCH (14:03)
--- NOTE | 2016-10-31 15:54 | IRU Team Meeting ---
IRU Team Meeting - Nursing Vital Signs: Vital Signs - 24 hr 10/30/16 16:00 10/30/16 20:05 10/31/16 00:00 Temperature 96.1 F L 97.4 F Pulse Rate 70 70 70 Respiratory Rate 20 16 Blood Pressure 137/61 149/63 H Pulse Oximetry 98 92 10/31/16 08:00 10/31/16 10:36 10/31/16 11:01 Temperature 97.4 F 97.6 F 97.4 F Pulse Rate 73 70 75 Respiratory Rate 20 24 24 Blood Pressure 158/71 H 118/45 116/54 Pulse Oximetry 100 94 96 10/31/16 11:17 10/31/16 11:35 10/31/16 12:00 Temperature 97.8 F 98.2 F 98.2 F Pulse Rate 68 70 74 Respiratory Rate 16 22 22 Blood Pressure 116/62 114/57 110/67 Pulse Oximetry 95 95 95 10/31/16 15:14 Temperature 97.3 F Pulse Rate 75 Respiratory Rate 20 Blood Pressure 138/78 Pulse Oximetry 98 Current Medications: Acetaminophen/Codeine Phosphate (Tylenol With Codeine #3 (300/30)) 1 - 2 tab PO Q4H PRN PRN Reason: Pain Al Hydroxide/Mg Hydroxide (Maalox Plus) 30 ml PO DAILY PRN PRN Reason: Indigestion Anastrozole (Arimidex) 1 mg PO DAILY [facility] Last Admin: 10/31/16 08:34 Dose: 1 mg Ascorbic Acid (Vitamin C) 500 mg PO [facility] Last Admin: 10/31/16 14:03 Dose: 500 mg Atorvastatin Calcium (Lipitor) 20 mg PO 2100 [facility] Last Admin: 10/30/16 20:35 Dose: 20 mg Calcium Carbonate (Tums) 500 mg PO Q4H PRN Calcium/Vitamin D (Os Martin-D 500) 1 tab PO NOON [facility] Last Admin: 10/31/16 14:03 Dose: 1 tab Diltiazem HCl (Cardizem Cd) 120 mg PO DAILY [facility] Last Admin: 10/31/16 08:33 Dose: 120 mg Diltiazem HCl (Cardizem Cd) 120 mg PO DAILY [facility] Last Admin: 10/31/16 10:53 Dose: Not Given Ferrous Sulfate (Feosol) 324 mg PO [facility] Last Admin: 10/31/16 14:03 Dose: 324 mg Furosemide (Lasix) 20 mg PO DAILY [facility] Last Admin: 10/31/16 08:34 Dose: 20 mg Sodium Chloride (Normal Saline) 500 mls @ 15 mls/hr IV .Q24H [facility] Stop: 11/01/16 09:41 Last Admin: 10/31/16 10:45 Dose: Not Given Iron Dextran 1,550 mg/ Sodium (Chloride) 531 mls @ 125 mls/hr IV O ONE Stop: 10/31/16 17:14 Last Admin: 10/31/16 14:02 Dose: 125 mls/hr Losartan Potassium (Cozaar) 50 mg PO DAILY [facility] Last Admin: 10/31/16 08:33 Dose: 50 mg Magnesium Hydroxide (Mom) 30 ml PO DAILY PRN PRN Reason: Constipation Magnesium Oxide (Magox) 400 mg PO 2100 [facility] Last Admin: 10/30/16 20:34 Dose: 400 mg Magnesium Oxide (Magox) 400 mg PO HS [facility] Last Admin: 10/30/16 21:35 Dose: Not Given Metoprolol Tartrate (Lopressor) 100 mg PO BIDBS [facility] Last Admin: 10/31/16 08:34 Dose: 100 mg Minocycline HCl (Minocin) 100 mg PO BID [facility] Last Admin: 10/31/16 11:06 Dose: 100 mg Mirtazapine (Remeron) 7.5 mg PO HS [facility] Last Admin: 10/30/16 21:41 Dose: Not Given Nitroglycerin (Nitrostat) 0.4 mg SL Q5MIN3 PRN PRN Reason: Chest pain Pantoprazole Sodium (Protonix) 20 mg PO ACB [facility] Last Admin: 10/31/16 08:34 Dose: 20 mg Polyethylene Glycol (Miralax) 17 gm PO DAILY [facility] Last Admin: 10/31/16 08:37 Dose: Not Given Potassium Chloride (K-Dur) 20 meq PO NOON [facility] Last Admin: 10/31/16 14:03 Dose: 20 meq Rivaroxaban (Xarelto) 20 mg PO WS [facility] Last Admin: 10/30/16 18:30 Dose: 20 mg Senna (Senna Lax) 8.6 mg PO DAILY [facility] Last Admin: 10/31/16 08:38 Dose: Not Given Senna/Docusate Sodium (Senna Plus Tablet) 1 tab PO BID [facility] Last Admin: 10/31/16 10:32 Dose: Not Given Sodium Chloride (Iv Flush) 10 ml IVF Q12HR [facility] Last Admin: 10/31/16 10:53 Dose: Not Given Sodium Chloride (Iv Flush) 10 - 80 ml IVF PRN PRN PRN Reason: Flushing Last Admin: 10/31/16 10:31 Dose: 10 ml Sodium Chloride (Normal Saline) 500 ml IV PRN PRN Sodium Chloride (Iv Flush) 10 - 80 ml IVF PRN PRN PRN Reason: Flushing Last Admin: 10/31/16 10:32 Dose: 10 ml Sodium Chloride (Iv Flush) 10 - 80 ml IVF PRN PRN PRN Reason: Flushing Comments: Patient's white blood cell count is increased. She does have Hemoccult-positive stool. Hospitalists are monitoring this and are giving iron IV. She is working with a dietitian and we will plan to give her [place] Instant Breakfast or other supplement on a regular basis. She has denied any chest pain or shortness of breath. She is seen by speech therapy. Swallowing has improved and she is stable with this within liquids. She is working on phonation and cognitive issues. - Physical Therapy Comments: Patient is seen right away by physical therapy. She does have some easy fatigability and reduced endurance. She is making good gains however. She is ambulate further and with greater safety. Her transfers are improving. Has not worked on stairs yet. - Occupational Therapy Lower Body Dressing Comment: She is seen by occupational therapy. Her activities of daily living are improving. She is improving with grooming, toileting, bathing and dressing. - Care Plan Anticipated Length of Stay: 7 Anticipated DC Destination: Home, Self Care Interventions/Goals: Barriers to progress: 1. Anorexia with nutritional concerns 2. Depression 3. Endurance Goals 1. Increase tolerance to 60 minutes of therapy with 1-2 rest breaks 2. Improve bed mobility 3. Find food preferences and improve caloric intake for improved nutrition I certify that I personally led the interdisciplinary team meeting and agree with comments, barriers and goals indicated. Team meeting was held in the patient's room with the patient and the following family members present: .
[2016-10-31] MEDS: RIVAROXABAN 20 MG TABLET PO SCH (18:29)
[2016-10-31] MEDS: ATORVASTATIN 20 MG TABLET PO SCH (20:30)
[2016-10-31] MEDS: MAGNESIUM OXIDE 400 MG TABLET PO SCH ×3 (20:31→21:31)
[2016-10-31] MEDS: MIRTAZAPINE 15 MG TABLET PO SCH ×2 (20:31→21:26)
[2016-11-01] MEDS: PANTOPRAZOLE 20 MG TABLET PO SCH (06:40)
[2016-11-01] MEDS: MINOCYCLINE 100 MG CAPSULE PO SCH ×2 (08:39→20:25)
[2016-11-01] MEDS: ANASTROZOLE 1 MG TABLET PO SCH (08:39)
[2016-11-01] MEDS: FUROSEMIDE 20 MG TABLET PO SCH ×2 (08:40→15:33)
[2016-11-01] MEDS: LOSARTAN 50 MG TABLET PO SCH (08:40)
[2016-11-01] MEDS: SENNA + DOCUSATE TABLET PO SCH ×2 (08:43→20:26)
[2016-11-01] MEDS: POLYETHYL GLYCOL 3350 17gm PACKET PO SCH (08:43)
[2016-11-01] MEDS: SALINE FLUSH 10ml SYRINGE IVF SCH ×2 (08:43→20:25)
[2016-11-01] MEDS: SENNOSIDES 8.6 MG TABLET PO SCH (08:43)
--- NOTE | 2016-11-01 08:50 | XRay Report ---
INDICATION: pleural effusion PROCEDURE: CHEST 2-VIEWS UPRIGHT (PA & LAT) Encounter: Initial COMPARISON: October 30, 2016 FINDINGS: Chest is stable with a small to moderate left pleural effusion and small right pleural effusion. Hyperinflation. No pneumothorax. Continued bilateral lower lobe airspace disease. Heart size and mediastinal contours are stable. Pulmonary vascularity is unchanged. Support devices are stable. Impression: Stable pleural effusions. .
[2016-11-01] MEDS ORDERED: FALL RISK - PHARMACY CONSULT MC PRN (09:55)
--- NOTE | 2016-11-01 11:05 | IRU Progress Note ---
- Subjective/Serverity of Illness Sayda was evaluated in the therapy area today. She actually is much brighter and has better eye contact. She says that she slept reasonably well. She was seen by Dr. Kee yesterday. Pleural effusion noted. Chest x-ray from the was noted to show the left-sided pleural effusion. Repeat chest x- ray today does show improvement. He did start her on regular doses of furosemide. She says that she will try the supplements. She will be off of these on a regular basis. She currently denies any shortness of breath but does have some dyspnea with activity. She is progressing with therapy and is cooperative. Update on medical conditions as follows: 1. Recent left sided pleural exudative effusion: She is status post thoracentesis. The nature of the effusion is actually not clearly exudative. Protein is actually low even though LDH was a bit high. I would imagine this is simply post bypass transudative effusion most likely. Dr. Kee did see the patient. She did have some hypoxemia. Lasix was begun. We will start daily weights. Upon my personal review of the 2 chest x-rays, the effusion appears to have improved. 2. Leukocytosis: Her white count was at previously and now is back down a bit. Etiology not clear. 3. Depression: major. She is on mirtazapine for both appetite and depression. She seems to be improved regarding her outlook and eye contact. 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 Asymptomatic at present. 5. Recent CVA with left sided weakness 6. Atrial fibrillation and risk for additional stroke: Remains on Xarelto. No evidence of active bleeding although stool was Hemoccult positive. 7. Anorexia and protein-calorie malnutrition: She is receiving regular offerings of [place] Instant Breakfast. 8. Anemia: Stool is Hemoccult positive. Hemoglobin noted. Received iron without reaction yesterday. Exam Vital Signs: Temperature 97.7 F 11/01/16 07:45 Pulse Rate 73 11/01/16 08:08 Respiratory Rate 20 11/01/16 07:45 Blood Pressure 152/73 H 11/01/16 07:45 Pulse Oximetry 97 11/01/16 07:45 Oxygen Delivery Method Nasal Cannula Oxygen Flow Rate 1 Height/Weight/BMI: Height 1.68 m Weight 73.5 kg Body Mass Index 26.1 - Constitutional Present: no acute distress Comments: The patient is awake, alert and oriented and in no acute distress. She is more interactive and has better eye contact today. Pupils are equal. The neck is supple. Chest: Clear to auscultation bilaterally. Cor: irregular rhythm with no gallop, click nor murmur. Bypass wound appears to be healing adequately. Abd: soft with normo-active bowel sounds. There are no masses, no tenderness and no guarding. Extremities: She does have bilateral peripheral edema. Chest Reviewed and is improved. Results IRU - Labs Labs: I personally reviewed all laboratory and radiographic findings. Her chest x-ray is improved. Sepsis Assessment - Evaluation Sepsis screening result: No Definite Risk IRU A/P (1) Leukocytosis Qualifiers: Leukocytosis type: other Qualified Code(s): D72.828 - Other elevated white blood cell count Current visit: No Status: Acute White count is improved. Etiology of elevation not clear. No evidence of active infection. (2) Atrial fibrillation Qualifiers: Atrial fibrillation type: paroxysmal Qualified Code(s): I48.0 - Paroxysmal atrial fibrillation Current visit: No Status: Chronic Remains on Xarelto without evidence of active bleeding. (3) Presence of permanent cardiac pacemaker Current visit: No Status: Acute (4) Coronary artery disease Qualifiers: Coronary Disease-Associated Artery/Lesion type: [place] artery [place] vs. transplanted heart: [place] heart Associated angina: without angina Qualified Code(s): I25.10 - Atherosclerotic heart disease of [place] coronary artery without angina pectoris Current visit: No Status: Chronic Denies chest pain and denies shortness of breath although does have some objective tachypnea when she exerts herself. (5) CVA (cerebral vascular accident) Qualifiers: CVA mechanism: embolism Precerebral and cerebral artery: cerebellar artery Laterality of affected vessel: left Qualified Code(s): I63.442 - Cerebral infarction due to embolism of left cerebellar artery Current visit: Yes Status: Acute Continues to work with therapy and is improving with regard to ADLs and transfers and ambulation. (6) Anemia Qualifiers: Anemia type: other cause Other causes of anemia: acute posthemorrhagic Qualified Code(s): D62 - Acute posthemorrhagic anemia Current visit: Yes Status: Acute Hemoglobin back down slightly at 8.5. This is asymptomatic. She is receiving iron or at least to get a dose yesterday. DVT Prophylaxis: Xarelto Resuscitation Status: Full Code - Course Hospital Course: Min Rocha MD: 10/31/16 10:56 She is making some good progress with therapy. Continues to be depressed. No evidence of active bleeding although stool is Hemoccult positive. Hemoglobin is up. White count is a bit worse today. Awaiting pathology/cytology from pleural effusion. 11/01/16 11:08 Continues to cooperate with therapy. She is more bright, alert and has better eye contact. Working on nutrition with [place] Instant Breakfast. Her chest radiograph shows somewhat improved effusion on the left. Dr. Kee has started Lasix. We will start daily weights. - Interventions to Obtain Goals PT Treatment Plan: Balance/Proprioception, Functional Activities, Gait Training , Patient/Family Education, Therapeutic Exercise OT Treatment Plan: ADL (Basic Care), Balance Training, IADL, Pt./Family Education, Ther. Exercise for ADL Goals Progress/Modifications: She is on Lasix daily. We will start daily weights. Monitor chemistries carefully as well as hemoglobin. Work on nutrition and encouragement with regard to therapies.
[2016-11-01] MEDS: ASCORBIC ACID 500 MG TABLET PO SCH (12:17)
[2016-11-01] MEDS: CALCIUM 500 + VIT D 200 TABLET PO SCH (12:17)
[2016-11-01] MEDS: FERROUS SULFATE 324 MG TABLET PO SCH (12:17)
--- NOTE | 2016-11-01 12:50 | Progress Note ---
Progress Note: Sayda reported to the dietitian this morning that she was having difficulty chewing her meat. It is not clear if this represents a true dysphagia or a dental issue. We will ask speech therapy to evaluate.
[2016-11-01] MEDS: RIVAROXABAN 20 MG TABLET PO SCH (17:46)
[2016-11-01] MEDS: SALINE FLUSH 10ml SYRINGE IVF PRN (17:47)
[2016-11-01] MEDS: MIRTAZAPINE 15 MG TABLET PO SCH (20:26)
[2016-11-01] MEDS: MAGNESIUM OXIDE 400 MG TABLET PO SCH (20:26)
[2016-11-01] MEDS: ATORVASTATIN 20 MG TABLET PO SCH (20:26)
[2016-11-02] MEDS: PANTOPRAZOLE 20 MG TABLET PO SCH (05:20)
--- NOTE | 2016-11-02 09:34 | Progress Note ---
Subjective: Belen is seen this morning following breakfast. She verbalizes difficulty chewing some food although has been able to eat oatmeal and swallow a entire carnation shake. She denies having pain or feeling short of breath. She is does admit that when she exerts herself. She told sometimes get short of breath. However, this self resolves. Denies Pain or GI complaints. Noted to have a black stool this morning with a heme positive stool several days ago. Hemoglobin this morning pending. Vital signs are normal. Objective Vital signs: Temperature 98.3 F 11/02/16 07:38 Pulse Rate 77 11/02/16 07:38 Respiratory Rate 14 11/02/16 07:38 Blood Pressure 129/66 11/02/16 07:38 Pulse Oximetry 95 11/02/16 07:38 Oxygen Delivery Method Nasal Cannula Oxygen Flow Rate 1 Height/Weight/BMI: Height 1.68 m Weight 73.5 kg Body Mass Index 26.1 - Constitutional Present: no acute distress, well nourished, well developed - Routine HEENT Exam Eye: Present: EOMI ENT: Present: mucous membranes moist, dentition normal - Routine Respiratory Exam Present: CTA bilaterally. Absent: wheezes - Routine Cardiovascular Exam Present: RRR, S1, S2, no murmur. Absent: murmur - Routine Abdominal Exam Present: soft, normoactive bowel sounds, non distended. Absent: tenderness - Routine Extremities Exam Present: edema (trace bilateral lower extremity edema), normal capillary refill - Routine Back/Spine/Pelvis Exam Back/Spine: Present: full ROM - Routine Skin Exam Present: intact, dry, warm - Routine Neurological Exam Present: alert, oriented X3, CN II-XII intact - Routine Lymphatic Exam Lymphatic: Absent: adenopathy - Routine Psychiatric Exam Present: normal affect Comments: Flat affect Results - Labs CBC & Chem 7: 11/01/16 04:51 11/01/16 04:51 Assessment and Plan (1) Leukocytosis Current visit: No Status: Acute Assessment and Plan: ASSESSMENT Leukocytosis Normocytic anemia; iron deficiency anemia Hypokalemia, resolved, low-normal on admission to IRU (3.6) LLL pleural effusion, s/p thoracentesis 10/27/16 with 800 mL fluid removed. Hypoxia; acute resp failure - resolved. Weaned off oxygen. Situational depression Anorexia Atrial fibrillation on Xarelto, ASA CAD, recent CABGx2 10/04/16 Acute ischemic stroke involving the posterior circulation in the right occipital lobe and left cerebellum in September, History of peripheral vascular disease with bilateral carotid endarterectomies in the remote past Hypertension Hyperlipidemia History of breast cancer Overweight BMI 26.2 Plan= 11/02 CBC and BMP are currently pending. Will evaluate once resulted. Concerned about black stool along with Hemoccult-positive stool sample several days ago. At this point, we will hold Xarelto and monitor carefully. Patient does continue to be on twice a day Lasix for ongoing diuresis seen. Dose at 800 and 1600. Chest x-ray reviewed by myself. Film from yesterday revealed continued bilateral pleural effusions. Continued leukocytosis, however. White count has improved to 13.5 yesterday. Today pending. Continue to encourage dietary intake and nutritional supplementation for ongoing strengthening Encourage work with PT and OT for ongoing strengthening Will evaluate laboratory studies. Continue to follow routinely Discussed with attending, Dr. Kee Sepsis Assessment - Evaluation Sepsis screening result: No Definite Risk Hospital Course Summary Disclaimer: The visit summary below is not to be considered part of the above Progress Note. Hospital Course: ASSESSMENT Leukocytosis Normocytic anemia; iron deficiency anemia Hypokalemia, resolved, low-normal on admission to IRU (3.6) LLL pleural effusion, s/p thoracentesis 10/27/16 with 800 mL fluid removed. Hypoxia; acute resp failure - resolved. Weaned off oxygen. Situational depression Anorexia Atrial fibrillation on Xarelto, ASA CAD, recent CABGx2 10/04/16 Acute ischemic stroke involving the posterior circulation in the right occipital lobe and left cerebellum in September, History of peripheral vascular disease with bilateral carotid endarterectomies in the remote past Hypertension Hyperlipidemia History of breast cancer Overweight BMI 26.2 10/30/16 PLAN Leukocytosis -sepsis w/u negative during acute admission -Pleural fluid - cultures pending. Normocytic anemia; iron deficiency (iron level was 18) -check stool for occult blood -start Protonix daily -start iron + vitamin C. Check Vitamin B12. Depression & anorexia -continue mirtazapine - will need Rx at time of DC Hypokalemia - resolved -K low-normal; give extra KDur today CAD s/p CABG/A-fib/HTN/HLD/PPM - Consult cardiology 10/31/16 Plan Chest x-ray from yesterday, 10/30 did reveal moderate left pleural effusion. Patient is status post thoracentesis from 10/27. Overnight with ambulation. Patient's sats did decrease into the high 80s and patient complained of feeling short of breath. We will give an extra dose of Lasix 20 milligrams by mouth 1 now. Will continue with daily Lasix. Will recheck a Chest x-ray tomorrow morning Increased Leukocytosis to 17.8. Condition did receive IV iron today without difficulty. Discussed case with dietitian regarding increased appetite and trial of different nutritional supplementations. Patient does like the [employer] breakfast drink. Discussed status and plan of care with patient's . He has no further questions. Overall feels patient is doing well and making improvements. Check CBC and BMP tomorrow morning to follow leukocytosis, electrolytes and renal function Plan= 11/02 CBC and BMP are currently pending. Will evaluate once resulted. Concerned about black stool along with Hemoccult-positive stool sample several days ago. At this point, we will hold Xarelto and monitor carefully. Patient does continue to be on twice a day Lasix for ongoing diuresis seen. Dose at 800 and 1600. Chest x-ray reviewed by myself. Film from yesterday revealed continued bilateral pleural effusions. Continued leukocytosis, however. White count has improved to 13.5 yesterday. Today pending. Continue to encourage dietary intake and nutritional supplementation for ongoing strengthening Encourage work with PT and OT for ongoing strengthening Will evaluate laboratory studies. Continue to follow routinely Discussed with attending, Dr. Kee
[2016-11-02] MEDS: LOSARTAN 50 MG TABLET PO SCH (09:48)
[2016-11-02] MEDS: ANASTROZOLE 1 MG TABLET PO SCH (09:49)
[2016-11-02] MEDS: MINOCYCLINE 100 MG CAPSULE PO SCH ×2 (09:49→20:28)
[2016-11-02] MEDS: FUROSEMIDE 20 MG TABLET PO SCH ×2 (09:50→15:23)
[2016-11-02] MEDS: SALINE FLUSH 10ml SYRINGE IVF SCH ×2 (09:51→20:51)
[2016-11-02] MEDS: SALINE FLUSH 10ml SYRINGE IVF PRN (09:51)
[2016-11-02] MEDS: SENNOSIDES 8.6 MG TABLET PO SCH (09:51)
[2016-11-02] MEDS: POLYETHYL GLYCOL 3350 17gm PACKET PO SCH (09:51)
[2016-11-02] MEDS: SENNA + DOCUSATE TABLET PO SCH ×2 (09:52→20:29)
[2016-11-02] MEDS: ASCORBIC ACID 500 MG TABLET PO SCH (12:19)
[2016-11-02] MEDS: FERROUS SULFATE 324 MG TABLET PO SCH (12:20)
[2016-11-02] MEDS: CALCIUM 500 + VIT D 200 TABLET PO SCH (12:20)
--- NOTE | 2016-11-02 14:51 | Cardiology Progress Note ---
Subjective Principal diagnosis: Atrial fibrillation <Norma Ann - 11/02/16 14:52> Interval history: Sayda is seen in her room on IRU, OT and at the bedside. She denies cardiac complaints <Norma Ann - 11/02/16 14:52> Exam Vital signs: Temperature 98.3 F 11/02/16 07:38 Pulse Rate 78 11/02/16 08:00 Respiratory Rate 14 11/02/16 07:38 Blood Pressure 129/66 11/02/16 07:38 Pulse Oximetry 95 11/02/16 07:38 Oxygen Delivery Method Nasal Cannula Oxygen Flow Rate 1 <Rodolfo Matson - 11/02/16 14:57> Temperature 98.3 F 11/02/16 07:38 Pulse Rate 78 11/02/16 08:00 Respiratory Rate 14 11/02/16 07:38 Blood Pressure 129/66 11/02/16 07:38 Pulse Oximetry 95 11/02/16 07:38 Oxygen Delivery Method Nasal Cannula Oxygen Flow Rate 1 <Norma Ann 11/02/16 14:52> - Constitutional no acute distress, cooperative <Norma Ann 11/02/16 14:52> - Routine HEENT Exam Head: Present: normocephalic <Norma Ann 11/02/16 14:52> ENT: Present: mucous membranes moist <Norma Ann 11/02/16 14:52> - Routine Neck Exam Absent: JVD, carotid bruit <Norma Ann 11/02/16 14:52> - Routine Chest/Breast/Axilla Exam Chest wall: Present: pacemaker. Absent: tenderness <Norma Ann 14:52> - Routine Respiratory Exam Present: rales (bibasilar). Absent: CTA bilaterally, wheezes <Norma Ann 11/02/16 14:52> - Routine Cardiovascular Exam Present: irregular rhythm. Absent: JVD <Norma Ann 11/02/16 14:52> - Routine Abdominal Exam Present: soft, normoactive bowel sounds <Norma Ann 11/02/16 14:52> - Routine Extremities Exam Present: edema <Norma Ann 11/02/16 14:52> - Routine Skin Exam Present: intact, dry, warm <Norma Ann 11/02/16 14:52> - Routine Neurological Exam Present: alert <Norma Ann 11/02/16 14:52> - Routine Psychiatric Exam Present: normal affect <Seth,Norma Tor 11/02/16 14:52> Progress Note-A&P (1) HTN (hypertension) Status: Chronic Current Visit: No (2) Dyslipidemia Status: Chronic Current Visit: No (3) PAD (peripheral artery disease) Status: Chronic Current Visit: No (4) Atrial fibrillation Status: Chronic Current Visit: No (5) Pleural effusion Status: Acute Current Visit: No (6) Coronary artery disease Status: Chronic Current Visit: No (7) S/P 2-vessel coronary artery bypass Status: Chronic Current Visit: No (8) Presence of permanent cardiac pacemaker Status: Acute Current Visit: No <ClaudiaodalysPremaRodolfo 11/02/16 14:57> (1) Pleural effusion Status: Acute Current Visit: No (2) Atrial fibrillation Status: Chronic Current Visit: No (3) Coronary artery disease Status: Chronic Current Visit: No (4) Dyslipidemia Status: Chronic Current Visit: No (5) HTN (hypertension) Status: Chronic Current Visit: No (6) S/P 2-vessel coronary artery bypass Status: Chronic Current Visit: No (7) PAD (peripheral artery disease) Status: Chronic Current Visit: No (8) Presence of permanent cardiac pacemaker Status: Acute Current Visit: No <Norma Ann 11/02/16 14:48> - Time Spent With Patient Total time spent is greater than 50% in coordination of care (as documented) at patient's floor/unit and/or counseling patient: <Tiara Matsonin - 11/02/16 14:57> Total time spent is greater than 50% in coordination of care (as documented) at patient's floor/unit and/or counseling patient: <SethNorma Tor 11/02/16 14:52> less than 15 minutes <Norma Ann 11/02/16 14:52> - Attestation Attestation Narrative: Recommendation After examining the patient I agree with the above assessment. I am involved in the formulation of the patient's plan of care. <Rodolfo Matson - 11/02/16 14:57> Sepsis Assessment - Evaluation Sepsis screening result: No Definite Risk <Norma Ann - 11/02/16 14:52> Hospital Course Summary Disclaimer: The visit summary below is not to be considered part of the above Progress Note. <Rodolfo Matson - 11/02/16 14:57> The visit summary below is not to be considered part of the above Progress Note. <Norma Ann - 11/02/16 14:52> Hospital Course: ASSESSMENT Leukocytosis Normocytic anemia; iron deficiency anemia Hypokalemia, resolved, low-normal on admission to IRU (3.6) LLL pleural effusion, s/p thoracentesis 10/27/16 with 800 mL fluid removed. Hypoxia; acute resp failure - resolved. Weaned off oxygen. Situational depression Anorexia Atrial fibrillation on Xarelto, ASA CAD, recent CABGx2 10/04/16 Acute ischemic stroke involving the posterior circulation in the right occipital lobe and left cerebellum in September, History of peripheral vascular disease with bilateral carotid endarterectomies in the remote past Hypertension Hyperlipidemia History of breast cancer Overweight BMI 26.2 10/30/16 PLAN Leukocytosis -sepsis w/u negative during acute admission -Pleural fluid - cultures pending. Normocytic anemia; iron deficiency (iron level was 18) -check stool for occult blood -start Protonix daily -start iron + vitamin C. Check Vitamin B12. Depression & anorexia -continue mirtazapine - will need Rx at time of DC Hypokalemia - resolved -K low-normal; give extra KDur today CAD s/p CABG/A-fib/HTN/HLD/PPM - Consult cardiology 10/31/16 Plan Chest x-ray from yesterday, 10/30 did reveal moderate left pleural effusion. Patient is status post thoracentesis from 10/27. Overnight with ambulation. Patient's sats did decrease into the high 80s and patient complained of feeling short of breath. We will give an extra dose of Lasix 20 milligrams by mouth 1 now. Will continue with daily Lasix. Will recheck a Chest x-ray tomorrow morning Increased Leukocytosis to 17.8. Condition did receive IV iron today without difficulty. Discussed case with dietitian regarding increased appetite and trial of different nutritional supplementations. Patient does like the [employer] breakfast drink. Discussed status and plan of care with patient's . He has no further questions. Overall feels patient is doing well and making improvements. Check CBC and BMP tomorrow morning to follow leukocytosis, electrolytes and renal function Plan= 11/02 CBC and BMP are currently pending. Will evaluate once resulted. Concerned about black stool along with Hemoccult-positive stool sample several days ago. At this point, we will hold Xarelto and monitor carefully. Patient does continue to be on twice a day Lasix for ongoing diuresis seen. Dose at 800 and 1600. Chest x-ray reviewed by myself. Film from yesterday revealed continued bilateral pleural effusions. Continued leukocytosis, however. White count has improved to 13.5 yesterday. Today pending. Continue to encourage dietary intake and nutritional supplementation for ongoing strengthening Encourage work with PT and OT for ongoing strengthening Will evaluate laboratory studies. Continue to follow routinely Discussed with attending, Dr. Kee 11/02/16 14:52- Cardiology Chronic, goal is rate control. Continue Cardizem and Xarelto. Hold Aspirin <Norma Ann - 11/02/16 14:52>
[2016-11-02] MEDS: MIRTAZAPINE 15 MG TABLET PO SCH (20:28)
[2016-11-02] MEDS: ATORVASTATIN 20 MG TABLET PO SCH (20:28)
[2016-11-02] MEDS: MAGNESIUM OXIDE 400 MG TABLET PO SCH (20:28)
[2016-11-03] MEDS: SALINE FLUSH 10ml SYRINGE IVF PRN (04:57)
[2016-11-03] MEDS: PANTOPRAZOLE 20 MG TABLET PO SCH ×3 (04:58→20:09)
[2016-11-03] MEDS: SENNOSIDES 8.6 MG TABLET PO SCH (08:31)
[2016-11-03] MEDS: MINOCYCLINE 100 MG CAPSULE PO SCH ×2 (08:45→20:11)
[2016-11-03] MEDS: LOSARTAN 50 MG TABLET PO SCH (08:46)
[2016-11-03] MEDS: ANASTROZOLE 1 MG TABLET PO SCH (08:46)
[2016-11-03] MEDS: FUROSEMIDE 20 MG TABLET PO SCH ×2 (08:46→16:37)
[2016-11-03] MEDS: POLYETHYL GLYCOL 3350 17gm PACKET PO SCH (08:47)
[2016-11-03] MEDS: SENNA + DOCUSATE TABLET PO SCH ×2 (08:47→20:11)
[2016-11-03 08:53] VITALS: BMI 27.2
--- NOTE | 2016-11-03 09:15 | XRay Report ---
INDICATION: monitor pleural effusion PROCEDURE: CHEST 2-VIEWS UPRIGHT (PA & LAT) Encounter: Initial COMPARISON: November 01, 2016 FINDINGS: Minimal decrease in size of the small left pleural effusion. Small right effusion is unchanged. Continued compressive atelectasis of the left lower lobe. Upper lung santana are clear. No pneumothorax. Heart size and mediastinal contours are stable. Left pacemaker. Prior CABG. Impression: Slight decrease in left effusion. .
--- NOTE | 2016-11-03 10:09 | IRU Progress Note ---
- Subjective/Serverity of Illness Patient was evaluated in the therapy area. Overall she is slowly improving. I have reviewed therapist notes in detail. She does require encouragement to do complete personal hygiene. In addition she does have reduced endurance. She is cooperative. Her interaction is improving with regard to depression. She is able to ambulate 155 feet. Her ambulatory ability is improved. She is transferring better. Medically, she has several issues going on. She has had a recent bypass procedure (coronary artery) and does have dyspnea with exertion. She denies any chest pain. She is also had a recent stroke. This impacts her therapy as well particularly personal hygiene etc. She also has worsening anemia. She does have Hemoccult-positive stool. Hemoglobin is down to 7.4 from 8.6. While she does not have overt bleeding, one would suspect this may be from a GI source. She does state that she has had a colonoscopy in the last year or so. She does not recall the results nor does she know who did it. She apparently has not had an upper endoscopy she states. She denies any abdominal pain. Appetite continues to be an issue as well. This is impairing her progress with regard to endurance. She is taking [employer]'s however. With regard to her large pleural effusion, repeat chest x-ray today does show some slight improvement. Her dyspnea may well be on the basis of this as well. However decreased endurance is likely a major factor. came by subsequently and I visit with him for about 10 minutes regarding her status. Questions were addressed. He does not recall the results of her previous colonoscopy. Discussed with him the possibility of a blood transfusion. He is more open to it. I told him that I thought we could probably wait and watch but if it drops much lower we will need to seriously consider a blood transfusion. Update on medical conditions as follows: 1. Recent left sided pleural exudative effusion: She is status post thoracentesis. The nature of the effusion is actually not clearly exudative. Protein is actually low even though LDH was a bit high. I would imagine this is simply post bypass transudative effusion most likely. Follow-up chest x-ray does show some improvement. She does have some dyspnea which may be related and impacts her therapy. 2. Leukocytosis: Her white count was at previously and now is back down a bit. Etiology not clear. No evidence of active infection. White count improved from 15,000 down to 12,000 at present. 3. Depression: major. She is on mirtazapine for both appetite and depression. She continues to display better eye contact and seems to be a bit more bright. However she continues to look down quite a bit and requires encouragement. 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 Asymptomatic at present. 5. Recent CVA with left sided weakness. This does impair her progress. 6. Atrial fibrillation and risk for additional stroke: Because of worsening hemoglobin, Xarelto has been held. Hospitalists have discussed the possibility of blood transfusion with the patient but she declines. 7. Anorexia and protein-calorie malnutrition: She is receiving regular offerings of [employer]. She seems to be consuming these on a regular basis. 8. Anemia: Stool is Hemoccult positive. Hemoglobin continues to drop. She declines transfusion. Exam Vital Signs: Temperature 98.0 F 11/03/16 08:00 Pulse Rate 69 11/03/16 08:01 Respiratory Rate 18 11/03/16 08:01 Blood Pressure 147/66 H 11/03/16 08:00 Pulse Oximetry 92 11/03/16 08:01 Oxygen Delivery Method Room Air Oxygen Flow Rate 1 Height/Weight/BMI: Height 1.68 m Weight 76.657 kg Body Mass Index 27.2 - Constitutional Present: no acute distress Comments: The patient is awake, alert and oriented and in no acute distress. She does have better eye contact and is more communicative. Pupils are equal. The neck is supple. Chest: Clear to auscultation in the right lungs with diminished breath sounds left lower lobe. Cor: RR with no gallop, click nor murmur Abd: soft with normo-active bowel sounds. There are no masses, no tenderness and no guarding. Somewhat protuberant. Extremities: Continues to have some edema. She remains on Lasix. Results IRU - Labs Labs: I reviewed her laboratory studies indicating worsening anemia but improved white count. Also reviewed notes from hospitalist and from cardiology. Sepsis Assessment - Evaluation Sepsis screening result: No Definite Risk IRU A/P (1) Leukocytosis Qualifiers: Leukocytosis type: other Qualified Code(s): D72.828 - Other elevated white blood cell count Current visit: No Status: Acute Etiology of her white count elevation is not clear. Does not have evidence of active infection. We are continuing to monitor for this. She is afebrile. Denies any cough but does have chronic dyspnea. (2) Atrial fibrillation Qualifiers: Atrial fibrillation type: paroxysmal Qualified Code(s): I48.0 - Paroxysmal atrial fibrillation Current visit: No Status: Chronic Today she sounds like she is in a regular rhythm. Does have a pacemaker in place. Xarelto was held due to anemia and possible GI blood loss. (3) Presence of permanent cardiac pacemaker Current visit: No Status: Acute (4) Coronary artery disease Qualifiers: Coronary Disease-Associated Artery/Lesion type: [place] artery [place] vs. transplanted heart: [place] heart Associated angina: without angina Qualified Code(s): I25.10 - Atherosclerotic heart disease of [place] coronary artery without angina pectoris Current visit: No Status: Chronic We are monitoring for any evidence of angina as well as evidence of worsening dyspnea with therapy which could impact her progress. She has been without chest pain. 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 (6) Anemia Qualifiers: Anemia type: other cause Other causes of anemia: acute posthemorrhagic Qualified Code(s): D62 - Acute posthemorrhagic anemia Current visit: Yes Status: Acute Patient does have worsening anemia and declines blood transfusion. While she does not have hypotension, she does have easy fatigability which may be related to the underlying anemia. This in turn is impacting her therapy and progress. Continue to monitor with hospitalists as well. (7) Pleural effusion Current visit: No Status: Acute She has had a symptomatic left pleural effusion and a smaller one on the right. Analysis of the fluid appeared to be consistent more with a transudate (low protein, although LDH was elevated). The pleural effusion continues to be likely symptomatic with some dyspnea but this is self-limited. She is not been running any fever. No evidence of infection. Effusion is improved on recent chest x-ray. DVT Prophylaxis: Xarelto Resuscitation Status: Full Code - Course Hospital Course: Min Rocha MD: 10/31/16 10:56 She is making some good progress with therapy. Continues to be depressed. No evidence of active bleeding although stool is Hemoccult positive. Hemoglobin is up. White count is a bit worse today. Awaiting pathology/cytology from pleural effusion. 11/01/16 11:08 Continues to cooperate with therapy. She is more bright, alert and has better eye contact. Working on nutrition with [employer]. Her chest radiograph shows somewhat improved effusion on the left. Dr. Kee has started Lasix. We will start daily weights. 11/03/16 10:15 She is making slow progress. She is cooperative. With regard to her depression, she clearly seems to be improved with better eye contact and a more positive outlook. However, requires a lot of encouragement. She is tolerating her [employer] well and we are working on nutrition in that regard. Follow-up chest radiograph shows improved effusion on the left. Remains on Lasix twice daily. Weight is down slightly over the last 24 hours but overall is up since previous weights. - Interventions to Obtain Goals PT Treatment Plan: Balance/Proprioception, Functional Activities, Gait Training , Patient/Family Education, Therapeutic Exercise OT Treatment Plan: ADL (Basic Care), Balance Training, IADL, Pt./Family Education, Ther. Exercise for ADL Goals Progress/Modifications: Barriers to dismissal include endurance and dyspnea. Her depression appears to be improved. She is taking [employer] for supplements. We are monitoring her hemoglobin carefully in conjunction with the hospitalist. Have discussed blood transfusion with the patient and her . She declines but he is more open to it if necessary. Requires encouragement, particularly for ADLs including personal hygiene.
[2016-11-03] MEDS ORDERED: FALL RISK - PHARMACY CONSULT MC PRN (11:52)
[2016-11-03] MEDS: CALCIUM 500 + VIT D 200 TABLET PO SCH (12:17)
[2016-11-03] MEDS: ASCORBIC ACID 500 MG TABLET PO SCH (12:17)
[2016-11-03] MEDS: FERROUS SULFATE 324 MG TABLET PO SCH (12:17)
[2016-11-03] MEDS: SALINE FLUSH 10ml SYRINGE IVF SCH ×2 (12:24→20:14)
--- NOTE | 2016-11-03 14:30 | Progress Note ---
Subjective: Sayda seen this morning in follow-up. She is resting in her chair in the room. She is alert and does answer questions appropriately. We discussed her decrease in hemoglobin and the possibility of a blood transfusion. She adamantly declined multiple times in conversation. There is currently no evidence of acute GI bleeding, although she did have a heme positive stool on . Hemoglobin has continued to decrease over time. Xarelto has been held. Overall, she feels that her breathing is about the same. She denies having any chest pain, or GI concerns. Noted to have peripheral edema. Objective Vital signs: Temperature 98.0 F 11/03/16 08:00 Pulse Rate 69 11/03/16 08:01 Respiratory Rate 18 11/03/16 08:01 Blood Pressure 147/66 H 11/03/16 08:00 Pulse Oximetry 92 11/03/16 08:01 Oxygen Delivery Method Room Air Oxygen Flow Rate 1 Height/Weight/BMI: Height 1.68 m Weight 76.657 kg Body Mass Index 27.2 - Constitutional Present: well nourished, well developed - Routine HEENT Exam Eye: Present: EOMI ENT: Present: mucous membranes moist, dentition normal - Routine Respiratory Exam Present: CTA bilaterally. Absent: wheezes - Routine Cardiovascular Exam Present: RRR, S1, S2. Absent: murmur - Routine Abdominal Exam Present: soft, normoactive bowel sounds, non distended. Absent: tenderness - Routine Extremities Exam Present: edema, normal capillary refill - Routine Skin Exam Present: intact, dry, warm - Routine Neurological Exam Present: alert, oriented X3, CN II-XII intact - Routine Lymphatic Exam Lymphatic: Absent: adenopathy - Routine Psychiatric Exam Present: normal affect Results - Labs CBC & Chem 7: 11/03/16 04:47 11/03/16 04:47 Assessment and Plan (1) Leukocytosis Current visit: No Status: Acute Assessment and Plan: ASSESSMENT Leukocytosis Normocytic anemia; iron deficiency anemia Hypokalemia, resolved, low-normal on admission to IRU (3.6) LLL pleural effusion, s/p thoracentesis 10/27/16 with 800 mL fluid removed. Hypoxia; acute resp failure - resolved. Weaned off oxygen. Situational depression Anorexia Atrial fibrillation on Xarelto, ASA CAD, recent CABGx2 10/04/16 Acute ischemic stroke involving the posterior circulation in the right occipital lobe and left cerebellum in September, History of peripheral vascular disease with bilateral carotid endarterectomies in the remote past Hypertension Hyperlipidemia History of breast cancer Overweight BMI 26.2 Plan- 11/03 Repeat chest x-ray this morning reveals a slight decrease in left pleural effusion. She is breathing on room air without evidence of distress. Continue with scheduled twice a day Lasix. Leukocytosis continues to decline, white count 12.0 today. Hemoglobin continues to trend down. This morning is at 7.4. Xarelto was placed on hold yesterday. Discussed possibility of blood transfusion. Given patient's coronary artery disease and continued decrease in hemoglobin. Patient adamantly declines transfusion. Will discuss with patient's later today New to encourage appetite and nutrition. Continue to encourage work with PT and OT Continue to recheck daily CBCs to follow anemia and leukocytosis Case discussed with attending, Dr. Foster 1300- Did speak with [facility] regarding continued anemia. He agrees at this time would like to hold off on a transfusion. However, if it becomes medically necessary. He feels that she would be willing to have it. He feels that she is concerned about receiving someone else's blood and he wishes he could donate for her. Sepsis Assessment - Evaluation Sepsis screening result: No Definite Risk Hospital Course Summary Disclaimer: The visit summary below is not to be considered part of the above Progress Note. Hospital Course: ASSESSMENT Leukocytosis Normocytic anemia; iron deficiency anemia Hypokalemia, resolved, low-normal on admission to IRU (3.6) LLL pleural effusion, s/p thoracentesis 10/27/16 with 800 mL fluid removed. Hypoxia; acute resp failure - resolved. Weaned off oxygen. Situational depression Anorexia Atrial fibrillation on Xarelto, ASA CAD, recent CABGx2 10/04/16 Acute ischemic stroke involving the posterior circulation in the right occipital lobe and left cerebellum in September, History of peripheral vascular disease with bilateral carotid endarterectomies in the remote past Hypertension Hyperlipidemia History of breast cancer Overweight BMI 26.2 10/30/16 PLAN Leukocytosis -sepsis w/u negative during acute admission -Pleural fluid - cultures pending. Normocytic anemia; iron deficiency (iron level was 18) -check stool for occult blood -start Protonix daily -start iron + vitamin C. Check Vitamin B12. Depression & anorexia -continue mirtazapine - will need Rx at time of DC Hypokalemia - resolved -K low-normal; give extra KDur today CAD s/p CABG/A-fib/HTN/HLD/PPM - Consult cardiology 10/31/16 Plan Chest x-ray from yesterday, 10/30 did reveal moderate left pleural effusion. Patient is status post thoracentesis from 10/27. Overnight with ambulation. Patient's sats did decrease into the high 80s and patient complained of feeling short of breath. We will give an extra dose of Lasix 20 milligrams by mouth 1 now. Will continue with daily Lasix. Will recheck a Chest x-ray tomorrow morning Increased Leukocytosis to 17.8. Condition did receive IV iron today without difficulty. Discussed case with dietitian regarding increased appetite and trial of different nutritional supplementations. Patient does like the [place] breakfast drink. Discussed status and plan of care with patient's . He has no further questions. Overall feels patient is doing well and making improvements. Check CBC and BMP tomorrow morning to follow leukocytosis, electrolytes and renal function Plan= 11/02 CBC and BMP are currently pending. Will evaluate once resulted. Concerned about black stool along with Hemoccult-positive stool sample several days ago. At this point, we will hold Xarelto and monitor carefully. Patient does continue to be on twice a day Lasix for ongoing diuresis seen. Dose at 800 and 1600. Chest x-ray reviewed by myself. Film from yesterday revealed continued bilateral pleural effusions. Continued leukocytosis, however. White count has improved to 13.5 yesterday. Today pending. Continue to encourage dietary intake and nutritional supplementation for ongoing strengthening Encourage work with PT and OT for ongoing strengthening Will evaluate laboratory studies. Continue to follow routinely Discussed with attending, Dr. Kee 11/02/16 14:52- Cardiology Chronic, goal is rate control. Continue Cardizem and Xarelto. Hold Aspirin Plan- 11/03 Repeat chest x-ray this morning reveals a slight decrease in left pleural effusion. She is breathing on room air without evidence of distress. Continue with scheduled twice a day Lasix. Leukocytosis continues to decline, white count 12.0 today. Hemoglobin continues to trend down. This morning is at 7.4. Xarelto was placed on hold yesterday. Discussed possibility of blood transfusion. Given patient's coronary artery disease and continued decrease in hemoglobin. Patient adamantly declines transfusion. Will discuss with patient's later today New to encourage appetite and nutrition. Continue to encourage work with PT and OT Continue to recheck daily CBCs to follow anemia and leukocytosis Case discussed with attending, Dr. Foster
[2016-11-03] MEDS: MIRTAZAPINE 15 MG TABLET PO SCH (20:11)
[2016-11-03] MEDS: ATORVASTATIN 20 MG TABLET PO SCH (20:14)
[2016-11-03] MEDS: MAGNESIUM OXIDE 400 MG TABLET PO SCH (20:14)
[2016-11-04] MEDS: PANTOPRAZOLE 20 MG TABLET PO SCH (05:45)
[2016-11-04] MEDS: POLYETHYL GLYCOL 3350 17gm PACKET PO SCH (09:34)
[2016-11-04] MEDS: FUROSEMIDE 20 MG TABLET PO SCH ×2 (09:35→15:33)
[2016-11-04] MEDS: LOSARTAN 50 MG TABLET PO SCH (09:36)
[2016-11-04] MEDS: SENNA + DOCUSATE TABLET PO SCH ×2 (09:37→20:19)
[2016-11-04] MEDS: ANASTROZOLE 1 MG TABLET PO SCH (09:37)
[2016-11-04] MEDS: MINOCYCLINE 100 MG CAPSULE PO SCH ×2 (09:37→20:24)
[2016-11-04] MEDS: FERROUS SULFATE 324 MG TABLET PO SCH (12:24)
[2016-11-04] MEDS: CALCIUM 500 + VIT D 200 TABLET PO SCH (12:25)
[2016-11-04] MEDS: ASCORBIC ACID 500 MG TABLET PO SCH (12:25)
[2016-11-04] MEDS: SALINE FLUSH 10ml SYRINGE IVF SCH ×2 (15:32→20:24)
[2016-11-04] MEDS ORDERED: FALL RISK - PHARMACY CONSULT MC PRN (15:46)
[2016-11-04] MEDS: ATORVASTATIN 20 MG TABLET PO SCH (20:24)
[2016-11-04] MEDS: MIRTAZAPINE 15 MG TABLET PO SCH (20:24)
[2016-11-04] MEDS: MAGNESIUM OXIDE 400 MG TABLET PO SCH (20:24)
[2016-11-05] MEDS: PANTOPRAZOLE 20 MG TABLET PO SCH ×2 (04:35→08:46)
[2016-11-05] MEDS: SALINE FLUSH 10ml SYRINGE IVF SCH ×3 (04:35→22:00)
[2016-11-05] MEDS: MINOCYCLINE 100 MG CAPSULE PO SCH ×2 (09:38→22:00)
[2016-11-05] MEDS: FUROSEMIDE 20 MG TABLET PO SCH (09:38)
[2016-11-05] MEDS: LOSARTAN 50 MG TABLET PO SCH (09:38)
[2016-11-05] MEDS: ANASTROZOLE 1 MG TABLET PO SCH (09:38)
[2016-11-05] MEDS: CALCIUM 500 + VIT D 200 TABLET PO SCH (12:47)
[2016-11-05] MEDS: ASCORBIC ACID 500 MG TABLET PO SCH (12:47)
[2016-11-05] MEDS: POLYETHYL GLYCOL 3350 17gm PACKET PO SCH (12:47)
[2016-11-05] MEDS: SENNA + DOCUSATE TABLET PO SCH ×2 (12:47→22:00)
[2016-11-05] MEDS: FERROUS SULFATE 324 MG TABLET PO SCH (12:48)
--- NOTE | 2016-11-05 16:49 | Progress Note ---
Subjective: Sayda is seen today in follow up. She is resting in bed, family is at bedside. She appears SOA at rest, does have some LE edema. Denies any pain, SOA or other concerns. She does appear tearful, but denies needs. Objective Vital signs: Temperature 97.8 F 11/05/16 15:39 Pulse Rate 81 11/05/16 15:39 Respiratory Rate 18 11/05/16 15:39 Blood Pressure 128/64 11/05/16 15:39 Pulse Oximetry 91 11/05/16 15:39 Oxygen Delivery Method Room Air Oxygen Flow Rate 1 Height/Weight/BMI: Height 1.68 m Weight 79 kg Body Mass Index 27.2 - Constitutional Present: mild distress (SOA at rest. ), well nourished, thin - Routine HEENT Exam Head: Present: normocephalic, atraumatic Eye: Present: EOMI, PERRL ENT: Present: mucous membranes moist - Routine Respiratory Exam Present: dyspnea, decreased breath sounds, crackles - Routine Cardiovascular Exam Present: RRR, S1, S2, irregular rhythm - Routine Abdominal Exam Present: soft, normoactive bowel sounds, non distended, non tender - Routine Extremities Exam Present: edema (2+ bilateral LE edema. ), non tender, pulses intact - Routine Musculoskeletal Exam Musculoskeletal: Present: no clubbing or cyanosis, no erythema - Routine Skin Exam Present: intact, dry - Routine Neurological Exam Present: alert, oriented X3 - Routine Psychiatric Exam Present: cooperative, depressed Results - Labs CBC & Chem 7: 11/05/16 04:28 11/05/16 04:28 Assessment and Plan (1) Leukocytosis Current visit: No Status: Acute DVT Prophylaxis: SCD's, Xarelto Resuscitation Status: Full Code Assessment and Plan: ASSESSMENT Leukocytosis Normocytic anemia; iron deficiency anemia Hypokalemia, resolved, low-normal on admission to IRU (3.6) LLL pleural effusion, s/p thoracentesis 10/27/16 with 800 mL fluid removed. Hypoxia; acute resp failure - resolved. Weaned off oxygen. Situational depression Anorexia Atrial fibrillation on Xarelto, ASA CAD, recent CABGx2 10/04/16 Acute ischemic stroke involving the posterior circulation in the right occipital lobe and left cerebellum in September, History of peripheral vascular disease with bilateral carotid endarterectomies in the remote past Hypertension Hyperlipidemia History of breast cancer Overweight BMI 26.2 Plan- 11/05 Patient does appear SOA at rest and in fluid overload. Will increase AM dosing of Lasix, continue 20mg Q PM. Give single dose of metolazone. Continue to monitor labs, adjust KCL as indicated. Continue strengthening exercises. She remains week. Does appear depressed today. Continue rate control for atrial fib. Xarelto held due to concern for anemia. HGB is stable. Continue SCDs for DVT px. Hx of stroke in the past- resume Xarelto as soon as we can when labs are stable. Follow CXR- if ongoing fluid overload, may need to repeat echo. - Time spent with patient 25 - 35 minutes Sepsis Assessment - Evaluation Sepsis screening result: No Definite Risk Hospital Course Summary Disclaimer: The visit summary below is not to be considered part of the above Progress Note. Hospital Course: ASSESSMENT Leukocytosis Normocytic anemia; iron deficiency anemia Hypokalemia, resolved, low-normal on admission to IRU (3.6) LLL pleural effusion, s/p thoracentesis 10/27/16 with 800 mL fluid removed. Hypoxia; acute resp failure - resolved. Weaned off oxygen. Situational depression Anorexia Atrial fibrillation on Xarelto, ASA CAD, recent CABGx2 10/04/16 Acute ischemic stroke involving the posterior circulation in the right occipital lobe and left cerebellum in September, History of peripheral vascular disease with bilateral carotid endarterectomies in the remote past Hypertension Hyperlipidemia History of breast cancer Overweight BMI 26.2 10/30/16 PLAN Leukocytosis -sepsis w/u negative during acute admission -Pleural fluid - cultures pending. Normocytic anemia; iron deficiency (iron level was 18) -check stool for occult blood -start Protonix daily -start iron + vitamin C. Check Vitamin B12. Depression & anorexia -continue mirtazapine - will need Rx at time of DC Hypokalemia - resolved -K low-normal; give extra KDur today CAD s/p CABG/A-fib/HTN/HLD/PPM - Consult cardiology 10/31/16 Plan Chest x-ray from yesterday, 10/30 did reveal moderate left pleural effusion. Patient is status post thoracentesis from 10/27. Overnight with ambulation. Patient's sats did decrease into the high 80s and patient complained of feeling short of breath. We will give an extra dose of Lasix 20 milligrams by mouth 1 now. Will continue with daily Lasix. Will recheck a Chest x-ray tomorrow morning Increased Leukocytosis to 17.8. Condition did receive IV iron today without difficulty. Discussed case with dietitian regarding increased appetite and trial of different nutritional supplementations. Patient does like the [place] breakfast drink. Discussed status and plan of care with patient's . He has no further questions. Overall feels patient is doing well and making improvements. Check CBC and BMP tomorrow morning to follow leukocytosis, electrolytes and renal function Plan= 11/02 CBC and BMP are currently pending. Will evaluate once resulted. Concerned about black stool along with Hemoccult-positive stool sample several days ago. At this point, we will hold Xarelto and monitor carefully. Patient does continue to be on twice a day Lasix for ongoing diuresis seen. Dose at 800 and 1600. Chest x-ray reviewed by myself. Film from yesterday revealed continued bilateral pleural effusions. Continued leukocytosis, however. White count has improved to 13.5 yesterday. Today pending. Continue to encourage dietary intake and nutritional supplementation for ongoing strengthening Encourage work with PT and OT for ongoing strengthening Will evaluate laboratory studies. Continue to follow routinely Discussed with attending, Dr. Kee 11/02/16 14:52- Cardiology Chronic, goal is rate control. Continue Cardizem and Xarelto. Hold Aspirin Plan- 11/03 Repeat chest x-ray this morning reveals a slight decrease in left pleural effusion. She is breathing on room air without evidence of distress. Continue with scheduled twice a day Lasix. Leukocytosis continues to decline, white count 12.0 today. Hemoglobin continues to trend down. This morning is at 7.4. Xarelto was placed on hold yesterday. Discussed possibility of blood transfusion. Given patient's coronary artery disease and continued decrease in hemoglobin. Patient adamantly declines transfusion. Will discuss with patient's later today New to encourage appetite and nutrition. Continue to encourage work with PT and OT Continue to recheck daily CBCs to follow anemia and leukocytosis Case discussed with attending, Dr. Foster 11/05/16 16:51 Patient does appear SOA at rest and in fluid overload. Will increase AM dosing of Lasix, continue 20mg Q PM. Give single dose of metolazone. Continue to monitor labs, adjust KCL as indicated. Continue strengthening exercises. She remains week. Does appear depressed today. Continue rate control for atrial fib. Xarelto held due to concern for anemia. HGB is stable. Continue SCDs for DVT px. Hx of stroke in the past- resume Xarelto as soon as we can when labs are stable. Follow CXR- if ongoing fluid overload, may need to repeat echo.
[2016-11-05] MEDS ORDERED: FALL RISK - PHARMACY CONSULT MC PRN (20:57)
[2016-11-05] MEDS: ATORVASTATIN 20 MG TABLET PO SCH (22:00)
[2016-11-05] MEDS: MIRTAZAPINE 15 MG TABLET PO SCH (22:00)
[2016-11-05] MEDS: MAGNESIUM OXIDE 400 MG TABLET PO SCH (22:00)
[2016-11-06] MEDS: PANTOPRAZOLE 20 MG TABLET PO SCH (06:40)
[2016-11-06] MEDS: POLYETHYL GLYCOL 3350 17gm PACKET PO SCH (08:22)
[2016-11-06] MEDS: LOSARTAN 50 MG TABLET PO SCH (08:22)
[2016-11-06] MEDS: MINOCYCLINE 100 MG CAPSULE PO SCH ×3 (08:22→22:48)
[2016-11-06] MEDS: SENNA + DOCUSATE TABLET PO SCH ×3 (08:23→22:48)
[2016-11-06] MEDS: ANASTROZOLE 1 MG TABLET PO SCH (08:23)
[2016-11-06] MEDS: FUROSEMIDE 20 MG TABLET PO SCH ×3 (08:24→13:22)
[2016-11-06] MEDS: SALINE FLUSH 10ml SYRINGE IVF SCH ×3 (08:26→22:47)
[2016-11-06] MEDS: FERROUS SULFATE 324 MG TABLET PO SCH (11:56)
[2016-11-06] MEDS: CALCIUM 500 + VIT D 200 TABLET PO SCH (11:56)
[2016-11-06] MEDS: ASCORBIC ACID 500 MG TABLET PO SCH (11:56)
--- NOTE | 2016-11-06 16:55 | Cardiology Progress Note ---
Subjective Principal diagnosis: Atrial fibrillation <Norma Ann - 11/06/16 16:55> Interval history: Sayda is seen in her room on IRU, She is in bed. She denies chest pain or dyspnea or cardiac complaints <SethNorma Tor - 11/06/16 16:55> Exam Vital signs: Temperature 98.4 F 11/07/16 08:00 Pulse Rate 104 H 11/07/16 10:34 Respiratory Rate 18 11/07/16 08:00 Blood Pressure 128/66 11/07/16 10:34 Pulse Oximetry 94 11/07/16 10:34 Oxygen Delivery Method Room Air Oxygen Flow Rate 1 <Rodolfo Matson - 11/07/16 13:43> Temperature 98.0 F 11/06/16 16:00 Pulse Rate 77 11/06/16 16:00 Respiratory Rate 22 11/06/16 16:00 Blood Pressure 127/57 11/06/16 16:00 Pulse Oximetry 95 11/06/16 16:00 Oxygen Delivery Method Room Air Oxygen Flow Rate 1 <SethNorma Tor 11/06/16 16:55> - Constitutional no acute distress, well nourished, cooperative <SethNorma Tor 11/06/16 16: 55> - Routine HEENT Exam Head: Present: normocephalic <SethNorma marmolejo Tor 11/06/16 16:55> ENT: Present: mucous membranes moist <SethNorma Tor 11/06/16 16:55> - Routine Neck Exam Absent: JVD, carotid bruit <SethNorma marmolejo Tor 11/06/16 16:55> - Routine Chest/Breast/Axilla Exam Chest wall: Present: pacemaker. Absent: tenderness <SethNorma marmolejo 16:55> - Routine Respiratory Exam Present: decreased breath sounds, crackles <SethNorma marmolejo 11/06/16 16:55> - Routine Cardiovascular Exam Present: RRR, no murmur. Absent: JVD <Norma Ann 11/06/16 16:55> - Routine Abdominal Exam Present: soft, normoactive bowel sounds <Norma Ann 11/06/16 16:55> - Routine Extremities Exam Present: edema <Norma Ann - 11/06/16 16:55> - Routine Skin Exam Present: intact, dry, warm <Norma Ann - 11/06/16 16:55> - Routine Neurological Exam Present: alert <Norma Ann - 11/06/16 16:55> - Routine Psychiatric Exam Present: normal affect <Norma Ann - 11/06/16 16:55> - Additional findings Additional findings: Date of Exam: 11/03/16 Ordering Provider: Karli King APRN Type of Exam(s): XR chest 2V Reason for Exam(s): monitor pleural effusion INDICATION: monitor pleural effusion PROCEDURE: CHEST 2-VIEWS UPRIGHT (PA & LAT) Encounter: Initial COMPARISON: November 01, 2016 FINDINGS: Minimal decrease in size of the small left pleural effusion. Small right effusion is unchanged. Continued compressive atelectasis of the left lower lobe. Upper lung santana are clear. No pneumothorax. Heart size and mediastinal contours are stable. Left pacemaker. Prior CABG. Impression: Slight decrease in left effusion. Laboratory Results - last 48 hr 11/05/16 11/05/16 11/06/16 04:28 04:28 04:44 WBC 13.2 H 13.5 H RBC 2.63 L 2.69 L Hgb 7.9 L 7.9 L Hct 27.0 L 27.6 L MCV 102.7 H 102.6 H MCH 30.0 29.4 MCHC 29.3 L 28.6 L RDW Std Deviation 56.4 H 56.8 H Plt Count 227 213 MPV 9.4 9.5 Immature Gran % (Auto) 1.1 H Not performed Neut % (Auto) 65.5 Not performed Lymph % (Auto) 17.4 L Not performed Lucas % (Auto) 12.4 H Not performed Eos % (Auto) 3.3 Not performed Baso % (Auto) 0.3 Not performed Neut # 8.7 H Not performed Lymph # 2.3 Not performed Lucas # 1.6 H Not performed Eos # 0.4 Not performed Baso # 0.0 Not performed Abs Immat Gran (auto) 0.14 H Not performed Neutrophils % (Manual) 83.0 H Lymphocytes % (Manual) 17.0 L Neutrophils # (Manual) 11.2 H Lymphocytes # (Manual) 2.3 Anisocytosis 2+ RBC Morph Comment Abnormal Turbidity < 20 Sodium 141 Potassium 4.6 Chloride 103 Carbon Dioxide 32 H Anion Gap 6 BUN 31.0 H Creatinine 0.7 GFR Calculation 80 BUN/Creatinine Ratio 44 H Glucose 81 Calculated Osmolality 277 Calcium 9.2 Phosphorus Magnesium Icterus Index < 2 Albumin Specimen Hemolysis < 15 11/06/16 04:44 WBC RBC Hgb Hct MCV MCH MCHC RDW Std Deviation Plt Count MPV Immature Gran % (Auto) Neut % (Auto) Lymph % (Auto) Lucas % (Auto) Eos % (Auto) Baso % (Auto) Neut # Lymph # Lucas # Eos # Baso # Abs Immat Gran (auto) Neutrophils % (Manual) Lymphocytes % (Manual) Neutrophils # (Manual) Lymphocytes # (Manual) Anisocytosis RBC Morph Comment Turbidity < 20 Sodium 141 Potassium 4.6 Chloride 103 Carbon Dioxide 32 H Anion Gap 6 BUN 29.0 H Creatinine 0.7 GFR Calculation 80 BUN/Creatinine Ratio 41 H Glucose 87 Calculated Osmolality 276 Calcium 9.4 Phosphorus 4.4 Magnesium 2.2 Icterus Index < 2 Albumin 2.7 L Specimen Hemolysis < 15 Acetaminophen/Codeine Phosphate (Tylenol With Codeine #3 (300/30)) 1 - 2 tab PO Q4H PRN PRN Reason: Pain Al Hydroxide/Mg Hydroxide (Maalox Plus) 30 ml PO DAILY PRN PRN Reason: Indigestion Anastrozole (Arimidex) 1 mg PO DAILY [facility] Last Admin: 11/06/16 08:23 Dose: 1 mg Ascorbic Acid (Vitamin C) 500 mg PO [facility] Last Admin: 11/06/16 11:56 Dose: 500 mg Atorvastatin Calcium (Lipitor) 20 mg PO 2100 [facility] Last Admin: 11/05/16 22:00 Dose: 20 mg Calcium Carbonate (Tums) 500 mg PO Q4H PRN Calcium/Vitamin D (Os Martin-D 500) 1 tab PO NOON [facility] Last Admin: 11/06/16 11:56 Dose: 1 tab Diltiazem HCl (Cardizem Cd) 120 mg PO DAILY [facility] Last Admin: 11/06/16 08:22 Dose: 120 mg Ferrous Sulfate (Feosol) 324 mg PO [facility] Last Admin: 11/06/16 11:56 Dose: 324 mg Furosemide (Lasix) 20 mg PO 1400 [facility] Last Admin: 11/06/16 13:22 Dose: 20 mg Furosemide (Lasix) 40 mg PO DAILY [facility] Last Admin: 11/06/16 11:06 Dose: Not Given Losartan Potassium (Cozaar) 50 mg PO DAILY [facility] Last Admin: 11/06/16 08:22 Dose: 50 mg Magnesium Hydroxide (Mom) 30 ml PO DAILY PRN PRN Reason: Constipation Magnesium Oxide (Magox) 400 mg PO 2100 [facility] Last Admin: 11/05/16 22:00 Dose: 400 mg Metoprolol Tartrate (Lopressor) 100 mg PO BIDBS [facility] Last Admin: 11/06/16 08:23 Dose: 100 mg Minocycline HCl (Minocin) 100 mg PO BID [facility] Last Admin: 11/06/16 08:22 Dose: 100 mg Mirtazapine (Remeron) 7.5 mg PO HS [facility] Last Admin: 11/05/16 22:00 Dose: 7.5 mg Nitroglycerin (Nitrostat) 0.4 mg SL Q5MIN3 PRN PRN Reason: Chest pain Pantoprazole Sodium (Protonix) 20 mg PO ACB [facility] Last Admin: 11/06/16 06:40 Dose: 20 mg Polyethylene Glycol (Miralax) 17 gm PO DAILY [facility] Last Admin: 11/06/16 08:22 Dose: 17 gm Potassium Chloride (K-Dur) 20 meq PO NOON [facility] Last Admin: 11/06/16 11:56 Dose: 20 meq Rivaroxaban (Xarelto) 20 mg PO WS [facility] Last Admin: 11/01/16 17:46 Dose: 20 mg Senna/Docusate Sodium (Senna Plus Tablet) 1 tab PO BID [facility] Last Admin: 11/06/16 08:23 Dose: 1 tab Sodium Chloride (Iv Flush) 10 ml IVF Q12HR [facility] Last Admin: 11/06/16 14:01 Dose: 10 ml Sodium Chloride (Iv Flush) 10 - 80 ml IVF PRN PRN PRN Reason: Flushing Last Admin: 11/03/16 04:57 Dose: 20 ml Sodium Chloride (Normal Saline) 500 ml IV PRN PRN Sodium Chloride (Iv Flush) 10 - 80 ml IVF PRN PRN PRN Reason: Flushing Last Admin: 11/02/16 09:51 Dose: 10 ml Sodium Chloride (Iv Flush) 10 - 80 ml IVF PRN PRN PRN Reason: Flushing <Norma Ann - 11/06/16 16:55> Progress Note-A&P (1) HTN (hypertension) Status: Chronic Current Visit: No (2) Dyslipidemia Status: Chronic Current Visit: No (3) PAD (peripheral artery disease) Status: Chronic Current Visit: No (4) Atrial fibrillation Status: Chronic Current Visit: No (5) Pleural effusion Status: Acute Current Visit: No (6) Coronary artery disease Status: Chronic Current Visit: No (7) S/P 2-vessel coronary artery bypass Status: Chronic Current Visit: No (8) Presence of permanent cardiac pacemaker Status: Acute Current Visit: No <Rodolfo Matson - 11/07/16 13:43> (1) Pleural effusion Status: Acute Assessment and plan: decreasing per chest xray Current Visit: No (2) Atrial fibrillation Status: Chronic Current Visit: No (3) Coronary artery disease Status: Chronic Current Visit: No (4) Dyslipidemia Status: Chronic Current Visit: No (5) HTN (hypertension) Status: Chronic Current Visit: No (6) S/P 2-vessel coronary artery bypass Status: Chronic Current Visit: No (7) PAD (peripheral artery disease) Status: Chronic Current Visit: No (8) Presence of permanent cardiac pacemaker Status: Acute Current Visit: No <Norma Ann - 11/06/16 16:52> - Time Spent With Patient Total time spent is greater than 50% in coordination of care (as documented) at patient's floor/unit and/or counseling patient: <Rodolfo Matson - 11/07/16 13:43> Total time spent is greater than 50% in coordination of care (as documented) at patient's floor/unit and/or counseling patient: <Norma Ann - 11/06/16 16:55> less than 15 minutes <Norma Ann - 11/06/16 16:55> - Attestation Attestation Narrative: Recommendation After examining the patient I agree with the above assessment. I am involved in the formulation of the patient's plan of care. <Rodolfo Matson - 11/07/16 13:43> Sepsis Assessment - Evaluation Sepsis screening result: No Definite Risk <Norma Ann - 11/06/16 16:55> Hospital Course Summary Disclaimer: The visit summary below is not to be considered part of the above Progress Note. <Tiara Matsonin - 11/07/16 13:43> The visit summary below is not to be considered part of the above Progress Note. <SethNorma - 11/06/16 16:55> Hospital Course: ASSESSMENT Leukocytosis Normocytic anemia; iron deficiency anemia Hypokalemia, resolved, low-normal on admission to IRU (3.6) LLL pleural effusion, s/p thoracentesis 10/27/16 with 800 mL fluid removed. Hypoxia; acute resp failure - resolved. Weaned off oxygen. Situational depression Anorexia Atrial fibrillation on Xarelto, ASA CAD, recent CABGx2 10/04/16 Acute ischemic stroke involving the posterior circulation in the right occipital lobe and left cerebellum in September, History of peripheral vascular disease with bilateral carotid endarterectomies in the remote past Hypertension Hyperlipidemia History of breast cancer Overweight BMI 26.2 10/30/16 PLAN Leukocytosis -sepsis w/u negative during acute admission -Pleural fluid - cultures pending. Normocytic anemia; iron deficiency (iron level was 18) -check stool for occult blood -start Protonix daily -start iron + vitamin C. Check Vitamin B12. Depression & anorexia -continue mirtazapine - will need Rx at time of DC Hypokalemia - resolved -K low-normal; give extra KDur today CAD s/p CABG/A-fib/HTN/HLD/PPM - Consult cardiology 10/31/16 Plan Chest x-ray from yesterday, 10/30 did reveal moderate left pleural effusion. Patient is status post thoracentesis from 10/27. Overnight with ambulation. Patient's sats did decrease into the high 80s and patient complained of feeling short of breath. We will give an extra dose of Lasix 20 milligrams by mouth 1 now. Will continue with daily Lasix. Will recheck a Chest x-ray tomorrow morning Increased Leukocytosis to 17.8. Condition did receive IV iron today without difficulty. Discussed case with dietitian regarding increased appetite and trial of different nutritional supplementations. Patient does like the [place] breakfast drink. Discussed status and plan of care with patient's . He has no further questions. Overall feels patient is doing well and making improvements. Check CBC and BMP tomorrow morning to follow leukocytosis, electrolytes and renal function Plan= 11/02 CBC and BMP are currently pending. Will evaluate once resulted. Concerned about black stool along with Hemoccult-positive stool sample several days ago. At this point, we will hold Xarelto and monitor carefully. Patient does continue to be on twice a day Lasix for ongoing diuresis seen. Dose at 800 and 1600. Chest x-ray reviewed by myself. Film from yesterday revealed continued bilateral pleural effusions. Continued leukocytosis, however. White count has improved to 13.5 yesterday. Today pending. Continue to encourage dietary intake and nutritional supplementation for ongoing strengthening Encourage work with PT and OT for ongoing strengthening Will evaluate laboratory studies. Continue to follow routinely Discussed with attending, Dr. Kee 11/02/16 14:52- Cardiology Chronic, goal is rate control. Continue Cardizem and Xarelto. Hold Aspirin Plan- 11/03 Repeat chest x-ray this morning reveals a slight decrease in left pleural effusion. She is breathing on room air without evidence of distress. Continue with scheduled twice a day Lasix. Leukocytosis continues to decline, white count 12.0 today. Hemoglobin continues to trend down. This morning is at 7.4. Xarelto was placed on hold yesterday. Discussed possibility of blood transfusion. Given patient's coronary artery disease and continued decrease in hemoglobin. Patient adamantly declines transfusion. Will discuss with patient's later today New to encourage appetite and nutrition. Continue to encourage work with PT and OT Continue to recheck daily CBCs to follow anemia and leukocytosis Case discussed with attending, Dr. Foster 11/05/16 16:51 Patient does appear SOA at rest and in fluid overload. Will increase AM dosing of Lasix, continue 20mg Q PM. Give single dose of metolazone. Continue to monitor labs, adjust KCL as indicated. Continue strengthening exercises. She remains week. Does appear depressed today. Continue rate control for atrial fib. Xarelto held due to concern for anemia. HGB is stable. Continue SCDs for DVT px. Hx of stroke in the past- resume Xarelto as soon as we can when labs are stable. Follow CXR- if ongoing fluid overload, may need to repeat echo. <Norma Ann - 11/06/16 16:55>
[2016-11-06] MEDS: MIRTAZAPINE 15 MG TABLET PO SCH ×2 (19:34→22:48)
[2016-11-06] MEDS: ATORVASTATIN 20 MG TABLET PO SCH ×2 (19:34→22:47)
[2016-11-06] MEDS: MAGNESIUM OXIDE 400 MG TABLET PO SCH ×2 (19:34→22:47)
[2016-11-07] MEDS: PANTOPRAZOLE 20 MG TABLET PO SCH (06:12)
[2016-11-07] MEDS: MINOCYCLINE 100 MG CAPSULE PO SCH ×2 (08:57→20:46)
[2016-11-07] MEDS: SENNA + DOCUSATE TABLET PO SCH ×2 (08:58→20:46)
[2016-11-07] MEDS: ANASTROZOLE 1 MG TABLET PO SCH (08:58)
[2016-11-07] MEDS: LOSARTAN 50 MG TABLET PO SCH (08:58)
[2016-11-07] MEDS: FUROSEMIDE 20 MG TABLET PO SCH ×2 (08:58→14:04)
[2016-11-07] MEDS: POLYETHYL GLYCOL 3350 17gm PACKET PO SCH (08:59)
[2016-11-07] MEDS: SALINE FLUSH 10ml SYRINGE IVF SCH ×2 (08:59→20:44)
--- NOTE | 2016-11-07 09:40 | Progress Note ---
<PatGilda Stefano - Last Filed: 11/07/16 09:54> Subjective: Sayda was working with therapy this morning. She's improving, per therapy but Sayda didn't sound too convinced. She wasn't very vocal this morning, but did have better eye contact compared to the last time I saw her. She denied any chest pain or pain in general. When I asked how her breathing was, she replied "I don't know". She has not had any nausea and she reports that her appetite is improving. She denies constipation. Objective Vital signs: Temperature 98.4 F 11/07/16 08:00 Pulse Rate 103 H 11/07/16 08:00 Respiratory Rate 18 11/07/16 08:00 Blood Pressure 143/66 H 11/07/16 08:00 Pulse Oximetry 93 11/07/16 08:00 Oxygen Delivery Method Room Air Oxygen Flow Rate 1 Height/Weight/BMI: Height 1.68 m Weight 78.5 kg Body Mass Index 27.2 - Constitutional Present: no acute distress, well nourished, well developed - Routine HEENT Exam Eye: Absent: conjunctival icterus, scleral injection ENT: Present: mucous membranes moist, oropharynx clear - Routine Respiratory Exam Present: crackles (bilateral bases) Comments: well healed sternal incision - Routine Cardiovascular Exam Present: S1, S2, irregularly irregular - Routine Abdominal Exam Present: soft, normoactive bowel sounds, non distended, non tender - Routine Extremities Exam Present: edema (BLE; pedal 3+; ant tibial 2+) - Routine Musculoskeletal Exam Musculoskeletal: Present: moving extremities well - Routine Skin Exam Present: intact, dry, pallor, warm - Routine Neurological Exam Present: alert, oriented X3, CN II-XII intact - Routine Psychiatric Exam Present: normal thought process, cooperative. Absent: normal affect (depressed) Results - Labs CBC & Chem 7: 11/06/16 04:44 11/06/16 04:44 Assessment and Plan (1) Leukocytosis Current visit: No Status: Acute DVT Prophylaxis: Xarelto GI Prophylaxis: Protonix Resuscitation Status: Full Code Assessment and Plan: ASSESSMENT Leukocytosis Normocytic anemia; iron deficiency anemia - received IV iron infusion. Hypokalemia, resolved, low-normal on admission to IRU (3.6) LLL pleural effusion, s/p thoracentesis 10/27/16 with 800 mL fluid removed. Hypoxia; acute respiratory failure - resolved. Weaned off oxygen. Situational depression Anorexia - improving Atrial fibrillation on Xarelto, ASA CAD, recent CABGx2 10/04/16 Acute ischemic stroke involving the posterior circulation in the right occipital lobe and left cerebellum in September, History of peripheral vascular disease with bilateral carotid endarterectomies in the remote past Hypertension Hyperlipidemia History of breast cancer Overweight BMI 26.2 PLAN No longer SOA at rest; on room air. CXR showing improvement. Continue current diuresis (Lasix 20 mg BID). Electrolytes stable on 11/06/16 - repeat BMP in am. Repeat CXR in am. Leukocytosis persists. No infection suspected. Hgb stabilized at 7.9 for the last 3 days. Will resume Xarelto and repeat CBC in am. Sepsis Assessment - Evaluation Sepsis screening result: No Definite Risk Hospital Course Summary Disclaimer: The visit summary below is not to be considered part of the above Progress Note. Hospital Course: ASSESSMENT Leukocytosis Normocytic anemia; iron deficiency anemia Hypokalemia, resolved, low-normal on admission to IRU (3.6) LLL pleural effusion, s/p thoracentesis 10/27/16 with 800 mL fluid removed. Hypoxia; acute resp failure - resolved. Weaned off oxygen. Situational depression Anorexia Atrial fibrillation on Xarelto, ASA CAD, recent CABGx2 10/04/16 Acute ischemic stroke involving the posterior circulation in the right occipital lobe and left cerebellum in September, History of peripheral vascular disease with bilateral carotid endarterectomies in the remote past Hypertension Hyperlipidemia History of breast cancer Overweight BMI 26.2 10/30/16 PLAN Leukocytosis -sepsis w/u negative during acute admission -Pleural fluid - cultures pending. Normocytic anemia; iron deficiency (iron level was 18) -check stool for occult blood -start Protonix daily -start iron + vitamin C. Check Vitamin B12. Depression & anorexia -continue mirtazapine - will need Rx at time of DC Hypokalemia - resolved -K low-normal; give extra KDur today CAD s/p CABG/A-fib/HTN/HLD/PPM - Consult cardiology 10/31/16 Plan Chest x-ray from yesterday, 10/30 did reveal moderate left pleural effusion. Patient is status post thoracentesis from 10/27. Overnight with ambulation. Patient's sats did decrease into the high 80s and patient complained of feeling short of breath. We will give an extra dose of Lasix 20 milligrams by mouth 1 now. Will continue with daily Lasix. Will recheck a Chest x-ray tomorrow morning Increased Leukocytosis to 17.8. Condition did receive IV iron today without difficulty. Discussed case with dietitian regarding increased appetite and trial of different nutritional supplementations. Patient does like the [place] breakfast drink. Discussed status and plan of care with patient's . He has no further questions. Overall feels patient is doing well and making improvements. Check CBC and BMP tomorrow morning to follow leukocytosis, electrolytes and renal function Plan= 11/02 CBC and BMP are currently pending. Will evaluate once resulted. Concerned about black stool along with Hemoccult-positive stool sample several days ago. At this point, we will hold Xarelto and monitor carefully. Patient does continue to be on twice a day Lasix for ongoing diuresis seen. Dose at 800 and 1600. Chest x-ray reviewed by myself. Film from yesterday revealed continued bilateral pleural effusions. Continued leukocytosis, however. White count has improved to 13.5 yesterday. Today pending. Continue to encourage dietary intake and nutritional supplementation for ongoing strengthening Encourage work with PT and OT for ongoing strengthening Will evaluate laboratory studies. Continue to follow routinely Discussed with attending, Dr. Kee 11/02/16 14:52- Cardiology Chronic, goal is rate control. Continue Cardizem and Xarelto. Hold Aspirin Plan- 11/03 Repeat chest x-ray this morning reveals a slight decrease in left pleural effusion. She is breathing on room air without evidence of distress. Continue with scheduled twice a day Lasix. Leukocytosis continues to decline, white count 12.0 today. Hemoglobin continues to trend down. This morning is at 7.4. Xarelto was placed on hold yesterday. Discussed possibility of blood transfusion. Given patient's coronary artery disease and continued decrease in hemoglobin. Patient adamantly declines transfusion. 11/05/16 Patient does appear SOA at rest and in fluid overload. Will increase AM dosing of Lasix, continue 20mg Q PM. Give single dose of metolazone. Continue to monitor labs, adjust KCL as indicated. Continue rate control for atrial fib. Xarelto held due to concern for anemia. Hx of stroke in the past- resume Xarelto as soon as we can when labs are stable. 11/07/16 No longer SOA at rest; on room air. CXR showing improvement. Continue current diuresis (Lasix 20 mg BID). Electrolytes stable on 11/06/16 - repeat BMP in am. Repeat CXR in am. Leukocytosis persists. No infection suspected. Hgb stabilized at 7.9 for the last 3 days. Will resume Xarelto and repeat CBC in am. <Cele Brand - Last Filed: 11/07/16 20:55> Objective Vital signs: Temperature 98.1 F 11/07/16 19:28 Pulse Rate 82 11/07/16 19:28 Respiratory Rate 18 11/07/16 19:28 Blood Pressure 131/49 11/07/16 19:28 Pulse Oximetry 93 11/07/16 19:28 Oxygen Delivery Method Room Air Oxygen Flow Rate 1 Height/Weight/BMI: Height 1.68 m Weight 76 kg Body Mass Index 27.2 Results - Labs CBC & Chem 7: 11/06/16 04:44 11/06/16 04:44 Assessment and Plan (1) Leukocytosis Current visit: No Status: Acute Assessment and Plan: I have independently evaluated and examined this patient. I reviewed the chart, the patient's history, and the CHILD CARE DIRECTOR/PA's documented findings as above. We discussed and formulated the assessment and plan as above with additions as below: Mrs. Machado was seen with family members in attendance in the dining area. Family report that she is significantly better with respect to appetite, interaction, and strength. Mrs. Machado minimize his progress but indicates muscle cramps she was experiencing in her legs early in the hospitalization have improved and that sleep is better. She had eaten nearly 100% of her supper tray at the time of my visit. NAD, generalized pallor, eyes open the entire time we spoke and she responded to questions verbally. Respirations nonlabored, breath sounds clear although somewhat diminished. Regular rhythm Doing well, discharge anticipated in the near future. Remains anemic despite IV iron given earlier in stay-heme positive earlier, reassess iron stores and reticulocyte count. Sleep, anorexia improved with low-dose mirtazapine. Hospital Course Summary Disclaimer: The visit summary below is not to be considered part of the above Progress Note.
[2016-11-07] MEDS ORDERED: FALL RISK - PHARMACY CONSULT MC PRN (11:57)
[2016-11-07] MEDS: FERROUS SULFATE 324 MG TABLET PO SCH (12:15)
[2016-11-07] MEDS: ASCORBIC ACID 500 MG TABLET PO SCH (12:15)
[2016-11-07] MEDS: CALCIUM 500 + VIT D 200 TABLET PO SCH (12:16)
--- NOTE | 2016-11-07 14:33 | IRU Team Meeting ---
IRU Team Meeting - Nursing Vital Signs: Vital Signs - 24 hr 11/06/16 16:00 11/06/16 19:45 11/06/16 21:55 Temperature 98.0 F 97.6 F 98.1 F Pulse Rate 73 74 73 Respiratory Rate 22 20 24 Blood Pressure 127/57 138/57 126/48 Pulse Oximetry 95 93 92 11/07/16 00:00 11/07/16 08:00 11/07/16 08:02 Temperature 98.4 F Pulse Rate 70 103 H 98 Respiratory Rate 18 Blood Pressure 143/66 H Pulse Oximetry 93 11/07/16 10:34 Temperature Pulse Rate 104 H Respiratory Rate Blood Pressure 128/66 Pulse Oximetry 94 Current Medications: Acetaminophen/Codeine Phosphate (Tylenol With Codeine #3 (300/30)) 1 - 2 tab PO Q4H PRN PRN Reason: Pain Al Hydroxide/Mg Hydroxide (Maalox Plus) 30 ml PO DAILY PRN PRN Reason: Indigestion Anastrozole (Arimidex) 1 mg PO DAILY [facility] Last Admin: 11/07/16 08:58 Dose: 1 mg Ascorbic Acid (Vitamin C) 500 mg PO [facility] Last Admin: 11/07/16 12:15 Dose: 500 mg Atorvastatin Calcium (Lipitor) 20 mg PO 2100 [facility] Last Admin: 11/06/16 22:47 Dose: Not Given Calcium Carbonate (Tums) 500 mg PO Q4H PRN Calcium/Vitamin D (Os Martin-D 500) 1 tab PO NOON [facility] Last Admin: 11/07/16 12:16 Dose: 1 tab Diltiazem HCl (Cardizem Cd) 120 mg PO DAILY [facility] Last Admin: 11/07/16 08:58 Dose: 120 mg Ferrous Sulfate (Feosol) 324 mg PO [facility] Last Admin: 11/07/16 12:15 Dose: 324 mg Furosemide (Lasix) 20 mg PO 1400 [facility] Last Admin: 11/07/16 14:04 Dose: 20 mg Furosemide (Lasix) 40 mg PO DAILY [facility] Last Admin: 11/07/16 08:58 Dose: 40 mg Losartan Potassium (Cozaar) 50 mg PO DAILY [facility] Last Admin: 11/07/16 08:58 Dose: 50 mg Magnesium Hydroxide (Mom) 30 ml PO DAILY PRN PRN Reason: Constipation Magnesium Oxide (Magox) 400 mg PO 2100 [facility] Last Admin: 11/06/16 22:47 Dose: Not Given Metoprolol Tartrate (Lopressor) 100 mg PO BIDBS [facility] Last Admin: 11/07/16 08:58 Dose: 100 mg Minocycline HCl (Minocin) 100 mg PO BID [facility] Last Admin: 11/07/16 08:57 Dose: 100 mg Mirtazapine (Remeron) 7.5 mg PO HS [facility] Last Admin: 11/06/16 22:48 Dose: Not Given Nitroglycerin (Nitrostat) 0.4 mg SL Q5MIN3 PRN PRN Reason: Chest pain Pantoprazole Sodium (Protonix) 20 mg PO ACB [facility] Last Admin: 11/07/16 06:12 Dose: 20 mg Polyethylene Glycol (Miralax) 17 gm PO DAILY [facility] Last Admin: 11/07/16 08:59 Dose: Not Given Potassium Chloride (K-Dur) 20 meq PO NOON [facility] Last Admin: 11/07/16 12:15 Dose: 20 meq Rivaroxaban (Xarelto) 20 mg PO WS [facility] Last Admin: 11/01/16 17:46 Dose: 20 mg Senna/Docusate Sodium (Senna Plus Tablet) 1 tab PO BID [facility] Last Admin: 11/07/16 08:58 Dose: 1 tab Sodium Chloride (Iv Flush) 10 ml IVF Q12HR [facility] Last Admin: 11/07/16 08:59 Dose: 10 ml Sodium Chloride (Iv Flush) 10 - 80 ml IVF PRN PRN PRN Reason: Fl[place] Last Admin: 11/03/16 04:57 Dose: 20 ml Sodium Chloride (Normal Saline) 500 ml IV PRN PRN Sodium Chloride (Iv Flush) 10 - 80 ml IVF PRN PRN PRN Reason: [place] Last Admin: 11/02/16 09:51 Dose: 10 ml Sodium Chloride (Iv Flush) 10 - 80 ml IVF PRN PRN PRN Reason: Flushing - Physical Therapy Comments: shortness of breathe with activity - Occupational Therapy Eating Ability: Contact Guard Assistance Grooming Ability: Stand By Assist/Supervision - Care Plan Anticipated Length of Stay: 2 (days) Anticipated DC Destination: Home, Self Care, Home Health Service Interventions/Goals: patient still has some tachycardia
[2016-11-07] MEDS: RIVAROXABAN 20 MG TABLET PO SCH (18:23)
[2016-11-07] MEDS: SALINE FLUSH 10ml SYRINGE IVF PRN (18:24)
[2016-11-07] MEDS: MIRTAZAPINE 15 MG TABLET PO SCH (20:44)
[2016-11-07] MEDS: ATORVASTATIN 20 MG TABLET PO SCH (20:46)
[2016-11-07] MEDS: MAGNESIUM OXIDE 400 MG TABLET PO SCH (20:46)
[2016-11-08] MEDS: PANTOPRAZOLE 20 MG TABLET PO SCH (06:35)
--- NOTE | 2016-11-08 08:40 | XRay Report ---
INDICATION: f/u effusions PROCEDURE: CHEST 2-VIEWS UPRIGHT (PA & LAT) Encounter: Initial COMPARISON: November 03, 2016 FINDINGS: Slight increase in the moderate left effusion. Continued compressive atelectasis of the left lower lobe. No significant right effusion. No pneumothorax. Heart size and mediastinal contours are stable. Poststernotomy changes and prior CABG with a left pacemaker. Impression: Slight increase in the moderate left effusion. .
[2016-11-08] MEDS: MINOCYCLINE 100 MG CAPSULE PO SCH ×2 (08:44→21:37)
[2016-11-08] MEDS: ANASTROZOLE 1 MG TABLET PO SCH (08:44)
[2016-11-08] MEDS: LOSARTAN 50 MG TABLET PO SCH (08:45)
[2016-11-08] MEDS: FUROSEMIDE 40 MG TABLET PO SCH (08:51)
[2016-11-08] MEDS: CALCIUM 500 + VIT D 200 TABLET PO SCH (12:12)
[2016-11-08] MEDS: ASCORBIC ACID 500 MG TABLET PO SCH (12:12)
[2016-11-08] MEDS: FERROUS SULFATE 324 MG TABLET PO SCH (12:12)
[2016-11-08] MEDS: SENNA + DOCUSATE TABLET PO SCH ×2 (12:26→21:38)
[2016-11-08] MEDS: POLYETHYL GLYCOL 3350 17gm PACKET PO SCH (12:26)
--- NOTE | 2016-11-08 16:02 | IRU Progress Note ---
- Subjective/Serverity of Illness Patient quite fatigued today. Vital signs are stable. Has been progressing slowly with physical therapy Exam Vital Signs: Temperature 98.1 F 11/07/16 19:28 Pulse Rate 82 11/08/16 08:00 Respiratory Rate 18 11/08/16 08:00 Blood Pressure 154/65 H 11/08/16 08:00 Pulse Oximetry 94 11/08/16 08:00 Oxygen Delivery Method Room Air Oxygen Flow Rate 1 Height/Weight/BMI: Height 1.68 m Weight 76.4 kg Body Mass Index 27.2 Sepsis Assessment - Evaluation Sepsis screening result: No Definite Risk IRU A/P DVT Prophylaxis: Xarelto Resuscitation Status: Full Code - Course Hospital Course: Min Rocha MD: 10/31/16 10:56 She is making some good progress with therapy. Continues to be depressed. No evidence of active bleeding although stool is Hemoccult positive. Hemoglobin is up. White count is a bit worse today. Awaiting pathology/cytology from pleural effusion. 11/01/16 11:08 Continues to cooperate with therapy. She is more bright, alert and has better eye contact. Working on nutrition with [employer]. Her chest radiograph shows somewhat improved effusion on the left. Dr. Kee has started Lasix. We will start daily weights. 11/03/16 10:15 She is making slow progress. She is cooperative. With regard to her depression, she clearly seems to be improved with better eye contact and a more positive outlook. However, requires a lot of encouragement. She is tolerating her [employer] well and we are working on nutrition in that regard. Follow-up chest radiograph shows improved effusion on the left. Remains on Lasix twice daily. Weight is down slightly over the last 24 hours but overall is up since previous weights. - Interventions to Obtain Goals PT Treatment Plan: Balance/Proprioception, Functional Activities, Gait Training , Patient/Family Education, Therapeutic Exercise OT Treatment Plan: ADL (Basic Care), Balance Training, IADL, Pt./Family Education, Ther. Exercise for ADL
[2016-11-08] MEDS: SALINE FLUSH 10ml SYRINGE IVF SCH ×2 (17:16→21:39)
[2016-11-08] MEDS: FUROSEMIDE 20 MG TABLET PO SCH (17:17)
[2016-11-08] MEDS: RIVAROXABAN 20 MG TABLET PO SCH (17:59)
[2016-11-08] MEDS ORDERED: FALL RISK - PHARMACY CONSULT MC PRN (20:25)
[2016-11-08] MEDS: SALINE FLUSH 10ml SYRINGE IVF PRN ×2 (21:36→22:59)
[2016-11-08] MEDS: MAGNESIUM OXIDE 400 MG TABLET PO SCH (21:37)
[2016-11-08] MEDS: MIRTAZAPINE 15 MG TABLET PO SCH (21:37)
[2016-11-08] MEDS: ATORVASTATIN 20 MG TABLET PO SCH (21:37)
[2016-11-09] MEDS: PANTOPRAZOLE 20 MG TABLET PO SCH (05:35)
--- NOTE | 2016-11-09 07:46 | Progress Note ---
Subjective: Sayda was just waking up for the day. She was still in bed. She did not answer many of my questions. She slept fair. She thinks she may go home on Sunday, and doesn't know if she's quite ready for that. She didn't respond to questions regarding breathing or appetite. Later I watched her walk into the dining area with her walker - she had a steady gait and moved at a good pace. Objective Vital signs: Temperature 98.5 F 11/08/16 21:30 Pulse Rate 73 11/09/16 00:00 Respiratory Rate 20 11/08/16 21:30 Blood Pressure 133/68 11/08/16 21:30 Pulse Oximetry 93 11/08/16 21:30 Oxygen Delivery Method Room Air Oxygen Flow Rate 2 Height/Weight/BMI: Height 1.68 m Weight 76.4 kg Body Mass Index 27.2 - Constitutional Present: no acute distress, well nourished, well developed - Routine HEENT Exam Eye: Absent: conjunctival icterus, scleral injection - Routine Respiratory Exam Present: rales (left lung) - Routine Cardiovascular Exam Present: S1, S2, irregularly irregular - Routine Abdominal Exam Present: soft, normoactive bowel sounds, non distended, non tender - Routine Extremities Exam Present: edema, normal capillary refill - Routine Musculoskeletal Exam Musculoskeletal: Present: no tenderness - Routine Skin Exam Present: intact, pallor, warm - Routine Neurological Exam Present: alert, oriented X3 - Routine Psychiatric Exam Absent: normal affect (depressed) Results - Labs CBC & Chem 7: 11/08/16 04:52 11/08/16 04:52 Assessment and Plan (1) Leukocytosis Current visit: No Status: Acute Resuscitation Status: Full Code Assessment and Plan: Leukocytosis -sepsis w/u negative during acute admission -WBC trending down. -Pleural fluid - cultures negative Normocytic anemia; iron deficiency (iron level was 18) -hgb improving - 8.4 today. Xarelto was resumed on 11/07/16. Continue to monitor for black stools. -s/p iron infusion; repeat iron studies are pending Depression & anorexia -continue mirtazapine - will need Rx at time of DC -recommend ongoing assessment in outpatient setting. Hypokalemia -resolved -remainder of electrolytes stable CAD s/p CABG/A-fib/HTN/HLD/PPM -per cardiology Sepsis Assessment - Evaluation Sepsis screening result: No Definite Risk Hospital Course Summary Disclaimer: The visit summary below is not to be considered part of the above Progress Note. Hospital Course: ASSESSMENT Leukocytosis Normocytic anemia; iron deficiency anemia Hypokalemia, resolved, low-normal on admission to IRU (3.6) LLL pleural effusion, s/p thoracentesis 10/27/16 with 800 mL fluid removed. Hypoxia; acute resp failure - resolved. Weaned off oxygen. Situational depression Anorexia Atrial fibrillation on Xarelto, ASA CAD, recent CABGx2 10/04/16 Acute ischemic stroke involving the posterior circulation in the right occipital lobe and left cerebellum in September, History of peripheral vascular disease with bilateral carotid endarterectomies in the remote past Hypertension Hyperlipidemia History of breast cancer Overweight BMI 26.2 10/30/16 PLAN Leukocytosis -sepsis w/u negative during acute admission -Pleural fluid - cultures pending. Normocytic anemia; iron deficiency (iron level was 18) -check stool for occult blood -start Protonix daily -start iron + vitamin C. Check Vitamin B12. Depression & anorexia -continue mirtazapine - will need Rx at time of DC Hypokalemia - resolved -K low-normal; give extra KDur today CAD s/p CABG/A-fib/HTN/HLD/PPM - Consult cardiology 10/31/16 Plan Chest x-ray from yesterday, 10/30 did reveal moderate left pleural effusion. Patient is status post thoracentesis from 10/27. Overnight with ambulation. Patient's sats did decrease into the high 80s and patient complained of feeling short of breath. We will give an extra dose of Lasix 20 milligrams by mouth 1 now. Will continue with daily Lasix. Will recheck a Chest x-ray tomorrow morning Increased Leukocytosis to 17.8. Condition did receive IV iron today without difficulty. Discussed case with dietitian regarding increased appetite and trial of different nutritional supplementations. Patient does like the [employer] breakfast drink. Discussed status and plan of care with patient's . He has no further questions. Overall feels patient is doing well and making improvements. Check CBC and BMP tomorrow morning to follow leukocytosis, electrolytes and renal function Plan= 11/02 CBC and BMP are currently pending. Will evaluate once resulted. Concerned about black stool along with Hemoccult-positive stool sample several days ago. At this point, we will hold Xarelto and monitor carefully. Patient does continue to be on twice a day Lasix for ongoing diuresis seen. Dose at 800 and 1600. Chest x-ray reviewed by myself. Film from yesterday revealed continued bilateral pleural effusions. Continued leukocytosis, however. White count has improved to 13.5 yesterday. Today pending. Continue to encourage dietary intake and nutritional supplementation for ongoing strengthening Encourage work with PT and OT for ongoing strengthening Will evaluate laboratory studies. Continue to follow routinely Discussed with attending, Dr. Kee 11/02/16 14:52- Cardiology Chronic, goal is rate control. Continue Cardizem and Xarelto. Hold Aspirin Plan- 11/03 Repeat chest x-ray this morning reveals a slight decrease in left pleural effusion. She is breathing on room air without evidence of distress. Continue with scheduled twice a day Lasix. Leukocytosis continues to decline, white count 12.0 today. Hemoglobin continues to trend down. This morning is at 7.4. Xarelto was placed on hold yesterday. Discussed possibility of blood transfusion. Given patient's coronary artery disease and continued decrease in hemoglobin. Patient adamantly declines transfusion. 11/05/16 Patient does appear SOA at rest and in fluid overload. Will increase AM dosing of Lasix, continue 20mg Q PM. Give single dose of metolazone. Continue to monitor labs, adjust KCL as indicated. Continue rate control for atrial fib. Xarelto held due to concern for anemia. Hx of stroke in the past- resume Xarelto as soon as we can when labs are stable. 11/07/16 No longer SOA at rest; on room air. CXR showing improvement. Continue current diuresis (Lasix 20 mg BID). Electrolytes stable on 11/06/16 - repeat BMP in am. Repeat CXR in am. Leukocytosis persists. No infection suspected. Hgb stabilized at 7.9 for the last 3 days. Will resume Xarelto and repeat CBC in am. 11/09/16 Leukocytosis -sepsis w/u negative during acute admission -WBC trending down. -Pleural fluid - cultures negative Normocytic anemia; iron deficiency (iron level was 18) -hgb improving - 8.4 today. Xarelto was resumed on 11/07/16. Continue to monitor for black stools. -s/p iron infusion; repeat iron studies are pending Depression & anorexia -continue mirtazapine - will need Rx at time of DC -recommend ongoing assessment in outpatient setting. Hypokalemia -resolved -remainder of electrolytes stable CAD s/p CABG/A-fib/HTN/HLD/PPM -per cardiology
[2016-11-09] MEDS: SENNA + DOCUSATE TABLET PO SCH ×2 (08:51→21:22)
[2016-11-09] MEDS: ANASTROZOLE 1 MG TABLET PO SCH (08:51)
[2016-11-09] MEDS: SALINE FLUSH 10ml SYRINGE IVF SCH ×2 (08:51→21:21)
[2016-11-09] MEDS: LOSARTAN 50 MG TABLET PO SCH (08:52)
[2016-11-09] MEDS: MINOCYCLINE 100 MG CAPSULE PO SCH ×2 (08:52→21:22)
[2016-11-09] MEDS: FUROSEMIDE 40 MG TABLET PO SCH (08:52)
[2016-11-09] MEDS: POLYETHYL GLYCOL 3350 17gm PACKET PO SCH (08:53)
[2016-11-09] MEDS: FERROUS SULFATE 324 MG TABLET PO SCH (12:18)
[2016-11-09] MEDS: ASCORBIC ACID 500 MG TABLET PO SCH (12:19)
[2016-11-09] MEDS: CALCIUM 500 + VIT D 200 TABLET PO SCH (12:19)
[2016-11-09] MEDS: FUROSEMIDE 20 MG TABLET PO SCH (14:10)
--- NOTE | 2016-11-09 15:15 | IRU Progress Note ---
- Subjective/Serverity of Illness Not much change in condition. Very somnolent -exercise totally wears her out. Exam Vital Signs: Temperature 98.5 F 11/08/16 21:30 Pulse Rate 80 11/09/16 14:14 Respiratory Rate 12 11/09/16 07:39 Blood Pressure 135/63 11/09/16 07:39 Pulse Oximetry 98 11/09/16 14:14 Oxygen Delivery Method Nasal Cannula Oxygen Flow Rate 1 Height/Weight/BMI: Height 1.68 m Weight 74.7 kg Body Mass Index 27.2 - Constitutional Present: no acute distress, somnolent - Routine Respiratory Exam Absent: accessory muscle use Comments: Using O2 Sepsis Assessment - Evaluation Sepsis screening result: No Definite Risk IRU A/P DVT Prophylaxis: Xarelto Resuscitation Status: Full Code - Course Hospital Course: Min Rcoha MD: 10/31/16 10:56 She is making some good progress with therapy. Continues to be depressed. No evidence of active bleeding although stool is Hemoccult positive. Hemoglobin is up. White count is a bit worse today. Awaiting pathology/cytology from pleural effusion. 11/01/16 11:08 Continues to cooperate with therapy. She is more bright, alert and has better eye contact. Working on nutrition with [employer]. Her chest radiograph shows somewhat improved effusion on the left. Dr. Kee has started Lasix. We will start daily weights. 11/03/16 10:15 She is making slow progress. She is cooperative. With regard to her depression, she clearly seems to be improved with better eye contact and a more positive outlook. However, requires a lot of encouragement. She is tolerating her [employer] well and we are working on nutrition in that regard. Follow-up chest radiograph shows improved effusion on the left. Remains on Lasix twice daily. Weight is down slightly over the last 24 hours but overall is up since previous weights. - Interventions to Obtain Goals PT Treatment Plan: Balance/Proprioception, Functional Activities, Gait Training , Patient/Family Education, Therapeutic Exercise OT Treatment Plan: ADL (Basic Care), Balance Training, IADL, Pt./Family Education, Ther. Exercise for ADL
[2016-11-09] MEDS: SALINE FLUSH 10ml SYRINGE IVF PRN (17:44)
[2016-11-09] MEDS: RIVAROXABAN 20 MG TABLET PO SCH (17:44)
[2016-11-09] MEDS: ATORVASTATIN 20 MG TABLET PO SCH (21:21)
[2016-11-09] MEDS: MIRTAZAPINE 15 MG TABLET PO SCH (21:22)
[2016-11-09] MEDS: MAGNESIUM OXIDE 400 MG TABLET PO SCH (21:22)
[2016-11-10] MEDS: PANTOPRAZOLE 20 MG TABLET PO SCH (05:50)
--- NOTE | 2016-11-10 08:13 | IRU Progress Note ---
- Subjective/Serverity of Illness Patient had planned to go home today. However, over the past few days, required some oxygen, which is a relatively new development. Discussed this with the hospitalist consult and feel she should stay until this resolves Exam Vital Signs: Temperature 96.6 F L 11/10/16 07:00 Pulse Rate 78 11/10/16 07:00 Respiratory Rate 24 11/10/16 07:00 Blood Pressure 120/65 11/10/16 07:00 Pulse Oximetry 94 11/10/16 07:00 Oxygen Delivery Method Nasal Cannula Oxygen Flow Rate 0.5 Height/Weight/BMI: Height 1.68 m Weight 74.6 kg Body Mass Index 27.2 Sepsis Assessment - Evaluation Sepsis screening result: No Definite Risk IRU A/P DVT Prophylaxis: Xarelto Resuscitation Status: Full Code - Course Hospital Course: Min Rocha MD: 10/31/16 10:56 She is making some good progress with therapy. Continues to be depressed. No evidence of active bleeding although stool is Hemoccult positive. Hemoglobin is up. White count is a bit worse today. Awaiting pathology/cytology from pleural effusion. 11/01/16 11:08 Continues to cooperate with therapy. She is more bright, alert and has better eye contact. Working on nutrition with [employer]. Her chest radiograph shows somewhat improved effusion on the left. Dr. Kee has started Lasix. We will start daily weights. 11/03/16 10:15 She is making slow progress. She is cooperative. With regard to her depression, she clearly seems to be improved with better eye contact and a more positive outlook. However, requires a lot of encouragement. She is tolerating her [employer] well and we are working on nutrition in that regard. Follow-up chest radiograph shows improved effusion on the left. Remains on Lasix twice daily. Weight is down slightly over the last 24 hours but overall is up since previous weights. - Interventions to Obtain Goals PT Treatment Plan: Balance/Proprioception, Functional Activities, Gait Training , Patient/Family Education, Therapeutic Exercise OT Treatment Plan: ADL (Basic Care), Balance Training, IADL, Pt./Family Education, Ther. Exercise for ADL
[2016-11-10] MEDS: ANASTROZOLE 1 MG TABLET PO SCH (08:53)
[2016-11-10] MEDS: LOSARTAN 50 MG TABLET PO SCH (08:53)
[2016-11-10] MEDS: MINOCYCLINE 100 MG CAPSULE PO SCH ×2 (08:54→20:41)
[2016-11-10] MEDS: SALINE FLUSH 10ml SYRINGE IVF SCH ×2 (08:54→20:41)
[2016-11-10] MEDS: FUROSEMIDE 40 MG TABLET PO SCH (08:54)
[2016-11-10] MEDS: SENNA + DOCUSATE TABLET PO SCH ×2 (08:55→20:41)
[2016-11-10] MEDS: POLYETHYL GLYCOL 3350 17gm PACKET PO SCH (08:55)
--- NOTE | 2016-11-10 11:38 | XRay Report ---
INDICATION: hypoxia; f/u effusion PROCEDURE: CHEST 2-VIEWS UPRIGHT (PA & LAT) Encounter: Initial COMPARISON: November 08, 2016 FINDINGS: Moderate left pleural effusion is minimally decreased in size. Small right effusion is stable. No pneumothorax. Continued compressive atelectasis of the left lower lobe. Cardiomediastinal contours are stable. Pulmonary vascularity is is unchanged. Impression: Minimal decrease in the moderate left effusion. .
[2016-11-10] MEDS: ASCORBIC ACID 500 MG TABLET PO SCH (12:39)
[2016-11-10] MEDS: FERROUS SULFATE 324 MG TABLET PO SCH (12:39)
[2016-11-10] MEDS: CALCIUM 500 + VIT D 200 TABLET PO SCH (12:39)
--- NOTE | 2016-11-10 13:19 | Cardiology Progress Note ---
Subjective Principal diagnosis: Atrial fibrillation <Norma Ann - 11/10/16 13:22> Interval history: Sayda is seen in the IRU dining room, she is with her and the warehouse puller. She denies chest pain or dyspnea or cardiac complaints <Norma Ann - 11/10/16 15:56> Exam Vital signs: Temperature 97.8 F 11/13/16 08:00 Pulse Rate 92 11/13/16 14:09 Respiratory Rate 24 11/13/16 08:00 Blood Pressure 143/74 H 11/13/16 08:00 Pulse Oximetry 96 11/13/16 14:09 Oxygen Delivery Method Nasal Cannula Oxygen Flow Rate 2 <Rodolfo Matson - 11/13/16 15:20> Temperature 96.6 F L 11/10/16 07:00 Pulse Rate 87 11/10/16 08:15 Respiratory Rate 24 11/10/16 07:00 Blood Pressure 120/65 11/10/16 07:00 Pulse Oximetry 94 11/10/16 08:15 Oxygen Delivery Method Nasal Cannula Oxygen Flow Rate 0.5 <Norma Ann 11/10/16 13:22> - Constitutional no acute distress, well nourished, cooperative <Norma Ann 11/10/16 13: 22> - Routine HEENT Exam Head: Present: normocephalic <Norma Ann 11/10/16 13:22> ENT: Present: mucous membranes moist <Norma Ann 11/10/16 13:22> - Routine Neck Exam Absent: JVD, carotid bruit <Norma Ann 11/10/16 13:22> - Routine Chest/Breast/Axilla Exam Chest wall: Present: pacemaker. Absent: tenderness <Norma Ann 13:22> - Routine Respiratory Exam Present: decreased breath sounds, crackles, diminished air movement (left lower) . Absent: CTA bilaterally <Norma Ann 11/10/16 13:22> - Routine Cardiovascular Exam Present: no murmur, irregular rhythm. Absent: JVD <SethNorma Lentz 11/10/16 13:22> - Routine Abdominal Exam Present: soft, normoactive bowel sounds <SethNorma marmolejo 11/10/16 13:22> - Routine Extremities Exam Present: edema (LEs) <Norma Ann 11/10/16 13:22> - Routine Skin Exam Present: intact, dry, warm <Norma Ann 11/10/16 13:22> - Routine Neurological Exam Present: alert <Norma Ann 11/10/16 13:22> - Routine Psychiatric Exam Present: normal affect, depressed <SethNorma 11/10/16 13:22> Progress Note-A&P (1) HTN (hypertension) Status: Chronic Current Visit: No (2) Dyslipidemia Status: Chronic Current Visit: No (3) PAD (peripheral artery disease) Status: Chronic Current Visit: No (4) Atrial fibrillation Status: Chronic Current Visit: No (5) Pleural effusion Status: Acute Current Visit: No (6) Coronary artery disease Status: Chronic Current Visit: No (7) S/P 2-vessel coronary artery bypass Status: Chronic Current Visit: No (8) Presence of permanent cardiac pacemaker Status: Acute Current Visit: No <Rodolfo Matson 11/13/16 15:20> (1) Pleural effusion Status: Acute Assessment and plan: decreasing per chest xray report. Is requiring a tiny amount of O2 (0.5L) per nursing staff. Repeat 2 view in the am. Current Visit: No (2) Atrial fibrillation Status: Chronic Assessment and plan: HR mostly 70-80s, occasionally 90s. Continue Cardizem Current Visit: No (3) Coronary artery disease Status: Chronic Current Visit: No (4) Dyslipidemia Status: Chronic Current Visit: No (5) HTN (hypertension) Status: Chronic Current Visit: No (6) S/P 2-vessel coronary artery bypass Status: Chronic Current Visit: No (7) PAD (peripheral artery disease) Status: Chronic Current Visit: No (8) Presence of permanent cardiac pacemaker Status: Acute Assessment and plan: incision is healing well Current Visit: No <Norma Ann 11/10/16 15:56> - Time Spent With Patient Total time spent is greater than 50% in coordination of care (as documented) at patient's floor/unit and/or counseling patient: <Rodolfo Matson 11/13/16 15:20> Total time spent is greater than 50% in coordination of care (as documented) at patient's floor/unit and/or counseling patient: <Norma Ann - 11/10/16 13:22> less than 15 minutes <Norma Ann - 11/10/16 13:22> - Attestation Attestation Narrative: Recommendation After examining the patient I agree with the above assessment. I am involved in the formulation of the patient's plan of care. <LoganmaryRodolfo - 11/13/16 15:20> Sepsis Assessment - Evaluation Sepsis screening result: No Definite Risk <Norma Ann - 11/10/16 13:22> Hospital Course Summary Disclaimer: The visit summary below is not to be considered part of the above Progress Note. <Prema Matsonsein - 11/13/16 15:20> The visit summary below is not to be considered part of the above Progress Note. <Norma Ann 11/10/16 13:22> Hospital Course: ASSESSMENT Leukocytosis Normocytic anemia; iron deficiency anemia Hypokalemia, resolved, low-normal on admission to IRU (3.6) LLL pleural effusion, s/p thoracentesis 10/27/16 with 800 mL fluid removed. Hypoxia; acute resp failure - resolved. Weaned off oxygen. Situational depression Anorexia Atrial fibrillation on Xarelto, ASA CAD, recent CABGx2 10/04/16 Acute ischemic stroke involving the posterior circulation in the right occipital lobe and left cerebellum in September, History of peripheral vascular disease with bilateral carotid endarterectomies in the remote past Hypertension Hyperlipidemia History of breast cancer Overweight BMI 26.2 10/30/16 PLAN Leukocytosis -sepsis w/u negative during acute admission -Pleural fluid - cultures pending. Normocytic anemia; iron deficiency (iron level was 18) -check stool for occult blood -start Protonix daily -start iron + vitamin C. Check Vitamin B12. Depression & anorexia -continue mirtazapine - will need Rx at time of DC Hypokalemia - resolved -K low-normal; give extra KDur today CAD s/p CABG/A-fib/HTN/HLD/PPM - Consult cardiology 10/31/16 Plan Chest x-ray from yesterday, 10/30 did reveal moderate left pleural effusion. Patient is status post thoracentesis from 10/27. Overnight with ambulation. Patient's sats did decrease into the high 80s and patient complained of feeling short of breath. We will give an extra dose of Lasix 20 milligrams by mouth 1 now. Will continue with daily Lasix. Will recheck a Chest x-ray tomorrow morning Increased Leukocytosis to 17.8. Condition did receive IV iron today without difficulty. Discussed case with dietitian regarding increased appetite and trial of different nutritional supplementations. Patient does like the [place] breakfast drink. Discussed status and plan of care with patient's . He has no further questions. Overall feels patient is doing well and making improvements. Check CBC and BMP tomorrow morning to follow leukocytosis, electrolytes and renal function Plan= 11/02 CBC and BMP are currently pending. Will evaluate once resulted. Concerned about black stool along with Hemoccult-positive stool sample several days ago. At this point, we will hold Xarelto and monitor carefully. Patient does continue to be on twice a day Lasix for ongoing diuresis seen. Dose at 800 and 1600. Chest x-ray reviewed by myself. Film from yesterday revealed continued bilateral pleural effusions. Continued leukocytosis, however. White count has improved to 13.5 yesterday. Today pending. Continue to encourage dietary intake and nutritional supplementation for ongoing strengthening Encourage work with PT and OT for ongoing strengthening Will evaluate laboratory studies. Continue to follow routinely Discussed with attending, Dr. Kee 11/02/16 14:52- Cardiology Chronic, goal is rate control. Continue Cardizem and Xarelto. Hold Aspirin Plan- 11/03 Repeat chest x-ray this morning reveals a slight decrease in left pleural effusion. She is breathing on room air without evidence of distress. Continue with scheduled twice a day Lasix. Leukocytosis continues to decline, white count 12.0 today. Hemoglobin continues to trend down. This morning is at 7.4. Xarelto was placed on hold yesterday. Discussed possibility of blood transfusion. Given patient's coronary artery disease and continued decrease in hemoglobin. Patient adamantly declines transfusion. 11/05/16 Patient does appear SOA at rest and in fluid overload. Will increase AM dosing of Lasix, continue 20mg Q PM. Give single dose of metolazone. Continue to monitor labs, adjust KCL as indicated. Continue rate control for atrial fib. Xarelto held due to concern for anemia. Hx of stroke in the past- resume Xarelto as soon as we can when labs are stable. 11/07/16 No longer SOA at rest; on room air. CXR showing improvement. Continue current diuresis (Lasix 20 mg BID). Electrolytes stable on 11/06/16 - repeat BMP in am. Repeat CXR in am. Leukocytosis persists. No infection suspected. Hgb stabilized at 7.9 for the last 3 days. Will resume Xarelto and repeat CBC in am. 11/09/16 Leukocytosis -sepsis w/u negative during acute admission -WBC trending down. -Pleural fluid - cultures negative Normocytic anemia; iron deficiency (iron level was 18) -hgb improving - 8.4 today. Xarelto was resumed on 11/07/16. Continue to monitor for black stools. -s/p iron infusion; repeat iron studies are pending Depression & anorexia -continue mirtazapine - will need Rx at time of DC -recommend ongoing assessment in outpatient setting. Hypokalemia -resolved -remainder of electrolytes stable CAD s/p CABG/A-fib/HTN/HLD/PPM -per cardiology <Norma Ann - 11/10/16 13:22>
[2016-11-10] MEDS: FUROSEMIDE 20 MG TABLET PO SCH (15:11)
[2016-11-10] MEDS: RIVAROXABAN 20 MG TABLET PO SCH (17:52)
[2016-11-10] MEDS: MIRTAZAPINE 15 MG TABLET PO SCH (20:40)
[2016-11-10] MEDS: ATORVASTATIN 20 MG TABLET PO SCH (20:40)
[2016-11-10] MEDS: MAGNESIUM OXIDE 400 MG TABLET PO SCH (20:41)
[2016-11-11] MEDS: PANTOPRAZOLE 20 MG TABLET PO SCH (06:27)
[2016-11-11] MEDS: ANASTROZOLE 1 MG TABLET PO SCH (09:11)
[2016-11-11] MEDS: FUROSEMIDE 40 MG TABLET PO SCH (09:12)
[2016-11-11] MEDS: MINOCYCLINE 100 MG CAPSULE PO SCH ×2 (09:12→20:02)
[2016-11-11] MEDS: LOSARTAN 50 MG TABLET PO SCH (09:12)
[2016-11-11] MEDS: POLYETHYL GLYCOL 3350 17gm PACKET PO SCH ×2 (09:13→09:16)
[2016-11-11] MEDS: SALINE FLUSH 10ml SYRINGE IVF SCH ×2 (09:13→20:42)
[2016-11-11] MEDS: SENNA + DOCUSATE TABLET PO SCH ×2 (09:13→20:03)
[2016-11-11] MEDS: CALCIUM 500 + VIT D 200 TABLET PO SCH (12:39)
[2016-11-11] MEDS: FERROUS SULFATE 324 MG TABLET PO SCH (12:40)
[2016-11-11] MEDS: ASCORBIC ACID 500 MG TABLET PO SCH (12:40)
[2016-11-11] MEDS: FUROSEMIDE 20 MG TABLET PO SCH (14:42)
[2016-11-11] MEDS: RIVAROXABAN 20 MG TABLET PO SCH (17:30)
[2016-11-11] MEDS: MAGNESIUM OXIDE 400 MG TABLET PO SCH (20:02)
[2016-11-11] MEDS: ATORVASTATIN 20 MG TABLET PO SCH (20:02)
[2016-11-11] MEDS: MIRTAZAPINE 15 MG TABLET PO SCH (20:03)
[2016-11-11] MEDS: SALINE FLUSH 10ml SYRINGE IVF PRN (20:03)
[2016-11-12] MEDS: PANTOPRAZOLE 20 MG TABLET PO SCH (06:31)
[2016-11-12] MEDS: MINOCYCLINE 100 MG CAPSULE PO SCH ×2 (08:58→20:00)
[2016-11-12] MEDS: ANASTROZOLE 1 MG TABLET PO SCH (08:58)
[2016-11-12] MEDS: SALINE FLUSH 10ml SYRINGE IVF SCH ×2 (08:58→20:00)
[2016-11-12] MEDS: SENNA + DOCUSATE TABLET PO SCH ×2 (08:58→20:00)
[2016-11-12] MEDS: LOSARTAN 50 MG TABLET PO SCH (08:58)
[2016-11-12] MEDS: POLYETHYL GLYCOL 3350 17gm PACKET PO SCH (08:59)
[2016-11-12] MEDS: FUROSEMIDE 40 MG TABLET PO SCH (09:03)
--- NOTE | 2016-11-12 09:20 | XRay Report ---
INDICATION: DYSPNEA PROCEDURE: CHEST 2-VIEWS UPRIGHT (PA & LAT) Encounter: Initial COMPARISON: November 10, 2016 FINDINGS: Stable appearance of the chest. Moderate left pleural effusion is stable. Persistent small right effusion. Bilateral lower lobe airspace disease, left greater than right is unchanged. No pneumothorax. Heart size, mediastinal contours and pulmonary vascularity are stable. Impression: Stable chest with a moderate left effusion. .
[2016-11-12] MEDS: FERROUS SULFATE 324 MG TABLET PO SCH (12:11)
[2016-11-12] MEDS: CALCIUM 500 + VIT D 200 TABLET PO SCH (12:11)
[2016-11-12] MEDS: ASCORBIC ACID 500 MG TABLET PO SCH (12:11)
[2016-11-12] MEDS: FUROSEMIDE 20 MG TABLET PO SCH (14:16)
--- NOTE | 2016-11-12 14:25 | Progress Note ---
Subjective: Patient seen today while sitting at the dining table following breakfast. She was resting with her eyes closed. She has no active complaints. She denies chest pain or shortness of breath. She states she had a bowel movement this morning. Cardiology has seen her recently and made no changes. Her chest x-ray has been stable in regard to her left pleural effusion. Objective Vital signs: Temperature 97.9 F 11/12/16 08:00 Pulse Rate 101 H 11/12/16 08:00 Respiratory Rate 18 11/12/16 08:00 Blood Pressure 144/66 H 11/12/16 08:00 Pulse Oximetry 94 11/12/16 08:07 Height/Weight/BMI: Height 1.68 m Weight 74.6 kg Body Mass Index 27.2 - Constitutional Present: no acute distress, well developed, cooperative - Routine HEENT Exam Head: Present: normocephalic, atraumatic ENT: Present: mucous membranes moist, dentition normal - Routine Respiratory Exam Present: crackles (right lower lung), diminished air movement (left lower lung) . Absent: wheezes - Routine Cardiovascular Exam Present: irregular rhythm. Absent: murmur - Routine Abdominal Exam Present: soft, normoactive bowel sounds, non distended. Absent: tenderness - Routine Extremities Exam Present: no edema (2+ pitting edema in the feet), normal capillary refill - Routine Skin Exam Present: dry, warm - Routine Neurological Exam Present: alert, moving all extremities, normal speech - Routine Lymphatic Exam Lymphatic: Absent: adenopathy - Routine Psychiatric Exam Present: normal affect, cooperative Results - Labs CBC & Chem 7: 11/08/16 04:52 11/08/16 04:52 - Imaging and Cardiology Chest x-ray Additional comments: Chest x-ray/ COMPARISON: November 10, 2016 FINDINGS: Stable appearance of the chest. Moderate left pleural effusion is stable. Persistent small right effusion. Bilateral lower lobe airspace disease, left greater than right is unchanged. No pneumothorax. Heart size, mediastinal contours and pulmonary vascularity are stable. Impression: Stable chest with a moderate left effusion. Assessment and Plan (1) Leukocytosis Current visit: No Status: Acute Assessment and Plan: Impression Leukocytosis Normocytic anemia; iron deficiency anemia Hypokalemia, resolved, low-normal on admission to IRU (3.6) LLL pleural effusion, s/p thoracentesis 10/27/16 with 800 mL fluid removed. Hypoxia; acute resp failure - resolved. Weaned off oxygen. Situational depression Anorexia Atrial fibrillation on Xarelto, ASA CAD, recent CABGx2 10/04/16 Acute ischemic stroke involving the posterior circulation in the right occipital lobe and left cerebellum in September, History of peripheral vascular disease with bilateral carotid endarterectomies in the remote past Hypertension Hyperlipidemia History of breast cancer Overweight BMI 26.2 Plan White blood cell count continues to trend down. Chest x-ray is stable with left pleural effusion. Xarelto resumed 11/07/16. She'd had a positive Hemoccult on 10/31/16 - coinciding with a drop in her hemoglobin.. Negative Hemoccult on 11/10/16 and no further stools that have been concerning for blood. Hemoglobin is stable Continue mirtazapine - will need Rx at time of DC. Recommend ongoing assessment in outpatient setting. Sepsis Assessment - Evaluation Sepsis screening result: No Definite Risk Hospital Course Summary Disclaimer: The visit summary below is not to be considered part of the above Progress Note. Hospital Course: ASSESSMENT Leukocytosis Normocytic anemia; iron deficiency anemia Hypokalemia, resolved, low-normal on admission to IRU (3.6) LLL pleural effusion, s/p thoracentesis 10/27/16 with 800 mL fluid removed. Hypoxia; acute resp failure - resolved. Weaned off oxygen. Situational depression Anorexia Atrial fibrillation on Xarelto, ASA CAD, recent CABGx2 10/04/16 Acute ischemic stroke involving the posterior circulation in the right occipital lobe and left cerebellum in September, History of peripheral vascular disease with bilateral carotid endarterectomies in the remote past Hypertension Hyperlipidemia History of breast cancer Overweight BMI 26.2 10/30/16 PLAN Leukocytosis -sepsis w/u negative during acute admission -Pleural fluid - cultures pending. Normocytic anemia; iron deficiency (iron level was 18) -check stool for occult blood -start Protonix daily -start iron + vitamin C. Check Vitamin B12. Depression & anorexia -continue mirtazapine - will need Rx at time of DC Hypokalemia - resolved -K low-normal; give extra KDur today CAD s/p CABG/A-fib/HTN/HLD/PPM - Consult cardiology 10/31/16 Plan Chest x-ray from yesterday, 10/30 did reveal moderate left pleural effusion. Patient is status post thoracentesis from 10/27. Overnight with ambulation. Patient's sats did decrease into the high 80s and patient complained of feeling short of breath. We will give an extra dose of Lasix 20 milligrams by mouth 1 now. Will continue with daily Lasix. Will recheck a Chest x-ray tomorrow morning Increased Leukocytosis to 17.8. Condition did receive IV iron today without difficulty. Discussed case with dietitian regarding increased appetite and trial of different nutritional supplementations. Patient does like the [place] breakfast drink. Discussed status and plan of care with patient's . He has no further questions. Overall feels patient is doing well and making improvements. Check CBC and BMP tomorrow morning to follow leukocytosis, electrolytes and renal function Plan= 11/02 CBC and BMP are currently pending. Will evaluate once resulted. Concerned about black stool along with Hemoccult-positive stool sample several days ago. At this point, we will hold Xarelto and monitor carefully. Patient does continue to be on twice a day Lasix for ongoing diuresis seen. Dose at 800 and 1600. Chest x-ray reviewed by myself. Film from yesterday revealed continued bilateral pleural effusions. Continued leukocytosis, however. White count has improved to 13.5 yesterday. Today pending. Continue to encourage dietary intake and nutritional supplementation for ongoing strengthening Encourage work with PT and OT for ongoing strengthening Will evaluate laboratory studies. Continue to follow routinely Discussed with attending, Dr. Kee 11/02/16 14:52- Cardiology Chronic, goal is rate control. Continue Cardizem and Xarelto. Hold Aspirin Plan- 11/03 Repeat chest x-ray this morning reveals a slight decrease in left pleural effusion. She is breathing on room air without evidence of distress. Continue with scheduled twice a day Lasix. Leukocytosis continues to decline, white count 12.0 today. Hemoglobin continues to trend down. This morning is at 7.4. Xarelto was placed on hold yesterday. Discussed possibility of blood transfusion. Given patient's coronary artery disease and continued decrease in hemoglobin. Patient adamantly declines transfusion. 11/05/16 Patient does appear SOA at rest and in fluid overload. Will increase AM dosing of Lasix, continue 20mg Q PM. Give single dose of metolazone. Continue to monitor labs, adjust KCL as indicated. Continue rate control for atrial fib. Xarelto held due to concern for anemia. Hx of stroke in the past- resume Xarelto as soon as we can when labs are stable. 11/07/16 No longer SOA at rest; on room air. CXR showing improvement. Continue current diuresis (Lasix 20 mg BID). Electrolytes stable on 11/06/16 - repeat BMP in am. Repeat CXR in am. Leukocytosis persists. No infection suspected. Hgb stabilized at 7.9 for the last 3 days. Will resume Xarelto and repeat CBC in am. 11/09/16 Leukocytosis -sepsis w/u negative during acute admission -WBC trending down. -Pleural fluid - cultures negative Normocytic anemia; iron deficiency (iron level was 18) -hgb improving - 8.4 today. Xarelto was resumed on 11/07/16. Continue to monitor for black stools. -s/p iron infusion; repeat iron studies are pending Depression & anorexia -continue mirtazapine - will need Rx at time of DC -recommend ongoing assessment in outpatient setting. Hypokalemia -resolved -remainder of electrolytes stable CAD s/p CABG/A-fib/HTN/HLD/PPM -per cardiology 11/12/16 White blood cell count continues to trend down. Chest x-ray is stable with left pleural effusion. Xarelto resumed 11/07/16. She'd had a positive Hemoccult on 10/31/16 - coinciding with a drop in her hemoglobin.. Negative Hemoccult on 11/10/16 and no further stools that have been concerning for blood. Hemoglobin is stable Continue mirtazapine - will need Rx at time of DC. Recommend ongoing assessment in outpatient setting.
[2016-11-12] MEDS: RIVAROXABAN 20 MG TABLET PO SCH (18:07)
[2016-11-12] MEDS: MAGNESIUM OXIDE 400 MG TABLET PO SCH (20:00)
[2016-11-12] MEDS: MIRTAZAPINE 15 MG TABLET PO SCH (20:00)
[2016-11-12] MEDS: ATORVASTATIN 20 MG TABLET PO SCH (20:00)
[2016-11-13] MEDS: PANTOPRAZOLE 20 MG TABLET PO SCH (06:21)
[2016-11-13] MEDS: ANASTROZOLE 1 MG TABLET PO SCH (08:33)
[2016-11-13] MEDS: MINOCYCLINE 100 MG CAPSULE PO SCH (08:33)
[2016-11-13] MEDS: SENNA + DOCUSATE TABLET PO SCH (08:33)
[2016-11-13] MEDS: FUROSEMIDE 40 MG TABLET PO SCH (08:33)
[2016-11-13] MEDS: LOSARTAN 50 MG TABLET PO SCH (08:34)
[2016-11-13] MEDS: POLYETHYL GLYCOL 3350 17gm PACKET PO SCH (08:36)
[2016-11-13 08:38] VITALS: BP 143/74; RESP 24; TEMP 97.8
--- NOTE | 2016-11-13 10:54 | Discharge Instructions ---
Discharge Plan - Med Rec/Dispo Referrals/Follow Up: Rodolfo Matson MD [Physician] - (Dr. Mora Matson on 11/21/16 at 3:30 pm for Follow-up. [facility] [address] [place] [address] [place] [id number]) Deepak Duarte MD [Family Provider] - (Dr. Corey Duarte on 11/30/16 at 2:20 pm for Hosp. follow-up. [address] [place] [id number]) Additional Instructions: STOP Digoxin. Have labs rechecked in 3 days to follow up on kidney function and potassium while on the higher dose of Lasix. Check with Dr. Matson about ongoing Lasix dosing. Prescriptions: New Furosemide [Lasix] 40 mg PO DAILY #30 tab Anastrozole [Arimidex] 1 mg PO DAILY tablet Ascorbic Acid [Vitamin C] 500 mg PO WL tablet Ferrous Sulfate [Feosol] 324 mg PO WL #30 tab Continue Potassium Chloride ER Tab [K-Dur] 20 meq PO NOON #0 Calcium Carbonate/Vitamin D2 [Oyster Shell Calcium-Vit D Tab] 1 tab PO NOON Aspirin [Adult Low Dose Aspirin EC] 81 mg PO DAILY Metoprolol Tartrate [Lopressor] 100 mg PO BID Losartan [Cozaar] 50 mg PO DAILY Nitroglycerin 0.4 mg SL Q5MIN3 PRN PRN Reason: Chest Pain Magnesium Oxide [Magox] 400 mg PO HS #30 tablet Mirtazapine [Remeron] 7.5 mg PO HS #30 tab Anastrozole 1 mg PO DAILY Atorvastatin [Lipitor] 20 mg PO HS Rivaroxaban [Xarelto] 20 mg PO NOON Citalopram [Celexa] 10 mg PO HS #30 tablet DiltiaZEM CD [Cardizem Cd] 120 mg PO DAILY #30 capsule Discontinued Furosemide [Lasix] 20 mg PO DAILY Minocycline [Minocin] 100 mg PO BID #9 capsule Discharge Instructions/Outpatient Orders: Final Provider Discharge Instructions Location: Determined By Patient BMP - Basic Metabolic - [facility] Time Frame: 3 Days, Location: Determined By Patient - Disposition 01 Discharged Home, Self-Care
--- NOTE | 2016-11-13 11:31 | IRU Progress Note ---
- Subjective/Serverity of Illness Sayda is reevaluated today. She says that her appetite is much better. Indeed she has much improved outlook and seems to be brighter. She is cooperating with therapy. Continues to be generally weak but is stable to go home. I discussed with therapists and hospitalists. Medically, she does have dyspnea with activity. Oxygen saturation will be monitored today with exercise to see if she needs home oxygen. Continues to have the pleural effusion. No recommendations at present for repeat thoracentesis. Denies any chest pain. Reports that her bowels are moving well. Exam Vital Signs: Temperature 97.8 F 11/13/16 08:00 Pulse Rate 86 11/13/16 08:00 Respiratory Rate 24 11/13/16 08:00 Blood Pressure 143/74 H 11/13/16 08:00 Pulse Oximetry 95 11/13/16 08:00 Oxygen Delivery Method Nasal Cannula Oxygen Flow Rate 1 Height/Weight/BMI: Height 1.68 m Weight 77.9 kg Body Mass Index 27.2 Comments: The patient is awake, alert and oriented and in no acute distress. She is much "brighter" and has better eye contact. She is eating better. Pupils are equal. The neck is supple. Chest: Clear to auscultation bilaterally. However continues to have reduced breath sounds left base. Cor: RR with no gallop, click nor murmur Abd: soft with normo-active bowel sounds. There are no masses, no tenderness and no guarding. Extremities: Trace edema noted. Sepsis Assessment - Evaluation Sepsis screening result: No Definite Risk IRU A/P (1) Leukocytosis Qualifiers: Leukocytosis type: other Qualified Code(s): D72.828 - Other elevated white blood cell count Current visit: No Status: Acute Continues to have low-grade elevation of white count for uncertain reasons. May be related to the effusion. It has been stable. (2) Atrial fibrillation Qualifiers: Atrial fibrillation type: paroxysmal Qualified Code(s): I48.0 - Paroxysmal atrial fibrillation Current visit: No Status: Chronic Does have history of atrial fibrillation and is on Xarelto. No evidence of active bleeding. (3) Presence of permanent cardiac pacemaker Current visit: No Status: Acute (4) Coronary artery disease Qualifiers: Coronary Disease-Associated Artery/Lesion type: [place] artery [place] vs. transplanted heart: [place] heart Associated angina: without angina Qualified Code(s): I25.10 - Atherosclerotic heart disease of [place] coronary artery without angina pectoris Current visit: No Status: Chronic Patient denies any chest pains. Does have dyspnea with activity. This is likely multifactorial. She is improved with regard to exercise tolerance, transfers etc. 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 Continues to be depressed. No evidence of active bleeding although stool is Hemoccult positive. Hemoglobin is up. White count is a bit worse today. Awaiting pathology/cytology from pleural effusion. 11/01/16 11:08 Continues to cooperate with therapy. She is more bright, alert and has better eye contact. Working on nutrition with [employer]. Her chest radiograph shows somewhat improved effusion on the left. Dr. Kee has started Lasix. We will start daily weights. 11/03/16 10:15 She is making slow progress. She is cooperative. With regard to her depression, she clearly seems to be improved with better eye contact and a more positive outlook. However, requires a lot of encouragement. She is tolerating her [employer] well and we are working on nutrition in that regard. Follow-up chest radiograph shows improved effusion on the left. Remains on Lasix twice daily. Weight is down slightly over the last 24 hours but overall is up since previous weights. 11/13/16 11:31 Patient is improved and is stable. Appetite is improved. Therapies feel as though she is stable for dismissal. Have discussed with hospitalist service as well. Exercise oximetry will be obtained. - Interventions to Obtain Goals PT Treatment Plan: Balance/Proprioception, Functional Activities, Gait Training , Patient/Family Education, Therapeutic Exercise OT Treatment Plan: ADL (Basic Care), Balance Training, IADL, Pt./Family Education, Ther. Exercise for ADL Goals Progress/Modifications: Anticipate dismissal today after laboratory his back and exercise oximetry completed.
--- NOTE | 2016-11-13 11:36 | Discharge Instructions ---
Discharge Plan - Med Rec/Dispo Referrals/Follow Up: Rodolfo Matson MD [Physician] - (Dr. Mora Matson on 11/21/16 at 3:30 pm for Follow-up. [facility] [address] [place] [address] [place] [address]) Deepak Duarte MD [Family Provider] - (Dr. Corey Duarte on 11/30/16 at 2:20 pm for Hosp. follow-up. [address] [place] [address]) Additional Instructions: STOP Digoxin. Prescriptions: New Furosemide [Lasix] 40 mg PO DAILY #30 tab Anastrozole [Arimidex] 1 mg PO DAILY tablet Ascorbic Acid [Vitamin C] 500 mg PO WL tablet Ferrous Sulfate [Feosol] 324 mg PO WL #30 tab Continue Potassium Chloride ER Tab [K-Dur] 20 meq PO NOON #0 Calcium Carbonate/Vitamin D2 [Oyster Shell Calcium-Vit D Tab] 1 tab PO NOON Aspirin [Adult Low Dose Aspirin EC] 81 mg PO DAILY Metoprolol Tartrate [Lopressor] 100 mg PO BID Losartan [Cozaar] 50 mg PO DAILY Nitroglycerin 0.4 mg SL Q5MIN3 PRN PRN Reason: Chest Pain Magnesium Oxide [Magox] 400 mg PO HS #30 tablet Mirtazapine [Remeron] 7.5 mg PO HS #30 tab Anastrozole 1 mg PO DAILY Atorvastatin [Lipitor] 20 mg PO HS Rivaroxaban [Xarelto] 20 mg PO NOON Citalopram [Celexa] 10 mg PO HS #30 tablet DiltiaZEM CD [Cardizem Cd] 120 mg PO DAILY #30 capsule Discontinued Furosemide [Lasix] 20 mg PO DAILY Minocycline [Minocin] 100 mg PO BID #9 capsule Discharge Instructions/Outpatient Orders: Final Provider Discharge Instructions Location: Determined By Patient - Disposition 01 Discharged Home, Self-Care
[2016-11-13] MEDS: SALINE FLUSH 10ml SYRINGE IVF SCH (11:52)
[2016-11-13] MEDS: CALCIUM 500 + VIT D 200 TABLET PO SCH (12:28)
[2016-11-13] MEDS: FERROUS SULFATE 324 MG TABLET PO SCH (12:28)
[2016-11-13] MEDS: ASCORBIC ACID 500 MG TABLET PO SCH (12:28)
[2016-11-13 14:13] VITALS: PULSE 92; O2SAT 96
[2016-11-13] MEDS: FUROSEMIDE 20 MG TABLET PO SCH (14:49)
--- NOTE | 2016-11-14 16:49 | Discharge Summary ---
Discharge Information Date of admission: 10/29/16 11:10 Anticipated date of discharge: 11/13/16 Attending Physician: Min Rocha MD Primary care physician: Deepak Duarte MD Consults: 10/29/16 12:59 Physician Consult [CONS] Routine Consulting Provider: Kalin Foster Reason For Exam: medical management Ordering Provider has Notified Sales Development Director: No 10/30/16 Pharmacy Consult [CONS] Routine Pharmacy Consult: IV Iron-Chronic Anemia 10/30/16 09:06 Physician Consult [CONS] Routine Consulting Provider: Rodolfo Matson Reason For Exam: a-fib Ordering Provider has Notified Sales Development Director: No 10/30/16 09:48 Dietary Consult [CONS] Routine Comment: Reason For Exam: Physician Consult [CONS] Routine Consulting Provider: Cele Brand Reason For Exam: medical management Ordering Provider has Notified Sales Development Director: Yes 11/01/16 15:53 Dietary Consult [CONS] Routine Comment: Reason For Exam: 11/07/16 14:47 Dietary Consult [CONS] Routine Comment: Reason For Exam: - Discharge Diagnosis Discharge Diagnosis: 1. ASHD s/p CABG 2. Large left pleural transudative effusion, likely post CABG 3. Atrial fibrillation, chronic 4. Leukocytosis, unclear etiology, improved 5. Iron deficiency anemia 6. Benign essential hypertension 7. Hypoxia: resolved 8. Recent CVA (September 2016) right occiput, likely embolic - Laboratory Labs: 11/13/16 13:25 11/13/16 13:25 History of Present Illness HPI: 11/14/16 16:50 Ms. Machado is a very pleasant 81-year-old white female with recent quite complicated medical history. She apparently suffered a stroke in September 2016 characterized predominantly by left hand and left leg weakness. Most of that resolved. Subsequently she developed paroxysmal atrial fibrillation. She underwent cardiac catheterization on 10/02/[address] Matson. She was noted to have multivessel disease. Ejection fraction was greater than 70% on left ventriculogram. However there was a 60-70% left main lesion as well as right coronary artery lesion in the midportion. She was transferred to [place] to Dr. Ty and underwent bypass on 2 vessels on 10/02/2016. However ever since the bypass she has developed extreme weakness and anorexia. On 10/24/2016 she presented with total body weakness and increased dyspnea. She felt a shaking or pounding in her head. She was noted to have atrial fibrillation with rapid ventricular response. She was again admitted to the hospital and had tachybradycardia syndrome with episodes of pauses some 2 to 3 seconds. This resulted in the need for a permanent pacemaker which was placed just prior to her transfer to the IRU. She was noted to have a large left pleural fluid collection. Thoracentesis was performed at 800 cc of serosanguineous material was obtained. This showed 40% lymphocytes and 25% mesothelial cells. Protein was less than 3.0 but LDH was elevated. Most likely this is related to post bypass procedure. Finally, she was having a lot of depression and poor eye contact. She had anorexia and protein calorie malnutrition. Hospital Course This is a general summary of the patient's hospital course. For more details refer to the complete medical record. The patient was admitted to the inpatient rehabilitation unit for intensive individualized therapy including occupational therapy, physical therapy and medical supervision and management of her multiple medical problems. She was followed by Dr. norma Garcia and the hospitalist service as well. Her furosemide was adjusted and increased a bit. She did have some dyspnea with activity. She had no further chest pains. I contacted was extremely poor initially. She was started on citalopram and this perhaps improve things. She was also on mirtazapine in this regard. Her appetite was poor. She was given supplemental nutrition in the form of [employer] [place] [employer] per request of the family. With regard to therapy, she did improve to degree. However progress was limited due to poor endurance. With physical therapy she did improve with sit to stand transfers from standby assistance to independent. She was standby assistance for most activities. She was able to ambulate approximately 150 feet at the time of dismissal with modified independent status. She was reluctant to do stairs. She was also seen by occupational therapy and made modest progress in this regard. Medical issues addressed during the time of her stay on acute rehabilitation included her atrial fibrillation, pleural fluid, and fluid management. She also was noted to have a leukocytosis. This did improve and essentially resolved by the time of dismissal. Etiology of the leukocytosis was not clear. She was dismissed in improved condition on 11/05/2016 for further outpatient management by Dr. Matson and Dr. Deepak Goering her primary care physician. It was noted that the digoxin was discontinued. Hospital course: ASSESSMENT Leukocytosis Normocytic anemia; iron deficiency anemia Hypokalemia, resolved, low-normal on admission to IRU (3.6) LLL pleural effusion, s/p thoracentesis 10/27/16 with 800 mL fluid removed. Hypoxia; acute resp failure - resolved. Weaned off oxygen. Situational depression Anorexia Atrial fibrillation on Xarelto, ASA CAD, recent CABGx2 10/04/16 Acute ischemic stroke involving the posterior circulation in the right occipital lobe and left cerebellum in September, History of peripheral vascular disease with bilateral carotid endarterectomies in the remote past Hypertension Hyperlipidemia History of breast cancer Overweight BMI 26.2 10/30/16 PLAN Leukocytosis -sepsis w/u negative during acute admission -Pleural fluid - cultures pending. Normocytic anemia; iron deficiency (iron level was 18) -check stool for occult blood -start Protonix daily -start iron + vitamin C. Check Vitamin B12. Depression & anorexia -continue mirtazapine - will need Rx at time of DC Hypokalemia - resolved -K low-normal; give extra KDur today CAD s/p CABG/A-fib/HTN/HLD/PPM - Consult cardiology 10/31/16 Plan Chest x-ray from yesterday, 10/30 did reveal moderate left pleural effusion. Patient is status post thoracentesis from 10/27. Overnight with ambulation. Patient's sats did decrease into the high 80s and patient complained of feeling short of breath. We will give an extra dose of Lasix 20 milligrams by mouth 1 now. Will continue with daily Lasix. Will recheck a Chest x-ray tomorrow morning Increased Leukocytosis to 17.8. Condition did receive IV iron today without difficulty. Discussed case with dietitian regarding increased appetite and trial of different nutritional supplementations. Patient does like the [place] breakfast drink. Discussed status and plan of care with patient's . He has no further questions. Overall feels patient is doing well and making improvements. Check CBC and BMP tomorrow morning to follow leukocytosis, electrolytes and renal function Plan= 11/02 CBC and BMP are currently pending. Will evaluate once resulted. Concerned about black stool along with Hemoccult-positive stool sample several days ago. At this point, we will hold Xarelto and monitor carefully. Patient does continue to be on twice a day Lasix for ongoing diuresis seen. Dose at 800 and 1600. Chest x-ray reviewed by myself. Film from yesterday revealed continued bilateral pleural effusions. Continued leukocytosis, however. White count has improved to 13.5 yesterday. Today pending. Continue to encourage dietary intake and nutritional supplementation for ongoing strengthening Encourage work with PT and OT for ongoing strengthening Will evaluate laboratory studies. Continue to follow routinely Discussed with attending, Dr. Kee 11/02/16 14:52- Cardiology Chronic, goal is rate control. Continue Cardizem and Xarelto. Hold Aspirin Plan- 11/03 Repeat chest x-ray this morning reveals a slight decrease in left pleural effusion. She is breathing on room air without evidence of distress. Continue with scheduled twice a day Lasix. Leukocytosis continues to decline, white count 12.0 today. Hemoglobin continues to trend down. This morning is at 7.4. Xarelto was placed on hold yesterday. Discussed possibility of blood transfusion. Given patient's coronary artery disease and continued decrease in hemoglobin. Patient adamantly declines transfusion. 11/05/16 Patient does appear SOA at rest and in fluid overload. Will increase AM dosing of Lasix, continue 20mg Q PM. Give single dose of metolazone. Continue to monitor labs, adjust KCL as indicated. Continue rate control for atrial fib. Xarelto held due to concern for anemia. Hx of stroke in the past- resume Xarelto as soon as we can when labs are stable. 11/07/16 No longer SOA at rest; on room air. CXR showing improvement. Continue current diuresis (Lasix 20 mg BID). Electrolytes stable on 11/06/16 - repeat BMP in am. Repeat CXR in am. Leukocytosis persists. No infection suspected. Hgb stabilized at 7.9 for the last 3 days. Will resume Xarelto and repeat CBC in am. 11/09/16 Leukocytosis -sepsis w/u negative during acute admission -WBC trending down. -Pleural fluid - cultures negative Normocytic anemia; iron deficiency (iron level was 18) -hgb improving - 8.4 today. Xarelto was resumed on 11/07/16. Continue to monitor for black stools. -s/p iron infusion; repeat iron studies are pending Depression & anorexia -continue mirtazapine - will need Rx at time of DC -recommend ongoing assessment in outpatient setting. Hypokalemia -resolved -remainder of electrolytes stable CAD s/p CABG/A-fib/HTN/HLD/PPM -per cardiology 11/12/16 White blood cell count continues to trend down. Chest x-ray is stable with left pleural effusion. Xarelto resumed 11/07/16. She'd had a positive Hemoccult on 10/31/16 - coinciding with a drop in her hemoglobin.. Negative Hemoccult on 11/10/16 and no further stools that have been concerning for blood. Hemoglobin is stable Continue mirtazapine - will need Rx at time of DC. Recommend ongoing assessment in outpatient setting. Time spent with patient: 25 - 35 minutes Discharge Plan - Med Rec/Dispo Referrals/Follow Up: Rodolfo Matson MD [Physician] - (Dr. Mora Matson on 11/21/16 at 3:30 pm for Follow-up. [facility] [address] [place] [address] [place] [id number]) Deepak Duarte MD [Family Provider] - (Dr. Corey Duarte on 11/30/16 at 2:20 pm for Hosp. follow-up. [address] [place] [address]) [place] Instructions: Pacemaker (DC) Additional Instructions: STOP Digoxin. Have labs rechecked in 3 days to follow up on kidney function and potassium while on the higher dose of Lasix. Check with Dr. Matson about ongoing Lasix dosing. Prescriptions: New Furosemide [Lasix] 40 mg PO DAILY #30 tab Anastrozole [Arimidex] 1 mg PO DAILY tablet Ascorbic Acid [Vitamin C] 500 mg PO WL tablet Ferrous Sulfate [Feosol] 324 mg PO WL #30 tab Continue Potassium Chloride ER Tab [K-Dur] 20 meq PO NOON #0 Calcium Carbonate/Vitamin D2 [[place]yster Shell Calcium-Vit D Tab] 1 tab PO NOON Aspirin [Adult Low Dose Aspirin EC] 81 mg PO DAILY Metoprolol Tartrate [Lopressor] 100 mg PO BID Losartan [Cozaar] 50 mg PO DAILY Nitroglycerin 0.4 mg SL Q5MIN3 PRN PRN Reason: Chest Pain Magnesium Oxide [Magox] 400 mg PO HS #30 tablet Mirtazapine [Remeron] 7.5 mg PO HS #30 tab Anastrozole 1 mg PO DAILY Atorvastatin [Lipitor] 20 mg PO HS Rivaroxaban [Xarelto] 20 mg PO NOON Citalopram [Celexa] 10 mg PO HS #30 tablet DiltiaZEM CD [Cardizem Cd] 120 mg PO DAILY #30 capsule Discontinued Furosemide [Lasix] 20 mg PO DAILY Minocycline [Minocin] 100 mg PO BID #9 capsule Discharge Instructions/Outpatient Orders: Final Provider Discharge Instructions Location: Determined By Patient BMP - Basic Metabolic - [facility] Time Frame: 3 Days, Location: Determined By Patient - Disposition [address] [place] [address]
== END 2016-11-13 15:20 | disposition home health service (06) | DRG 945 ==
PROVIDERS: ADMIT Internal Medicine; ATTEND Internal Medicine

== ENCOUNTER 2016-11-20 00:07 | Inpatient (IN) ==
[2016-11-20] MEDS ORDERED: DiltiaZEM 25 MG/5 ML INJECTION IVP ONE ×2 (00:24→00:27)
--- NOTE | 2016-11-20 00:35 | Emergency Department Report ---
General Adult HPI - General Chief complaint: Weakness Stated complaint: Weakness Time Seen by Provider: 11/20/16 00:09 Source: patient, EMS Mode of arrival: EMS Limitations: altered mental status - History of Present Illness HPI narrative: She presents via EMS with complaints of worsening dyspnea especially with laying flat, generalized weakness, and "feeling off." These are similar complaints to one month ago when the patient was admitted for atrial fibrillation with RVR, worsening pleural effusions status post CABG, with ongoing CAD, hypertension, dyslipidemia, and peripheral artery disease. 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 Recent also had thoracentesis for pleural effusion with removal of 800 cc of pleural fluid. After one week in the hospital the patient was transferred to [facility] for inpatient rehabilitation, and eventually dismissed on November 14 to home. Since returning home the patient has had persistent worsening shortness of breath, especially when laying flat, and has progressively weakened severely. Onset (ago): day(s) - Related Data Home Medications Medication Instructions Recorded Confirmed Potassium Chloride [K-Dur] 20 meq PO NOON #0 08/20/14 10/29/16 Anastrozole 1 mg PO DAILY 09/29/16 10/29/16 Aspirin [Adult Low Dose Aspirin EC] 81 mg PO DAILY 10/24/16 10/29/16 Atorvastatin [Lipitor] 20 mg PO HS 10/24/16 10/29/16 Calcium Carbonate/Vitamin D2 1 tab PO NOON 10/24/16 10/29/16 [Oyster Shell Calcium-Vit D Tab] Losartan [Cozaar] 50 mg PO DAILY 10/24/16 10/29/16 Metoprolol Tartrate [Lopressor] 100 mg PO BID 10/24/16 10/29/16 Nitroglycerin 0.4 mg SL Q5MIN3 PRN 10/24/16 10/29/16 Rivaroxaban [Xarelto] 20 mg PO NOON 10/24/16 10/29/16 Previous Rx's Medication Instructions Recorded Citalopram [Celexa] 10 mg PO HS #30 tablet 10/29/16 DiltiaZEM CD [Cardizem Cd] 120 mg PO DAILY #30 capsule 10/29/16 Magnesium Oxide [Magox] 400 mg PO HS #30 tablet 10/29/16 Anastrozole [Arimidex] 1 mg PO DAILY tablet 11/13/16 Ascorbic Acid [Vitamin C] 500 mg PO WL tablet 11/13/16 Ferrous Sulfate [Feosol] 324 mg PO WL #30 tab 11/13/16 Furosemide [Lasix] 40 mg PO DAILY #30 tab 11/13/16 Mirtazapine [Remeron] 7.5 mg PO HS #30 tab 11/13/16 Allergies Allergy/AdvReac Type Severity Reaction Status Date / Time lisinopril Allergy Unknown Verified 11/20/16 00:28 Penicillins Allergy Unknown Verified 11/20/16 00:28 Review of Systems All systems: reviewed and negative except as stated PFSH Patient Stated Medical History Cerebrovascular Accident Yes: 09/29/16, LT SIDE WEAKNESS Cataracts Yes Hearing Loss Yes Cardiac Arrhythmia Yes: afib Congestive Heart Failure Yes: PEDAL EDEMA Coronary Artery Disease Yes Heart Murmur Yes Hypertension Yes Myocardial Infarction Yes Other Cardiology Yes: MULTI-VESSEL DISEASE Sleep Apnea No Other Respiratory Yes: LEFT PLEURAL EFFUSION Constipation Yes Other GI Yes: CONSTIPATION Hx Incontinence No Hx Renal Disease No Other Hematologic Yes: LEUKOCYTOSIS Osteoarthritis Yes Depression Yes: MAJOR Eating Disorder Yes: ANOREXIA Other Behavioral Health Yes: ANHEDONIA Medical History Updates: Hypertension, Afib, CAD, tachy/bello syndrome with pauses, carotid artery stenoses, left exudative pleural effusion Surgical History: cataracts. 2016 bilateral CEAs. Echo September,. 1. Normal LV systolic function with ejection fraction of 60%. 2. Grossly, no intracardiac thrombus or mass. 3. Mitral annulus calcification with mild mitral regurgitation. 4. Aortic sclerosis with [id number] aortic insufficiency. 5. Mild tricuspid regurgitation with mild pulmonary hypertension with estimated pulmonary artery systolic pressure of 38. 6. Mild pulmonary insufficiency. 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 Jayro Plaza. 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 Matson. Thoracentesis with removal of 800 mL from left pleural effusion 10/27/[address] Sarkar. - Social History Smoking status: Former smoker Does patient use chewing tobacco?: No Current residence: Apartment/Private Home Physical Exam On supplemental oxygen at 2 L, patient saturates at 90%. Pt then required 4L to keep SaO2 at 89-90% - Limitations Limitations: no limitations - General General appearance: alert, in distress (patient appears severely weak, and has decreased level of consciousness.) - Normal Exams: Head:: Normocephalic without trauma Eyes:: Pupils are PERRLA w/ EOMI, No scleral icterus, irritation, or foreign bodies noted ENMT:: No facial trauma, nasal exudates, pharyngeal erythema, or exudates are noted Neck:: Full range of motion, without adenopathy, JVD, bruits or thyromegaly Abdomen:: Bowel sounds positive, soft, non-tender, non-distended, no hepatosplenomegaly, masses or bruits noted Lymphatic:: No lymphadenopathy, or lymphedema noted Musculoskeletal:: No tenderness, or deformity noted, good range of motion, all extremities Integumentary:: No rashes, hives, or bruising noted, hair and nails, without abnormality Neurological:: Patient is alert, and oriented, cranial nerves, motor/sensory/ cerebellar, exams w/o gross deficits, to observation Psychiatric:: Patient exhibits, appropriate attention, emotion and affect - Chest Chest inspection: Present: normal inspection, symmetric chest wall rise, tenderness (tenderness along CABG scar) - Respiratory Respiratory exam: Absent: normal lung sounds bilaterally (course lung sounds bilaterally with mild rhonchi, minimal crackles on began of inspiration only.), wheezes, accessory muscle use, prolonged expiratory phase Course Vital Signs Temperature 97.9 F 11/20/16 00:07 Pulse Rate 134 H 11/20/16 00:07 Respiratory Rate 29 H 11/20/16 00:07 Blood Pressure 130/93 H 11/20/16 00:07 Pulse Oximetry 78 L 11/20/16 00:07 Temperature 97.9 F 11/20/16 00:07 Pulse Rate 116 H 11/20/16 01:42 Respiratory Rate 32 H 11/20/16 01:42 Blood Pressure 130/93 H 11/20/16 00:07 Pulse Oximetry 95 11/20/16 01:42 Medical Decision Making - MDM Narrative Medical decision making narrative: Patient given Cardizem 15 mg with good response to a heart rate of 75-80 - and then rebounded back up into rapid ventricular response in the 120s to 140s. Patient remained hypoxemic without supplemental oxygen, did not seem to improve EKG shows atrial fibrillation with RVR, and occasional paced beats CBC - normal CMP - normal CXR - unchanged from previous, no focal consolidations other than left lower lobe effusion, but appears more dense than prior films Troponin- normal Case is discussed with Dr. Chambers on a, we will start the patient a Cardizem drip, admit outpatient to ICU, and carry on further treatment and evaluation. - Lab Data Result diagrams: 11/20/16 00:57 11/20/16 00:56 Lab Results 11/20/16 Range/Units 00:56 Turbidity < 20 (0-20) Sodium 143 (134-144) MEQ/L Potassium 4.9 (3.6-5) MEQ/L Chloride 98 (98-107) MEQ/L Carbon Dioxide 38 H (22-30) MEQ/L Anion Gap 7 (5-15) MEQ/L BUN 32.0 H (7-17) MG/DL Creatinine 0.6 L (0.7-1.2) MG/DL GFR Calculation 96 BUN/Creatinine Ratio 53 H (6-26) RATIO Glucose 124 H (65-110) MG/DL Calculated Osmolality 283 H (261-280) MOSM/KG Calcium 10.2 (8.4-10.2) MG/DL Total Bilirubin 0.60 (0.20-1.30) MG/DL Conjugated Bilirubin 0.00 (0.00-0.30) MG/DL Unconjugated Bilirubin 0.20 (0.00-11.10) MG/DL Icterus Index < 2 (0-7) AST 24 (14-36) U/L ALT 40 (9-52) U/L Alkaline Phosphatase 80 (38-126) U/L Troponin I < 0.012 (0-0.12) ng/ml Total Protein 6.9 (6.3-8.2) G/DL Albumin 3.9 (3.5-5.0) G/DL Globulin 3.0 (2.4-3.6) G/DL Albumin/Globulin Ratio 1.3 (1.1-2.2) RATIO Specimen Hemolysis < 15 (0-25) Critical Care Time Critical Care Time: Yes Total Critical Care Time: 35 Attestation: Pt required significant intervention for hypoxemia, tachycardia, and dyspnea. Disposition Clinical Impression: Atrial fibrillation with RVR Disposition: Discharged Home, Self-Care Condition: Stable Prescriptions: No Action Potassium Chloride [K-Dur] 20 meq PO NOON #0 Calcium Carbonate/Vitamin D2 [Oyster Shell Calcium-Vit D Tab] 1 tab PO NOON Aspirin [Adult Low Dose Aspirin EC] 81 mg PO DAILY Metoprolol Tartrate [Lopressor] 100 mg PO BID Losartan [Cozaar] 50 mg PO DAILY Nitroglycerin 0.4 mg SL Q5MIN3 PRN PRN Reason: Chest Pain Magnesium Oxide [Magox] 400 mg PO HS #30 tablet Furosemide [Lasix] 40 mg PO DAILY #30 tab Mirtazapine [Remeron] 7.5 mg PO HS #30 tab Anastrozole [Arimidex] 1 mg PO DAILY tablet Anastrozole 1 mg PO DAILY Atorvastatin [Lipitor] 20 mg PO HS Rivaroxaban [Xarelto] 20 mg PO NOON Citalopram [Celexa] 10 mg PO HS #30 tablet DiltiaZEM CD [Cardizem Cd] 120 mg PO DAILY #30 capsule Ascorbic Acid [Vitamin C] 500 mg PO WL tablet Ferrous Sulfate [Feosol] 324 mg PO WL #30 tab Referrals: Deepak Duarte MD [Family Provider] - - Seen By: physician
[2016-11-20] MEDS: SALINE FLUSH 10ml SYRINGE IVF PRN (00:54)
[2016-11-20] MEDS ORDERED: SODIUM CL 0.9% AEROSOL ONE (01:07)
[2016-11-20] MEDS ORDERED: BISACODYL 10 MG SUPPOSITORY RECTALLY PRN (02:45)
[2016-11-20] MEDS ORDERED: ONDANSETRON 4 MG/2 ML INJECTION IVP PRN (02:45)
[2016-11-20] MEDS ORDERED: FUROSEMIDE 40 MG/4 ML INJECTION IVP SCH (03:45)
[2016-11-20] MEDS: DiltiaZEM Drip 125 MG in NS 100 ML IV SCH ×2 (04:15→20:57)
[2016-11-20] MEDS: ALBUTEROL/IPRATROPIUM 2.5mg-0.5mg/3ml NEB AEROSOL SCH ×4 (05:10→17:01)
[2016-11-20] MEDS: BUDESONIDE INH.SOLN 0.5mg/2ml NEB AEROSOL SCH ×3 (05:11→20:42)
--- NOTE | 2016-11-20 08:16 | Cardiology History & Physical ---
History of Present Illness Chief complaint: Atrial Fibrillation HPI: CC: Atrial Fibrillation Mrs. Machado is an 81-year old elderly female who presented to the ER lat night per EMS with c/o worsening dyspnea with orthopnea, generalized weakness and feeling "off". She had recently been admitted one month ago with the same type of complaints at which time she had been in Afib w/RVR & worsening pleural effusions s/p CABG that eventually lead to a thoracentesis. While being tx for her Afib at that time she also developed SSS and had a PMI. She has on going tx for CAD, HTN, dyslipidemia and PAD. She also has h/o CVA with left side weakness. With her most recent admission she was eventually transferred from the surgical unit to IRU for inpatient rehab and discharged to home with her and HH on 11/14/2016.Was also discharged home on O2. Since her return home her breathing has worsened, especially when laying flat; and she has become severely weakened. While in ER she was found to again be in Afib w/RVR and was admitted to CCU on Cardizem gtt. Was then notified by RN that Mrs. Machado had significant 3-4+ pitting edema to her BLE & congested lung sounds. The RN also stated that patient has significant weakness and that were barely able to transfer her to the bed. At that time orders to give IVP lasix and place a donovan. When she asked the patient if she has been taking her "water pill " the patient stated that she quit taking it because, "why would I keep taking a water pill when I keep getting water in my legs". Though later in the AM her brought in all her home medications and he states that she has been getting all her medications, including her diuretics. He states that reasoning for coming in last night was that the patient developed an nonproductive cough that would not go away and had increased SOA. Patient denies any CP/pressure, palpitations, N/V, diaphoresis. Also noted leukocytosis with lab and a positive UA that has cx pending. She also denies any fever, chills, flank pain, urine frequency, hematuria, dysuria. Review of Systems - Constitutional Constitutional: Present: anorexia, fatigue, weakness - EENMT Eyes: Absent: change in vision Balance: Absent: vertigo, falling to one side Mouth/Throat: Absent: sore throat, changes in swallowing - Cardiovascular Cardiovascular: Present: dyspnea on exertion, orthopnea, edema. Absent: chest pain, palpitations, syncope Rhythm: Present: abnormal rhythm (Afib) Vascular: Present: pedal edema, unilateral swelling - Gastrointestinal Gastrointestinal: Absent: abdominal pain, change in bowel habits, dysphagia, nausea, vomiting - Genitourinary Genitourinary: Absent: difficulty urinating, dysuria, flank pain - Musculoskeletal Musculoskeletal: Present: muscle weakness - Integumentary/Breasts Integumentary: Absent: erythema, rash - Neurological Neurological: Present: confusion, weakness. Absent: dizziness, vertigo - Psychiatric Psychiatric: Present: depression PFSH Patient Stated Medical History Cerebrovascular Accident Yes: 09/29/16, LT SIDE WEAKNESS Cataracts Yes Hearing Loss Yes Cardiac Arrhythmia Yes: afib Congestive Heart Failure Yes: PEDAL EDEMA Coronary Artery Disease Yes Heart Murmur Yes Hypertension Yes Myocardial Infarction Yes Other Cardiology Yes: MULTI-VESSEL DISEASE Sleep Apnea No Other Respiratory Yes: LEFT PLEURAL EFFUSION Other GI Yes: CONSTIPATION Hx Incontinence No Hx Renal Disease No Other Hematologic Yes: LEUKOCYTOSIS Osteoarthritis Yes Depression Yes: MAJOR Eating Disorder Yes: ANOREXIA Other Behavioral Health Yes: ANHEDONIA Medical History Updates: Hypertension, Afib, CAD, tachy/bello syndrome with pauses, carotid artery stenoses, left exudative pleural effusion Surgical History: cataracts. 2016 bilateral CEAs. Echo September,. 1. Normal LV systolic function with ejection fraction of 60%. 2. Grossly, no intracardiac thrombus or mass. 3. Mitral annulus calcification with mild mitral regurgitation. 4. Aortic sclerosis with aqil-io-lisspfeh aortic insufficiency. 5. Mild tricuspid regurgitation with mild pulmonary hypertension with estimated pulmonary artery systolic pressure of 38. 6. Mild pulmonary insufficiency. 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 Jayro Plaza. 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 Matson. Thoracentesis with removal of 800 mL from left pleural effusion 10/27/[address] Sarkar. - Social History Smoking status: Former smoker Substance use type: does not use Alcohol intake frequency: does not drink Housing: house Household members: spouse Medications Home Medications Medication Instructions Recorded Confirmed Type Potassium Chloride [K-Dur] 20 meq PO NOON #0 08/20/14 11/20/16 History Anastrozole 1 mg PO DAILY 09/29/16 10/29/16 History Aspirin [Adult Low Dose Aspirin EC] 81 mg PO DAILY 10/24/16 11/20/16 History Atorvastatin [Lipitor] 20 mg PO HS 10/24/16 11/20/16 History Calcium Carbonate/Vitamin D2 1 tab PO NOON 10/24/16 11/20/16 History [Oyster Shell Calcium-Vit D Tab] Losartan [Cozaar] 50 mg PO DAILY 10/24/16 11/20/16 History Metoprolol Tartrate [Lopressor] 100 mg PO BID 10/24/16 11/20/16 History Nitroglycerin 0.4 mg SL Q5MIN3 PRN 10/24/16 11/20/16 History Rivaroxaban [Xarelto] 20 mg PO NOON 10/24/16 11/20/16 History Ferrous Sulfate [Feosol] 325 mg PO WL 11/20/16 11/20/16 History Allergies Allergy/AdvReac Type Severity Reaction Status Date / Time lisinopril Allergy Unknown Verified 11/20/16 00:28 Penicillins Allergy Unknown Verified 11/20/16 00:28 Exam Vital signs: Temperature 98.1 F 11/20/16 03:45 Pulse Rate 123 H 11/20/16 04:45 Respiratory Rate 24 11/20/16 05:12 Blood Pressure 113/53 11/20/16 04:45 Pulse Oximetry 100 11/20/16 05:12 - Constitutional no acute distress, cooperative, somnolent - Routine HEENT Exam Head: Present: normocephalic Eye: Present: EOMI ENT: Present: mucous membranes moist - Routine Neck Exam Absent: JVD, carotid bruit, lymphadenopathy - Routine Respiratory Exam Present: dyspnea, decreased breath sounds, rhonchi. Absent: wheezes - Routine Cardiovascular Exam Present: irregular rhythm. Absent: gallop, rubs, JVD - Routine Abdominal Exam Present: soft, normoactive bowel sounds, non tender - Routine Extremities Exam Present: edema (3+-4+BLE), pulses intact (weak +DP pulses BLE) - Routine Skin Exam Present: intact, dry, warm. Absent: cyanosis, erythema, rash - Routine Neurological Exam Present: alert (oriented X2), normal speech - Routine Psychiatric Exam Present: cooperative, depressed. Absent: normal affect, normal thought process , good insight, good judgment, agitated Results 11/22/16 04:04 11/22/16 04:04 Laboratory Results - last 24 hr 11/20/16 11/20/16 11/20/16 00:56 00:57 00:57 WBC 12.0 H RBC 3.22 L Hgb 10.0 L Hct 34.2 L MCV 106.2 H MCH 31.1 MCHC 29.2 L RDW Std Deviation 63.0 H Plt Count 261 D MPV 10.0 Immature Gran % (Auto) 0.2 Neut % (Auto) 74.1 H Lymph % (Auto) 13.0 L [place] % (Auto) 10.4 H Eos % (Auto) 1.9 Baso % (Auto) 0.4 Neut # 8.9 H Lymph # 1.6 [place] # 1.3 H Eos # 0.2 Baso # 0.1 Abs Immat Gran (auto) 0.02 Turbidity < 20 Sodium 143 Potassium 4.9 Chloride 98 Carbon Dioxide 38 H Anion Gap 7 BUN 32.0 H Creatinine 0.6 L GFR Calculation 96 BUN/Creatinine Ratio 53 H Glucose 124 H Calculated Osmolality 283 H Calcium 10.2 Magnesium 2.3 Total Bilirubin 0.60 Conjugated Bilirubin 0.00 Unconjugated Bilirubin 0.20 Icterus Index < 2 AST 24 ALT 40 Alkaline Phosphatase 80 Troponin I < 0.012 Total Protein 6.9 Albumin 3.9 Globulin 3.0 Albumin/Globulin Ratio 1.3 TSH 3.38 Specimen Hemolysis < 15 Ur Collection Type Urine Color Urine Clarity Urine pH Ur Specific [place] Urine Protein Urine Glucose (UA) Urine Ketones Urine Occult Blood Urine Nitrate Urine Bilirubin Urine Urobilinogen Ur Leukocyte Esterase Urine RBC Urine WBC Urine Bacteria Ur Culture Indicated? 11/20/16 04:17 WBC RBC Hgb Hct MCV MCH MCHC RDW Std Deviation Plt Count MPV Immature Gran % (Auto) Neut % (Auto) Lymph % (Auto) [place] % (Auto) Eos % (Auto) Baso % (Auto) Neut # Lymph # [place] # Eos # Baso # Abs Immat Gran (auto) Turbidity Sodium Potassium Chloride Carbon Dioxide Anion Gap BUN Creatinine GFR Calculation BUN/Creatinine Ratio Glucose Calculated Osmolality Calcium Magnesium Total Bilirubin Conjugated Bilirubin Unconjugated Bilirubin Icterus Index AST ALT Alkaline Phosphatase Troponin I Total Protein Albumin Globulin Albumin/Globulin Ratio TSH Specimen Hemolysis Ur Collection Type Urine, clean catch Urine Color Yellow Urine Clarity Cloudy Urine pH 6.0 Ur Specific [place] 1.020 Urine Protein 1+ A Urine Glucose (UA) Negative Urine Ketones Trace A Urine Occult Blood 2+ A Urine Nitrate Positive A Urine Bilirubin Negative Urine Urobilinogen 0.2 Ur Leukocyte Esterase 2+ A Urine RBC 3-5 H Urine WBC 20-30 H Urine Bacteria 3+ H Ur Culture Indicated? Cult reflexed &setup Intake and Output 11/19/16 11/20/16 11/20/16 22:59 06:59 14:59 Intake Total Output Total 475 / 475 Balance -474 / -474 Intake: IV Cardizem IV 125 mg In Normal Saline 100 ml @ 0 mls/hr IV PRN [facility] Rx#: [id number] Output: Urine Amount (Catheter) 475 / 475 Other: Urine Appearance Cloudy Urine Color Yellow Urine Odor Foul Weight 75.8 kg Home Medications Medication Instructions Recorded Confirmed Potassium Chloride [K-Dur] 20 meq PO NOON #0 08/20/14 11/20/16 Anastrozole 1 mg PO DAILY 09/29/16 10/29/16 Aspirin [Adult Low Dose Aspirin EC] 81 mg PO DAILY 10/24/16 11/20/16 Atorvastatin [Lipitor] 20 mg PO HS 10/24/16 11/20/16 Calcium Carbonate/Vitamin D2 1 tab PO NOON 10/24/16 11/20/16 [Oyster Shell Calcium-Vit D Tab] Losartan [Cozaar] 50 mg PO DAILY 10/24/16 11/20/16 Metoprolol Tartrate [Lopressor] 100 mg PO BID 10/24/16 11/20/16 Nitroglycerin 0.4 mg SL Q5MIN3 PRN 10/24/16 11/20/16 Rivaroxaban [Xarelto] 20 mg PO NOON 10/24/16 11/20/16 Ferrous Sulfate [Feosol] 325 mg PO WL 11/20/16 11/20/16 Previous Rx's Medication Instructions Recorded Citalopram [Celexa] 10 mg PO HS #30 tablet 10/29/16 DiltiaZEM CD [Cardizem Cd] 120 mg PO DAILY #30 capsule 10/29/16 Magnesium Oxide [Magox] 400 mg PO HS #30 tablet 10/29/16 Anastrozole [Arimidex] 1 mg PO DAILY tablet 11/13/16 Ascorbic Acid [Vitamin C] 500 mg PO WL tablet 11/13/16 Furosemide [Lasix] 40 mg PO DAILY #30 tab 11/13/16 Mirtazapine [Remeron] 7.5 mg PO HS #30 tab 11/13/16 Generic Name Dose Route Start Last Admin Trade Name Freq PRN Reason Stop Dose Admin Albuterol/Ipratropium 3 ml 11/20/16 09:00 11/20/16 10:11 Duoneb AEROSOL 3 ml QID RICHARD Administration Anastrozole 1 mg 11/20/16 10:15 11/20/16 11:20 Arimidex PO 1 mg DAILY RICHARD Administration Ascorbic Acid 500 mg 11/20/16 12:00 11/20/16 12:06 Vitamin C PO 500 mg [facility] Administration Aspirin 81 mg 11/20/16 10:15 11/20/16 11:21 Ecotrin PO 81 mg DAILY RICHARD Administration Atorvastatin Calcium 20 mg 11/20/16 21:[address] [facility] Bisacodyl 10 mg 11/20/16 02:45 Dulcolax RECTALLY DAILY PRN Constipation Budesonide 0.5 mg 11/20/16 05:00 11/20/16 10:11 Pulmicort Inhalation AEROSOL 0.5 mg RTBID [facility] Administration Calcium/Vitamin D 1 tab 11/20/16 12:00 11/20/16 11:25 Os Martin-D 500 PO 1 tab NOON [facility] Administration Citalopram Hydrobromide 10 mg 11/20/16 21:[address] [facility] Ferrous Sulfate 324 mg 11/20/16 12:00 11/20/16 11:24 Feosol PO 324 mg [facility] Administration Furosemide 40 mg 11/20/16 10:15 11/20/16 11:22 Lasix IVP 40 mg Q6HR RICHARD Administration Diltiazem HCl 125 mg/ Sodium 125 mls @ 0 mls/hr 11/20/16 02:15 11/20/16 04:27 Chloride IV 10 mls/hr PRN RICHARD Infusion Protocol Ceftriaxone Sodium 1 g/ Sodium 100 mls @ 200 mls/hr 11/20/16 11:45 11/20/16 12:02 Chloride IV 200 mls/hr Q12H RICHARD Administration Losartan Potassium 50 mg 11/20/16 10:15 11/20/16 11:21 Cozaar PO 50 mg DAILY RICHARD Administration Magnesium Hydroxide 30 ml 11/20/16 02:45 Mom PO DAILY PRN Consitpation Magnesium Oxide 400 mg 11/20/16 21:00 Magox PO HS [facility] Metoprolol Tartrate 50 mg 11/20/16 10:15 11/20/16 11:43 Lopressor PO Not Given BIDWM RICHARD Metoprolol Tartrate 100 mg 11/20/16 11:00 11/20/16 11:29 Lopressor PO 100 mg BIDWM RICHARD Administration Mirtazapine 7.5 mg 11/20/16 21:00 Remeron PO HS [facility] Nitroglycerin 0.4 mg 11/20/16 10:04 Nitrostat SL Q5MIN3 PRN Chest pain Ondansetron HCl 4 mg 11/20/16 02:45 Zofran IVP Q6H PRN Nausea Potassium Chloride 20 meq 11/20/16 10:15 11/20/16 12:02 K-Dur PO Not Given TIDWM [facility] Rivaroxaban 20 mg 11/20/16 12:00 11/20/16 11:26 Xarelto PO 20 mg NOON RICHARD Administration Sodium Chloride 10 - 80 ml 11/20/16 00:21 11/20/16 00:54 Iv Flush IVF 10 ml PRN PRN Administration Flushing Sodium Chloride 500 ml 11/20/16 11:52 11/20/16 12:03 Normal Saline IV 500 ml PRN PRN Administration Discontinued Medications Generic Name Dose Route Start Last Admin Trade Name Freq PRN Reason Stop Dose Admin Diltiazem HCl 20 mg 11/20/16 00:24 Cardizem IVP 11/20/16 00:25 O ONE Diltiazem HCl 15 mg 11/20/16 00:27 11/20/16 00:51 Cardizem IVP 11/20/16 00:28 15 mg O ONE Administration Furosemide 40 mg 11/20/16 03:45 11/20/16 04:19 Lasix IVP 40 mg O RICHARD Administration Sodium Chloride 3 ml 11/20/16 01:07 Sodium Chloride 0.9% Inhal AEROSOL 11/20/16 01:08 O ONE - Imaging and Cardiology EKG results: pending (pending EKG for this AM) - EKG Interpretation EKG shows: atrial fibrillation EKG interpretations - EKG EKG shows: atrial fibrillation Hospital Course This is a general summary of the patient's hospital course. For more details refer to the complete medical record. Time spent with patient: greater than 35 minutes DVT Prophylaxis: Xarelto Assessment and Plan (1) Atrial fibrillation with RVR Current visit: Yes Status: Acute Holding PO Cardizem. Started Cardizem gtt. Con't Xarelto and Metoprolol 100mg BID with hold parameters. Repeat EKG in AM. Echo 09/2016:1. Normal LV systolic function with EF 60%. 2. Grossly, no intracardiac thrombus or mass. 3. Mitral annulus calcification with mild mitral regurgitation.4.Aortic sclerosis with [id number] aortic insufficiency. 5.Mild tricuspid regurgitation with mild PHTN with estimated PASP of 38. 6. Mild pulmonary insufficiency. (2) Pleural effusion Current visit: No Status: Acute Left pleural effusion noted with CXR. Increased BLE edema as well. Con't O2. Initiated RCAT. Starting Lasix 40mg IVP q6H with KCL. Placed donoavn.Monitor lab, wts, and I&O's. (3) Cystitis Current visit: Yes Status: Acute WBC 12.0. UA:2+blood, 2+ lekocyte estrase, 20-30 WBC, 3+bacteria. Afebrile. Consulted for management (Thank you). (4) Anemia Current visit: No Status: Acute Hgb 10.0, h/o normocytic anemia, iron deficiency. Con't Ferrous sulfate. (5) CVA (cerebral vascular accident) Current visit: No Status: Acute Left sided weakness. Increasing generalized weakness. Con't xarelto. Consult PT /OT for eval and tx. (6) S/P 2-vessel coronary artery bypass Current visit: No Status: Chronic CABGx2 09/2016 post NSTEMI. Con't statin, ASA, BB and ARB. (7) Coronary artery disease Current visit: No Status: Chronic s/p CABG x2. Con't ASA, Statin, BB,ARB and Xarelto. (8) PAD (peripheral artery disease) Current visit: No Status: Chronic Con't statin, ASA. Patient is on Xarelo for Afib/CVA. (9) HTN (hypertension) Current visit: No Status: Chronic Stable. Some lower readings early AM. Will monitor with home meds and Cardizem gtt. Con't Loartan 50mg daily and Metoprolol 100mg BID. (10) Dyslipidemia Current visit: No Status: Chronic Con't Atorvastatin 20mg Daily. (11) Presence of permanent cardiac pacemaker Current visit: No Status: Acute Placed 2/2 SSS. Con't meds. (12) DVT prophylaxis Current visit: Yes Status: Acute Xarelto. - Attestation Attestation Narrative: 11/22/16 16:10 Recommendation After examining the patient I agree with the above assessment. I am involved in the formulation of the patient's plan of care. Sepsis Assessment - Evaluation Sepsis screening result: No Definite Risk Addendum entered and electronically signed by Cayla Donovan APRN 11/20/16 21: 00: Was notified by later in the afternoon that further review of medications brought by Mrs. Machado's showed no Metoprolol and no Cardizem. Unsure that patient has been compliant with these medications since prior admit and Afib may not be d/t failed tx, but non-treatment. RN notified that patient has been compliant with Xarelto as she gave patient the last pill from her bottle. Consulted Case management for discharge planning to assess home needs/placement on discharge. Also assessed patient one last time in CCU prior to leaving and SBP were in the 70-80's, she was asymptomatic. Ordered 500cc NS IVF bolus, placed a hold on home med Losartan and decreased Metoprolol to 50mg BID with hold parameters of SBP<100, HR<60. Notified at this time as well.
[2016-11-20] MEDS ORDERED: NITROGLYCERIN 0.4 MG SUBLINGUAL TABLET SL PRN (10:04)
[2016-11-20] MEDS ORDERED: --POM--LOSARTAN 50 MG TABLET PO SCH (10:15)
[2016-11-20] MEDS ORDERED: --POM--METOPROLOL TARTRATE 100mg TABLET PO SCH ×2 (11:00→17:30)
[2016-11-20] MEDS: ANASTROZOLE 1 MG TABLET PO SCH (11:20)
[2016-11-20] MEDS: ASPIRIN *EC* 81 MG TABLET PO SCH (11:21)
[2016-11-20] MEDS: FUROSEMIDE 40 MG/4 ML INJECTION IVP SCH ×4 (11:22→21:04)
[2016-11-20] MEDS: FERROUS SULFATE 324 MG TABLET PO SCH (11:24)
[2016-11-20] MEDS: CALCIUM 500 + VIT D 200 TABLET PO SCH (11:25)
[2016-11-20] MEDS: RIVAROXABAN 20 MG TABLET PO SCH (11:26)
--- NOTE | 2016-11-20 11:35 | Consult Note ---
<Karli King V - Last Filed: 11/20/16 12:40> Consult Information - Data of Consult Patient: known to practice within the last 3 years Consult date: 11/20/16 Requesting Physician: Rodolfo Matson MD Primary Care Provider: Deepak Duarte MD Family Provider: Deepak Duarte MD - Consult Narrative Reason for consult: UTI, Pleural effusions History of present illness: Belen is a 81 yr old female who is well known to the hospitalist services. She was recently admitted to the IRU unit and was medically managed by the hospitalist team. She has multiple complex comorbidities including Recent CVA, Chronic A-fib, S/P CABG (09/2016) and ongoing pleural effusion. She was discharged from IRU on Sunday11/13/16 and went home with her . Since that time she has been receiving home health. Yesterday late in the afternoon she felt more short of breath and last evening while getting ready for bed was unable to lie back as this causes significant dyspnea. 911 was contacted patient was brought to the emergency room for further acute evaluation. On arrival to the emergency room. She was found to be in atrial fibrillation with RVR 120s to 130s. She received 2 separate doses of IV Cardizem was administrated for cardiac rate control. Further medical evaluation was completed. The WBC count was found to be slightly elevated at 12.0, hemoglobin 10, hematocrit 34.2, platelet count 261. Sodium is 143, potassium 4.3, BUN 32, creatinine 0.6, glucose 124. Magnesium 2.3. Troponin negative, TSH 3.38. A urinalysis is obtained found to have 1+ protein, trace ketones, 2+ blood, positive nitrates, 2+ leukocyte esterase with 20-30 WBCs and 3-5 RBCs. Chest x- ray does reveal a left-sided pleural effusion which has been ongoing. Patient did receive a thoracentesis on 10/27/16 at which time 100 ML's of fluid was removed. Dr Matson admitted Patient to the ICU for further cardiac and rate management. Hospitalist services were consulted for medical management of patient's multiple existing comorbidities as well as acute urinary tract infection. [facility] [place] Patient Stated Medical History CVA -right occipital lobe and left cerebellum - September, Normocytic anemia; iron deficiency anemia LLL pleural effusion, s/p thoracentesis 10/27/16 with 800 mL fluid removed. Hypoxia- with home oxygen Situational depression Anorexia Atrial fibrillation on Xarelto, ASA CAD, recent CABGx2 10/04/16 Acute ischemic stroke involving the posterior circulation in the right occipital lobe and left cerebellum in September, History of peripheral vascular disease with bilateral carotid endarterectomies in the remote past Hypertension Hyperlipidemia History of breast cancer Surgical History: cataracts. 2016 bilateral CEAs. Echo September,. 1. Normal LV systolic function with ejection fraction of 60%. 2. Grossly, no intracardiac thrombus or mass. 3. Mitral annulus calcification with mild mitral regurgitation. 4. Aortic sclerosis with [id number] aortic insufficiency. 5. Mild tricuspid regurgitation with mild pulmonary hypertension with estimated pulmonary artery systolic pressure of 38. 6. Mild pulmonary insufficiency. 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 Jayro Plaza. 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 Matson. Thoracentesis with removal of 800 mL from left pleural effusion 10/27/[address] Sarkar. 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[place] CABG- Dr Plaza Review of Systems ROS unobtainable: other Review of systems: Patient does not answer any ROS Medications Home Medications Medication Instructions Recorded Confirmed Type Potassium Chloride [K-Dur] 20 meq PO NOON #0 08/20/14 11/20/16 History Anastrozole 1 mg PO DAILY 09/29/16 10/29/16 History Aspirin [Adult Low Dose Aspirin EC] 81 mg PO DAILY 10/24/16 11/20/16 History Atorvastatin [Lipitor] 20 mg PO HS 10/24/16 11/20/16 History Calcium Carbonate/Vitamin D2 1 tab PO NOON 10/24/16 11/20/16 History [Oyster Shell Calcium-Vit D Tab] Losartan [Cozaar] 50 mg PO DAILY 10/24/16 11/20/16 History Metoprolol Tartrate [Lopressor] 100 mg PO BID 10/24/16 11/20/16 History Nitroglycerin 0.4 mg SL Q5MIN3 PRN 10/24/16 11/20/16 History Rivaroxaban [Xarelto] 20 mg PO NOON 10/24/16 11/20/16 History Ferrous Sulfate [Feosol] 325 mg PO WL 11/20/16 11/20/16 History Allergies Allergy/AdvReac Type Severity Reaction Status Date / Time lisinopril Allergy Unknown Verified 11/20/16 00:28 Penicillins Allergy Unknown Verified 11/20/16 00:28 Exam Vital Signs: Temperature 98.1 F 11/20/16 08:31 Pulse Rate 86 11/20/16 08:35 Respiratory Rate 19 11/20/16 10:05 Blood Pressure 121/55 11/20/16 08:31 Pulse Oximetry 96 11/20/16 10:05 Telemetry Rhythm: A-fib Height/Weight/BMI: Height 1.68 m Weight 75.2 kg Body Mass Index 26.9 - Constitutional Present: no acute distress, well nourished, well developed - Routine HEENT Exam ENT: Present: mucous membranes moist - Routine Respiratory Exam Present: diminished air movement (Bilaterally). Absent: wheezes - Routine Cardiovascular Exam Present: S1, S2, irregular rhythm. Absent: murmur - Routine Abdominal Exam Present: soft, normoactive bowel sounds, non distended. Absent: tenderness - Routine Extremities Exam Present: edema (3+ bilateral lower extremity edema), pulses intact - Routine Skin Exam Present: dry, warm - Routine Neurological Exam Present: alert Will briefly open eyes - Routine Psychiatric Exam Present: cooperative Results - Labs CBC & Chem 7: 11/20/16 00:57 11/20/16 00:56 Microbiology Results: Microbiology 11/20/16 04:17 Urine, Cath Cummings Urine Culture - Preliminary Culture Initiated - Results Pending Assessment and Plan (1) Atrial fibrillation with RVR Current visit: Yes Status: Acute (2) Cystitis Current visit: Yes Status: Acute Assessment and Plan: Impression Atrial fibrillation with RVR Acute UTI Bilateral Lower extremity edema Pleural effusion- left CVA Hypoxia- with home oxygen Atrial fibrillation on Xarelto, ASA CAD, recent CABGx2 10/04/16 PVD Hypertension Hyperlipidemia Situational depression Anorexia History of breast cancer Plan Cardiovascular care and management under the care of Dr Matson. She is currently on a Cardizem drip for rate control. In light of Acute UTI, will start Rocephin 1 gm IV daily. Urine culture pending. Will monitor WBC, She did have persistent Leukocytosis during stay on IRU Recommend Aleksandar hose to bilateral lower ext to help with edema. Lasix 40 mg IV Q6hr for aggressive diuresis Weight is up 2 KG since discharge on 11/13. Monitor ongoing left pleural effusion. She continues to require oxygen Wound consult was placed for evaluation of peritoneal breakdown which may play a role in acute UTI. Will discuss further orders and plan of care with Dr Brand. Initiate medical consultation, the hospital service will continue to follow patient for medical management during her stay. At time of discharge medical care will return to primary care provider, Dr. Duarte Hospital Course Summary Disclaimer: The visit summary below is not to be considered part of the above Progress Note. Hospital Course: 11/20/16 Inital consult Impression Atrial fibrillation with RVR Acute UTI Bilateral Lower extremity edema Pleural effusion- left CVA Hypoxia- with home oxygen Atrial fibrillation on Xarelto, ASA CAD, recent CABGx2 10/04/16 PVD Hypertension Hyperlipidemia Situational depression Anorexia History of breast cancer Plan Cardiovascular care and management under the care of Dr Matson. She is currently on a Cardizem drip for rate control. In light of Acute UTI, will start Rocephin 1 gm IV daily. Urine culture pending. Will monitor WBC, She did have persistent Leukocytosis during stay on IRU Recommend Aleksandar hose to bilateral lower ext to help with edema. Lasix 40 mg IV Q6hr for aggressive diuresis Weight is up 2 KG since discharge on 11/13. Monitor ongoing left pleural effusion. She continues to require oxygen Wound consult was placed for evaluation of peritoneal breakdown which may play a role in acute UTI. Will discuss further orders and plan of care with Dr Brand. Sepsis Assessment - Evaluation Sepsis screening result: No Definite Risk <Cele Brand - Last Filed: 11/20/16 16:18> [facility] [place] Patient Stated Medical History Exam Vital Signs: Temperature 98.3 F 11/20/16 11:45 Pulse Rate 81 11/20/16 15:00 Respiratory Rate 25 H 11/20/16 15:00 Blood Pressure 91/48 11/20/16 15:00 Pulse Oximetry 99 11/20/16 15:00 Height/Weight/BMI: Height 1.68 m Weight 75.2 kg Body Mass Index 26.9 Results - Labs CBC & Chem 7: 11/20/16 00:57 11/20/16 00:56 Microbiology Results: Microbiology 11/20/16 04:17 Urine, Cath Cummings Urine Culture - Preliminary Culture Initiated - Results Pending Assessment and Plan (1) Atrial fibrillation with RVR Current visit: Yes Status: Acute (2) Cystitis Current visit: Yes Status: Acute Resuscitation Status: Do Not Resuscitate Assessment and Plan: I have independently evaluated and examined this patient. I reviewed the chart, the patient's history, and the LINING [employer]AMPER/PA's documented findings as above. We discussed and formulated the assessment and plan as above with additions as below: Mrs. Machado was finishing lunch when seen. Her was in the room and provided most of the history. The patient described onset of a cough but did not report dyspnea, chest pain, or palpitations prior to hospitalization. Her said they did not need to increase her oxygen and she remains on 2 L as she was on at recent discharge. additionally reports there've been no change in discharge medications (please note that above list of home medications does not reflect medications prescribed at discharge from rehabilitation on 11/13-in addition to the above medications the patient should have been on Cardizem CD 120 mg daily which it appears she has not been taking, mirtazapine 7.5 mg at bedtime which she was taking, Lasix 40 mg daily which was being taken, and magnesium oxide which was not being taken. It appears she was given a prescription for Celexa 10 mg a day at discharge from IRU which she is not taking and should not have been taking). The patient's reports that her edema had improved following discharge from rehabilitation and only returned in the past 2 days. No further history could be obtained from the patient. Patient appeared comfortable, systolic blood pressure was in the 80s when seen and heart rate was in the 70-80s with intermittent pacing and underlying atrial fibrillation. Flat affect evident, few verbal responses-worse than when last seen in IRU Respirations are nonlabored with good airflow, breath sounds are diminished especially at the left base posteriorly, no wheezing, no crackles Irregular rhythm Abdomen is soft and nontender +2 pitting edema bilateral lower extremities Hemoglobin 10-slightly improved with MCV 106.2-increased significantly over the past month; BUN 32, creatinine 6 ProBNP 3960; troponin nondetectable Chest x-ray reviewed by myself-left pleural effusion which appears to be slightly improved from prior film. In addition to above diagnoses please add: Macrocytic anemia Will review home medications with Mr. Machado in more detail but it appears that patient has not been taking Cardizem CD since discharge and this is probable cause of reverting back to A. fib with RVR. Rate is well controlled on diltiazem drip of blood pressure has dropped. Mild volume overload but no pulmonary compromise currently. Reassess vitamin B 12, reticulocyte count in light of rapidly climbing MCV. Patient was discharged on iron and vitamin C but last iron studies were normal and my recollection is that she received IV iron during prior course. Will review records for details. Discussed with cardiology. DO NOT RESUSCITATE confirmed. Hospital Course Summary Disclaimer: The visit summary below is not to be considered part of the above Progress Note.
[2016-11-20] MEDS: CEFTRIAXONE 1 G in NS 100 ML IV SCH (12:02)
[2016-11-20] MEDS: NS FLUSH BAG 500ml IV PRN (12:03)
[2016-11-20] MEDS: ASCORBIC ACID 500 MG TABLET PO SCH (12:06)
[2016-11-20] MEDS ORDERED: NS (Bact) 30ml INJECTION IV PRN (13:50)
--- NOTE | 2016-11-20 16:58 | XRay Report ---
Indication: recurrent pleural effusion PROCEDURE: XR chest 1V: Encounter: Initial Comparison: November 11, 2016 Findings: Minimal interval increase in the moderate-sized left pleural effusion with continued consolidation of the left lower lobe. No pneumothorax. Trace right effusion is stable. Heart size and mediastinal contours are unchanged. Pulmonary vascularity is stable. Right-sided calcified granuloma. Prior CABG and left pacemaker. Impression: Minimal increase in moderate left pleural effusion .
[2016-11-20] MEDS ORDERED: CITALOPRAM 10 MG TABLET PO SCH (21:00)
[2016-11-20] MEDS ORDERED: MIRTAZAPINE 15 MG PO SCH (21:00)
[2016-11-20] MEDS: ATORVASTATIN 20 MG TABLET PO SCH (21:03)
[2016-11-20] MEDS: MAGNESIUM OXIDE 400 MG TABLET PO SCH (21:03)
[2016-11-20] MEDS: MIRTAZAPINE 15 MG TABLET PO SCH (21:03)
[2016-11-21] MEDS: CEFTRIAXONE 1 G in NS 100 ML IV SCH ×3 (00:20→23:33)
[2016-11-21] MEDS: FUROSEMIDE 40 MG/4 ML INJECTION IVP SCH ×4 (03:04→20:45)
[2016-11-21] MEDS: ALBUTEROL/IPRATROPIUM 2.5mg-0.5mg/3ml NEB AEROSOL SCH ×4 (06:37→20:09)
[2016-11-21] MEDS: BUDESONIDE INH.SOLN 0.5mg/2ml NEB AEROSOL SCH ×2 (06:37→20:10)
[2016-11-21] MEDS: ANASTROZOLE 1 MG TABLET PO SCH (08:25)
[2016-11-21] MEDS: ASPIRIN *EC* 81 MG TABLET PO SCH (08:25)
[2016-11-21] MEDS ORDERED: LOSARTAN 50 MG TABLET PO SCH (09:00)
[2016-11-21] MEDS: DiltiaZEM Drip 125 MG in NS 100 ML IV SCH (10:33)
--- NOTE | 2016-11-21 11:11 | Cardiology Progress Note ---
Subjective Principal diagnosis: AFib with RVR <Norma Ann - 11/21/16 11:17> Interval history: Sayda is seen in her room in CCU in follow up for AFib RVR. She is currently in the recliner and is receiving a nebulizer treatment from . She states they picked up 2 new prescriptions after the last discharge, and looking at last discharge record she was started on several new medications. She denies chest pain or pressure, reports TAPIA and cough. <Norma Ann - 11/22/16 12:17> Exam Vital signs: Temperature 97 F 11/23/16 07:40 Pulse Rate 72 11/23/16 12:00 Respiratory Rate 20 11/23/16 12:00 Blood Pressure 103/45 11/23/16 12:00 Pulse Oximetry 92 11/23/16 13:40 <Rodolfo Matson - 11/23/16 16:35> Temperature 98.2 F 11/21/16 08:00 Pulse Rate 75 11/21/16 09:45 Respiratory Rate 22 11/21/16 09:45 Blood Pressure 94/47 11/21/16 09:00 Pulse Oximetry 99 11/21/16 09:45 <Norma Ann - 11/21/16 11:17> - Constitutional no acute distress, cooperative <Norma Ann 11/21/16 11:36> - Routine HEENT Exam Head: Present: normocephalic <Norma Ann 11/21/16 11:36> ENT: Present: mucous membranes moist <Norma Ann 11/21/16 11:36> - Routine Neck Exam Absent: JVD, carotid bruit <Norma Ann 11/21/16 11:36> - Routine Chest/Breast/Axilla Exam Chest wall: Present: pacemaker. Absent: tenderness <Norma Ann 11:36> - Routine Respiratory Exam Present: crackles (fine), diminished air movement. Absent: CTA bilaterally < Norma Ann 11/21/16 11:36> - Routine Cardiovascular Exam Present: murmur (III/), irregular rhythm. Absent: JVD <Norma Ann - 09/02 12:17> - Routine Abdominal Exam Present: soft, normoactive bowel sounds <Norma Ann 11/21/16 11:36> - Routine Extremities Exam Present: edema <Norma Ann 11/21/16 11:36> - Routine Skin Exam Present: intact, warm <Norma Ann 11/21/16 11:36> - Routine Neurological Exam Present: alert, oriented X3 <Norma Ann 11/21/16 11:36> - Routine Psychiatric Exam Present: normal affect, normal thought process <Norma Ann 11/21/16 11: 36> - Urinary Catheter Management Urethral Cath placed during this visit: no <Rodolfo Matson - 11/23/16 16:35> yes <Norma Ann 11/22/16 12:17> Insertion date: 11/20/16 <Norma Ann 11/21/16 11:17> Insertion time: 04:00 <Norma Ann 11/21/16 11:17> Progress Note-A&P (1) HTN (hypertension) Status: Chronic Current Visit: No (2) Dyslipidemia Status: Chronic Current Visit: No (3) PAD (peripheral artery disease) Status: Chronic Current Visit: No (4) Pleural effusion Status: Acute Current Visit: No (5) Coronary artery disease Status: Chronic Current Visit: No (6) S/P 2-vessel coronary artery bypass Status: Chronic Current Visit: No (7) Presence of permanent cardiac pacemaker Status: Acute Current Visit: No (8) CVA (cerebral vascular accident) Status: Acute Current Visit: No (9) Anemia Status: Acute Current Visit: No (10) Atrial fibrillation with RVR Status: Acute Current Visit: Yes (11) Cystitis Problem details: Escherichia coli Status: Acute Current Visit: Yes (12) DVT prophylaxis Status: Acute Current Visit: Yes <Rodolfo Matson - 11/23/16 16:35> (1) Atrial fibrillation with RVR Status: Acute Assessment and plan: Chronic, rate control is the goal. Restart Cardizem 120mg po and DC Cardizem drip. Continue BB at current dose, may need to increase for rate control. Current Visit: Yes (2) Pleural effusion Status: Acute Assessment and plan: Wears home O2. Continue to monitor Current Visit: No (3) HTN (hypertension) Status: Chronic Assessment and plan: has been hypotensive. BB cut in half, continue to monitor Current Visit: No (4) Dyslipidemia Status: Chronic Current Visit: No (5) PAD (peripheral artery disease) Status: Chronic Current Visit: No (6) Coronary artery disease Status: Chronic Current Visit: No (7) S/P 2-vessel coronary artery bypass Status: Chronic Current Visit: No (8) Presence of permanent cardiac pacemaker Status: Acute Current Visit: No (9) CVA (cerebral vascular accident) Status: Acute Current Visit: No (10) Anemia Status: Acute Assessment and plan: Hgb 8.5 today, from 10 yesterday. Continue to monitor Current Visit: No (11) Cystitis Status: Acute Current Visit: Yes (12) DVT prophylaxis Status: Acute Current Visit: Yes <Norma Ann - 11/22/16 12:17> - Time Spent With Patient Total time spent is greater than 50% in coordination of care (as documented) at patient's floor/unit and/or counseling patient: <Rodolfo Matson - 11/23/16 16:35> Total time spent is greater than 50% in coordination of care (as documented) at patient's floor/unit and/or counseling patient: <Norma Ann - 11/21/16 11:17> less than 15 minutes <Norma Ann - 11/21/16 15:22> - Attestation Attestation Narrative: Recommendation After examining the patient I agree with the above assessment. I am involved in the formulation of the patient's plan of care. <Rodolfo Matson - 11/23/16 16:35> Sepsis Assessment - Evaluation Sepsis screening result: No Definite Risk <Norma Ann - 11/21/16 11:17> Hospital Course Summary Disclaimer: The visit summary below is not to be considered part of the above Progress Note. <Rodolfo Matson - 11/23/16 16:35> The visit summary below is not to be considered part of the above Progress Note. <Norma Ann - 11/21/16 11:17> Hospital Course: 11/20/16 Inital consult Impression Atrial fibrillation with RVR Acute UTI Bilateral Lower extremity edema Pleural effusion- left CVA Hypoxia- with home oxygen Atrial fibrillation on Xarelto, ASA CAD, recent CABGx2 10/04/16 PVD Hypertension Hyperlipidemia Situational depression Anorexia History of breast cancer Plan Cardiovascular care and management under the care of Dr Matson. She is currently on a Cardizem drip for rate control. In light of Acute UTI, will start Rocephin 1 gm IV daily. Urine culture pending. Will monitor WBC, She did have persistent Leukocytosis during stay on IRU Recommend Aleksandar hose to bilateral lower ext to help with edema. Lasix 40 mg IV Q6hr for aggressive diuresis Weight is up 2 KG since discharge on 11/13. Monitor ongoing left pleural effusion. She continues to require oxygen Wound consult was placed for evaluation of peritoneal breakdown which may play a role in acute UTI. Will discuss further orders and plan of care with Dr Brand. 11/21/16 Cardiology AFib with RVR: Chronic, rate control is the goal. - Restart Cardizem 120mg po and DC Cardizem drip. - Continue BB at current dose, may need to increase for rate control. <Norma Ann - 11/22/16 12:17>
[2016-11-21] MEDS: FERROUS SULFATE 324 MG TABLET PO SCH (12:10)
[2016-11-21] MEDS: ASCORBIC ACID 500 MG TABLET PO SCH (12:11)
[2016-11-21] MEDS: CALCIUM 500 + VIT D 200 TABLET PO SCH (12:11)
[2016-11-21] MEDS: RIVAROXABAN 20 MG TABLET PO SCH (12:11)
--- NOTE | 2016-11-21 14:17 | Progress Note ---
Subjective: Mrs. Machado was up in a chair after breakfast when seen. She had ambulated in the unit prior to my arrival and her reported that she did quite well walking. The patient denies dyspnea or exertional dyspnea although had to stop and rest when she reached the doors of the unit before she returned to her room. She denies chest pain or palpitations, has had no nausea or vomiting, and denied lightheadedness while she ambulated. Her appetite was good this morning and she was able to get some rest overnight although complained that the blood pressure cuff bothered her frequently. Objective Vital signs: Temperature 98.2 F 11/21/16 12:00 Pulse Rate 91 11/21/16 13:30 Respiratory Rate 31 H 11/21/16 13:30 Blood Pressure 86/52 11/21/16 13:30 Pulse Oximetry 95 11/21/16 13:30 EXAM General-NAD, alert, more interactive than she was yesterday HEENT-conjunctiva clear, sclera anicteric, conjugate gaze Lungs-respirations nonlabored, good airflow, decreased breath sounds lower third of the left lung field and slightly coarse breath sounds with crackles at third to fpc up on the right Cardiac-irregular rhythm, S1-S2 Abd-soft, nontender, bowel sounds present Ext-+1-2 edema bilateral lower extremities, ALEKSANDAR hose on Neuro-MAEW Psych-flat affect but improved from yesterday - Rhythm: Atrial Fibrillation with Normal Ventricular Rate Height/Weight/BMI: Height 1.68 m Weight 66.2 kg Body Mass Index 26.9 Results - Labs CBC & Chem 7: 11/21/16 04:15 11/21/16 04:14 Labs: Liver enzymes unremarkable B-12, serum iron pending Microbiology Results: Microbiology 11/20/16 04:17 Urine, Cath Cummings Urine Culture - Preliminary Escherichia coli Assessment and Plan (1) Atrial fibrillation with RVR Current visit: Yes Status: Acute (2) Cystitis Current visit: Yes Status: Acute DVT Prophylaxis: Xarelto Resuscitation Status: Do Not Resuscitate Assessment and Plan: Impression Atrial fibrillation with RVR Acute UTI Bilateral Lower extremity edema Pleural effusion- left Macrocytic anemia CVA-right occipital lobe and left cerebellum, September, Hypoxia- with home oxygen Atrial fibrillation on Xarelto, ASA CAD, recent CABGx2 10/04/16 PVD Hypertension Hyperlipidemia Situational depression Anorexia History of breast cancer Plan Patient is comfortable this morning and ambulating. Remains on diltiazem drip with low normal blood pressures and occasional hypotension. Anticipate conversion to oral Cardizem per cardiology. Continue Xarelto. Urine culture with Escherichia coli, sensitivities pending. Continue ceftriaxone at present. B-12 and iron levels pending; confirmed that patient received IV iron during recent IRU stay. Doubt there is need to continue oral iron supplementation. Oxygenation stable, pleural effusion unchanged from recent past. Patient/ report edema has improved compared to immediately prior to hospitalization, continue ALEKSANDAR hose and elevation of legs. Patient is moderately hypercarbic, appears to have worsened over the past 2 months. Check a.m. ABG. Continue mirtazapine for depression-dose increased to 15 mg daily yesterday. Discussed with nursing and cardiology. Sepsis Assessment - Evaluation Sepsis screening result: No Definite Risk Hospital Course Summary Disclaimer: The visit summary below is not to be considered part of the above Progress Note. Hospital Course: 11/20/16 Inital consult Impression Atrial fibrillation with RVR Acute UTI Bilateral Lower extremity edema Pleural effusion- left CVA Hypoxia- with home oxygen Atrial fibrillation on Xarelto, ASA CAD, recent CABGx2 10/04/16 PVD Hypertension Hyperlipidemia Situational depression Anorexia History of breast cancer Plan Cardiovascular care and management under the care of Dr Matson. She is currently on a Cardizem drip for rate control. In light of Acute UTI, will start Rocephin 1 gm IV daily. Urine culture pending. Will monitor WBC, She did have persistent Leukocytosis during stay on IRU Recommend Aleksandar hose to bilateral lower ext to help with edema. Lasix 40 mg IV Q6hr for aggressive diuresis Weight is up 2 KG since discharge on 11/13. Monitor ongoing left pleural effusion. She continues to require oxygen Wound consult was placed for evaluation of peritoneal breakdown which may play a role in acute UTI. Will discuss further orders and plan of care with Dr Brand.
[2016-11-21] MEDS ORDERED: DIGOXIN 500 MCG/2 ML INJECTION IVP SCH ×2 (18:00→18:04)
[2016-11-21] MEDS ORDERED: ACETAMINOPHEN 325 MG TABLET PO PRN (20:26)
[2016-11-21] MEDS ORDERED: DiltiaZEM Drip 125 MG in NS 100 ML IV SCH (20:45)
[2016-11-21] MEDS: ATORVASTATIN 20 MG TABLET PO SCH (20:46)
[2016-11-21] MEDS: MAGNESIUM OXIDE 400 MG TABLET PO SCH (20:47)
[2016-11-21] MEDS: MIRTAZAPINE 15 MG TABLET PO SCH (20:47)
[2016-11-21] MEDS ORDERED: POM METOPROLOL TARTRATE 100mg TABLET PO SCH (21:00)
[2016-11-21] MEDS: NS FLUSH BAG 500ml IV PRN (23:33)
[2016-11-22] MEDS: FUROSEMIDE 40 MG/4 ML INJECTION IVP SCH ×2 (03:21→09:25)
[2016-11-22] MEDS: BUDESONIDE INH.SOLN 0.5mg/2ml NEB AEROSOL SCH ×2 (08:14→19:56)
[2016-11-22] MEDS: ALBUTEROL/IPRATROPIUM 2.5mg-0.5mg/3ml NEB AEROSOL SCH ×4 (08:14→19:56)
[2016-11-22] MEDS: ASPIRIN *EC* 81 MG TABLET PO SCH (09:25)
[2016-11-22] MEDS: ANASTROZOLE 1 MG TABLET PO SCH (09:25)
[2016-11-22] MEDS: CEFTRIAXONE 1 G in NS 100 ML IV SCH (11:48)
[2016-11-22] MEDS: SALINE FLUSH 10ml SYRINGE IVF PRN ×2 (11:49→21:06)
[2016-11-22] MEDS: ASCORBIC ACID 500 MG TABLET PO SCH (11:55)
--- NOTE | 2016-11-22 12:21 | Cardiology Progress Note ---
Subjective Principal diagnosis: AFib with RVR <Norma Ann - 11/22/16 12:27> Interval history: Sayda is seen in follow up for AFib RVR. She is in the recliner, her is at the bedside. She denies chest pain or pressure, reports TAPIA and cough. <Norma Ann - 11/22/16 12:27> Exam Vital signs: Temperature 97 F 11/23/16 07:40 Pulse Rate 72 11/23/16 12:00 Respiratory Rate 20 11/23/16 12:00 Blood Pressure 103/45 11/23/16 12:00 Pulse Oximetry 92 11/23/16 13:40 <Rodolfo Matson - 11/23/16 16:41> Temperature 98.3 F 11/22/16 08:15 Pulse Rate 91 11/22/16 12:01 Respiratory Rate 31 H 11/22/16 12:01 Blood Pressure 122/56 11/22/16 12:01 Pulse Oximetry 89 L 11/22/16 12:01 <Norma Ann - 11/22/16 12:27> - Constitutional no acute distress, well nourished, cooperative <Norma Ann 11/22/16 12: 27> - Routine HEENT Exam Head: Present: normocephalic <Norma Ann 11/22/16 12:27> ENT: Present: mucous membranes moist <Norma Ann 11/22/16 12:27> - Routine Neck Exam Absent: JVD, carotid bruit <Norma Ann 11/22/16 12:27> - Routine Chest/Breast/Axilla Exam Chest wall: Present: pacemaker. Absent: tenderness <Norma Ann 12:27> - Routine Respiratory Exam Present: crackles (fine), diminished air movement <Norma Ann 11/22/16 12:27> - Routine Cardiovascular Exam Present: murmur (III/), tachycardia, irregular rhythm. Absent: JVD < Norma Ann 11/22/16 12:27> - Routine Abdominal Exam Present: soft, normoactive bowel sounds <Norma Ann 11/22/16 12:27> - Routine Extremities Exam Present: edema <Norma Ann - 11/22/16 12:27> - Routine Skin Exam Present: intact, dry, warm <Norma Ann - 11/22/16 12:27> - Routine Neurological Exam Present: alert, oriented X3 <Norma Ann - 11/22/16 12:27> - Routine Psychiatric Exam Present: normal affect, normal thought process <Norma Ann - 11/22/16 12: 27> - Additional findings Additional findings: Laboratory Results - last 48 hr 11/20/16 11/21/16 11/21/16 00:59 04:14 04:15 WBC 9.4 RBC 2.79 L Hgb 8.5 L D Hct 29.3 L D MCV 105.0 H MCH 30.5 MCHC 29.0 L RDW Std Deviation 62.7 H Plt Count 217 MPV 10.0 Immature Gran % (Auto) Neut % (Auto) Lymph % (Auto) [place] % (Auto) Eos % (Auto) Baso % (Auto) Neut # Lymph # [place] # Eos # Baso # Abs Immat Gran (auto) Neutrophils % (Manual) 65.0 Lymphocytes % (Manual) 20.0 L Monocytes % (Manual) 12.0 H Eosinophils % (Manual) 2.0 Basophils % (Manual) 1.0 Neutrophils # (Manual) 6.1 Lymphocytes # (Manual) 1.9 Monocytes # (Manual) 1.1 H Eosinophils # (Manual) 0.2 Basophils # (Manual) 0.1 Anisocytosis 2+ Macrocytosis 1+ Tear Drop Cells 1+ RBC Morph Comment Abnormal Absolute Retic 0.0826 Percent Retic 3.0 H Immature Retic Fraction 13.1 Retic Hgb Content CHr 32.5 ABG pH ABG pCO2 ABG pO2 ABG HCO3 ABG Total CO2 ABG O2 Saturation ABG Base Excess O2 Delivery Method FiO2 (liters per min) Turbidity < 20 Sodium 141 Potassium 3.9 D Chloride 98 Carbon Dioxide 35 H Anion Gap 8 BUN 31.0 H Creatinine 0.8 D GFR Calculation 69 BUN/Creatinine Ratio 39 H Glucose 92 Calculated Osmolality 278 Calcium 9.1 D Magnesium 2.1 Iron Total Bilirubin 0.40 Icterus Index < 2 AST 18 ALT 38 Alkaline Phosphatase 53 D B-Natriuretic Peptide 3960 H Total Protein 5.7 L Albumin 3.1 L Globulin 2.6 Albumin/Globulin Ratio 1.2 Vitamin B12 Specimen Hemolysis < 15 11/21/16 11/22/16 11/22/16 04:15 04:04 04:04 WBC 8.7 RBC 2.81 L Hgb 8.6 L Hct 29.4 L MCV 104.6 H MCH 30.6 MCHC 29.3 L RDW Std Deviation 61.1 H Plt Count 230 MPV 10.3 Immature Gran % (Auto) 0.5 Neut % (Auto) 62.3 Lymph % (Auto) 18.8 L [place] % (Auto) 14.4 H Eos % (Auto) 3.5 Baso % (Auto) 0.5 Neut # 5.4 Lymph # 1.6 [place] # 1.3 H Eos # 0.3 Baso # 0.0 Abs Immat Gran (auto) 0.04 H Neutrophils % (Manual) Lymphocytes % (Manual) Monocytes % (Manual) Eosinophils % (Manual) Basophils % (Manual) Neutrophils # (Manual) Lymphocytes # (Manual) Monocytes # (Manual) Eosinophils # (Manual) Basophils # (Manual) Anisocytosis Macrocytosis Tear Drop Cells RBC Morph Comment Absolute Retic Percent Retic Immature Retic Fraction Retic Hgb Content CHr ABG pH ABG pCO2 ABG pO2 ABG HCO3 ABG Total CO2 ABG O2 Saturation ABG Base Excess O2 Delivery Method FiO2 (liters per min) Turbidity < 20 Sodium 141 Potassium 3.7 Chloride 97 L Carbon Dioxide 38 H Anion Gap 6 BUN 25.0 H Creatinine 0.7 GFR Calculation 80 BUN/Creatinine Ratio 36 H Glucose 92 Calculated Osmolality 275 Calcium 9.0 Magnesium Iron 21 L Total Bilirubin Icterus Index < 2 AST ALT Alkaline Phosphatase B-Natriuretic Peptide Total Protein Albumin Globulin Albumin/Globulin Ratio Vitamin B12 525 Specimen Hemolysis < 15 11/22/16 07:40 WBC RBC Hgb Hct MCV MCH MCHC RDW Std Deviation Plt Count MPV Immature Gran % (Auto) Neut % (Auto) Lymph % (Auto) [place] % (Auto) Eos % (Auto) Baso % (Auto) Neut # Lymph # [place] # Eos # Baso # Abs Immat Gran (auto) Neutrophils % (Manual) Lymphocytes % (Manual) Monocytes % (Manual) Eosinophils % (Manual) Basophils % (Manual) Neutrophils # (Manual) Lymphocytes # (Manual) Monocytes # (Manual) Eosinophils # (Manual) Basophils # (Manual) Anisocytosis Macrocytosis Tear Drop Cells RBC Morph Comment Absolute Retic Percent Retic Immature Retic Fraction Retic Hgb Content CHr ABG pH 7.480 H ABG pCO2 56 H ABG pO2 67 L ABG HCO3 42 H ABG Total CO2 43.4 H ABG O2 Saturation 94.0 L ABG Base Excess 15.6 H O2 Delivery Method Nasal cannula, liter FiO2 (liters per min) 2 Turbidity Sodium Potassium Chloride Carbon Dioxide Anion Gap BUN Creatinine GFR Calculation BUN/Creatinine Ratio Glucose Calculated Osmolality Calcium Magnesium Iron Total Bilirubin Icterus Index AST ALT Alkaline Phosphatase B-Natriuretic Peptide Total Protein Albumin Globulin Albumin/Globulin Ratio Vitamin B12 Specimen Hemolysis Acetaminophen (Tylenol) 650 mg PO Q4H PRN PRN Reason: Pain Albuterol/Ipratropium (Duoneb) 3 ml AEROSOL QID [facility] Last Admin: 11/22/16 11:13 Dose: 3 ml Anastrozole (Arimidex) 1 mg PO DAILY [facility] Last Admin: 11/22/16 09:25 Dose: 1 mg Ascorbic Acid (Vitamin C) 500 mg PO [facility] Last Admin: 11/22/16 11:55 Dose: 500 mg Aspirin (Ecotrin) 81 mg PO DAILY [facility] Last Admin: 11/22/16 09:25 Dose: 81 mg Atorvastatin Calcium (Lipitor) 20 mg PO [facility] Last Admin: 11/21/16 20:46 Dose: 20 mg Bisacodyl (Dulcolax) 10 mg RECTALLY DAILY PRN PRN Reason: Constipation Budesonide (Pulmicort Inhalation) 0.5 mg AEROSOL RTBID [facility] Last Admin: 11/22/16 08:14 Dose: 0.5 mg Bumetanide (Bumex Tab) 2 mg PO [id number] [facility] Calcium/Vitamin D (Os Martin-D 500) 1 tab PO NOON [facility] Last Admin: 11/22/16 13:45 Dose: 1 tab Diltiazem HCl (Cardizem Cd) 240 mg PO DAILY [facility] Last Admin: 11/22/16 09:26 Dose: Not Given Ferrous Sulfate (Feosol) 324 mg PO [facility] Last Admin: 11/22/16 13:45 Dose: 324 mg Ceftriaxone Sodium 1 g/ Sodium (Chloride) 100 mls @ 200 mls/hr IV Q12H [facility] Last Infusion: 11/22/16 12:24 Dose: Infused Diltiazem HCl 125 mg/ Sodium (Chloride) 125 mls @ 4 mls/hr IV PRN [facility] PRN Reason: Protocol Last Infusion: 11/22/16 09:26 Dose: Infused Magnesium Hydroxide (Mom) 30 ml PO DAILY PRN PRN Reason: Consitpation Magnesium Oxide (Magox) 400 mg PO [facility] Last Admin: 11/21/16 20:47 Dose: 400 mg Metoprolol Tartrate (Lopressor) 100 mg PO BID [facility] Last Admin: 11/22/16 09:25 Dose: 100 mg Mirtazapine (Remeron) 15 mg PO [facility] Last Admin: 11/21/16 20:47 Dose: 15 mg Nitroglycerin (Nitrostat) 0.4 mg SL Q5MIN3 PRN PRN Reason: Chest pain Ondansetron HCl (Zofran) 4 mg IVP Q6H PRN PRN Reason: Nausea Potassium Chloride (K-Dur) 20 meq PO TIDWM [facility] Last Admin: 11/22/16 11:57 Dose: 20 meq Rivaroxaban (Xarelto) 20 mg PO NOON [facility] Last Admin: 11/22/16 13:45 Dose: 20 mg Sodium Chloride (Iv Flush) 10 - 80 ml IVF PRN PRN PRN Reason: Flushing Last Admin: 11/22/16 11:49 Dose: 40 ml Sodium Chloride (Normal Saline) 500 ml IV PRN PRN Last Admin: 11/21/16 23:33 Dose: 500 ml <Norma Ann - 11/22/16 13:51> - Urinary Catheter Management Urethral Cath placed during this visit: no <Rodolfo Matson - 11/23/16 16:41> yes <Norma Ann - 11/23/16 14:12> Insertion date: 11/20/16 <Norma Ann - 11/22/16 12:27> Insertion time: 04:00 <Norma Ann - 11/22/16 12:27> Progress Note-A&P (1) HTN (hypertension) Status: Chronic Current Visit: No (2) Dyslipidemia Status: Chronic Current Visit: No (3) PAD (peripheral artery disease) Status: Chronic Current Visit: No (4) Pleural effusion Status: Acute Current Visit: No (5) Coronary artery disease Status: Chronic Current Visit: No (6) S/P 2-vessel coronary artery bypass Status: Chronic Current Visit: No (7) Presence of permanent cardiac pacemaker Status: Acute Current Visit: No (8) CVA (cerebral vascular accident) Status: Acute Current Visit: No (9) Anemia Status: Acute Current Visit: No (10) Atrial fibrillation with RVR Status: Acute Current Visit: Yes (11) Cystitis Problem details: Escherichia coli Status: Acute Current Visit: Yes (12) DVT prophylaxis Status: Acute Current Visit: Yes <Rodolfo Matson - 11/23/16 16:41> (1) Atrial fibrillation with RVR Status: Acute Assessment and plan: Chronic, rate control is the goal. Rate remains variable - Increase Cardizem to 240mg po and DC Cardizem drip. - Increase Metoprolol to 100mg BID. Current Visit: Yes (2) Pleural effusion Status: Acute Assessment and plan: DC Lasix. Start Bumex 2mg PO BID Current Visit: No (3) HTN (hypertension) Status: Chronic Assessment and plan: BP improved, continue to monitor Current Visit: No (4) Dyslipidemia Status: Chronic Current Visit: No (5) PAD (peripheral artery disease) Status: Chronic Current Visit: No (6) Coronary artery disease Status: Chronic Current Visit: No (7) S/P 2-vessel coronary artery bypass Status: Chronic Current Visit: No (8) Presence of permanent cardiac pacemaker Status: Acute Current Visit: No (9) CVA (cerebral vascular accident) Status: Acute Current Visit: No (10) Anemia Status: Acute Assessment and plan: Hgb 8.6 today, from 8.5 yesterday. Continue to monitor Current Visit: No (11) Cystitis Problem details: Escherichia coli Status: Acute Current Visit: Yes (12) DVT prophylaxis Status: Acute Current Visit: Yes <Norma Ann 11/23/16 14:12> - Time Spent With Patient Total time spent is greater than 50% in coordination of care (as documented) at patient's floor/unit and/or counseling patient: <Rodolfo Matson 11/23/16 16:41> Total time spent is greater than 50% in coordination of care (as documented) at patient's floor/unit and/or counseling patient: <Norma Ann 11/22/16 12:27> less than 15 minutes <Norma Ann 11/23/16 14:12> - Attestation Attestation Narrative: Recommendation After examining the patient I agree with the above assessment. I am involved in the formulation of the patient's plan of care. <Rodolfo Matson - 11/23/16 16:41> Sepsis Assessment - Evaluation Sepsis screening result: No Definite Risk <Norma Ann - 11/22/16 12:27> Hospital Course Summary Disclaimer: The visit summary below is not to be considered part of the above Progress Note. <Rodolfo Matson - 11/23/16 16:41> The visit summary below is not to be considered part of the above Progress Note. <Norma Ann - 11/22/16 12:27> Hospital Course: 11/20/16 Inital consult Impression Atrial fibrillation with RVR Acute UTI Bilateral Lower extremity edema Pleural effusion- left CVA Hypoxia- with home oxygen Atrial fibrillation on Xarelto, ASA CAD, recent CABGx2 10/04/16 PVD Hypertension Hyperlipidemia Situational depression Anorexia History of breast cancer Plan Cardiovascular care and management under the care of Dr Matson. She is currently on a Cardizem drip for rate control. In light of Acute UTI, will start Rocephin 1 gm IV daily. Urine culture pending. Will monitor WBC, She did have persistent Leukocytosis during stay on IRU Recommend Aleksandar hose to bilateral lower ext to help with edema. Lasix 40 mg IV Q6hr for aggressive diuresis Weight is up 2 KG since discharge on 11/13. Monitor ongoing left pleural effusion. She continues to require oxygen Wound consult was placed for evaluation of peritoneal breakdown which may play a role in acute UTI. Will discuss further orders and plan of care with Dr Brand. 11/21/16 Cardiology AFib with RVR: Chronic, rate control is the goal. - Restart Cardizem 120mg po and DC Cardizem drip. - Continue BB at current dose, may need to increase for rate control. 11/22/16 Cardiology AFib with RVR: Chronic, rate control is the goal. Rate remains variable - Increase Cardizem to 240mg po and DC Cardizem drip. - Increase Metoprolol to 100mg BID. <Norma Ann - 11/22/16 13:17>
[2016-11-22 12:54] VITALS: BMI 26.4
[2016-11-22] MEDS: FERROUS SULFATE 324 MG TABLET PO SCH (13:45)
[2016-11-22] MEDS: RIVAROXABAN 20 MG TABLET PO SCH (13:45)
[2016-11-22] MEDS: CALCIUM 500 + VIT D 200 TABLET PO SCH (13:45)
[2016-11-22] MEDS: BUMETANIDE 1 MG TABLET PO SCH (15:38)
--- NOTE | 2016-11-22 16:49 | Progress Note ---
Subjective: Mrs. Machado reports that she slept poorly again last night. She's having trouble with nasal allergies in her nose dripping including some spotting of blood but she doesn't want to take anymore pills. She denied dyspnea, chest pain , palpitations, or nausea. Her reports that her appetite is been good since she's been hospitalized. The patient denied lightheadedness but had not yet worked with physical therapy when seen today. Objective Vital signs: Temperature 97.4 F 11/22/16 16:14 Pulse Rate 83 11/22/16 16:14 Respiratory Rate 24 11/22/16 16:14 Blood Pressure 138/63 11/22/16 16:14 Pulse Oximetry 92 11/22/16 16:14 EXAM General-NAD, alert, interacting well-good eye contact HEENT-minor epistaxis at the time seen with spotting of blood on tissue and slight smear just below the nares Lungs-respirations nonlabored, decreased airflow, decreased breath sounds lower half of the left lung field posteriorly Cardiac-irregular rhythm, S1-S2 Abd-soft, nontender, bowel sounds present Ext-+1 edema Neuro-MAEW Psych-calm, cooperative - Rhythm: Atrial Fibrillation with Normal Ventricular Rate Height/Weight/BMI: Height 1.68 m Weight 74.4 kg Body Mass Index 26.4 Results - Labs CBC & Chem 7: 11/22/16 04:04 11/22/16 04:04 Labs: Serum iron 21, B-12 525, reticulocyte count 3% Microbiology Results: Urine culture with 2 strains Escherichia coli-pansensitive although one intermediate to amoxicillin. - ABG Interpretation ABG results: 11/22/16 07:40 ABG pH 7.480 H ABG pCO2 56 H ABG pO2 67 L ABG HCO3 42 H ABG Total CO2 43.4 H ABG O2 Saturation 94.0 L ABG Base Excess 15.6 H Assessment and Plan (1) Atrial fibrillation with RVR Current visit: Yes Status: Acute (2) Cystitis Problem details: Escherichia coli Current visit: Yes Status: Acute Resuscitation Status: Do Not Resuscitate Assessment and Plan: Impression Atrial fibrillation with RVR Acute UTI-Escherichia coli Bilateral Lower extremity edema Pleural effusion- left Macrocytic anemia CVA-right occipital lobe and left cerebellum, September, Hypoxia- with home oxygen Atrial fibrillation on Xarelto, ASA CAD, recent CABGx2 10/04/16 PVD Hypertension Hyperlipidemia Situational depression Anorexia History of breast cancer Plan Rate control generally has improved although brief episode of rapid ventricular response this morning. Oral diltiazem resumed per cardiology. Titrate oxygen as status permits. Increase activities. Reticulocyte count increased-probable cause of macrocytosis. Iron level low, continue oral iron supplementation at discharge. Urine culture with 2 species Escherichia coli-discontinue ceftriaxone and initiate Macrodantin for 2 additional days. Depression has improved significantly compared to prior admissions. Discussed with patient's and nursing. Sepsis Assessment - Evaluation Sepsis screening result: No Definite Risk Hospital Course Summary Disclaimer: The visit summary below is not to be considered part of the above Progress Note. Hospital Course: 11/20/16 Inital consult Impression Atrial fibrillation with RVR Acute UTI Bilateral Lower extremity edema Pleural effusion- left CVA Hypoxia- with home oxygen Atrial fibrillation on Xarelto, ASA CAD, recent CABGx2 10/04/16 PVD Hypertension Hyperlipidemia Situational depression Anorexia History of breast cancer Plan Cardiovascular care and management under the care of Dr Matson. She is currently on a Cardizem drip for rate control. In light of Acute UTI, will start Rocephin 1 gm IV daily. Urine culture pending. Will monitor WBC, She did have persistent Leukocytosis during stay on IRU Recommend Aleksandar hose to bilateral lower ext to help with edema. Lasix 40 mg IV Q6hr for aggressive diuresis Weight is up 2 KG since discharge on 11/13. Monitor ongoing left pleural effusion. She continues to require oxygen Wound consult was placed for evaluation of peritoneal breakdown which may play a role in acute UTI. Will discuss further orders and plan of care with Dr Brand. 11/21/16 Cardiology AFib with RVR: Chronic, rate control is the goal. - Restart Cardizem 120mg po and DC Cardizem drip. - Continue BB at current dose, may need to increase for rate control. 11/22/16 Cardiology AFib with RVR: Chronic, rate control is the goal. Rate remains variable - Increase Cardizem to 240mg po and DC Cardizem drip. - Increase Metoprolol to 100mg BID.
[2016-11-22] MEDS: NITROFURANTOIN (MACROBID) 100 MG CAPSULE PO SCH ×2 (17:34→18:05)
[2016-11-22] MEDS: MIRTAZAPINE 15 MG TABLET PO SCH (21:05)
[2016-11-22] MEDS: ATORVASTATIN 20 MG TABLET PO SCH (21:06)
[2016-11-22] MEDS: MAGNESIUM OXIDE 400 MG TABLET PO SCH (21:06)
[2016-11-23] MEDS ORDERED: FALL RISK - PHARMACY CONSULT MC PRN (00:55)
[2016-11-23] MEDS: SALINE FLUSH 10ml SYRINGE IVF PRN (05:28)
[2016-11-23] MEDS: ALBUTEROL/IPRATROPIUM 2.5mg-0.5mg/3ml NEB AEROSOL SCH ×2 (07:14→11:27)
[2016-11-23] MEDS: BUDESONIDE INH.SOLN 0.5mg/2ml NEB AEROSOL SCH (07:14)
[2016-11-23] MEDS: ASPIRIN *EC* 81 MG TABLET PO SCH (08:10)
[2016-11-23] MEDS: BUMETANIDE 1 MG TABLET PO SCH ×2 (08:10→14:26)
[2016-11-23] MEDS: ANASTROZOLE 1 MG TABLET PO SCH (08:10)
[2016-11-23] MEDS: NITROFURANTOIN (MACROBID) 100 MG CAPSULE PO SCH (08:10)
[2016-11-23] MEDS: ASCORBIC ACID 500 MG TABLET PO SCH (11:52)
[2016-11-23] MEDS: RIVAROXABAN 20 MG TABLET PO SCH (11:52)
[2016-11-23] MEDS: FERROUS SULFATE 324 MG TABLET PO SCH (11:52)
[2016-11-23] MEDS: CALCIUM 500 + VIT D 200 TABLET PO SCH (11:52)
--- NOTE | 2016-11-23 14:16 | Discharge Summary ---
<Norma Ann - Last Filed: 11/23/16 15:24> Discharge Information Date of admission: 11/21/16 15:16 Anticipated date of discharge: 11/23/16 Attending Physician: Rodolfo Matson MD Primary care physician: Deepak Duarte MD Consults: 11/23/16 04:23 Dietary Consult [CONS] Routine Comment: Reason For Exam: - Laboratory Labs: 11/23/16 04:42 11/23/16 04:42 Laboratory Results - last 48 hr 11/21/16 11/22/16 11/22/16 04:15 04:04 04:04 WBC 8.7 RBC 2.81 L Hgb 8.6 L Hct 29.4 L MCV 104.6 H MCH 30.6 MCHC 29.3 L RDW Std Deviation 61.1 H Plt Count 230 MPV 10.3 Immature Gran % (Auto) 0.5 Neut % (Auto) 62.3 Lymph % (Auto) 18.8 L [place] % (Auto) 14.4 H Eos % (Auto) 3.5 Baso % (Auto) 0.5 Neut # 5.4 Lymph # 1.6 [place] # 1.3 H Eos # 0.3 Baso # 0.0 Abs Immat Gran (auto) 0.04 H ABG pH ABG pCO2 ABG pO2 ABG HCO3 ABG Total CO2 ABG O2 Saturation ABG Base Excess O2 Delivery Method FiO2 (liters per min) Turbidity < 20 Sodium 141 Potassium 3.7 Chloride 97 L Carbon Dioxide 38 H Anion Gap 6 BUN 25.0 H Creatinine 0.7 GFR Calculation 80 BUN/Creatinine Ratio 36 H Glucose 92 Calculated Osmolality 275 Calcium 9.0 Magnesium Iron 21 L Icterus Index < 2 Vitamin B12 525 Specimen Hemolysis < 15 11/22/16 11/23/16 11/23/16 07:40 04:42 04:42 WBC 8.0 RBC 2.89 L Hgb 8.7 L Hct 30.1 L MCV 104.2 H MCH 30.1 MCHC 28.9 L RDW Std Deviation 59.8 H Plt Count 225 MPV 10.4 Immature Gran % (Auto) Neut % (Auto) Lymph % (Auto) [place] % (Auto) Eos % (Auto) Baso % (Auto) Neut # Lymph # [place] # Eos # Baso # Abs Immat Gran (auto) ABG pH 7.480 H ABG pCO2 56 H ABG pO2 67 L ABG HCO3 42 H ABG Total CO2 43.4 H ABG O2 Saturation 94.0 L ABG Base Excess 15.6 H O2 Delivery Method Nasal cannula, liter FiO2 (liters per min) 2 Turbidity < 20 Sodium 140 Potassium 4.3 Chloride 97 L Carbon Dioxide 37 H Anion Gap 6 BUN 23.0 H Creatinine 0.7 GFR Calculation 80 BUN/Creatinine Ratio 33 H Glucose 97 Calculated Osmolality 273 Calcium 9.0 Magnesium 2.2 Iron Icterus Index < 2 Vitamin B12 Specimen Hemolysis < 15 - Radiology Radiology: Date of Exam: 11/20/16 Ordering Provider: Rory Escamilla MD Type of Exam(s): XR chest 1V Reason for Exam(s): recurrent pleural effusion Indication: recurrent pleural effusion PROCEDURE: XR chest 1V: Encounter: Initial Comparison: November 11, 2016 Findings: Minimal interval increase in the moderate-sized left pleural effusion with continued consolidation of the left lower lobe. No pneumothorax. Trace right effusion is stable. Heart size and mediastinal contours are unchanged. Pulmonary vascularity is stable. Right-sided calcified granuloma. Prior CABG and left pacemaker. Impression: Minimal increase in moderate left pleural effusion History of Present Illness HPI: CC: Atrial Fibrillation Mrs. Machado is an 81-year old elderly female who presented to the ER lat night per EMS with c/o worsening dyspnea with orthopnea, generalized weakness and feeling "off". She had recently been admitted one month ago with the same type of complaints at which time she had been in Afib w/RVR & worsening pleural effusions s/p CABG that eventually lead to a thoracentesis. While being tx for her Afib at that time she also developed SSS and had a PMI. She has on going tx for CAD, HTN, dyslipidemia and PAD. She also has h/o CVA with left side weakness. With her most recent admission she was eventually transferred from the surgical unit to IRU for inpatient rehab and discharged to home with her and HH on 11/14/2016.Was also discharged home on O2. Since her return home her breathing has worsened, especially when laying flat; and she has become severely weakened. While in ER she was found to again be in Afib w/RVR and was admitted to CCU on Cardizem gtt. Was then notified by RN that Mrs. Machado had significant 3-4+ pitting edema to her BLE & congested lung sounds. The RN also stated that patient has significant weakness and that were barely able to transfer her to the bed. At that time orders to give IVP lasix and place a donovan. When she asked the patient if she has been taking her "water pill " the patient stated that she quit taking it because, "why would I keep taking a water pill when I keep getting water in my legs". Though later in the AM her brought in all her home medications and he states that she has been getting all her medications, including her diuretics. He states that reasoning for coming in last night was that the patient developed an nonproductive cough that would not go away and had increased SOA. Patient denies any CP/pressure, palpitations, N/V, diaphoresis. Also noted leukocytosis with lab and a positive UA that has cx pending. She also denies any fever, chills, flank pain, urine frequency, hematuria, dysuria. Hospital Course This is a general summary of the patient's hospital course. For more details refer to the complete medical record. Hospital course: 11/20/16 Inital consult Impression Atrial fibrillation with RVR Acute UTI Bilateral Lower extremity edema Pleural effusion- left CVA Hypoxia- with home oxygen Atrial fibrillation on Xarelto, ASA CAD, recent CABGx2 10/04/16 PVD Hypertension Hyperlipidemia Situational depression Anorexia History of breast cancer Plan Cardiovascular care and management under the care of Dr Matson. She is currently on a Cardizem drip for rate control. In light of Acute UTI, will start Rocephin 1 gm IV daily. Urine culture pending. Will monitor WBC, She did have persistent Leukocytosis during stay on IRU Recommend Laeksandar hose to bilateral lower ext to help with edema. Lasix 40 mg IV Q6hr for aggressive diuresis Weight is up 2 KG since discharge on 11/13. Monitor ongoing left pleural effusion. She continues to require oxygen Wound consult was placed for evaluation of peritoneal breakdown which may play a role in acute UTI. Will discuss further orders and plan of care with Dr Brand. 11/21/16 Cardiology AFib with RVR: Chronic, rate control is the goal. - Restart Cardizem 120mg po and DC Cardizem drip. - Continue BB at current dose, may need to increase for rate control. 11/22/16 Cardiology AFib with RVR: Chronic, rate control is the goal. Rate remains variable - Increase Cardizem to 240mg po and DC Cardizem drip. - Increase Metoprolol to 100mg BID. Time spent with patient: less than 15 minutes DVT Prophylaxis: Xarelto Exam Vital signs: Temperature 97 F 11/23/16 07:40 Pulse Rate 72 11/23/16 12:00 Respiratory Rate 20 11/23/16 12:00 Blood Pressure 103/45 11/23/16 12:00 Pulse Oximetry 92 11/23/16 13:40 - Constitutional no acute distress, well nourished, well developed, cooperative - Routine HEENT Exam Head: Present: normocephalic ENT: Present: mucous membranes moist - Routine Neck Exam Absent: JVD, carotid bruit - Routine Chest/Breast/Axilla Exam Chest wall: Present: pacemaker. Absent: tenderness - Routine Respiratory Exam Present: crackles, diminished air movement. Absent: CTA bilaterally - Routine Cardiovascular Exam Present: murmur (III/), irregular rhythm. Absent: JVD - Routine Abdominal Exam Present: soft - Routine Extremities Exam Present: edema - Routine Skin Exam Present: intact, dry, warm - Routine Neurological Exam Present: alert, oriented X3 - Routine Psychiatric Exam Present: normal affect, normal thought process Results 11/23/16 04:42 11/23/16 04:42 CBC 11/23/16 Range/Units 04:42 WBC 8.0 (4.5-11.0) T/MM3 RBC 2.89 L (4.00-5.20) M/MM3 Hgb 8.7 L (12-16) GM/DL Hct 30.1 L (36-46) % Plt Count 225 (130-400) T/MM3 Comprehensive Metabolic Panel 11/23/16 Range/Units 04:42 Sodium 140 (134-144) MEQ/L Potassium 4.3 (3.6-5) MEQ/L Chloride 97 L (98-107) MEQ/L Carbon Dioxide 37 H (22-30) MEQ/L BUN 23.0 H (7-17) MG/DL Creatinine 0.7 (0.7-1.2) MG/DL Glucose 97 (65-110) MG/DL Calcium 9.0 (8.4-10.2) MG/DL Intake and Output 11/22/16 11/23/16 11/23/16 22:59 06:59 14:59 Intake Total 760 / 760 0 / 0 Output Total 370 / 370 125 / 125 Balance 390 / 390 -125 / -125 Intake: Oral 760 / 760 0 / 0 Output: Urine Amount (Catheter) 370 / 370 125 / 125 Other: Urine Appearance Clear Clear Urine Color Yellow Yellow Stool Color Brown Brown Stool Consistency Soft Soft Size of Bowel Movement Small Small # Incontinent Bowel 1 1 Movements Weight 168 lb 10.458 oz Patient Weight 11/24/16 06:59 Weight 168 lb 10.458 oz - Imaging and Cardiology EKG results: image reviewed - EKG Interpretation EKG shows: atrial fibrillation Discharge Plan - Med Rec/Dispo Referrals/Follow Up: Rodolfo Matson MD [Physician] - 12/07/16 10:30 am Crow Instructions: Heart Failure (GEN) Additional Instructions: have lab drawn in 1 week Prescriptions: New DiltiaZEM CD [Cardizem Cd] 240 mg PO DAILY #30 cap Mirtazapine [Remeron] 15 mg PO HS #30 tab Potassium Chloride [K-Dur] 20 meq PO TIDWM #90 tab Bumetanide Tab [Bumex Tab] 2 mg PO DAILY #60 tab Magnesium Oxide [Magox] 400 mg PO HS #30 tab Bumetanide Tab [Bumex Tab] 2 mg PO [id number] #28 tab Metoprolol Tartrate [Lopressor] 100 mg PO BID #60 tab Continue Calcium Carbonate/Vitamin D2 [Oyster Shell Calcium-Vit D Tab] 1 tab PO NOON Aspirin [Adult Low Dose Aspirin EC] 81 mg PO DAILY Metoprolol Tartrate [Lopressor] 100 mg PO BID Nitroglycerin 0.4 mg SL Q5MIN3 PRN PRN Reason: Chest Pain Anastrozole [Arimidex] 1 mg PO DAILY tablet Magnesium Oxide [Magox] 400 mg PO HS #30 tab Anastrozole 1 mg PO DAILY Atorvastatin [Lipitor] 20 mg PO HS Rivaroxaban [Xarelto] 20 mg PO NOON Ascorbic Acid [Vitamin C] 500 mg PO WL tablet Ferrous Sulfate [Feosol] 325 mg PO WL Discontinued Potassium Chloride [K-Dur] 20 meq PO NOON #0 Losartan [Cozaar] 50 mg PO DAILY Furosemide [Lasix] 40 mg PO DAILY #30 tab Mirtazapine [Remeron] 7.5 mg PO HS #30 tab Citalopram [Celexa] 10 mg PO HS #30 tablet DiltiaZEM CD [Cardizem Cd] 120 mg PO DAILY #30 capsule - Disposition [facility] <Tiara Matsonin - Last Filed: 11/24/16 13:37> Discharge Information Date of admission: 11/21/16 15:16 Attending Physician: Rodolfo Matson MD Primary care physician: Deepak Duarte MD Consults: 11/23/16 04:23 Dietary Consult [CONS] Routine Comment: Reason For Exam: - Laboratory Labs: 11/23/16 04:42 11/23/16 04:42 Hospital Course This is a general summary of the patient's hospital course. For more details refer to the complete medical record. Exam Vital signs: Temperature 98.5 F 11/23/16 15:30 Pulse Rate 76 11/23/16 15:30 Respiratory Rate 21 11/23/16 15:30 Blood Pressure 127/55 11/23/16 15:30 Pulse Oximetry 93 11/23/16 15:30 Results 11/23/16 04:42 11/23/16 04:42 Discharge Plan - Med Rec/Dispo - Attestation Attestation Narrative: 11/24/16 13:37 Recommendation After examining the patient I agree with the above assessment. I am involved in the formulation of the patient's plan of care.
--- NOTE | 2016-11-23 15:04 | Progress Note ---
Subjective: Mrs. Machado was seen with her at the bedside. She had a brief episode where oxygen desaturated this morning and briefly required increasing supplemental oxygen to 6 L. Her reports that her heart rate accelerated to about 130 at the same time but that lasted for a very brief period of time and then normalized. Patient denies having any palpitations or dyspnea. She's had no nausea or vomiting and her appetite is been very good while hospitalized with commenting that it's much better than it was at home. She's had no fevers and has been ambulating without difficulty. She continues to have difficulty sleeping in the hospital but was sleeping well prior to admission. Objective Vital signs: Temperature 97 F 11/23/16 07:40 Pulse Rate 72 11/23/16 12:00 Respiratory Rate 20 11/23/16 12:00 Blood Pressure 103/45 11/23/16 12:00 Pulse Oximetry 92 11/23/16 13:40 EXAM General-NAD, alert, soft-spoken Lungs-respirations nonlabored, breath sounds slightly coarse at the bases and decreased breath sounds at the left base; sharp gasping inspiratory effort for exam Cardiac-irregular rhythm, S1-S2 Abd-soft, nontender Ext-+2 pitting edema in the feet but minimal edema more proximally Neuro-MAEW Psych-affect remains moderately flat but patient is interacting well and smiles occasionally. - Rhythm: Atrial Fibrillation with Normal Ventricular Rate Height/Weight/BMI: Height 1.68 m Weight 76.5 kg Body Mass Index 26.4 Results - Labs CBC & Chem 7: 11/23/16 04:42 11/23/16 04:42 Labs: Magnesium 2.2 - ABG Interpretation ABG results: 11/22/16 07:40 ABG pH 7.480 H ABG pCO2 56 H ABG pO2 67 L ABG HCO3 42 H ABG Total CO2 43.4 H ABG O2 Saturation 94.0 L ABG Base Excess 15.6 H Assessment and Plan (1) Atrial fibrillation with RVR Current visit: Yes Status: Acute (2) Cystitis Problem details: Escherichia coli Current visit: Yes Status: Acute Assessment and Plan: Impression Atrial fibrillation with RVR Acute UTI-Escherichia coli Bilateral Lower extremity edema Pleural effusion- left Macrocytic anemia CVA-right occipital lobe and left cerebellum, September, Hypoxia- with home oxygen Atrial fibrillation on Xarelto, ASA CAD, recent CABGx2 10/04/16 PVD Hypertension Hyperlipidemia Situational depression Anorexia History of breast cancer Plan Titrate oxygen as status permits--decreased to 2 L while I was present and subsequently 1 L as I was leaving the room. Anticipate discharge on 2 L as in the past. Last oxygen saturation 92% on room air but not a consistent finding. Increase activities as tolerates. Reticulocyte count increased-probable cause of macrocytosis. Iron level low, continue oral iron supplementation at discharge. Urine culture with 2 species Escherichia coli-patient is had 4 days of antibiotics; adequate to treat uncomplicated UTI Depression has improved significantly compared to prior admissions. Patient reports improved oral intake with increased dose mirtazapine, discharge on 15 mg daily. Discussed with patient's and nursing. Discharge medications reviewed with cardiology and with patient/. Sepsis Assessment - Evaluation Sepsis screening result: No Definite Risk Hospital Course Summary Disclaimer: The visit summary below is not to be considered part of the above Progress Note. Hospital Course: 11/20/16 Inital consult Impression Atrial fibrillation with RVR Acute UTI Bilateral Lower extremity edema Pleural effusion- left CVA Hypoxia- with home oxygen Atrial fibrillation on Xarelto, ASA CAD, recent CABGx2 10/04/16 PVD Hypertension Hyperlipidemia Situational depression Anorexia History of breast cancer Plan Cardiovascular care and management under the care of Dr Matson. She is currently on a Cardizem drip for rate control. In light of Acute UTI, will start Rocephin 1 gm IV daily. Urine culture pending. Will monitor WBC, She did have persistent Leukocytosis during stay on IRU Recommend Aleksandar hose to bilateral lower ext to help with edema. Lasix 40 mg IV Q6hr for aggressive diuresis Weight is up 2 KG since discharge on 11/13. Monitor ongoing left pleural effusion. She continues to require oxygen Wound consult was placed for evaluation of peritoneal breakdown which may play a role in acute UTI. Will discuss further orders and plan of care with Dr Brand. 11/21/16 Cardiology AFib with RVR: Chronic, rate control is the goal. - Restart Cardizem 120mg po and DC Cardizem drip. - Continue BB at current dose, may need to increase for rate control. 11/22/16 Cardiology AFib with RVR: Chronic, rate control is the goal. Rate remains variable - Increase Cardizem to 240mg po and DC Cardizem drip. - Increase Metoprolol to 100mg BID.
[2016-11-23 16:44] VITALS: BP 127/55; PULSE 76; RESP 21; TEMP 98.5; O2SAT 93
== END 2016-11-23 16:25 | disposition home health service (06) | DRG 309 ==
LOC: CCU 00:07 → ED 00:07 → CCU 03:25 → MED 11-22 15:57
PROVIDERS: ADMIT Internal Medicine Cardiovascular Disease; ATTEND Internal Medicine Cardiovascular Disease

== ENCOUNTER 2017-04-14 12:39 | Inpatient (IN) ==
--- NOTE | 2017-04-14 13:10 | Emergency Department Report ---
General Adult HPI - General Chief complaint: Arrhythmia/Palpitations Stated complaint: not eating/feeling well Time Seen by Provider: 04/14/17 12:57 Source: patient, family, EMS Mode of arrival: EMS Limitations: no limitations - History of Present Illness HPI narrative: 81-year-old female presents to the emergency department with the chief complaint of not feeling well and palpitations over the past several days to couple of weeks. She denies any current pain or discomfort. Patient has difficulty supplying historical data. He does see Dr. Matson of cardiology. Patient states that she just does not feel well but cannot elaborate on the symptoms. She has no other complaints or associated symptoms. Symptoms have been persistent in nature since onset. She does not note any exacerbating or remitting factors. - Related Data Home Medications Medication Instructions Recorded Confirmed Aspirin [Adult Low Dose Aspirin EC] 81 mg PO DAILY 10/24/16 04/14/17 Atorvastatin [Lipitor] 20 mg PO HS 10/24/16 04/14/17 Nitroglycerin 0.4 mg SL Q5MIN3 PRN 10/24/16 04/14/17 Rivaroxaban [Xarelto] 20 mg PO NOON 10/24/16 04/14/17 Ferrous Sulfate [Feosol] 325 mg PO WL 11/20/16 04/14/17 Potassium Chloride [K-DUR 20 mEq 40 meq PO BID 12/16/16 04/14/17 Tablet] Bumetanide Tab [Bumex Tab] 3 mg PO DAILY 04/14/17 04/14/17 Calcium Carbonate [Calcium] 1 tab PO DAILY 04/14/17 04/14/17 Docusate Sodium 100 mg PO WS 04/14/17 04/14/17 Metoprolol Tartrate [Lopressor] 100 mg PO DAILY 04/14/17 04/14/17 PEG 3350 17gm PACKET [Miralax] 17 gm PO DAILY 04/14/17 04/14/17 Previous Rx's Medication Instructions Recorded Anastrozole [Arimidex] 1 mg PO DAILY tab 11/13/16 DiltiaZEM CD [Cardizem Cd] 240 mg PO DAILY #30 cap 11/23/16 Magnesium Oxide [Magox] 400 mg PO HS #30 tab 11/23/16 Mirtazapine [Remeron] 15 mg PO HS #30 tab 11/23/16 Allergies Allergy/AdvReac Type Severity Reaction Status Date / Time lisinopril Allergy Unknown Verified 04/14/17 13:21 Penicillins Allergy Unknown Verified 04/14/17 13:21 Review of Systems Limitations: ROS unobtainable due to patient's medical condition (patient answers i dont know to most questions.) PFSH Patient Stated Medical History Cerebrovascular Accident Yes: 09/29/16, LT SIDE WEAKNESS Cataracts Yes Hearing Loss Yes Cardiac Arrhythmia Yes: afib Congestive Heart Failure Yes: PEDAL EDEMA Coronary Artery Disease Yes Heart Murmur Yes Hypertension Yes Myocardial Infarction Yes Other Cardiology Yes: MULTI-VESSEL DISEASE Sleep Apnea No Other Respiratory Yes: LEFT PLEURAL EFFUSION Constipation Yes Other GI Yes: CONSTIPATION Hx Incontinence No Hx Renal Disease No Other Hematologic Yes: LEUKOCYTOSIS Osteoarthritis Yes Depression Yes: MAJOR Eating Disorder Yes: ANOREXIA Other Behavioral Health Yes: ANHEDONIA Medical History Updates: Hypertension, Afib, CAD, tachy/bello syndrome with pauses, carotid artery stenoses, left exudative pleural effusion Surgical History: cataracts. 2016 bilateral CEAs. Echo September,. 1. Normal LV systolic function with ejection fraction of 60%. 2. Grossly, no intracardiac thrombus or mass. 3. Mitral annulus calcification with mild mitral regurgitation. 4. Aortic sclerosis with [id number] aortic insufficiency. 5. Mild tricuspid regurgitation with mild pulmonary hypertension with estimated pulmonary artery systolic pressure of 38. 6. Mild pulmonary insufficiency. 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 Jayro Plaza. 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 Matson. Thoracentesis with removal of 800 mL from left pleural effusion 10/27/[address] Sarkar. Family History: Reviewed and Noncontributory. - Social History Smoking status: Former smoker Substance use type: does not use Alcohol intake frequency: does not drink Physical Exam - Limitations Limitations: no limitations - General General appearance: alert, in no apparent distress - Normal Exams: Head:: Normocephalic without trauma Eyes:: Pupils are PERRLA w/ EOMI, No scleral icterus, irritation, or foreign bodies noted ENMT:: No facial trauma, nasal exudates, pharyngeal erythema, or exudates are noted Dental: No fractured, loose, or missing teeth noted Neck:: Full range of motion, without adenopathy, JVD, bruits or thyromegaly Chest/Respirations:: Clear all santana (diminshed bilaterally. ), with good airflow, and symmetry bilaterally Cardiovascular:: Regular rate and rhythm, without murmur or gallop, Pulses 2+ all extremities, capillary refill, <2 seconds all extremities Abdomen:: Bowel sounds positive, soft, non-tender, non-distended, no hepatosplenomegaly, masses or bruits noted Lymphatic:: No lymphadenopathy, or lymphedema noted Musculoskeletal:: No tenderness (2+ BLE Edema. ), or deformity noted, good range of motion, all extremities Integumentary:: No rashes, hives, or bruising noted, hair and nails, without abnormality Neurological:: Patient is alert, and oriented, cranial nerves, motor/sensory/ cerebellar, exams w/o gross deficits, to observation Course Vital Signs Temperature 98.7 F 04/14/17 12:46 Pulse Rate 116 H 04/14/17 12:46 Respiratory Rate 24 04/14/17 12:46 Blood Pressure 140/63 H 04/14/17 12:46 Pulse Oximetry 99 04/14/17 12:46 Temperature 98.7 F 04/15/17 05:00 Pulse Rate 105 H 04/15/17 06:45 Respiratory Rate 26 H 04/15/17 06:45 Blood Pressure 123/58 04/15/17 06:45 Pulse Oximetry 99 04/15/17 06:45 Medical Decision Making - MDM Narrative Medical decision making narrative: Labs/imaging were discussed in detail with the patient and family and questions are answered. Patient appears to be intravascularly dry but and fluid overloaded status extravascularly. Patient is discussed with Dr. Matson who commends admission to the hospitalist service. Patient is discussed with Dr. Pak who is in agreement with the current plan of management. Patient has blood cultures and lactic acid obtained. Patient is started on Levaquin 750 mg IV times one at 1600 when sepsis was considered but I do not have a true source of infection at this time. Hydration and diuresis will be handled by the hospitalist Dr. Pak in coordination with Cardiology. Patient and family are in agreement with the current plan of management. Patient is admitted to the CCU in improved condition. No further orders from accepting or consulting physicians are in agreement with the current plan of management. Patient is anticoagulated on Xarelto. Patient is started on Levaquin 750 mg IV times one at 1600 when sepsis was considered but I do not have a true source of infection at this time. - Differential Diagnosis CHF, flu, metabolic process, pna - Lab Data Result diagrams: 04/14/17 13:59 04/14/17 13:59 Lab Results 04/14/17 04/14/17 04/14/17 Range/Units 13:55 13:55 13:59 WBC 14.6 H (4.5-11.0) T/MM3 RBC 4.10 (4.00-5.20) M/MM3 Hgb 12.5 (12-16) GM/DL Hct 41.2 (36-46) % MCV 100.5 H (80-100) UM3 MCH 30.5 (26-34) UUG MCHC 30.3 L (31-37) GM/DL RDW Std Deviation 54.6 H (36.9-50.2) FL Plt Count 232 (130-400) T/MM3 MPV 10.2 (9.4-12.4) UM3 Immature Gran % (Auto) 0.3 (0.0-0.5) % Neut % (Auto) 84.0 H (33-66) % Lymph % (Auto) 7.9 L (23-45) % [place] % (Auto) 7.5 (0-9.0) % Eos % (Auto) 0.1 (0-4) % Baso % (Auto) 0.2 (0-2) % Neut # (Auto) 12.2 H (1.8-7.7) T/MM3 Lymph # (Auto) 1.2 (1-4.8) T/MM3 [place] # (Auto) 1.1 H (0-0.8) T/MM3 Eos # (Auto) 0.0 (0-0.5) T/MM3 Baso # (Auto) 0.0 (0-0.2) T/MM3 Abs Immat Gran (auto) 0.05 H (0.00-0.03) T/MM3 Turbidity (0-20) Sodium (134-144) MEQ/L Potassium (3.6-5) MEQ/L Chloride (98-107) MEQ/L Carbon Dioxide (22-30) MEQ/L Anion Gap (5-15) MEQ/L BUN (7-17) MG/DL Creatinine (0.7-1.2) MG/DL GFR Calculation BUN/Creatinine Ratio (6-26) RATIO Glucose (65-110) MG/DL Calculated Osmolality (261-280) MOSM/KG Calcium (8.4-10.2) MG/DL Magnesium (1.6-2.3) MG/DL Total Bilirubin (0.20-1.30) MG/DL Icterus Index (0-7) AST (14-36) U/L ALT (9-52) U/L Alkaline Phosphatase (38-126) U/L Troponin I (0-0.12) ng/ml B-Natriuretic Peptide (0-175) pg/mL Total Protein (6.3-8.2) G/DL Albumin (3.5-5.0) G/DL Globulin (2.4-3.6) G/DL Albumin/Globulin Ratio (1.1-2.2) RATIO Plasma Lactate (0.6-2.2) MMOL/L Procalcitonin < 0.05 NG/ML TSH 1.73 (0.47-4.68) MIU/L Specimen Hemolysis (0-25) Adenovirus (PCR) (Negative) B.parapertussis DNA PCR (Negative) C. pneumoniae DNA (PCR) (Negative) Coronavirus OC43 (PCR) (Negative) Coronavirus HKU1 (PCR) (Negative) Coronavirus 229E (PCR) (Negative) Coronavirus NL63 (PCR) (Negative) Human Metapneumovir PCR (Negative) Influenza Type A (PCR) (Negative) Influenza Type B (PCR) (Negative) M. pneumoniae (PCR) (Negative) Parainfluenza 1 (PCR) (Negative) Parainfluenza 2 (PCR) (Negative) Parainfluenza 3 (PCR) (Negative) Parainfluenza 4 (PCR) (Negative) RSV (PCR) (Negative) Entero/Rhino (PCR) (Negative) 04/14/17 04/14/17 04/14/17 Range/Units 13:59 14:15 14:16 WBC (4.5-11.0) T/MM3 RBC (4.00-5.20) M/MM3 Hgb (12-16) GM/DL Hct (36-46) % MCV (80-100) UM3 MCH (26-34) UUG MCHC (31-37) GM/DL RDW Std Deviation (36.9-50.2) FL Plt Count (130-400) T/MM3 MPV (9.4-12.4) UM3 Immature Gran % (Auto) (0.0-0.5) % Neut % (Auto) (33-66) % Lymph % (Auto) (23-45) % [place] % (Auto) (0-9.0) % Eos % (Auto) (0-4) % Baso % (Auto) (0-2) % Neut # (Auto) (1.8-7.7) T/MM3 Lymph # (Auto) (1-4.8) T/MM3 [place] # (Auto) (0-0.8) T/MM3 Eos # (Auto) (0-0.5) T/MM3 Baso # (Auto) (0-0.2) T/MM3 Abs Immat Gran (auto) (0.00-0.03) T/MM3 Turbidity < 20 (0-20) Sodium 140 (134-144) MEQ/L Potassium 5.7 H (3.6-5) MEQ/L Chloride 90 L (98-107) MEQ/L Carbon Dioxide 43 H* (22-30) MEQ/L Anion Gap 7 (5-15) MEQ/L BUN 29.0 H (7-17) MG/DL Creatinine 0.7 (0.7-1.2) MG/DL GFR Calculation 80 BUN/Creatinine Ratio 41 H (6-26) RATIO Glucose 118 H (65-110) MG/DL Calculated Osmolality 276 (261-280) MOSM/KG Calcium 10.4 H (8.4-10.2) MG/DL Magnesium 2.7 H (1.6-2.3) MG/DL Total Bilirubin 0.50 (0.20-1.30) MG/DL Icterus Index < 2 (0-7) AST 29 (14-36) U/L ALT 38 (9-52) U/L Alkaline Phosphatase 99 (38-126) U/L Troponin I < 0.012 (0-0.12) ng/ml B-Natriuretic Peptide 2710 H (0-175) pg/mL Total Protein 8.2 (6.3-8.2) G/DL Albumin 4.4 (3.5-5.0) G/DL Globulin 3.8 H (2.4-3.6) G/DL Albumin/Globulin Ratio 1.2 (1.1-2.2) RATIO Plasma Lactate (0.6-2.2) MMOL/L Procalcitonin NG/ML TSH (0.47-4.68) MIU/L Specimen Hemolysis < 15 (0-25) Adenovirus (PCR) Negative (Negative) B.parapertussis DNA PCR Negative (Negative) C. pneumoniae DNA (PCR) Negative (Negative) Coronavirus OC43 (PCR) Negative (Negative) Coronavirus HKU1 (PCR) Negative (Negative) Coronavirus 229E (PCR) Negative (Negative) Coronavirus NL63 (PCR) Negative (Negative) Human Metapneumovir PCR Negative (Negative) Influenza Type A (PCR) Negative Negative (Negative) Influenza Type B (PCR) Negative Negative (Negative) M. pneumoniae (PCR) Negative (Negative) Parainfluenza 1 (PCR) Negative (Negative) Parainfluenza 2 (PCR) Negative (Negative) Parainfluenza 3 (PCR) Negative (Negative) Parainfluenza 4 (PCR) Negative (Negative) RSV (PCR) Negative (Negative) Entero/Rhino (PCR) Negative (Negative) 04/14/17 Range/Units 15:29 WBC (4.5-11.0) T/MM3 RBC (4.00-5.20) M/MM3 Hgb (12-16) GM/DL Hct (36-46) % MCV (80-100) UM3 MCH (26-34) UUG MCHC (31-37) GM/DL RDW Std Deviation (36.9-50.2) FL Plt Count (130-400) T/MM3 MPV (9.4-12.4) UM3 Immature Gran % (Auto) (0.0-0.5) % Neut % (Auto) (33-66) % Lymph % (Auto) (23-45) % [place] % (Auto) (0-9.0) % Eos % (Auto) (0-4) % Baso % (Auto) (0-2) % Neut # (Auto) (1.8-7.7) T/MM3 Lymph # (Auto) (1-4.8) T/MM3 [place] # (Auto) (0-0.8) T/MM3 Eos # (Auto) (0-0.5) T/MM3 Baso # (Auto) (0-0.2) T/MM3 Abs Immat Gran (auto) (0.00-0.03) T/MM3 Turbidity (0-20) Sodium (134-144) MEQ/L Potassium (3.6-5) MEQ/L Chloride (98-107) MEQ/L Carbon Dioxide (22-30) MEQ/L Anion Gap (5-15) MEQ/L BUN (7-17) MG/DL Creatinine (0.7-1.2) MG/DL GFR Calculation BUN/Creatinine Ratio (6-26) RATIO Glucose (65-110) MG/DL Calculated Osmolality (261-280) MOSM/KG Calcium (8.4-10.2) MG/DL Magnesium (1.6-2.3) MG/DL Total Bilirubin (0.20-1.30) MG/DL Icterus Index (0-7) AST (14-36) U/L ALT (9-52) U/L Alkaline Phosphatase (38-126) U/L Troponin I (0-0.12) ng/ml B-Natriuretic Peptide (0-175) pg/mL Total Protein (6.3-8.2) G/DL Albumin (3.5-5.0) G/DL Globulin (2.4-3.6) G/DL Albumin/Globulin Ratio (1.1-2.2) RATIO Plasma Lactate 0.7 (0.6-2.2) MMOL/L Procalcitonin NG/ML TSH (0.47-4.68) MIU/L Specimen Hemolysis (0-25) Adenovirus (PCR) (Negative) B.parapertussis DNA PCR (Negative) C. pneumoniae DNA (PCR) (Negative) Coronavirus OC43 (PCR) (Negative) Coronavirus HKU1 (PCR) (Negative) Coronavirus 229E (PCR) (Negative) Coronavirus NL63 (PCR) (Negative) Human Metapneumovir PCR (Negative) Influenza Type A (PCR) (Negative) Influenza Type B (PCR) (Negative) M. pneumoniae (PCR) (Negative) Parainfluenza 1 (PCR) (Negative) Parainfluenza 2 (PCR) (Negative) Parainfluenza 3 (PCR) (Negative) Parainfluenza 4 (PCR) (Negative) RSV (PCR) (Negative) Entero/Rhino (PCR) (Negative) - Radiology Data CXR - small right pleural effusion. Increasing left-sided pleural effusion. - EKG Data EKG #1 EKG results narrative: Electronic ventricular pacemaker. 116 bpm. No STEMI. Disposition Clinical Impression: Encephalopathy, Systemic inflammatory response syndrome (SIRS) Acute renal failure superimposed on chronic kidney disease Qualifiers: Acute renal failure type: unspecified Disposition: To [facility] [place] Condition: Stable Time of Disposition: 16:00 - Seen By: physician
[2017-04-14] MEDS ORDERED: LEVOFLOXACIN PB 750 MG/150 ML BAG IV SCH (16:00)
[2017-04-14] MEDS ORDERED: NS FLUSH BAG 500ml IV PRN (17:07)
--- NOTE | 2017-04-14 17:09 | History & Physical Report ---
History of Present Illness Date: 04/15/17 Chief complaint: unresponsive HPI: Mrs. Machado has been essentially unresponsive anything but direct stimulation for the last 48 hours. Her relates the story that she has stated the last several days that she has just felt terrible. She has had some transient cough but no fevers nausea vomiting or diarrhea. No associated medication changes or any recognizable sick contacts from the family's viewpoint. This time she cannot answer questions Review of Systems ROS unobtainable: due to mental status - Constitutional Constitutional: Present: as per HPI Past Medical History Medical History Updates: Hypertension, Afib, CAD, tachy/bello syndrome with pauses, carotid artery stenoses, left exudative pleural effusion Surgical History: cataracts. 2016 bilateral CEAs. Echo September,. 1. Normal LV systolic function with ejection fraction of 60%. 2. Grossly, no intracardiac thrombus or mass. 3. Mitral annulus calcification with mild mitral regurgitation. 4. Aortic sclerosis with [id number] aortic insufficiency. 5. Mild tricuspid regurgitation with mild pulmonary hypertension with estimated pulmonary artery systolic pressure of 38. 6. Mild pulmonary insufficiency. 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 Jayro Plaza. 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 Matson. Thoracentesis with removal of 800 mL from left pleural effusion 10/27/[address] Sarkar. Family History Updates: Reviewed and family members have no additional information pertinent to her condition - Social History Smoking status: Former smoker Substance use type: does not use Alcohol intake frequency: does not drink Household members: spouse, children Medications Home Medications Medication Instructions Recorded Confirmed Type Aspirin [Adult Low Dose Aspirin EC] 81 mg PO DAILY 10/24/16 04/14/17 History Atorvastatin [Lipitor] 20 mg PO HS 10/24/16 04/14/17 History Nitroglycerin 0.4 mg SL Q5MIN3 PRN 10/24/16 04/14/17 History Rivaroxaban [Xarelto] 20 mg PO NOON 10/24/16 04/14/17 History Ferrous Sulfate [Feosol] 325 mg PO WL 11/20/16 04/14/17 History Potassium Chloride [K-DUR 20 mEq 40 meq PO BID 12/16/16 04/14/17 History Tablet] Bumetanide Tab [Bumex Tab] 3 mg PO DAILY 04/14/17 04/14/17 History Calcium Carbonate [Calcium] 1 tab PO DAILY 04/14/17 04/14/17 History Docusate Sodium 100 mg PO WS 04/14/17 04/14/17 History Metoprolol Tartrate [Lopressor] 100 mg PO DAILY 04/14/17 04/14/17 History PEG 3350 17gm PACKET [Miralax] 17 gm PO DAILY 04/14/17 04/14/17 History Allergies Allergy/AdvReac Type Severity Reaction Status Date / Time lisinopril Allergy Unknown Verified 04/14/17 13:21 Penicillins Allergy Unknown Verified 04/14/17 13:21 Exam Vital Signs: Temperature 98.7 F 04/14/17 12:46 Pulse Rate 121 H 04/14/17 16:45 Respiratory Rate 35 H 04/14/17 16:45 Blood Pressure 108/44 04/14/17 16:45 Pulse Oximetry 98 04/14/17 16:45 Telemetry Rhythm: A-fib with RVR - Constitutional Present: well developed, thin, obtunded - Routine HEENT Exam Head: Present: normocephalic, atraumatic Eye: Present: EOMI ENT: Present: mucous membranes dry, dentition normal - Routine Neck Exam Present: supple. Absent: JVD - Routine Respiratory Exam Present: CTA bilaterally, diminished air movement. Absent: wheezes - Routine Cardiovascular Exam Present: irregularly irregular. Absent: murmur - Routine Abdominal Exam Present: soft, normoactive bowel sounds, non distended. Absent: tenderness - Routine Extremities Exam Present: edema, non tender, normal capillary refill - Routine Skin Exam Present: dry, warm - Routine Neurological Exam Present: altered mental status. Absent: alert, oriented X3 - Routine Psychiatric Exam Present: unable to assess Results - Labs CBC & Chem 7: 04/15/17 10:49 04/15/17 10:49 - Echocardiogram Echocardiogram: Atrial fibrillation with a rate in the 120s - Impressions Chest x-ray shows an increasingly large left pleural effusion. Radiology ingests there might be a pneumonia underlying Assessment and Plan (1) Encephalopathy acute Current visit: Yes Status: Acute (2) Atrial fibrillation with RVR Current visit: No Status: Acute (3) Systemic inflammatory response syndrome (SIRS) Current visit: Yes Status: Acute (4) Pleural effusion, left Current visit: Yes Status: Acute Assessment and Plan: Mrs. Carter remains unresponsive in the etiology of her encephalopathy is uncertain. She does meet sirs criteria and with her fluid condition being both intravascularly dry and yet edematous with pleural effusion, there are conflicting issues with treatment. Have ordered a respiratory panel and ABG. TSH the reflex T4. Echocardiogram. This will give us better guidance as to further treatment. Empirically, we will start with antibiotic coverage and respiratory support as well as general hydration to attempt to improve her overall condition. DISPOSITION: patient is medically complicated and will require at least 48 hours to properly sort her condition. She will need consultation with cardiology , she is patient of . She may need a thoracentesis in which case I will discuss this with Dr. Khanna upon his return tomorrow 5:30pm called back to ICU for declining sats and tachycardia with multifocal PVCs. Giving 10mg IVP cardizem and switching to simple mask. 45 minutes of critical care and decision-making time. No procedures performed DVT Prophylaxis: Lovenox - Time spent with patient Time with patient PN: 50 minutes - Physician Narrative Narrative: Date: 04/14/17 Time: 1705 Sepsis Assessment - Evaluation SIRS Criteria: WBC > 12,000 Severe Sepsis: none seen - Focused Exam-within 6 hours of IVF Bolus Respiratory exam: Present: diminished air movement Cardiovascular exam: Present: irregularly irregular Capillary Refill: < 2Seconds Peripheral pulse strength: Normal Peripheral pulse location: Pedal Skin Temperature: Warm Skin Color: [place] Hospital Course Summary Disclaimer: The visit summary below is not to be considered part of the above Progress Note.
[2017-04-14] MEDS: SALINE FLUSH 10ml SYRINGE IVF PRN (17:15)
[2017-04-14] MEDS ORDERED: DiltiaZEM 25 MG/5 ML INJECTION IVP ONE (17:37)
[2017-04-14] MEDS: ENOXAPARIN 30 MG/0.3 ML INJECTION SQ SCH (18:29)
[2017-04-14] MEDS: DiltiaZEM Drip 125 MG in NS 125 ML IV SCH (18:50)
[2017-04-14] MEDS: CLINDAMYCIN PB 600 MG/50 ML BAG IV SCH ×2 (18:51→23:31)
[2017-04-14] MEDS: NS 1,000 ML IV SCH (19:34)
[2017-04-15] MEDS: DiltiaZEM Drip 125 MG in NS 125 ML IV SCH ×2 (04:17→13:27)
[2017-04-15] MEDS: CLINDAMYCIN PB 600 MG/50 ML BAG IV SCH ×3 (05:33→19:09)
--- NOTE | 2017-04-15 07:13 | XRay Report ---
Indication: Palpitations Procedure: XR chest 1V: Encounter: Initial Comparison: 12/16/2016 Technique: A single portable AP chest radiograph was obtained. Findings: Life support devices: Unchanged left pectoral single chamber pacer device. Lungs and airways: Normal lung volumes. Calcified granulomas. Left greater than right relaxation atelectasis.. Normal pulmonary vasculature. Pleura: Moderate left and trace right pleural effusions. No pneumothorax. Heart and mediastinum: Aortic atherosclerosis. Likely cardiomegaly. Osseous structures and soft tissues: No acute osseous abnormality is seen. Postoperative changes of median sternotomy. Impression: Moderate left and trace right pleural effusions with associated left greater than right relaxation atelectasis, similar to the previous examination in November. .
[2017-04-15] MEDS: ENOXAPARIN 30 MG/0.3 ML INJECTION SQ SCH (09:34)
--- NOTE | 2017-04-15 10:54 | Progress Note ---
- Date 04/15/17 Subjective: Mrs. Machado remains quiet but answers questions. She states she is feeling perhaps a little better. Denying pain or any fever nausea diarrhea. I discussed thoracentesis with pt and and they state that she has had it performed before. Objective Vital signs: Temperature 96.7 F L 04/15/17 08:00 Pulse Rate 105 H 04/15/17 06:45 Respiratory Rate 26 H 04/15/17 06:45 Blood Pressure 123/58 04/15/17 06:45 Pulse Oximetry 99 04/15/17 06:45 Height/Weight/BMI: Height 5 ft 6 in Weight 61.1 kg Body Mass Index 21.6 - Constitutional Present: well nourished, well developed - Routine HEENT Exam Eye: Present: EOMI ENT: Present: mucous membranes moist, dentition normal - Routine Respiratory Exam Present: rhonchi, diminished air movement. Absent: wheezes - Routine Cardiovascular Exam Present: RRR. Absent: murmur - Routine Abdominal Exam Present: soft, normoactive bowel sounds, non distended. Absent: tenderness - Routine Extremities Exam Present: normal capillary refill - Routine Skin Exam Present: dry, warm - Routine Neurological Exam Present: alert, CN II-XII intact - Routine Lymphatic Exam Lymphatic: Absent: adenopathy - Routine Psychiatric Exam Present: normal affect, cooperative Results - Labs CBC & Chem 7: 04/15/17 10:49 04/15/17 10:49 Assessment and Plan (1) Encephalopathy acute Current visit: Yes Status: Acute (2) Atrial fibrillation with RVR Current visit: No Status: Acute (3) Systemic inflammatory response syndrome (SIRS) Current visit: Yes Status: Acute (4) Pleural effusion, left Current visit: Yes Status: Acute Assessment and Plan: Mrs. Machado is a little more responsive but remains extremely ill in the intensive care unit. She does have moderate pleural effusion, and for this reason I have spoken to Dr. Khanna about the possibility of a thoracentesis. ( My appreciation to Dr. Khanna.) The patient and the family are comfortable with this. We will continue antibiotics this time with clindamycin and Rocephin. Attempting to wean down the Cardizem drip for the tachycardia. Converting to oral diltiazem. Getting a large initial dose of 360 mg CD and will reassess in the morning. DISPOSITION: continue in the ICU DVT Prophylaxis: Lovenox - Physician Narrative Narrative: Date: 04/15/17 Time: 1052 Hospital Course Summary Disclaimer: The visit summary below is not to be considered part of the above Progress Note.
--- NOTE | 2017-04-15 15:11 | Pulmonology Consult Note ---
History of Present Illness Consult date: 04/15/17 Requesting physician: Michael Pak Reason for consult: pleural effusion History of present illness: HPI: According to the family Mrs. Machado has been sick for about 4 days. states that she started coughing and he thought maybe she had a fever due her asking for a wet cloth for her forehead. She is very sleepy and only answers questions with brief answers. She does know where she is, naming "[facility] " as her location. Notes indicate that she has been unresponsive to anything but direct stimulation for the last 48 hours prior to admission. Her relates the story that she has stated the last several days that she has just felt terrible. She has had some transient cough but no fevers nausea vomiting or diarrhea. No associated medication changes or any recognizable sick contacts from the family's viewpoint. She is currently being treated for pneumonia with Levaquin and Clindamycin. and daughter state she had a UTI in January that was treated with antibiotics. She is on O2 at home at 2 lpm. She had left thoracentesis in October by Dr Sarkar. The fluid was exudative by [facility]. Review of Systems ROS unobtainable: due to mental status Past Medical History Medical History Updates: Hypertension, Afib, CAD, tachy/bello syndrome with pauses, carotid artery stenoses, left exudative pleural effusion Surgical History: cataracts. 2016 bilateral CEAs. Echo September,. 1. Normal LV systolic function with ejection fraction of 60%. 2. Grossly, no intracardiac thrombus or mass. 3. Mitral annulus calcification with mild mitral regurgitation. 4. Aortic sclerosis with [id number] aortic insufficiency. 5. Mild tricuspid regurgitation with mild pulmonary hypertension with estimated pulmonary artery systolic pressure of 38. 6. Mild pulmonary insufficiency. 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 Jayro Plaza. 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 Matson. Thoracentesis with removal of 800 mL from left pleural effusion 10/27/[address] Sarkar. - Social History Smoking status: Former smoker Substance use type: does not use Alcohol intake frequency: does not drink Household members: spouse, children PFSH Patient Stated Medical History Cerebrovascular Accident Yes: 09/29/16, LT SIDE WEAKNESS Cataracts Yes Hearing Loss Yes Cardiac Arrhythmia Yes: afib Congestive Heart Failure Yes: PEDAL EDEMA Coronary Artery Disease Yes Heart Murmur Yes Hypertension Yes Myocardial Infarction Yes Other Cardiology Yes: MULTI-VESSEL DISEASE Sleep Apnea No Other Respiratory Yes: LEFT PLEURAL EFFUSION Other GI Yes: CONSTIPATION Hx Incontinence No Hx Renal Disease No Other Hematologic Yes: LEUKOCYTOSIS Osteoarthritis Yes Depression Yes: MAJOR Eating Disorder Yes: ANOREXIA Other Behavioral Health Yes: ANHEDONIA Medical History Updates: Hypertension, Afib, CAD, tachy/bello syndrome with pauses, carotid artery stenoses, left exudative pleural effusion Surgical History: cataracts. 2016 bilateral CEAs. Echo September,. 1. Normal LV systolic function with ejection fraction of 60%. 2. Grossly, no intracardiac thrombus or mass. 3. Mitral annulus calcification with mild mitral regurgitation. 4. Aortic sclerosis with [id number] aortic insufficiency. 5. Mild tricuspid regurgitation with mild pulmonary hypertension with estimated pulmonary artery systolic pressure of 38. 6. Mild pulmonary insufficiency. 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 Jayro Plaza. 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 Matson. Thoracentesis with removal of 800 mL from left pleural effusion 10/27/[address] Sarkar. - Social History Smoking status: Former smoker Medications Home Medications Medication Instructions Recorded Confirmed Type Aspirin [Adult Low Dose Aspirin EC] 81 mg PO DAILY 10/24/16 04/14/17 History Atorvastatin [Lipitor] 20 mg PO HS 10/24/16 04/14/17 History Nitroglycerin 0.4 mg SL Q5MIN3 PRN 10/24/16 04/14/17 History Rivaroxaban [Xarelto] 20 mg PO NOON 10/24/16 04/14/17 History Ferrous Sulfate [Feosol] 325 mg PO WL 11/20/16 04/14/17 History Potassium Chloride [K-DUR 20 mEq 40 meq PO BID 12/16/16 04/14/17 History Tablet] Bumetanide Tab [Bumex Tab] 3 mg PO DAILY 04/14/17 04/14/17 History Calcium Carbonate [Calcium] 1 tab PO DAILY 04/14/17 04/14/17 History Docusate Sodium 100 mg PO WS 04/14/17 04/14/17 History Metoprolol Tartrate [Lopressor] 100 mg PO DAILY 04/14/17 04/14/17 History PEG 3350 17gm PACKET [Miralax] 17 gm PO DAILY 04/14/17 04/14/17 History Allergies Allergy/AdvReac Type Severity Reaction Status Date / Time lisinopril Allergy Unknown Verified 04/14/17 13:21 Penicillins Allergy Unknown Verified 04/14/17 13:21 Exam Vital signs: Temperature 97.8 F 04/15/17 12:00 Pulse Rate 75 04/15/17 13:04 Respiratory Rate 26 H 04/15/17 13:00 Blood Pressure 124/58 04/15/17 13:00 Pulse Oximetry 97 04/15/17 13:00 - Constitutional no acute distress - Routine HEENT Exam Head: Present: normocephalic, atraumatic Eye: Absent: PERRL, conjunctival icterus - Routine Neck Exam Present: supple, full ROM - Routine Respiratory Exam Present: accessory muscle use - Routine Cardiovascular Exam Present: RRR - Routine Abdominal Exam Present: soft. Absent: guarding - Routine Extremities Exam Absent: cyanosis, clubbing - Routine Skin Exam Present: intact. Absent: cyanosis Results - Laboratory Findings CBC and BMP: 04/15/17 10:49 04/15/17 10:49 Abnormal lab findings: Abnormal Labs 04/15/17 04/15/17 10:49 10:49 WBC 11.4 H RBC 3.54 L Hgb 10.4 L D MCV 103.4 H MCHC 28.4 L RDW Std Deviation 53.6 H Neut % (Auto) 79.9 H Lymph % (Auto) 8.7 L [place] % (Auto) 9.6 H Neut # (Auto) 9.1 H [place] # (Auto) 1.1 H Abs Immat Gran (auto) 0.04 H Potassium 5.1 H Chloride 91 L Carbon Dioxide 41 H* BUN 28.0 H Creatinine 0.6 L BUN/Creatinine Ratio 47 H - Diagnostic Findings Chest x-ray: report reviewed, image reviewed Assessment and Plan (1) Pleural effusion Status: Acute Assessment and plan: Recurrent left pleural effusion. Exudative by analysis after thoracentesis in October 2016. This appears to be a recurrent problem. I discussed with the family that she will likely require thoracentesis at some point, however at this time since she is so weak and unable to get up under her own power, I would choose to delay this procedure a few days. The fluid collection is likely chronic and recurrent and is unlikely to cause any significant respiratory problems in the short term, so I think it is ok to wait a few days on the procedure. Current Visit: Yes (2) Encephalopathy acute Status: Acute Assessment and plan: Unclear etiology. Sepsis from pneumonia or urinary source would be a common etiology. Fluoroquinolone antibiotics are also known to cause encephalopathy in her age group. check cultures as appropriate. I would favor discontinuing the Levaquin. Current Visit: Yes - Time Spent With Patient Total time spent is greater than 50% in coordination of care (as documented) at patient's floor/unit and/or counseling patient: 25 - 35 minutes
[2017-04-15] MEDS ORDERED: CEFTRIAXONE 1 G in NS 100 ML IV SCH (15:45)
[2017-04-15] MEDS: NS 1,000 ML IV SCH (19:04)
[2017-04-16] MEDS: CLINDAMYCIN PB 600 MG/50 ML BAG IV SCH ×5 (00:06→22:18)
--- NOTE | 2017-04-16 08:29 | XRay Report ---
EXAM: XR chest 1V HISTORY: pleural effusion COMPARISON: Prior examination dated 04/14/2017 FINDINGS: There is no significant interval change in the moderate size left pleural effusion. Underlying infiltrate/atelectasis in the mid and lower left lung zones are not excluded. The small left pleural effusion persists as well. The visualized portion of the cardiac mediastinal silhouette is stable again showing changes of prior coronary artery bypass grafting. The trachea is midline is no evidence mediastinal widening. There is a stable left-sided single-lead pacemaker in place. There is developing acute patchy infiltrates in the left upper lobe and at the right lung base. Calcified granulomas are again seen in the mid and lower right lung zones. The bony thorax is stable again showing median sternotomy wires in place. Postsurgical changes are again seen over the lower aspect of the left chest IMPRESSION: 1. No significant interval change in the moderate size left pleural effusion and the small right pleural effusion. 2. Developing acute infiltrate in the left upper lobe and at the right lung base. 3. There is no other significant interval change. .
[2017-04-16] MEDS: ENOXAPARIN 30 MG/0.3 ML INJECTION SQ SCH (08:49)
[2017-04-16] MEDS ORDERED: DiltiaZEM CD 360 MG CAPSULE PO SCH ×2 (09:00→13:45)
[2017-04-16] MEDS ORDERED: CEFTRIAXONE 1 G in NS 50 ML IV SCH (09:00)
[2017-04-16] MEDS: NS 1,000 ML IV SCH (10:38)
--- NOTE | 2017-04-16 10:55 | Pulmonology Progress Note ---
Subjective Interval history: Pt in bed resting, wakes to voice and states breathing is doing ok. No c/o SOB noted, c/o tiredness. Exam Vital signs: Temperature 97.6 F 04/16/17 00:00 Pulse Rate 107 H 04/16/17 06:00 Respiratory Rate 22 04/16/17 06:00 Blood Pressure 144/65 H 04/16/17 06:00 Pulse Oximetry 93 04/16/17 06:00 - Constitutional no acute distress, average body habitus, cooperative - Routine HEENT Exam Head: Present: normocephalic, atraumatic Eye: Present: EOMI, PERRL ENT: Present: mucous membranes moist - Routine Neck Exam Present: supple, full ROM, trachea midline - Routine Respiratory Exam Present: decreased breath sounds, crackles Comments: decreased toma lung with bilat crackles - Routine Cardiovascular Exam Present: S1, S2, no murmur, irregular rhythm - Routine Abdominal Exam Present: soft, normoactive bowel sounds - Routine Extremities Exam Present: edema, non tender, full ROM - Routine Back/Spine/Pelvis Exam Back/Spine: Present: full ROM - Routine Skin Exam Present: intact, dry - Routine Neurological Exam Present: alert, CN II-XII intact - Routine Psychiatric Exam Present: normal affect, normal thought process, good judgment Assessment and Plan - Assessment and Plan Acute on Chronic Hypoxic Respiratory Failure Left Pleural effusion - s/p thora Oct 2016 exudative per [facility] sepsis - unclear etiology Encephalopathy - improving Atrial fibrillation Plan: Pt currently on O2 at 3L per NC and tolerating 92%. On O2 at 2L per NC at home. CXR with cont L moderate effusion with slight increase in RLL effusion and congestion, Cr normal yesterday on IVF 50ml/hr, UOP less then 20ml/hr per RN, SBP 150's, may benefit from trial of lasix. Currently on Rocephin and clinda for pna, afebrile and WBC normal now. follow CXR and symptoms, wait on thora at this time. - Time Spent With Patient Total time spent is greater than 50% in coordination of care (as documented) at patient's floor/unit and/or counseling patient: less than 15 minutes
[2017-04-16] MEDS ORDERED: FUROSEMIDE 40 MG/4 ML INJECTION IVP ONE (11:45)
[2017-04-16] MEDS: SALINE FLUSH 10ml SYRINGE IVF PRN (12:55)
[2017-04-16] MEDS ORDERED: ALBUTEROL/IPRATROPIUM 2.5mg-0.5mg/3ml NEB AEROSOL PRN (15:28)
[2017-04-16] MEDS ORDERED: NITROGLYCERIN 0.4 MG SUBLINGUAL TABLET SL PRN (15:45)
[2017-04-16] MEDS ORDERED: METOPROLOL 5mg/5ml INJECTION IVP PRN (15:52)
--- NOTE | 2017-04-16 16:01 | Cardiology Consult Note ---
<Norma Ann - Last Filed: 04/17/17 08:30> History of Present Illness Consult date: 04/16/17 Requesting physician: Michael Pak Consult reason: known to you Chief complaint: encephalopathy History of present illness: Sayda is a 81 year old female who is well known to Dr. 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 Her reports the last several days that she has just felt terrible. She has had some transient cough but no fevers, nausea, vomiting or diarrhea. No associated medication changes or any recognizable sick contacts from the family's viewpoint. She is examined in her room in CCU. She states she wants to go to the hospital. Reoriented Sayda to the fact that she is in critical care. She states she has not slept the past 2 days or nights. She denies chest pain or pressure, palpitations, dyspnea, sore throat. Her last Echo was 04/04 EF 50-55%, nml LVSF, mild MR, mild AR, mild TR, increased PAP, mod left pleural effusion. Review of Systems - Constitutional Constitutional: Present: as per HPI. Absent: chills, fever(s) - EENMT Eyes: Absent: change in vision Balance: Absent: vertigo Mouth/Throat: Absent: sore throat - Cardiovascular Cardiovascular: Absent: chest pain, palpitations, dyspnea on exertion Vascular: Present: pedal edema - Respiratory Respiratory: Present: cough - Gastrointestinal Gastrointestinal: Absent: diarrhea, nausea, vomiting - Genitourinary Genitourinary: Absent: dysuria - Integumentary/Breasts Integumentary: Absent: rash - Neurological Neurological: Absent: dizziness - Endocrine Endocrine: Absent: palpitations PFSH Patient Stated Medical History Cerebrovascular Accident Yes: 09/29/16, LT SIDE WEAKNESS Cataracts Yes Hearing Loss Yes Cardiac Arrhythmia Yes: afib Congestive Heart Failure Yes: PEDAL EDEMA Coronary Artery Disease Yes Heart Murmur Yes Hypertension Yes Myocardial Infarction Yes Other Cardiology Yes: MULTI-VESSEL DISEASE Sleep Apnea No Other Respiratory Yes: LEFT PLEURAL EFFUSION Other GI Yes: CONSTIPATION Hx Incontinence No Hx Renal Disease No Other Hematologic Yes: LEUKOCYTOSIS Osteoarthritis Yes Depression Yes: MAJOR Eating Disorder Yes: ANOREXIA Other Behavioral Health Yes: ANHEDONIA Medical History Updates: Hypertension, Afib, CAD, tachy/bello syndrome with pauses, carotid artery stenoses, left exudative pleural effusion Surgical History: cataracts. 2016 bilateral CEAs. Echo September,. 1. Normal LV systolic function with ejection fraction of 60%. 2. Grossly, no intracardiac thrombus or mass. 3. Mitral annulus calcification with mild mitral regurgitation. 4. Aortic sclerosis with wepz-xk-baibdamp aortic insufficiency. 5. Mild tricuspid regurgitation with mild pulmonary hypertension with estimated pulmonary artery systolic pressure of 38. 6. Mild pulmonary insufficiency. 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 Jayro Plaza. 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 Matson. Thoracentesis with removal of 800 mL from left pleural effusion 10/27/[address] Sarkar. Family History: Her parents are . Father of heart attack and mother of reported stroke. - Social History Smoking status: Former smoker Substance use type: does not use Alcohol intake frequency: does not drink Household members: spouse Current occupational status: retired Current residence: Apartment/Private Home Medications Home Medications Medication Instructions Recorded Confirmed Type Aspirin [Adult Low Dose Aspirin EC] 81 mg PO DAILY 10/24/16 04/14/17 History Atorvastatin [Lipitor] 20 mg PO HS 10/24/16 04/14/17 History Nitroglycerin 0.4 mg SL Q5MIN3 PRN 10/24/16 04/14/17 History Rivaroxaban [Xarelto] 20 mg PO NOON 10/24/16 04/14/17 History Ferrous Sulfate [Feosol] 325 mg PO WL 11/20/16 04/14/17 History Potassium Chloride [K-DUR 20 mEq 40 meq PO BID 12/16/16 04/14/17 History Tablet] Bumetanide Tab [Bumex Tab] 3 mg PO DAILY 04/14/17 04/14/17 History Calcium Carbonate [Calcium] 1 tab PO DAILY 04/14/17 04/14/17 History Docusate Sodium 100 mg PO WS 04/14/17 04/14/17 History Metoprolol Tartrate [Lopressor] 100 mg PO DAILY 04/14/17 04/14/17 History PEG 3350 17gm PACKET [Miralax] 17 gm PO DAILY 04/14/17 04/14/17 History Allergies Allergy/AdvReac Type Severity Reaction Status Date / Time lisinopril Allergy Unknown Verified 04/14/17 13:21 Penicillins Allergy Unknown Verified 04/14/17 13:21 Exam Vital signs: Temperature 97.7 F 04/16/17 15:17 Pulse Rate 120 H 04/16/17 15:17 Respiratory Rate 30 H 04/16/17 15:17 Blood Pressure 142/64 H 04/16/17 14:15 Pulse Oximetry 97 04/16/17 15:17 - Constitutional no acute distress, cooperative - Routine HEENT Exam Head: Present: normocephalic ENT: Present: mucous membranes moist - Routine Neck Exam Absent: JVD, carotid bruit - Routine Chest/Breast/Axilla Exam Chest wall: Present: pacemaker. Absent: tenderness - Routine Respiratory Exam Present: decreased breath sounds, wheezes. Absent: CTA bilaterally - Routine Cardiovascular Exam Present: tachycardia, irregular rhythm - Routine Abdominal Exam Present: soft, normoactive bowel sounds - Routine Extremities Exam Present: edema - Routine Skin Exam Present: intact, dry, warm - Routine Neurological Exam Present: alert - Routine Psychiatric Exam Present: depressed Results 04/17/17 06:01 04/17/17 06:01 Cardiac Enzymes 04/16/17 Range/Units 10:32 AST 21 (14-36) U/L CBC 04/16/17 Range/Units 10:32 WBC 9.7 (4.5-11.0) T/MM3 RBC 3.76 L (4.00-5.20) M/MM3 Hgb 11.1 L (12-16) GM/DL Hct 38.2 (36-46) % Plt Count 213 (130-400) T/MM3 Neut # (Auto) 8.1 H (1.8-7.7) T/MM3 Lymph # (Auto) 0.9 L (1-4.8) T/MM3 [place] # (Auto) 0.7 (0-0.8) T/MM3 Eos # (Auto) 0.0 (0-0.5) T/MM3 Baso # (Auto) 0.0 (0-0.2) T/MM3 Comprehensive Metabolic Panel 04/16/17 Range/Units 10:32 Sodium 139 (134-144) MEQ/L Potassium 4.9 (3.6-5) MEQ/L Chloride 94 L (98-107) MEQ/L Carbon Dioxide 35 H (22-30) MEQ/L BUN 30.0 H (7-17) MG/DL Creatinine 0.7 (0.7-1.2) MG/DL Glucose 103 (65-110) MG/DL Calcium 9.3 (8.4-10.2) MG/DL AST 21 (14-36) U/L ALT 28 (9-52) U/L Alkaline Phosphatase 75 (38-126) U/L Total Protein 6.9 (6.3-8.2) G/DL Albumin 3.8 (3.5-5.0) G/DL Intake and Output 04/16/17 04/16/17 04/16/17 06:59 14:59 22:59 Intake Total 437.5 / 437.5 264.166 / 264.166 Output Total 70 / 70 Balance 367.5 / 367.5 264.166 / 264.166 Intake: IV 437.5 / 437.5 264.166 / 264.166 Ceftriaxone 1 g In Ns 50 ml @ 50 / 50 100 mls/hr IV DAILY RICHARD Rx#: [id number] Clindamycin Pb 600 mg In 50 ml 100 / 100 @ 100 mls/hr IV Q6H RICHARD Rx#: [id number] Ns 1,000 ml @ 50 mls/hr IV . 337.5 / 337.5 214.166 / 214.166 Q20H RICHARD Rx#:[id number] Output: Urine Amount (Catheter) 70 / 70 Other: Urine Appearance Clear Urine Color Yellow Weight 138 lb 0.15 oz Patient Weight 04/17/17 06:59 Weight 138 lb 0.15 oz - Imaging and Cardiology Echo: report reviewed EKG results: image reviewed Imaging & Cardiology Narrative: Date of Exam: 04/16/17 Type of Exam(s): US echo doppler complete DATE OF PROCEDURE April 16, 2017 This is a two-dimensional echo with spectral Doppler color flow and M-mode. It was obtained in a patient with cardiac disease. Left atrial dimension is normal. Left ventricular end-diastolic dimension is normal. Left ventricular wall thickness is normal. LV systolic function is normal with ejection fraction of 66%. Right atrium is normal. Right ventricle is normal. Aortic root dimension is normal. Mitral valve is morphologically normal with [id number]-[id number] mitral regurgitation. Aortic valve is a trileaflet structure with no stenosis. Mild aortic insufficiency is present. Tricuspid valve shows mild tricuspid regurgitation with moderate pulmonary hypertension with estimated pulmonary artery systolic pressure of 46. Pulmonary valve shows mild pulmonary insufficiency. There is no pericardial effusion. Pleural effusion is present. IMPRESSION 1. Normal LV systolic function with ejection fraction of about 66%. 2. Pleural effusion present. 3. Kbve-gm-zdxhgrfe mitral regurgitation. 4. Mild aortic insufficiency. 5. Mild tricuspid regurgitation with moderate pulmonary hypertension with estimated pulmonary artery systolic pressure of 46. 6. Mild pulmonary insufficiency. 04/17/17 08:38 04/17/17 08:38 Date of Exam: 04/16/17 Ordering Provider: Santosh Khanna MD Type of Exam(s): XR chest 1V Reason for Exam(s): pleural effusion EXAM: XR chest 1V HISTORY: pleural effusion COMPARISON: Prior examination dated 04/14/2017 FINDINGS: There is no significant interval change in the moderate size left pleural effusion. Underlying infiltrate/atelectasis in the mid and lower left lung zones are not excluded. The small left pleural effusion persists as well. The visualized portion of the cardiac mediastinal silhouette is stable again showing changes of prior coronary artery bypass grafting. The trachea is midline is no evidence mediastinal widening. There is a stable left-sided single-lead pacemaker in place. There is developing acute patchy infiltrates in the left upper lobe and at the right lung base. Calcified granulomas are again seen in the mid and lower right lung zones. The bony thorax is stable again showing median sternotomy wires in place. Postsurgical changes are again seen over the lower aspect of the left chest IMPRESSION: 1. No significant interval change in the moderate size left pleural effusion and the small right pleural effusion. 2. Developing acute infiltrate in the left upper lobe and at the right lung base. 3. There is no other significant interval change. EKG interpretations - EKG EKG results cardiology: WNL - MN, pacemaker, normal Pacemaker: ventricular pacing w/capture (except when refractory) Assessment and Plan - Assessment and Plan (1) Encephalopathy Current visit: Yes Status: Acute Speech evaluate swallow please - Hold oral Cardizem, Xarelto and Metoprolol for now (2) Atrial fibrillation Current visit: No Status: Chronic Cardizem drip for rate control with metoprolol IV. - Has [employer] PPM, interrogate please - Increased Lovenox to 1mg/kg dose tonight, hold in am if thoracentesis is planned (3) HTN (hypertension) Current visit: No Status: Chronic (4) Dyslipidemia Current visit: No Status: Chronic (5) Coronary artery disease Current visit: No Status: Chronic (6) Pleural effusion, left Current visit: Yes Status: Chronic Recommend draining fluid from pleural space - Responded well when drained in October of 2016 - Hold Xarelto - Assessment and Plan Encephalopathy: Speech evaluate swallow please - Hold oral Cardizem, Xarelto and Metoprolol for now Pleural effusion:Recommend draining fluid from pleural space - Responded well when drained in October of 2016 - Hold Xarelto AFib with RVR: Cardizem drip for rate control with metoprolol IV. - Has [employer] PPM, interrogate please - Increased Lovenox to 1mg/kg dose tonight, hold in am if thoracentesis is planned Thank you for allowing us to participate in the care of this patient. Hospital Course Summary Disclaimer: The visit summary below is not to be considered part of the above Progress Note. 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 Other Behavioral Health Yes: ANHEDONIA Exam Vital signs: Temperature 97.4 F 04/17/17 17:30 Pulse Rate 88 04/18/17 10:15 Respiratory Rate 25 H 04/18/17 10:15 Blood Pressure 120/58 04/18/17 10:00 Pulse Oximetry 95 04/18/17 10:15 Results 04/18/17 04:38 04/18/17 04:38 Cardiac Enzymes 04/18/17 Range/Units 04:38 AST 28 (14-36) U/L B-Natriuretic Peptide 3650 H (0-175) pg/mL Coagulation 04/18/17 Range/Units 04:38 B-Natriuretic Peptide 3650 H (0-175) pg/mL CBC 04/18/17 Range/Units 04:38 WBC 9.8 (4.5-11.0) T/MM3 RBC 3.53 L (4.00-5.20) M/MM3 Hgb 10.4 L (12-16) GM/DL Hct 35.6 L (36-46) % Plt Count 200 (130-400) T/MM3 Neut # (Auto) 7.6 (1.8-7.7) T/MM3 Lymph # (Auto) 0.9 L (1-4.8) T/MM3 [place] # (Auto) 1.2 H (0-0.8) T/MM3 Eos # (Auto) 0.1 (0-0.5) T/MM3 Baso # (Auto) 0.0 (0-0.2) T/MM3 Comprehensive Metabolic Panel 04/18/17 Range/Units 04:38 Sodium 141 (134-144) MEQ/L Potassium 4.9 D (3.6-5) MEQ/L Chloride 100 (98-107) MEQ/L Carbon Dioxide 38 H (22-30) MEQ/L BUN 32.0 H (7-17) MG/DL Creatinine 0.7 (0.7-1.2) MG/DL Glucose 104 (65-110) MG/DL Calcium 9.2 (8.4-10.2) MG/DL AST 28 (14-36) U/L ALT 42 (9-52) U/L Alkaline Phosphatase 50 D (38-126) U/L Total Protein 5.9 L (6.3-8.2) G/DL Albumin 3.1 L (3.5-5.0) G/DL Intake and Output 04/17/17 04/18/17 04/18/17 22:59 06:59 14:59 Intake Total 512.5 / 512.5 732.501 / 732.501 485.75 / 485.75 Output Total 140 / 140 105 / 105 98 / 98 Balance 372.5 / 372.5 627.501 / 627.501 387.75 / 387.75 Intake: IV 512.5 / 512.5 732.501 / 732.501 248.75 / 248.75 Ceftriaxone 1 g In Ns 50 ml @ 50 / 50 100 mls/hr IV DAILY RICHARD Rx#: [id number] Clindamycin Pb 600 mg In 50 ml 50 / 50 100 / 100 @ 100 mls/hr IV Q6H RICHARD Rx#: [id number] Ns 1,000 ml @ 75 mls/hr IV . 462.5 / 462.5 632.501 / 632.501 198.75 / 198.75 [id number] RICHARD Rx#:[id number] Oral 237 / 237 Output: Urine Amount (Catheter) 140 / 140 105 / 105 98 / 98 Other: Urine Appearance Clear Clear Clear Urine Color Yellow Yellow Yellow Size of Bowel Movement Smear Weight 63.3 kg 64 kg Patient Weight 04/19/17 06:59 Weight 64 kg Assessment and Plan - Attestation Attestation Narrative: 04/18/17 11:29 Recommendation After examining the patient I agree with the above assessment. I am involved in the formulation of the patient's plan of care. - Assessment and Plan (1) HTN (hypertension) Current visit: No Status: Chronic (2) Dyslipidemia Current visit: No Status: Chronic (3) Atrial fibrillation Current visit: No Status: Chronic (4) Coronary artery disease Current visit: No Status: Chronic (5) Encephalopathy Current visit: Yes Status: Acute (6) Pleural effusion, left Current visit: Yes Status: Chronic Hospital Course Summary Disclaimer: The visit summary below is not to be considered part of the above Progress Note.
[2017-04-16] MEDS ORDERED: ENOXAPARIN 60 MG/0.6 ML INJECTION SQ ONE (16:58)
[2017-04-16] MEDS ORDERED: DOCUSATE SODIUM 100 MG CAPSULE PO SCH (17:30)
[2017-04-16] MEDS: DiltiaZEM Drip 125 MG in NS 125 ML IV SCH (17:31)
--- NOTE | 2017-04-16 19:07 | Echocardiogram ---
DATE OF PROCEDURE April 16, 2017 This is a two-dimensional echo with spectral Doppler color flow and M-mode. It was obtained in a patient with cardiac disease. Left atrial dimension is normal. Left ventricular end-diastolic dimension is normal. Left ventricular wall thickness is normal. LV systolic function is normal with ejection fraction of 66%. Right atrium is normal. Right ventricle is normal. Aortic root dimension is normal. Mitral valve is morphologically normal with hztk-qy-fhjtqkgt mitral regurgitation. Aortic valve is a trileaflet structure with no stenosis. Mild aortic insufficiency is present. Tricuspid valve shows mild tricuspid regurgitation with moderate pulmonary hypertension with estimated pulmonary artery systolic pressure of 46. Pulmonary valve shows mild pulmonary insufficiency. There is no pericardial effusion. Pleural effusion is present. IMPRESSION 1. Normal LV systolic function with ejection fraction of about 66%. 2. Pleural effusion present. 3. Oiau-ss-uawzbsmh mitral regurgitation. 4. Mild aortic insufficiency. 5. Mild tricuspid regurgitation with moderate pulmonary hypertension with estimated pulmonary artery systolic pressure of 46. 6. Mild pulmonary insufficiency. MTDD
[2017-04-16] MEDS ORDERED: ENOXAPARIN 60 MG/0.6 ML INJECTION SQ SCH (21:00)
[2017-04-16] MEDS ORDERED: MAGNESIUM OXIDE 400 MG TABLET PO SCH (21:00)
[2017-04-16] MEDS: ATORVASTATIN 20 MG TABLET PO SCH ×2 (21:13→21:38)
[2017-04-16] MEDS: MIRTAZAPINE 15 MG TABLET PO SCH ×2 (21:13→21:38)
--- NOTE | 2017-04-16 21:25 | Progress Note ---
- Date 04/16/17 Subjective: Mrs. Machado is a little less responsive than yesterday. She denies pain. She thinks she feels a little better, but the duration of her conversations is shorter and she seems to fatigue quicker. Objective Vital signs: Temperature 97.9 F 04/16/17 16:00 Pulse Rate 104 H 04/16/17 20:30 Respiratory Rate 22 04/16/17 20:30 Blood Pressure 119/59 04/16/17 20:00 Pulse Oximetry 88 L 04/16/17 20:30 Height/Weight/BMI: Height 5 ft 6 in Weight 62.6 kg Body Mass Index 21.6 - Constitutional Present: well developed, somnolent - Routine HEENT Exam Head: Present: normocephalic, atraumatic Eye: Present: EOMI ENT: Present: mucous membranes moist, dentition normal - Routine Respiratory Exam Present: CTA bilaterally. Absent: wheezes - Routine Cardiovascular Exam Present: RRR. Absent: murmur - Routine Abdominal Exam Present: soft, normoactive bowel sounds, non distended. Absent: tenderness - Routine Extremities Exam Present: normal capillary refill - Routine Skin Exam Present: dry, warm - Routine Neurological Exam Present: alert, oriented X3, CN II-XII intact - Routine Lymphatic Exam Lymphatic: Absent: adenopathy - Routine Psychiatric Exam Present: normal affect Results - Labs CBC & Chem 7: 04/16/17 10:32 04/16/17 10:32 Assessment and Plan (1) Encephalopathy acute Current visit: Yes Status: Acute (2) Atrial fibrillation with RVR Current visit: No Status: Acute (3) Systemic inflammatory response syndrome (SIRS) Current visit: Yes Status: Acute (4) Pleural effusion, left Current visit: Yes Status: Chronic Assessment and Plan: Weaning from Cardizem drip to high-dose oral Cardizem left the patient with a heart rate that climbed back into the 120s. Dr Matson was consulted, and they are familiar with her. They note that the patient did show significant improvement after a thoracentesis. Appreciation to cardiology for their participation. Her most concerning feature at this point is her oliguria and climbing renal lab values. I've expressed to the that these are not reassuring. I spoken to the about code status and he is interested in seeing that if she actually does require resuscitation that she be given an initial trial but does not want her maintained on a ventilator does I'm putting in order for no intubation DNI. Contained in the ICU. Code status DNI - Physician Narrative Narrative: Date: 04/16/17 Time: 2120 Hospital Course Summary Disclaimer: The visit summary below is not to be considered part of the above Progress Note. Hospital Course: 04/15/2017 Mrs. Machado is a little more responsive but remains extremely ill in the intensive care unit. She does have moderate pleural effusion, and for this reason I have spoken to Dr. Khanna about the possibility of a thoracentesis. ( My appreciation to Dr. Khanna.) The patient and the family are comfortable with this. We will continue antibiotics this time with clindamycin and Rocephin. Attempting to wean down the Cardizem drip for the tachycardia. Converting to oral diltiazem. Getting a large initial dose of 360 mg CD and will reassess in the morning. DISPOSITION: continue in the ICU 04/14/2017 Mrs. Machado remains unresponsive in the etiology of her encephalopathy is uncertain. She does meet sirs criteria and with her fluid condition being both intravascularly dry and yet edematous with pleural effusion, there are conflicting issues with treatment. Have ordered a respiratory panel and ABG. TSH the reflex T4. Echocardiogram. This will give us better guidance as to further treatment. Empirically, we will start with antibiotic coverage and respiratory support as well as general hydration to attempt to improve her overall condition. DISPOSITION: patient is medically complicated and will require at least 48 hours to properly sort her condition. She will need consultation with cardiology , she is patient of . She may need a thoracentesis in which case I will discuss this with Dr. Khanna upon his return tomorrow 5:30pm called back to ICU for declining sats and tachycardia with multifocal PVCs. Giving 10mg IVP cardizem and switching to simple mask. 45 minutes of critical care and decision-making time. No procedures performed
[2017-04-17] MEDS: DiltiaZEM Drip 125 MG in NS 125 ML IV SCH (03:17)
[2017-04-17] MEDS: CLINDAMYCIN PB 600 MG/50 ML BAG IV SCH ×3 (06:33→18:06)
[2017-04-17] MEDS ORDERED: NITROGLYCERIN 0.4 MG SUBLINGUAL TABLET SL PRN (07:21)
[2017-04-17] MEDS ORDERED: NS FLUSH BAG 500ml IV PRN (07:23)
[2017-04-17] MEDS ORDERED: DiltiaZEM Drip 125 MG in NS 125 ML IV SCH (07:30)
[2017-04-17] MEDS: ASPIRIN *EC* 81 MG TABLET PO SCH (08:38)
[2017-04-17] MEDS: ANASTROZOLE 1 MG TABLET PO SCH (08:39)
[2017-04-17] MEDS: CALCIUM CARBONATE 500 MG TABLET PO SCH (08:40)
[2017-04-17] MEDS: NS 1,000 ML IV SCH ×2 (08:41→23:41)
[2017-04-17] MEDS: POLYETHYL GLYCOL 3350 17gm PACKET PO SCH (08:42)
--- NOTE | 2017-04-17 08:43 | Cardiology Progress Note ---
<Norma Ann - Last Filed: 04/18/17 10:51> Subjective Principal diagnosis: Afib RVR Interval history: Sayda is seen in follow up for AFib RVR this morning in CCU. She is awake and alert, able to swallow without difficulty. She denies chest pain or pressure, denies palpitations. Exam Vital signs: Temperature 97.6 F 04/17/17 07:45 Pulse Rate 120 H 04/17/17 07:45 Respiratory Rate 37 H 04/17/17 07:45 Blood Pressure 144/66 H 04/17/17 07:30 Pulse Oximetry 92 04/17/17 07:45 - Constitutional no acute distress, well nourished, cooperative - Routine HEENT Exam Head: Present: normocephalic ENT: Present: mucous membranes moist - Routine Neck Exam Absent: JVD, carotid bruit - Routine Chest/Breast/Axilla Exam Chest wall: Present: pacemaker. Absent: tenderness - Routine Respiratory Exam Present: decreased breath sounds, wheezes, diminished air movement - Routine Cardiovascular Exam Present: no murmur, irregular rhythm - Routine Abdominal Exam Present: soft, normoactive bowel sounds - Routine Extremities Exam Present: edema - Routine Skin Exam Present: intact, dry, warm - Routine Neurological Exam Present: alert, oriented X3 - Routine Psychiatric Exam Present: normal affect, normal thought process - Additional findings Additional findings: Albuterol/Ipratropium (Duoneb) 3 ml AEROSOL RTQID PRN Anastrozole (Arimidex) 1 mg PO DAILY RICHARD Aspirin (Ecotrin) 81 mg PO DAILY RICHARD Atorvastatin Calcium (Lipitor) 20 mg PO HS RICHARD Bumetanide (Bumex 1 Mg Tab) 3 mg PO DAILY [facility] Calcium Carbonate (Calcium) 500 mg PO DAILY RICHARD Diltiazem HCl (Cardizem Cd) 360 mg PO DAILY RICHARD Docusate Sodium (Colace) 100 mg PO WS RICHARD Ferrous Sulfate (Feosol) 325 mg PO WL [facility] Ceftriaxone Sodium 1 g/ Sodium (Chloride) 50 mls @ 100 mls/hr IV DAILY RICHARD Clindamycin Phosphate (Cleocin Premix) 600 mg in 50 mls @ 100 mls/hr IV Q6H RICHARD Diltiazem HCl 125 mg/ Sodium (Chloride) 125 mls @ 10 mls/hr IV .[id number] RICHARD PRN Reason: Protocol Stop: 04/17/17 10:00 Sodium Chloride (Normal Saline) 1,000 mls @ 50 mls/hr IV .Q20H RICHARD Magnesium Oxide (Magox) 400 mg PO HS RICHARD Metoprolol Tartrate (Lopressor) 5 mg IVP Q6H PRN Metoprolol Tartrate (Lopressor) 100 mg PO BID RICHARD Mirtazapine (Remeron) 15 mg PO HS RICHARD Nitroglycerin (Nitrostat) 0.4 mg SL Q5MIN3 PRN PRN Reason: Chest pain Polyethylene Glycol (Miralax) 17 gm PO DAILY RICHARD Potassium Chloride (K-Dur 20 Meq Tablet) 40 meq PO BIDWM RICHARD Sodium Chloride (Iv Flush) 10 - 80 ml IVF PRN PRN PRN Reason: Flushing Sodium Chloride (Normal Saline) 500 ml IV PRN PRN Results 04/17/17 06:01 04/17/17 06:01 Cardiac Enzymes 04/16/17 Range/Units 10:32 AST 21 (14-36) U/L CBC 04/16/17 04/17/17 Range/Units 10:32 06:01 WBC 9.7 9.1 (4.5-11.0) T/MM3 RBC 3.76 L 3.43 L (4.00-5.20) M/MM3 Hgb 11.1 L 10.1 L (12-16) GM/DL Hct 38.2 34.6 L (36-46) % Plt Count 213 195 (130-400) T/MM3 Neut # (Auto) 8.1 H 7.0 (1.8-7.7) T/MM3 Lymph # (Auto) 0.9 L 1.0 (1-4.8) T/MM3 [place] # (Auto) 0.7 1.0 H (0-0.8) T/MM3 Eos # (Auto) 0.0 0.1 (0-0.5) T/MM3 Baso # (Auto) 0.0 0.0 (0-0.2) T/MM3 Comprehensive Metabolic Panel 04/16/17 04/17/17 Range/Units 10:32 06:01 Sodium 139 141 (134-144) MEQ/L Potassium 4.9 3.3 L D (3.6-5) MEQ/L Chloride 94 L 95 L (98-107) MEQ/L Carbon Dioxide 35 H 40 H (22-30) MEQ/L BUN 30.0 H 26.0 H (7-17) MG/DL Creatinine 0.7 0.6 L (0.7-1.2) MG/DL Glucose 103 100 (65-110) MG/DL Calcium 9.3 9.1 (8.4-10.2) MG/DL AST 21 (14-36) U/L ALT 28 (9-52) U/L Alkaline Phosphatase 75 (38-126) U/L Total Protein 6.9 (6.3-8.2) G/DL Albumin 3.8 (3.5-5.0) G/DL Intake and Output 04/16/17 04/17/17 04/17/17 22:59 06:59 14:59 Intake Total 555.667 / 555.667 492.50 / 492.50 65 / 65 Output Total 264 / 264 110 / 110 30 / 30 Balance 291.667 / 291.667 382.50 / 382.50 35 / 35 Intake: IV 525.667 / 525.667 492.50 / 492.50 65 / 65 Clindamycin Pb 600 mg In 50 ml 100 / 100 50 / 50 @ 100 mls/hr IV Q6H RICHARD Rx#: [id number] DiltiaZEM Drip 125 mg In Ns 125 44.833 / 44.833 105.00 / 105.00 15 / 15 ml @ 10 mls/hr IV .[id number] RICHARD Rx#:[id number] Ns 1,000 ml @ 50 mls/hr IV . 380.834 / 380.834 387.5 / 387.5 0 / 0 Q20H RICHARD Rx#:[id number] Oral 30 30 Output: Urine Amount (Catheter) 264 / 264 110 / 110 30 / 30 Other: Urine Appearance Clear Clear Clear Urine Color Yellow Yellow Yellow Stool Color Black Stool Consistency Soft Size of Bowel Movement Smear Smear Weight 139 lb 8.842 oz Patient Weight 04/18/17 06:59 Weight 139 lb 8.842 oz Assessment and Plan - Assessment and Plan (1) Encephalopathy Current visit: Yes Status: Acute Improved. Resume home meds except Xarelto. (2) Atrial fibrillation Current visit: No Status: Chronic Cardizem CD 340mg daily, stop Cardizem drip after given - Give home metoprolol 100mg BID for rate control - Hold Xarelto, will continue Lovenox SQ if not procedure today (3) HTN (hypertension) Current visit: No Status: Chronic (4) Dyslipidemia Current visit: No Status: Chronic (5) Coronary artery disease Current visit: No Status: Chronic (6) Pleural effusion, left Current visit: Yes Status: Chronic Hold Xarelto. May need thoracentesis for moderate left pleural effusion. - Assessment and Plan 04/16/17 Encephalopathy: Speech evaluate swallow please - Hold oral Cardizem, Xarelto and Metoprolol for now Pleural effusion:Recommend draining fluid from pleural space - Responded well when drained in October of 2016 - Hold Xarelto AFib with RVR: Cardizem drip for rate control with metoprolol IV. - Has [facility] PPM, interrogate please - Increased Lovenox to 1mg/kg dose tonight, hold in am if thoracentesis is planned Thank you for allowing us to participate in the care of this patient. 04/17/17 Encephalopathy: Improved. Resume home meds except Xarelto. Hold Xarelto. May need thoracentesis for moderate left pleural effusion. AFib RVR: Cardizem CD 340mg daily, stop Cardizem drip after given - Give home metoprolol 100mg BID for rate control - Hold Xarelto, will continue Lovenox SQ if not procedure today Hospital Course Summary Disclaimer: The visit summary below is not to be considered part of the above Progress Note. Hospital Course: 04/15/2017 Mrs. Machado is a little more responsive but remains extremely ill in the intensive care unit. She does have moderate pleural effusion, and for this reason I have spoken to Dr. Khanna about the possibility of a thoracentesis. ( My appreciation to Dr. Khanna.) The patient and the family are comfortable with this. We will continue antibiotics this time with clindamycin and Rocephin. Attempting to wean down the Cardizem drip for the tachycardia. Converting to oral diltiazem. Getting a large initial dose of 360 mg CD and will reassess in the morning. DISPOSITION: continue in the ICU 04/14/2017 Mrs. Machado remains unresponsive in the etiology of her encephalopathy is uncertain. She does meet sirs criteria and with her fluid condition being both intravascularly dry and yet edematous with pleural effusion, there are conflicting issues with treatment. Have ordered a respiratory panel and ABG. TSH the reflex T4. Echocardiogram. This will give us better guidance as to further treatment. Empirically, we will start with antibiotic coverage and respiratory support as well as general hydration to attempt to improve her overall condition. DISPOSITION: patient is medically complicated and will require at least 48 hours to properly sort her condition. She will need consultation with cardiology , she is patient of . She may need a thoracentesis in which case I will discuss this with Dr. Khanna upon his return tomorrow 5:30pm called back to ICU for declining sats and tachycardia with multifocal PVCs. Giving 10mg IVP cardizem and switching to simple mask. 45 minutes of critical care and decision-making time. No procedures performed <Rodolfo Matson - Last Filed: 04/18/17 11:37> Exam Vital signs: Temperature 97.4 F 04/17/17 17:30 Pulse Rate 88 04/18/17 10:15 Respiratory Rate 25 H 04/18/17 10:15 Blood Pressure 120/58 04/18/17 10:00 Pulse Oximetry 95 04/18/17 10:15 Results 04/18/17 04:38 04/18/17 04:38 Cardiac Enzymes 04/18/17 Range/Units 04:38 AST 28 (14-36) U/L B-Natriuretic Peptide 3650 H (0-175) pg/mL Coagulation 04/18/17 Range/Units 04:38 B-Natriuretic Peptide 3650 H (0-175) pg/mL CBC 04/18/17 Range/Units 04:38 WBC 9.8 (4.5-11.0) T/MM3 RBC 3.53 L (4.00-5.20) M/MM3 Hgb 10.4 L (12-16) GM/DL Hct 35.6 L (36-46) % Plt Count 200 (130-400) T/MM3 Neut # (Auto) 7.6 (1.8-7.7) T/MM3 Lymph # (Auto) 0.9 L (1-4.8) T/MM3 [place] # (Auto) 1.2 H (0-0.8) T/MM3 Eos # (Auto) 0.1 (0-0.5) T/MM3 Baso # (Auto) 0.0 (0-0.2) T/MM3 Comprehensive Metabolic Panel 04/18/17 Range/Units 04:38 Sodium 141 (134-144) MEQ/L Potassium 4.9 D (3.6-5) MEQ/L Chloride 100 (98-107) MEQ/L Carbon Dioxide 38 H (22-30) MEQ/L BUN 32.0 H (7-17) MG/DL Creatinine 0.7 (0.7-1.2) MG/DL Glucose 104 (65-110) MG/DL Calcium 9.2 (8.4-10.2) MG/DL AST 28 (14-36) U/L ALT 42 (9-52) U/L Alkaline Phosphatase 50 D (38-126) U/L Total Protein 5.9 L (6.3-8.2) G/DL Albumin 3.1 L (3.5-5.0) G/DL Intake and Output 04/17/17 04/18/17 04/18/17 22:59 06:59 14:59 Intake Total 512.5 / 512.5 732.501 / 732.501 485.75 / 485.75 Output Total 140 / 140 105 / 105 98 / 98 Balance 372.5 / 372.5 627.501 / 627.501 387.75 / 387.75 Intake: IV 512.5 / 512.5 732.501 / 732.501 248.75 / 248.75 Ceftriaxone 1 g In Ns 50 ml @ 50 / 50 100 mls/hr IV DAILY RICHARD Rx#: [id number] Clindamycin Pb 600 mg In 50 ml 50 / 50 100 / 100 @ 100 mls/hr IV Q6H RICHARD Rx#: [id number] Ns 1,000 ml @ 75 mls/hr IV . 462.5 / 462.5 632.501 / 632.501 198.75 / 198.75 [id number] RICHARD Rx#:[id number] Oral 237 / 237 Output: Urine Amount (Catheter) 140 / 140 105 / 105 98 / 98 Other: Urine Appearance Clear Clear Clear Urine Color Yellow Yellow Yellow Size of Bowel Movement Smear Weight 63.3 kg 64 kg Patient Weight 04/19/17 06:59 Weight 64 kg Assessment and Plan - Assessment and Plan (1) HTN (hypertension) Current visit: No Status: Chronic (2) Dyslipidemia Current visit: No Status: Chronic (3) Atrial fibrillation Current visit: No Status: Chronic (4) Coronary artery disease Current visit: No Status: Chronic (5) Encephalopathy Current visit: Yes Status: Acute (6) Pleural effusion, left Current visit: Yes Status: Chronic - Attestation Attestation Narrative: 04/18/17 11:37 Recommendation After examining the patient I agree with the above assessment. I am involved in the formulation of the patient's plan of care. Hospital Course Summary Disclaimer: The visit summary below is not to be considered part of the above Progress Note.
[2017-04-17] MEDS: CEFTRIAXONE 1 G in NS 50 ML IV SCH ×2 (08:45→09:12)
[2017-04-17] MEDS: DiltiaZEM CD 360 MG CAPSULE PO SCH (08:51)
[2017-04-17] MEDS ORDERED: BUMETANIDE 1 MG TABLET PO SCH (09:00)
--- NOTE | 2017-04-17 11:05 | Pulmonology Progress Note ---
<Jeimy Polanco D - Last Filed: 04/17/17 11:02> Subjective Principal diagnosis: Afib RVR Interval history: Pt sitting up in bed, states she has some cough and sputum and SOB noted with talking too much. Family at bedside. Exam Vital signs: Temperature 97.6 F 04/17/17 07:45 Pulse Rate 96 04/17/17 08:00 Respiratory Rate 37 H 04/17/17 07:45 Blood Pressure 144/66 H 04/17/17 07:30 Pulse Oximetry 92 04/17/17 07:45 - Constitutional no acute distress, average body habitus, cooperative - Routine HEENT Exam Head: Present: normocephalic, atraumatic Eye: Present: EOMI, PERRL ENT: Present: mucous membranes moist - Routine Neck Exam Present: supple, full ROM, trachea midline - Routine Respiratory Exam Present: decreased breath sounds, crackles - Routine Cardiovascular Exam Present: S1, S2, no murmur, irregular rhythm - Routine Abdominal Exam Present: soft, normoactive bowel sounds - Routine Extremities Exam Present: edema, non tender, full ROM - Routine Back/Spine/Pelvis Exam Back/Spine: Present: full ROM - Routine Skin Exam Present: intact - Routine Neurological Exam Present: alert, oriented X3, CN II-XII intact - Routine Psychiatric Exam Present: normal affect, normal thought process, good judgment Assessment and Plan - Assessment and Plan Acute on Chronic Hypoxic Respiratory Failure Left Pleural effusion - s/p thora Oct 2016 exudative per [facility] sepsis - unclear etiology Encephalopathy - improving Atrial fibrillation Plan: Pt currently on O2 at 4L per NC and tolerating 96%, wean to keep sats 90-95%. On O2 at 2L per NC at home. No new CXR, will repeat, Cr normal yesterday on IVF 50ml/hr, UOP less then 10-20ml/hr per RN, primary giving a bolus, did receive lasix yesterday. Currently on Rocephin and clinda for pna, afebrile and WBC normal now. follow CXR and symptoms, wait on thora at this time. - Time Spent With Patient Total time spent is greater than 50% in coordination of care (as documented) at patient's floor/unit and/or counseling patient: less than 15 minutes <Santosh Khanna - Last Filed: 04/17/17 15:01> Exam Vital signs: Temperature 97.5 F 04/17/17 11:01 Pulse Rate 76 04/17/17 12:00 Respiratory Rate 25 H 04/17/17 11:01 Blood Pressure 120/58 04/17/17 11:01 Pulse Oximetry 97 04/17/17 11:01 Assessment and Plan (1) Pleural effusion Status: Acute Assessment and plan: Plan left sided thoracentesis under US Send fluid for studies including cytology Current Visit: Yes (2) Encephalopathy acute Status: Acute Current Visit: Yes - Assessment and Plan I have seen and examined the patient. I agree with the above plans and recommendations - Time Spent With Patient Total time spent is greater than 50% in coordination of care (as documented) at patient's floor/unit and/or counseling patient:
[2017-04-17] MEDS: FERROUS SULFATE 324 MG TABLET PO SCH (11:49)
[2017-04-17] MEDS ORDERED: RIVAROXABAN 20 MG TABLET PO SCH (12:00)
--- NOTE | 2017-04-17 12:22 | XRay Report ---
Indication: effusions PROCEDURE: XR chest 1V: Encounter: Initial Comparison: April 14, 2017 Findings: Slight increase in the small right pleural effusion. Moderate to large left effusion is unchanged with compressive atelectasis in both lung bases. No pneumothorax. Cardiac silhouette remains obscuring by the effusions. Poststernotomy changes and left pacemaker again seen. Pulmonary vascularity is grossly stable. Calcified granuloma in the right lung. Impression: Increasing right pleural effusion. .
--- NOTE | 2017-04-17 13:52 | Progress Note ---
- Date 04/17/17 Subjective: Mrs. Machado was sitting up in bed when seen and was able to reposition herself with minimal difficulty. She reported that her breathing is "up and down" and denied wheezing. She reported no chest pain or palpitations and was unsure when her last bowel movement was. She denied nausea and nursing indicated crushing medications and giving them with liquids earlier in the day. Patient has poor appetite and has been using [employer] Breakfast once a day at home. Her reports she eats little but her weight has been stable. Patient denies lightheadedness but really has not been out of bed. Urine output improved after furosemide was given yesterday but is down again this morning per nursing. Review of old records indicates weights ranged from 75-77 kg during hospitalizations last October and November compared to current weight of 61-63 kg. Objective Vital signs: Temperature 97.5 F 04/17/17 11:01 Pulse Rate 76 04/17/17 12:00 Respiratory Rate 25 H 04/17/17 11:01 Blood Pressure 120/58 04/17/17 11:01 Pulse Oximetry 97 -4 L 04/17/17 11:01 I/O 1462/374 Weight up 0.7 kg from yesterday, 2.6 kg from admission EXAM General-NAD, alert, soft/fluent speech HEENT-conjugate gaze, conjunctiva clear, sclera anicteric, oropharynx clear Lungs-respirations nonlabored at rest, appears to become fatigued when she speaks however, diminished breath sounds group home up the lung santana posteriorly- slightly worse on the left than the right, no wheezing or crackles appreciated Cardiac-irregular rhythm Abd-soft, nontender, nondistended, diminished bowel sounds Ext-+2 edema bilateral lower extremities Neuro-moving upper extremities spontaneously, lower extremities moved to stimulation Psych-flat, somewhat withdrawn - Rhythm: Atrial Fibrillation with Normal Ventricular Rate (occasional RVR) Height/Weight/BMI: Height 1.68 m Weight 63.3 kg Body Mass Index 21.6 Results - Labs CBC & Chem 7: 04/17/17 06:01 04/17/17 06:01 Microbiology Results: Blood cultures 2 negative after nearly 3 days - Imaging and Cardiology Chest x-ray Status: image reviewed by me (right pleural effusion small but increased from yesterday; left pleural effusion is moderate-large with lung compression adjacent to it-unchanged from yesterday) Assessment and Plan (1) Encephalopathy acute Current visit: Yes Status: Acute (2) Atrial fibrillation with RVR Current visit: No Status: Acute (3) Systemic inflammatory response syndrome (SIRS) Current visit: Yes Status: Acute Assessment and Plan: Impression: Encephalopathy, acute SIRS-WBC 14.6, tachycardia, tachypnea Atrial fibrillation with RVR Acute/chronic hypoxic respiratory failure Hypokalemia-04/17/17 Left pleural effusion (recurrent)-exudative in the past 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 Resume furosemide at 20 mg IV every 12 hours with continued IV fluids due to poor oral intake. Single dose of oral Bumex given this morning-home diuretic. HCO3 elevated throughout the hospitalization-suspect hypercarbia present. Blood gas to be obtained. Encephalopathy has improved progressively, no clear indication of underlying infection. Oral diltiazem resumed for management of atrial fibrillation with adequate rate control at present. Thoracentesis planned this afternoon-discussed with Dr. Khanna. Moderate weight loss in the past 6 months-nutritional supplements initiated. Potassium replacement initiated earlier today. Continue to monitor. Hemoglobin relatively stable compared to last fall; B-12 and iron studies done at that time prior to patient receiving IV iron. B-12 was normal. PT/OT consults Resuscitation Status: Do Not Intubate - Physician Narrative Narrative: Date: 04/17/17 Time: 1346 Hospital Course Summary Disclaimer: The visit summary below is not to be considered part of the above Progress Note. Hospital Course: 04/14/16 Mrs. Machado remains unresponsive in the etiology of her encephalopathy is uncertain. She does meet sirs criteria and with her fluid condition being both intravascularly dry and yet edematous with pleural effusion, there are conflicting issues with treatment. Have ordered a respiratory panel and ABG. TSH the reflex T4. Echocardiogram. This will give us better guidance as to further treatment. Empirically, we will start with antibiotic coverage and respiratory support as well as general hydration to attempt to improve her overall condition. 04/15/2017 Mrs. Machado is a little more responsive but remains extremely ill in the intensive care unit. She does have moderate pleural effusion, and for this reason I have spoken to Dr. Khanna about the possibility of a thoracentesis. ( My appreciation to Dr. Khanna.) The patient and the family are comfortable with this. We will continue antibiotics this time with clindamycin and Rocephin. Attempting to wean down the Cardizem drip for the tachycardia. Converting to oral diltiazem. Getting a large initial dose of 360 mg CD and will reassess in the morning. 04/16/17 Weaning from Cardizem drip to high-dose oral Cardizem left the patient with a heart rate that climbed back into the 120s. Dr Matson was consulted, and they are familiar with her. They note that the patient did show significant improvement after a thoracentesis. Appreciation to cardiology for their participation. Her most concerning feature at this point is her oliguria and climbing renal lab values. I've expressed to the that these are not reassuring. I spoken to the about code status and he is interested in seeing that if she actually does require resuscitation that she be given an initial trial but does not want her maintained on a ventilator does I'm putting in order for no intubation DNI. 04/17/17 Poor urine output for most of the past 24+ hours, no response to fluid boluses morning and moderate edema on exam. Resume furosemide at 20 mg IV every 12 hours with continued IV fluids due to poor oral intake. Single dose of oral Bumex given this morning-home diuretic. HCO3 elevated throughout the hospitalization-suspect hypercarbia present. Blood gas to be obtained. Encephalopathy has improved progressively, no clear indication of underlying infection. Oral diltiazem resumed for management of atrial fibrillation with adequate rate control at present. Thoracentesis planned this afternoon-discussed with Dr. Khanna. Moderate weight loss in the past 6 months-nutritional supplements initiated.
--- NOTE | 2017-04-17 14:58 | Procedure Note ---
Date of procedure: 04/17/17 Pre-op diagnosis: pleural effusion, left Post-op diagnosis: same Procedure: US guided thoracentesis Bedside US was used to locate a large pocket of pleural fluid, left posterior hemithorax, 8-9 rib space Site was marked for thoracentesis. Chloroprep was used to clean the skin, sterile drapes were employed lidocaine was used for local anesthesia A thoracentesis catheter was inserted into the left pleural space. 1.5 L bloody pleural fluid was drained from the left side and sent for: cell count and diff cytology Gram stain and culture LDH Protein Glucose pH The catheter was removed and dressings were placed. Anesthesia: local Surgeon: Santosh Khanna MD Estimated blood loss (mL): 0 Condition: Stable Disposition: ICU
--- NOTE | 2017-04-17 15:11 | XRay Report ---
Indication: pleural effusion post thoracentesis PROCEDURE: XR chest 1V: Encounter: Initial Comparison: September 15, 2017 at 1129 Findings: Interval left thoracentesis with evacuation of the vast majority of the left pleural fluid. There is a small basilar lateral pneumothorax which appears to represent an ex vacuo type phenomenon due to a chronically abnormal lung or pleura. There is persistent small right effusion without significant change with bibasilar airspace disease. Aeration of the left lung has considerably improved following the thoracentesis. No right-sided pneumothorax. Heart size and mediastinal contours are stable. Impression: Small probable ex vacuo type pneumothorax on the left following thoracentesis. These findings were discussed with the ordering provider by telephone at 1500 on April 17, 2017. .
[2017-04-17] MEDS ORDERED: FUROSEMIDE 20 MG/2 ML INJECTION IVP ONE ×2 (15:42→21:00)
[2017-04-17] MEDS ORDERED: DOCUSATE SODIUM 100 MG CAPSULE PO SCH (17:30)
[2017-04-17 18:24] VITALS: BMI 22.5
[2017-04-17] MEDS: MAGNESIUM OXIDE 400 MG TABLET PO SCH (20:57)
[2017-04-17] MEDS: SENNA + DOCUSATE TABLET PO SCH (20:57)
[2017-04-17] MEDS: MIRTAZAPINE 15 MG TABLET PO SCH (20:58)
[2017-04-17] MEDS: ATORVASTATIN 20 MG TABLET PO SCH (20:58)
[2017-04-18] MEDS: CLINDAMYCIN PB 600 MG/50 ML BAG IV SCH ×5 (00:31→23:59)
[2017-04-18] MEDS: ASPIRIN *EC* 81 MG TABLET PO SCH (09:22)
[2017-04-18] MEDS: SENNA + DOCUSATE TABLET PO SCH ×2 (09:22→20:46)
[2017-04-18] MEDS: CALCIUM CARBONATE 500 MG TABLET PO SCH (09:23)
[2017-04-18] MEDS: ANASTROZOLE 1 MG TABLET PO SCH (09:23)
[2017-04-18] MEDS: DiltiaZEM CD 360 MG CAPSULE PO SCH (09:24)
[2017-04-18] MEDS: CEFTRIAXONE 1 G in NS 50 ML IV SCH (09:24)
[2017-04-18] MEDS: POLYETHYL GLYCOL 3350 17gm PACKET PO SCH (09:24)
--- NOTE | 2017-04-18 10:55 | Cardiology Progress Note ---
<Norma Ann - Last Filed: 04/19/17 11:32> Subjective Principal diagnosis: Afib RVR Interval history: Sayda is seen in follow up for AFib RVR this morning in CCU. She is resting comfortably with eyes closed, her is at the bedside. She denies chest pain or pressure, denies palpitations. Exam Vital signs: Temperature 97.4 F 04/17/17 17:30 Pulse Rate 88 04/18/17 10:15 Respiratory Rate 25 H 04/18/17 10:15 Blood Pressure 120/58 04/18/17 10:00 Pulse Oximetry 95 04/18/17 10:15 - Constitutional no acute distress, well nourished, cooperative - Routine HEENT Exam Head: Present: normocephalic ENT: Present: mucous membranes moist - Routine Neck Exam Absent: JVD, carotid bruit - Routine Chest/Breast/Axilla Exam Chest wall: Present: pacemaker. Absent: tenderness - Routine Respiratory Exam Present: decreased breath sounds, diminished air movement - Routine Cardiovascular Exam Present: no murmur, irregular rhythm - Routine Abdominal Exam Present: soft, normoactive bowel sounds - Routine Extremities Exam Present: edema - Routine Skin Exam Present: intact, dry, warm - Routine Neurological Exam Present: alert - Routine Psychiatric Exam Present: normal affect - Additional findings Additional findings: Albuterol/Ipratropium (Duoneb) 3 ml AEROSOL RTQID PRN Anastrozole (Arimidex) 1 mg PO DAILY [facility] Last Admin: 04/18/17 09:23 Dose: 1 mg Aspirin (Ecotrin) 81 mg PO DAILY [facility] Last Admin: 04/18/17 09:22 Dose: 81 mg Atorvastatin Calcium (Lipitor) 20 mg PO HS [facility] Last Admin: 04/17/17 20:58 Dose: 20 mg Bumetanide (Bumex 1 Mg Tab) 3 mg PO DAILY [facility] Last Admin: 04/17/17 08:39 Dose: 3 mg Calcium Carbonate (Calcium) 500 mg PO DAILY [facility] Last Admin: 04/18/17 09:23 Dose: 500 mg Diltiazem HCl (Cardizem Cd) 360 mg PO DAILY [facility] Last Admin: 04/18/17 09:24 Dose: 360 mg Ferrous Sulfate (Feosol) 325 mg PO WL [facility] Last Admin: 04/17/17 11:49 Dose: 324 mg Ceftriaxone Sodium 1 g/ Sodium (Chloride) 50 mls @ 100 mls/hr IV DAILY [facility] Last Admin: 04/18/17 09:24 Dose: 100 mls/hr Clindamycin Phosphate (Cleocin Premix) 600 mg in 50 mls @ 100 mls/hr IV Q6H [facility] Last Infusion: 04/18/17 06:45 Dose: Infused Sodium Chloride (Normal Saline) 1,000 mls @ 75 mls/hr IV .[id number] [facility] Last Infusion: 04/18/17 09:24 Dose: 0 mls/hr Lorazepam (Ativan Inj) 0.5 mg IVP Q4H PRN PRN Reason: Anxiety/Agitation/restlessness Magnesium Oxide (Magox) 400 mg PO [facility] Last Admin: 04/17/17 20:57 Dose: 400 mg Metoprolol Tartrate (Lopressor) 5 mg IVP Q6H PRN Metoprolol Tartrate (Lopressor) 100 mg PO BID [facility] Last Admin: 04/18/17 09:21 Dose: 100 mg Mirtazapine (Remeron) 15 mg PO [facility] Last Admin: 04/17/17 20:58 Dose: 15 mg Nitroglycerin (Nitrostat) 0.4 mg SL Q5MIN3 PRN PRN Reason: Chest pain Polyethylene Glycol (Miralax) 17 gm PO DAILY [facility] Last Admin: 04/18/17 09:24 Dose: 17 gm Potassium Chloride (K-Dur 20 Meq Tablet) 40 meq PO BIDWM [facility] Last Admin: 04/18/17 09:21 Dose: 40 meq Senna/Docusate Sodium (Senna Plus Tablet) 2 tab PO BID [facility] Last Admin: 04/18/17 09:22 Dose: 2 tab Sodium Chloride (Iv Flush) 10 - 80 ml IVF PRN PRN PRN Reason: Flushing Sodium Chloride (Normal Saline) 500 ml IV PRN PRN Results 04/19/17 04:16 04/19/17 04:16 Cardiac Enzymes 04/18/17 Range/Units 04:38 AST 28 (14-36) U/L B-Natriuretic Peptide 3650 H (0-175) pg/mL Coagulation 04/18/17 Range/Units 04:38 B-Natriuretic Peptide 3650 H (0-175) pg/mL CBC 04/18/17 Range/Units 04:38 WBC 9.8 (4.5-11.0) T/MM3 RBC 3.53 L (4.00-5.20) M/MM3 Hgb 10.4 L (12-16) GM/DL Hct 35.6 L (36-46) % Plt Count 200 (130-400) T/MM3 Neut # (Auto) 7.6 (1.8-7.7) T/MM3 Lymph # (Auto) 0.9 L (1-4.8) T/MM3 Crawford # (Auto) 1.2 H (0-0.8) T/MM3 Eos # (Auto) 0.1 (0-0.5) T/MM3 Baso # (Auto) 0.0 (0-0.2) T/MM3 Comprehensive Metabolic Panel 04/18/17 Range/Units 04:38 Sodium 141 (134-144) MEQ/L Potassium 4.9 D (3.6-5) MEQ/L Chloride 100 (98-107) MEQ/L Carbon Dioxide 38 H (22-30) MEQ/L BUN 32.0 H (7-17) MG/DL Creatinine 0.7 (0.7-1.2) MG/DL Glucose 104 (65-110) MG/DL Calcium 9.2 (8.4-10.2) MG/DL AST 28 (14-36) U/L ALT 42 (9-52) U/L Alkaline Phosphatase 50 D (38-126) U/L Total Protein 5.9 L (6.3-8.2) G/DL Albumin 3.1 L (3.5-5.0) G/DL Intake and Output 04/17/17 04/18/17 04/18/17 22:59 06:59 14:59 Intake Total 512.5 / 512.5 732.501 / 732.501 198.75 / 198.75 Output Total 140 / 140 105 / 105 95 / 95 Balance 372.5 / 372.5 627.501 / 627.501 103.75 / 103.75 Intake: IV 512.5 / 512.5 732.501 / 732.501 198.75 / 198.75 Clindamycin Pb 600 mg In 50 ml 50 / 50 100 / 100 @ 100 mls/hr IV Q6H [facility] Rx#: [id number] Ns 1,000 ml @ 75 mls/hr IV . 462.5 / 462.5 632.501 / 632.501 198.75 / 198.75 [id number] [facility] Rx#:[id number] Output: Urine Amount (Catheter) 140 / 140 105 / 105 95 / 95 Other: Urine Appearance Clear Clear Clear Urine Color Yellow Yellow Yellow Size of Bowel Movement Smear Weight 139 lb 8.842 oz 141 lb 1.533 oz Patient Weight 04/19/17 06:59 Weight 141 lb 1.533 oz - Imaging and Cardiology Imaging & Cardiology Narrative: Date of Exam: 04/17/17 Ordering Provider: Santosh Khanna MD Type of Exam(s): XR chest 1V Reason for Exam(s): pleural effusion post thoracentesis Indication: pleural effusion post thoracentesis PROCEDURE: XR chest 1V: Encounter: Initial Comparison: September 15, 2017 at 1129 Findings: Interval left thoracentesis with evacuation of the vast majority of the left pleural fluid. There is a small basilar lateral pneumothorax which appears to represent an ex vacuo type phenomenon due to a chronically abnormal lung or pleura. There is persistent small right effusion without significant change with bibasilar airspace disease. Aeration of the left lung has considerably improved following the thoracentesis. No right-sided pneumothorax. Heart size and mediastinal contours are stable. Impression: Small probable ex vacuo type pneumothorax on the left following thoracentesis. These findings were discussed with the ordering provider by telephone at 1500 on April 17, 2017. Assessment and Plan - Assessment and Plan (1) Encephalopathy Current visit: Yes Status: Acute (2) Atrial fibrillation Current visit: No Status: Chronic Heparin 5000 SQ Q8h incase another thoracentesis is needed on right - Hold Xarelto for now (3) HTN (hypertension) Current visit: No Status: Chronic (4) Dyslipidemia Current visit: No Status: Chronic (5) Coronary artery disease Current visit: No Status: Chronic (6) Pleural effusion, left Current visit: Yes Status: Chronic S/p thoracentesis yesterday with 1.5L out - Assessment and Plan 04/16/17 Encephalopathy: Speech evaluate swallow please - Hold oral Cardizem, Xarelto and Metoprolol for now Pleural effusion:Recommend draining fluid from pleural space - Responded well when drained in October of 2016 - Hold Xarelto AFib with RVR: Cardizem drip for rate control with metoprolol IV. - Has [employer] PPM, interrogate please - Increased Lovenox to 1mg/kg dose tonight, hold in am if thoracentesis is planned Thank you for allowing us to participate in the care of this patient. 04/17/17 Encephalopathy: Improved. Resume home meds except Xarelto. Hold Xarelto. May need thoracentesis for moderate left pleural effusion. AFib RVR: Cardizem CD 340mg daily, stop Cardizem drip after given - Give home metoprolol 100mg BID for rate control - Hold Xarelto, will continue Lovenox SQ if not procedure today 04/18/16 AFib:Rate well controlled on oral Cardizem and Metoprolol - Heparin 5000 SQ Q8h incase another thoracentesis is needed on right - Hold Xarelto for now - Monitor HGB and Platelets Hospital Course Summary Disclaimer: The visit summary below is not to be considered part of the above Progress Note. Hospital Course: 04/15/2017 Mrs. Machado is a little more responsive but remains extremely ill in the intensive care unit. She does have moderate pleural effusion, and for this reason I have spoken to Dr. Khanna about the possibility of a thoracentesis. ( My appreciation to Dr. Khanna.) The patient and the family are comfortable with this. We will continue antibiotics this time with clindamycin and Rocephin. Attempting to wean down the Cardizem drip for the tachycardia. Converting to oral diltiazem. Getting a large initial dose of 360 mg CD and will reassess in the morning. DISPOSITION: continue in the ICU 04/14/2017 Mrs. Machado remains unresponsive in the etiology of her encephalopathy is uncertain. She does meet sirs criteria and with her fluid condition being both intravascularly dry and yet edematous with pleural effusion, there are conflicting issues with treatment. Have ordered a respiratory panel and ABG. TSH the reflex T4. Echocardiogram. This will give us better guidance as to further treatment. Empirically, we will start with antibiotic coverage and respiratory support as well as general hydration to attempt to improve her overall condition. DISPOSITION: patient is medically complicated and will require at least 48 hours to properly sort her condition. She will need consultation with cardiology , she is patient of . She may need a thoracentesis in which case I will discuss this with Dr. Khanna upon his return tomorrow 5:30pm called back to ICU for declining sats and tachycardia with multifocal PVCs. Giving 10mg IVP cardizem and switching to simple mask. 45 minutes of critical care and decision-making time. No procedures performed <Rodolfo Matson - Last Filed: 04/19/17 12:26> Exam Vital signs: Temperature 97.5 F 04/19/17 10:00 Pulse Rate 93 04/19/17 10:00 Respiratory Rate 18 04/19/17 10:30 Blood Pressure 117/55 04/19/17 10:00 Pulse Oximetry 99 04/19/17 10:30 Results 04/19/17 04:16 04/19/17 04:16 CBC 04/19/17 Range/Units 04:16 WBC 11.8 H (4.5-11.0) T/MM3 RBC 3.77 L (4.00-5.20) M/MM3 Hgb 11.2 L (12-16) GM/DL Hct 38.8 (36-46) % Plt Count 230 (130-400) T/MM3 Neut # (Auto) 8.3 H (1.8-7.7) T/MM3 Lymph # (Auto) 1.7 (1-4.8) T/MM3 Crawford # (Auto) 1.5 H (0-0.8) T/MM3 Eos # (Auto) 0.2 (0-0.5) T/MM3 Baso # (Auto) 0.1 (0-0.2) T/MM3 Comprehensive Metabolic Panel 04/19/17 Range/Units 04:16 Sodium 144 (134-144) MEQ/L Potassium 6.1 H* D (3.6-5) MEQ/L Chloride 106 (98-107) MEQ/L Carbon Dioxide 36 H (22-30) MEQ/L BUN 35.0 H (7-17) MG/DL Creatinine 0.9 D (0.7-1.2) MG/DL Glucose 106 (65-110) MG/DL Calcium 9.5 (8.4-10.2) MG/DL Intake and Output 04/18/17 04/19/17 04/19/17 22:59 06:59 14:59 Intake Total 925.75 / 925.75 698.75 / 698.75 450.0 / 450.0 Output Total 124 / 124 136 / 136 111 / 111 Balance 801.75 / 801.75 562.75 / 562.75 339.0 / 339.0 Intake: IV 688.75 / 688.75 668.75 / 668.75 230.0 / 230.0 Ceftriaxone 1 g In Ns 50 ml @ 20 / 20 100 mls/hr IV DAILY [facility] Rx#: [id number] Clindamycin Pb 600 mg In 50 ml 50 / 50 100 / 100 @ 100 mls/hr IV Q6H [facility] Rx#: [id number] Ns 1,000 ml @ 75 mls/hr IV . 638.75 / 638.75 568.75 / 568.75 210.0 / 210.0 [id number] [facility] Rx#:[id number] Oral 237 / 237 30 / 30 220 / 220 Output: Urine Amount (Catheter) 124 / 124 136 / 136 111 / 111 Other: Urine Appearance Clear Clear Clear Urine Color Pale Pale Yellow Yellow Yellow Urine Odor Strong Stool Characteristics Seedy Pasty Stool Color Green Green Black Black Stool Consistency Liquid Liquid Size of Bowel Movement Moderate Small # Voids 0 # Incontinent Bowel Movements 1 Assessment and Plan - Assessment and Plan (1) HTN (hypertension) Current visit: No Status: Chronic (2) Dyslipidemia Current visit: No Status: Chronic (3) Atrial fibrillation Current visit: No Status: Chronic (4) Coronary artery disease Current visit: No Status: Chronic (5) Encephalopathy Current visit: Yes Status: Acute (6) Pleural effusion, left Current visit: Yes Status: Chronic - Attestation Attestation Narrative: 04/19/17 12:26 Recommendation After examining the patient I agree with the above assessment. I am involved in the formulation of the patient's plan of care. Hospital Course Summary Disclaimer: The visit summary below is not to be considered part of the above Progress Note.
--- NOTE | 2017-04-18 11:15 | Pulmonology Progress Note ---
<CollinJeimy Stefano - Last Filed: 04/18/17 11:07> Subjective Principal diagnosis: Afib RVR Interval history: Pt resting in bed, no distress at this time. Will wake some and answer questions , no distress. Per RN she is taking a lot of encouragement to do anything and just wants to be left alone. Exam Vital signs: Temperature 97.4 F 04/17/17 17:30 Pulse Rate 88 04/18/17 10:15 Respiratory Rate 25 H 04/18/17 10:15 Blood Pressure 120/58 04/18/17 10:00 Pulse Oximetry 95 04/18/17 10:15 - Constitutional no acute distress, average body habitus - Routine HEENT Exam Head: Present: normocephalic, atraumatic Eye: Present: EOMI, PERRL ENT: Present: mucous membranes moist - Routine Neck Exam Present: supple, full ROM, trachea midline - Routine Respiratory Exam Present: decreased breath sounds - Routine Cardiovascular Exam Present: S1, S2, no murmur, irregular rhythm - Routine Abdominal Exam Present: soft, normoactive bowel sounds - Routine Extremities Exam Present: edema, non tender, full ROM - Routine Back/Spine/Pelvis Exam Back/Spine: Present: full ROM - Routine Skin Exam Present: intact, dry - Routine Neurological Exam Present: alert, oriented X3 - Routine Psychiatric Exam Present: normal affect, normal thought process Assessment and Plan - Assessment and Plan Acute on Chronic Hypoxic Hypercapnic Respiratory Failure Left Pleural effusion - s/p thora Oct 2016 exudative per LDH sepsis - unclear etiology Encephalopathy - improving Atrial fibrillation Plan: Pt currently on O2 at 2L per NC and tolerating 92%, wean to keep sats 90-95%. On O2 at 2L per NC at home. No new CXR, CXR after thora yesterday still with moderate L effusion and small R. S/p thora yesterday with 1.5L out, exudative per LDH 302 and borderline per protien 0.55. pleural stain NTD, await further cultures and cytology. Follow CXR. Cr normal on IVF 75ml/hr, UOP less then 10- 20ml/hr per RN, per primary, on bumex daily. Currently on Rocephin and clinda for pna, afebrile and WBC normal now. Would hold on restarting xarelto at this time. - Time Spent With Patient Total time spent is greater than 50% in coordination of care (as documented) at patient's floor/unit and/or counseling patient: less than 15 minutes <Santosh Khanna - Last Filed: 04/19/17 10:33> Exam Vital signs: Temperature 97.5 F 04/19/17 10:00 Pulse Rate 93 04/19/17 10:00 Respiratory Rate 23 04/19/17 10:00 Blood Pressure 117/55 04/19/17 10:00 Pulse Oximetry 99 04/19/17 10:00 Assessment and Plan (1) Pleural effusion Status: Acute Current Visit: Yes (2) Encephalopathy acute Status: Acute Current Visit: Yes - Time Spent With Patient Total time spent is greater than 50% in coordination of care (as documented) at patient's floor/unit and/or counseling patient: - Attestation Attestation Narrative: I agree with the notes and recommendations written by the REFRIGERATION PERSON
[2017-04-18] MEDS: FERROUS SULFATE 324 MG TABLET PO SCH (12:13)
[2017-04-18] MEDS ORDERED: ONDANSETRON 4 MG/2 ML INJECTION IVP PRN (13:39)
[2017-04-18] MEDS: HEPARIN SUB-Q 5,000units/0.5ml INJECTION SQ SCH ×2 (14:57→23:58)
[2017-04-18] MEDS: NS 1,000 ML IV SCH (15:16)
--- NOTE | 2017-04-18 16:25 | Wound Care Progress Note ---
Wound Center Progress Note: Talked with staff about their concerns for this pt. States with bottom excorated they used the advanced skin protectant then applied barrier cream which is appropriate. Also saw on device bruising from the donovan, at this time asked staff to again apply Advanced skin protectant and monitor donovan placement.
--- NOTE | 2017-04-18 18:38 | Progress Note ---
- Date 04/18/17 Subjective: Mrs. Machado was resting with her eyes closed at the time of evaluation. She was listening to what was said that made few verbal comments. Nursing indicated she slept most of the day but was able to eat about half of lunch. She slept about 3 hours with BiPAP on overnight and family does not believe she needed sedation to do so. Patient has complained of nausea several times today and that was the only thing that she described to me. She's had no vomiting. She did not indicate dyspnea and did not comment on whether she was breathing more comfortably or deeply following thoracentesis yesterday although took several deep breaths for me when I asked the question. She feels fatigued and weak. Objective Vital signs: Temperature 97 F 04/18/17 16:00 Pulse Rate 93 04/18/17 18:15 Respiratory Rate 24 04/18/17 18:15 Blood Pressure 127/58 04/18/17 18:00 Pulse Oximetry 89 L 04/18/17 18:15 I/O 1817/292 weight up 0.7 kg from yesterday EXAM General-NAD, drowsy, few verbal responses-voice is very weak/soft when she responds HEENT-eyes closed, oral membranes dry, left nasolabial fold flattening Lungs-respirations are nonlabored with decreased inspiratory effort, anterior breath sounds are clear Cardiac-irregular rhythm, S1-S2 Abd-soft, minor tenderness on palpation in the epigastrium/left upper quadrant without guarding, decreased bowel sounds Ext-+2 bilateral lower extremity edema-slightly improved from yesterday Skin-without generalized rash - Rhythm: Atrial Fibrillation with Normal Ventricular Rate (occasional RVR) Height/Weight/BMI: Height 1.68 m Weight 64 kg Body Mass Index 22.5 Results - Labs CBC & Chem 7: 04/18/17 04:38 04/18/17 04:38 Labs: ProBNP 3650 Liver enzymes normal, magnesium 2.2 Pleural fluid with pH 7.55, 103K RBC, 543 WBC-Monocellular predominant, 2% neutrophils; glucose 139, LDH 302, total protein 3.2, amylase 40 Microbiology Results: Microbiology 04/17/17 14:49 Thoracic Fluid Gram Stain - few neutrophils, no organisms 04/17/17 14:49 Thoracic Fluid Body Fluid Culture - Preliminary No Growth After 1 Day Blood cultures 2 negative after 4 days - ABG Interpretation Attestation: I reviewed and interpreted this ABG. ABG results: 04/17/17 15:07 ABG pH 7.200 L* ABG pCO2 104 H* ABG pO2 243 H ABG HCO3 41 H ABG Total CO2 43.8 H ABG O2 Saturation 100.0 H ABG Base Excess 8.9 H Interpretation: respiratory alkalosis - Imaging and Cardiology Chest x-ray Status: image reviewed by me (postthoracentesis chest x-ray yesterday demonstrated significant expansion of left lung relative to pre-thoracentesis film) Assessment and Plan (1) Acute respiratory failure with hypercapnia Current visit: Yes Status: Acute (2) Encephalopathy acute Current visit: Yes Status: Acute (3) Atrial fibrillation with RVR Current visit: No Status: Acute Assessment and Plan: Impression: Encephalopathy, acute Acute respiratory failure with hypercarbia SIRS-WBC 14.6, tachycardia, tachypnea Atrial fibrillation with RVR Acute/chronic hypoxic respiratory failure Hypokalemia-04/17/17 Left pleural effusion (recurrent)-exudative in the past 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 Blood gas with respiratory acidosis and profound hypercarbia yesterday-PCO2 104 ; BiPAP initiated-continue. Reassess ABG in a.m. Encephalopathy has improved but patient remains minimally interactive. No clear evidence for source of infection-blood cultures negative at almost 5 days, urine unremarkable, respiratory viral panel negative, and pleural fluid Gram stain was not suggestive of infection. Empiric treatment with ceftriaxone and clindamycin-generalized weakness present , at risk for aspiration pneumonia. 1500 mL bloody pleural fluid removed from left chest yesterday, reassess chest x -ray in a.m. as there was increasing right pleural effusion on films yesterday. LDH elevated suggesting exudate. Atrial fibrillation rate adequately controlled with oral diltiazem and metoprolol at present; Xarelto on hold due to thoracentesis yesterday and possible need for right thoracentesis in the near future. Moderate weight loss in the past 6 months-nutritional supplements initiated. Potassium replacement initiated earlier today. Continue to monitor. Hemoglobin relatively stable compared to last fall; B-12 and iron studies done at that time prior to patient receiving IV iron. B-12 was normal. Patient was unable to cooperate with testing during PT initial assessment today , reassess over the next days. Overall patient has had generalized decline over the past 6 months and prognosis is guarded at best. Discussed with pulmonary earlier today. DVT Prophylaxis: SCD's, SQ Heparin GI Prophylaxis: Pepcid Resuscitation Status: Do Not Intubate - Physician Narrative Narrative: Date: 04/18/17 Time: 1834 Hospital Course Summary Disclaimer: The visit summary below is not to be considered part of the above Progress Note. Hospital Course: 04/14/16 Mrs. Machado remains unresponsive in the etiology of her encephalopathy is uncertain. She does meet sirs criteria and with her fluid condition being both intravascularly dry and yet edematous with pleural effusion, there are conflicting issues with treatment. Have ordered a respiratory panel and ABG. TSH the reflex T4. Echocardiogram. This will give us better guidance as to further treatment. Empirically, we will start with antibiotic coverage and respiratory support as well as general hydration to attempt to improve her overall condition. 04/15/2017 Mrs. Machado is a little more responsive but remains extremely ill in the intensive care unit. She does have moderate pleural effusion, and for this reason I have spoken to Dr. Khanna about the possibility of a thoracentesis. ( My appreciation to Dr. Khanna.) The patient and the family are comfortable with this. We will continue antibiotics this time with clindamycin and Rocephin. Attempting to wean down the Cardizem drip for the tachycardia. Converting to oral diltiazem. Getting a large initial dose of 360 mg CD and will reassess in the morning. 04/16/17 Weaning from Cardizem drip to high-dose oral Cardizem left the patient with a heart rate that climbed back into the 120s. Dr Matson was consulted, and they are familiar with her. They note that the patient did show significant improvement after a thoracentesis. Appreciation to cardiology for their participation. Her most concerning feature at this point is her oliguria and climbing renal lab values. I've expressed to the that these are not reassuring. I spoken to the about code status and he is interested in seeing that if she actually does require resuscitation that she be given an initial trial but does not want her maintained on a ventilator does I'm putting in order for no intubation DNI. 04/17/17 Poor urine output for most of the past 24+ hours, no response to fluid boluses morning and moderate edema on exam. Resume furosemide at 20 mg IV every 12 hours with continued IV fluids due to poor oral intake. Single dose of oral Bumex given this morning-home diuretic. HCO3 elevated throughout the hospitalization-suspect hypercarbia present. Blood gas to be obtained. Encephalopathy has improved progressively, no clear indication of underlying infection. Oral diltiazem resumed for management of atrial fibrillation with adequate rate control at present. Thoracentesis planned this afternoon-discussed with Dr. Khanna. Moderate weight loss in the past 6 months-nutritional supplements initiated. 04/18/17 Poor urine output for most of the past 48+ hours, Bumex given IV this afternoon and will schedule twice daily. Blood gas with respiratory acidosis and profound hypercarbia yesterday-PCO2 104 ; BiPAP initiated-continue. Reassess ABG in a.m. Encephalopathy has improved but patient remains minimally interactive. No clear evidence for source of infection-blood cultures negative at almost 5 days, urine unremarkable, respiratory viral panel negative, and pleural fluid Gram stain was not suggestive of infection. 1500 mL bloody pleural fluid removed from left chest yesterday, reassess chest x -ray in a.m. as there was increasing right pleural effusion on films yesterday. LDH elevated suggesting exudate. Atrial fibrillation controlled on oral diltiazem and metoprolol.
[2017-04-18] MEDS: MAGNESIUM OXIDE 400 MG TABLET PO SCH (20:45)
[2017-04-18] MEDS: ATORVASTATIN 20 MG TABLET PO SCH (20:45)
[2017-04-18] MEDS: MIRTAZAPINE 15 MG TABLET PO SCH (20:45)
[2017-04-18] MEDS: FAMOTIDINE 20 MG TABLET PO SCH (20:45)
[2017-04-19] MEDS: NS 1,000 ML IV SCH ×2 (05:43→05:51)
[2017-04-19] MEDS: CLINDAMYCIN PB 600 MG/50 ML BAG IV SCH ×4 (06:20→23:57)
[2017-04-19] MEDS: HEPARIN SUB-Q 5,000units/0.5ml INJECTION SQ SCH ×3 (06:20→22:43)
--- NOTE | 2017-04-19 08:28 | XRay Report ---
Indication: hypoxia, pleural effusion PROCEDURE: XR chest 1V: Encounter: Initial Comparison: April 17, 2017 Findings: Interval reaccumulation of a moderate left pleural effusion. Stable small right effusion. Compressive atelectasis in the both bases. No pneumothorax currently. Heart size is obscured. Mediastinal contours and pulmonary vascularity are grossly stable. Impression: Reaccumulating left pleural effusion. .
[2017-04-19] MEDS: CEFTRIAXONE 1 G in NS 50 ML IV SCH (09:48)
[2017-04-19] MEDS: ASPIRIN *EC* 81 MG TABLET PO SCH (09:51)
[2017-04-19] MEDS: ANASTROZOLE 1 MG TABLET PO SCH (09:51)
[2017-04-19] MEDS: CALCIUM CARBONATE 500 MG TABLET PO SCH (09:52)
[2017-04-19] MEDS: FAMOTIDINE 20 MG TABLET PO SCH ×2 (09:52→21:07)
[2017-04-19] MEDS: POLYETHYL GLYCOL 3350 17gm PACKET PO SCH ×2 (09:52→10:00)
[2017-04-19] MEDS: DiltiaZEM CD 360 MG CAPSULE PO SCH (09:53)
[2017-04-19] MEDS: SENNA + DOCUSATE TABLET PO SCH ×3 (09:53→20:27)
[2017-04-19] MEDS: SALINE FLUSH 10ml SYRINGE IVF PRN ×3 (09:54→14:41)
[2017-04-19] MEDS: ALBUTEROL/IPRATROPIUM 2.5mg-0.5mg/3ml NEB AEROSOL PRN (10:30)
--- NOTE | 2017-04-19 11:55 | Cardiology Progress Note ---
<Norma Ann - Last Filed: 04/20/17 12:54> Subjective Principal diagnosis: Afib RVR Interval history: Sayda is seen in follow up for AFib RVR. She is seen in CCU with family at the bedside. She does not respond to Dr. Matson's exam. Exam Vital signs: Temperature 97.5 F 04/19/17 10:00 Pulse Rate 93 04/19/17 10:00 Respiratory Rate 18 04/19/17 10:30 Blood Pressure 117/55 04/19/17 10:00 Pulse Oximetry 99 04/19/17 10:30 - Constitutional no acute distress, well nourished, cooperative - Routine HEENT Exam Head: Present: normocephalic ENT: Present: mucous membranes moist - Routine Neck Exam Absent: JVD, carotid bruit - Routine Chest/Breast/Axilla Exam Chest wall: Present: pacemaker. Absent: tenderness - Routine Respiratory Exam Present: decreased breath sounds - Routine Cardiovascular Exam Present: no murmur, irregular rhythm - Routine Abdominal Exam Present: soft, normoactive bowel sounds - Routine Extremities Exam Present: edema - Routine Skin Exam Present: intact, dry, warm - Routine Neurological Exam Present: altered mental status - Additional findings Additional findings: Albuterol/Ipratropium (Duoneb) 3 ml AEROSOL RTQID PRN Last Admin: 04/19/17 10:30 Dose: 3 ml Anastrozole (Arimidex) 1 mg PO DAILY [facility] Last Admin: 04/19/17 09:51 Dose: 1 mg Aspirin (Ecotrin) 81 mg PO DAILY [facility] Last Admin: 04/19/17 09:51 Dose: 81 mg Atorvastatin Calcium (Lipitor) 20 mg PO HS [facility] Last Admin: 04/18/17 20:45 Dose: 20 mg Bumetanide (Bumex 1 Mg Tab) 3 mg PO DAILY [facility] Last Admin: 04/17/17 08:39 Dose: 3 mg Bumetanide (Bumex 1 Mg/4 Ml Inj.) 1 mg IVP BID [facility] Last Admin: 04/19/17 09:54 Dose: 1 mg Calcium Carbonate (Calcium) 500 mg PO DAILY [facility] Last Admin: 04/19/17 09:52 Dose: 500 mg Diltiazem HCl (Cardizem Cd) 360 mg PO DAILY [facility] Last Admin: 04/19/17 09:53 Dose: 360 mg Famotidine (Pepcid) 20 mg PO BID [facility] Last Admin: 04/19/17 09:52 Dose: 20 mg Ferrous Sulfate (Feosol) 325 mg PO WL [facility] Last Admin: 04/18/17 12:13 Dose: 324 mg Heparin Sodium (Porcine) (Heparin Sq) 5,000 units SQ Q8H [facility] Last Admin: 04/19/17 06:20 Dose: 5,000 units Ceftriaxone Sodium 1 g/ Sodium (Chloride) 50 mls @ 100 mls/hr IV DAILY [facility] Last Infusion: 04/19/17 10:00 Dose: 0 mls/hr Clindamycin Phosphate (Cleocin Premix) 600 mg in 50 mls @ 100 mls/hr IV Q6H [facility] Last Infusion: 04/19/17 06:50 Dose: Infused Lorazepam (Ativan Inj) 0.5 mg IVP Q4H PRN PRN Reason: Anxiety/Agitation/restlessness Magnesium Oxide (Magox) 400 mg PO [facility] Last Admin: 04/18/17 20:45 Dose: 400 mg Metoprolol Tartrate (Lopressor) 5 mg IVP Q6H PRN Metoprolol Tartrate (Lopressor) 100 mg PO BID [facility] Last Admin: 04/19/17 09:52 Dose: 100 mg Mirtazapine (Remeron) 15 mg PO [facility] Last Admin: 04/18/17 20:45 Dose: 15 mg Nitroglycerin (Nitrostat) 0.4 mg SL Q5MIN3 PRN PRN Reason: Chest pain Ondansetron HCl (Zofran) 4 mg IVP Q6H PRN PRN Reason: Nausea &/or vomiting Last Admin: 04/18/17 13:45 Dose: 4 mg Polyethylene Glycol (Miralax) 17 gm PO DAILY [facility] Last Admin: 04/19/17 10:00 Dose: Not Given Senna/Docusate Sodium (Senna Plus Tablet) 2 tab PO BID [facility] Last Admin: 04/19/17 10:01 Dose: Not Given Sodium Chloride (Iv Flush) 10 - 80 ml IVF PRN PRN PRN Reason: Flushing Last Admin: 04/19/17 11:13 Dose: 10 ml Sodium Chloride (Normal Saline) 500 ml IV PRN PRN Results 04/20/17 04:19 04/20/17 04:19 CBC 04/19/17 Range/Units 04:16 WBC 11.8 H (4.5-11.0) T/MM3 RBC 3.77 L (4.00-5.20) M/MM3 Hgb 11.2 L (12-16) GM/DL Hct 38.8 (36-46) % Plt Count 230 (130-400) T/MM3 Neut # (Auto) 8.3 H (1.8-7.7) T/MM3 Lymph # (Auto) 1.7 (1-4.8) T/MM3 [place] # (Auto) 1.5 H (0-0.8) T/MM3 Eos # (Auto) 0.2 (0-0.5) T/MM3 Baso # (Auto) 0.1 (0-0.2) T/MM3 Comprehensive Metabolic Panel 04/19/17 Range/Units 04:16 Sodium 144 (134-144) MEQ/L Potassium 6.1 H* D (3.6-5) MEQ/L Chloride 106 (98-107) MEQ/L Carbon Dioxide 36 H (22-30) MEQ/L BUN 35.0 H (7-17) MG/DL Creatinine 0.9 D (0.7-1.2) MG/DL Glucose 106 (65-110) MG/DL Calcium 9.5 (8.4-10.2) MG/DL Intake and Output 04/18/17 04/19/17 04/19/17 22:59 06:59 14:59 Intake Total 925.75 / 925.75 698.75 / 698.75 450.0 / 450.0 Output Total 124 / 124 136 / 136 111 / 111 Balance 801.75 / 801.75 562.75 / 562.75 339.0 / 339.0 Intake: IV 688.75 / 688.75 668.75 / 668.75 230.0 / 230.0 Ceftriaxone 1 g In Ns 50 ml @ 20 / 20 100 mls/hr IV DAILY [facility] Rx#: [id number] Clindamycin Pb 600 mg In 50 ml 50 / 50 100 / 100 @ 100 mls/hr IV Q6H [facility] Rx#: [id number] Ns 1,000 ml @ 75 mls/hr IV . 638.75 / 638.75 568.75 / 568.75 210.0 / 210.0 [id number] [facility] Rx#:[id number] Oral 237 / 237 30 / 30 220 / 220 Output: Urine Amount (Catheter) 124 / 124 136 / 136 111 / 111 Other: Urine Appearance Clear Clear Clear Urine Color Pale Pale Yellow Yellow Yellow Urine Odor Strong Stool Characteristics Seedy Pasty Stool Color Green Green Black Black Stool Consistency Liquid Liquid Size of Bowel Movement Moderate Small # Voids 0 # Incontinent Bowel Movements 1 - Imaging and Cardiology Imaging & Cardiology Narrative: Date of Exam: 04/19/17 Ordering Provider: Cele Brand MD Type of Exam(s): XR chest 1V Reason for Exam(s): hypoxia, pleural effusion Indication: hypoxia, pleural effusion PROCEDURE: XR chest 1V: Encounter: Initial Comparison: April 17, 2017 Findings: Interval reaccumulation of a moderate left pleural effusion. Stable small right effusion. Compressive atelectasis in the both bases. No pneumothorax currently. Heart size is obscured. Mediastinal contours and pulmonary vascularity are grossly stable. Impression: Reaccumulating left pleural effusion. 04/19/17 11:55 Assessment and Plan - Assessment and Plan (1) Encephalopathy Current visit: Yes Status: Acute (2) Atrial fibrillation Current visit: No Status: Chronic (3) HTN (hypertension) Current visit: No Status: Chronic (4) Dyslipidemia Current visit: No Status: Chronic (5) Coronary artery disease Current visit: No Status: Chronic (6) Pleural effusion, left Current visit: Yes Status: Chronic - Assessment and Plan 04/16/17 Encephalopathy: Speech evaluate swallow please - Hold oral Cardizem, Xarelto and Metoprolol for now Pleural effusion:Recommend draining fluid from pleural space - Responded well when drained in October of 2016 - Hold Xarelto AFib with RVR: Cardizem drip for rate control with metoprolol IV. - Has [employer] PPM, interrogate please - Increased Lovenox to 1mg/kg dose tonight, hold in am if thoracentesis is planned Thank you for allowing us to participate in the care of this patient. 04/17/17 Encephalopathy: Improved. Resume home meds except Xarelto. Hold Xarelto. May need thoracentesis for moderate left pleural effusion. AFib RVR: Cardizem CD 340mg daily, stop Cardizem drip after given - Give home metoprolol 100mg BID for rate control - Hold Xarelto, will continue Lovenox SQ if not procedure today 04/18/16 AFib:Rate well controlled on oral Cardizem and Metoprolol - Heparin 5000 SQ Q8h incase another thoracentesis is needed on right - Hold Xarelto for now - Monitor HGB and Platelets 04/19/17 Left pleural effusion returned. Heart rate remains well controlled on Oral, may need IV if remains unresponsive. Hospital Course Summary Disclaimer: The visit summary below is not to be considered part of the above Progress Note. Hospital Course: 04/15/2017 Mrs. Machado is a little more responsive but remains extremely ill in the intensive care unit. She does have moderate pleural effusion, and for this reason I have spoken to Dr. Khanna about the possibility of a thoracentesis. ( My appreciation to Dr. Khanna.) The patient and the family are comfortable with this. We will continue antibiotics this time with clindamycin and Rocephin. Attempting to wean down the Cardizem drip for the tachycardia. Converting to oral diltiazem. Getting a large initial dose of 360 mg CD and will reassess in the morning. DISPOSITION: continue in the ICU 04/14/2017 Mrs. Machado remains unresponsive in the etiology of her encephalopathy is uncertain. She does meet sirs criteria and with her fluid condition being both intravascularly dry and yet edematous with pleural effusion, there are conflicting issues with treatment. Have ordered a respiratory panel and ABG. TSH the reflex T4. Echocardiogram. This will give us better guidance as to further treatment. Empirically, we will start with antibiotic coverage and respiratory support as well as general hydration to attempt to improve her overall condition. DISPOSITION: patient is medically complicated and will require at least 48 hours to properly sort her condition. She will need consultation with cardiology , she is patient of . She may need a thoracentesis in which case I will discuss this with Dr. Khanna upon his return tomorrow 5:30pm called back to ICU for declining sats and tachycardia with multifocal PVCs. Giving 10mg IVP cardizem and switching to simple mask. 45 minutes of critical care and decision-making time. No procedures performed <Rodolfo Matson - Last Filed: 04/20/17 13:38> Exam Vital signs: Temperature 97.0 F 04/20/17 07:24 Pulse Rate 95 04/20/17 08:00 Respiratory Rate 22 04/20/17 07:24 Blood Pressure 100/65 04/20/17 07:24 Pulse Oximetry 95 04/20/17 07:24 Results 04/20/17 04:19 04/20/17 04:19 CBC 04/20/17 Range/Units 04:19 WBC 12.7 H (4.5-11.0) T/MM3 RBC 3.63 L (4.00-5.20) M/MM3 Hgb 10.7 L (12-16) GM/DL Hct 37.8 (36-46) % Plt Count 193 (130-400) T/MM3 Neut # (Auto) 9.7 H (1.8-7.7) T/MM3 Lymph # (Auto) 1.4 (1-4.8) T/MM3 [place] # (Auto) 1.2 H (0-0.8) T/MM3 Eos # (Auto) 0.2 (0-0.5) T/MM3 Baso # (Auto) 0.1 (0-0.2) T/MM3 Comprehensive Metabolic Panel 04/19/17 04/20/17 Range/Units 16:50 04:19 Sodium 146 H (134-144) MEQ/L Potassium 5.4 H 4.9 (3.6-5) MEQ/L Chloride 104 (98-107) MEQ/L Carbon Dioxide 37 H (22-30) MEQ/L BUN 37.0 H (7-17) MG/DL Creatinine 0.8 (0.7-1.2) MG/DL Glucose 117 H (65-110) MG/DL Calcium 9.5 (8.4-10.2) MG/DL Albumin 3.0 L (3.5-5.0) G/DL Intake and Output 04/19/17 04/20/17 04/20/17 22:59 06:59 14:59 Intake Total 160 / 160 100 / 100 50 / 50 Output Total 46 / 46 450 / 450 500 / 500 Balance 114 / 114 -350 / -350 -450 / -450 Intake: IV 100 / 100 100 / 100 50 / 50 Ceftriaxone 1 g In Ns 50 ml @ 50 / 50 100 mls/hr IV DAILY [facility] Rx#: [id number] Clindamycin Pb 600 mg In 50 ml 100 / 100 100 / 100 @ 100 mls/hr IV Q6H [facility] Rx#: [id number] Oral 60 / 60 Output: Stool 0 / 0 Urine Amount (Catheter) 46 / 46 450 / 450 500 / 500 Other: Urine Appearance Clear Clear Urine Color Yellow Yellow Urine Odor Normal Stool Color Black Black Stool Consistency Loose Liquid Size of Bowel Movement Small Copious # Incontinent Bowel Movements 1 Weight 65.9 kg 65.9 kg Patient Weight 04/21/17 06:59 Weight 65.9 kg Assessment and Plan - Assessment and Plan (1) HTN (hypertension) Current visit: No Status: Chronic (2) Dyslipidemia Current visit: No Status: Chronic (3) Atrial fibrillation Current visit: No Status: Chronic (4) Coronary artery disease Current visit: No Status: Chronic (5) Encephalopathy Current visit: Yes Status: Acute (6) Pleural effusion, left Current visit: Yes Status: Chronic - Attestation Attestation Narrative: 04/20/17 13:38 Recommendation After examining the patient I agree with the above assessment. I am involved in the formulation of the patient's plan of care. Hospital Course Summary Disclaimer: The visit summary below is not to be considered part of the above Progress Note.
[2017-04-19] MEDS: FERROUS SULFATE 324 MG TABLET PO SCH (15:01)
--- NOTE | 2017-04-19 15:21 | Progress Note ---
- Date 04/19/17 Subjective: Mrs. Machado is reported to have drank a full container of [employer] earlier this morning but has not been responding verbally to staff and has really not spoken to her this morning either. She told nursing to stop when they were swabbing her mouth out in my presence and otherwise did not respond to any questions asked lying in bed with her eyes closed. Urine output remains low; she oxygenates adequately on 2 L per nasal cannula and has worn BiPAP off and on for short periods of time. Blood pressures have been borderline low and nursing has been reluctant to use lorazepam to improve tolerance of BiPAP. Patient did not respond when asked about nausea today but did not need Zofran overnight. Objective Vital signs: Temperature 97.0 F 04/19/17 12:00 Pulse Rate 82 04/19/17 14:00 Respiratory Rate 29 H 04/19/17 14:00 Blood Pressure 117/56 04/19/17 14:00 Pulse Oximetry 97 -30%/BiPAP 04/19/17 14:00 I/O 2584/390 EXAM General-withdrawn, resists some care, no verbal responses HEENT-does not open her eyes or mouth Lungs-respirations nonlabored but airflow diminished/poor inspiratory effort, breath sounds are coarse in the left anterior/lateral santana, decreased breath sounds right lower/lateral field Cardiac-irregular cardiac rhythm, S1-S2 Abd-soft, nontender, bowel sounds present Ext-+2 pitting edema bilateral lower extremities, +2 edema right upper extremity distal to blood pressure cuff, +1 edema left upper extremity Neuro-cab station attendant symmetric although weak, dorsiflexes bilaterally to request Psych-flat affect, withdrawn - Rhythm: Atrial Fibrillation with Normal Ventricular Rate (occasional RVR) Height/Weight/BMI: Height 1.68 m Weight 65.9 kg Body Mass Index 22.5 Results - Labs CBC & Chem 7: 04/19/17 04:16 04/19/17 04:16 Microbiology Results: Microbiology 04/17/17 14:49 Thoracic Fluid Gram Stain - Final 04/17/17 14:49 Thoracic Fluid Body Fluid Culture - Preliminary No Growth After 2 Days - ABG Interpretation Attestation: I reviewed and interpreted this ABG. (acute/chronic respiratory acidosis) ABG results: 04/17/17 04/19/17 15:07 07:25 ABG pH 7.200 L* 7.280 L ABG pCO2 104 H* 77 H* ABG pO2 243 H 75 L ABG HCO3 41 H 36 H ABG Total CO2 43.8 H 38.6 H ABG O2 Saturation 100.0 H 93.0 L ABG Base Excess 8.9 H 6.9 H - Imaging and Cardiology Chest x-ray Status: image reviewed by me (recurrent left pleural effusion-not quite as large as it was prethoracentesis but approaching full reaccumulation; small right pleural effusion appears unchanged) Assessment and Plan (1) Acute respiratory failure with hypercapnia Current visit: Yes Status: Acute (2) Encephalopathy acute Current visit: Yes Status: Acute (3) Atrial fibrillation with RVR Current visit: No Status: Acute Assessment and Plan: Impression: Encephalopathy, acute Acute respiratory failure with hypercarbia SIRS-WBC 14.6, tachycardia, tachypnea Atrial fibrillation with RVR Acute/chronic hypoxic respiratory failure Hypokalemia-04/17/17 Hyperkalemia-04/19/17 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 Discussed with Dr. Matson. Initiate WES hose bilateral lower extremities. Minor improvements PCO2 and respiratory acidosis but BiPAP not being worn consistently. Continue BiPAP as tolerated. Patient remains minimally interactive, unclear if truly encephalopathic at this point. No clear evidence for source of infection-blood cultures negative at almost 5 days, urine unremarkable, respiratory viral panel negative, and pleural fluid culture negative at 2 days. Empiric treatment with ceftriaxone and clindamycin-generalized weakness present , at risk for aspiration pneumonia. 1500 mL bloody pleural fluid removed from left chest 04/17, rapid recurrence of fluid-cytology negative currently and last October. Potassium elevated today after replacement for several days-supplementation discontinued. Atrial fibrillation rate adequately controlled with oral diltiazem and metoprolol at present; Xarelto on hold due to thoracentesis yesterday and possible need for right thoracentesis in the near future. Moderate weight loss in the past 6 months-nutritional supplements initiated. Overall patient has had generalized decline over the past 6 months and prognosis is guarded at best. Prognosis discussed with patient's who concurred the patient may have given up. - Physician Narrative Narrative: Date: 04/19/17 Time: 1516 Hospital Course Summary Disclaimer: The visit summary below is not to be considered part of the above Progress Note. Hospital Course: 04/14/16 Mrs. Machado remains unresponsive in the etiology of her encephalopathy is uncertain. She does meet sirs criteria and with her fluid condition being both intravascularly dry and yet edematous with pleural effusion, there are conflicting issues with treatment. Have ordered a respiratory panel and ABG. TSH the reflex T4. Echocardiogram. This will give us better guidance as to further treatment. Empirically, we will start with antibiotic coverage and respiratory support as well as general hydration to attempt to improve her overall condition. 04/15/2017 Mrs. Machado is a little more responsive but remains extremely ill in the intensive care unit. She does have moderate pleural effusion, and for this reason I have spoken to Dr. Khanna about the possibility of a thoracentesis. ( My appreciation to Dr. Khanna.) The patient and the family are comfortable with this. We will continue antibiotics this time with clindamycin and Rocephin. Attempting to wean down the Cardizem drip for the tachycardia. Converting to oral diltiazem. Getting a large initial dose of 360 mg CD and will reassess in the morning. 04/16/17 Weaning from Cardizem drip to high-dose oral Cardizem left the patient with a heart rate that climbed back into the 120s. Dr Matson was consulted, and they are familiar with her. They note that the patient did show significant improvement after a thoracentesis. Appreciation to cardiology for their participation. Her most concerning feature at this point is her oliguria and climbing renal lab values. I've expressed to the that these are not reassuring. I spoken to the about code status and he is interested in seeing that if she actually does require resuscitation that she be given an initial trial but does not want her maintained on a ventilator does I'm putting in order for no intubation DNI. 04/17/17 Poor urine output for most of the past 24+ hours, no response to fluid boluses morning and moderate edema on exam. Resume furosemide at 20 mg IV every 12 hours with continued IV fluids due to poor oral intake. Single dose of oral Bumex given this morning-home diuretic. HCO3 elevated throughout the hospitalization-suspect hypercarbia present. Blood gas to be obtained. Encephalopathy has improved progressively, no clear indication of underlying infection. Oral diltiazem resumed for management of atrial fibrillation with adequate rate control at present. Thoracentesis planned this afternoon-discussed with Dr. Khanna. Moderate weight loss in the past 6 months-nutritional supplements initiated. 04/18/17 Poor urine output for most of the past 48+ hours, Bumex given IV this afternoon and will schedule twice daily. Blood gas with respiratory acidosis and profound hypercarbia yesterday-PCO2 104 ; BiPAP initiated-continue. Reassess ABG in a.m. Encephalopathy has improved but patient remains minimally interactive. No clear evidence for source of infection-blood cultures negative at almost 5 days, urine unremarkable, respiratory viral panel negative, and pleural fluid Gram stain was not suggestive of infection. 1500 mL bloody pleural fluid removed from left chest yesterday, reassess chest x -ray in a.m. as there was increasing right pleural effusion on films yesterday. LDH elevated suggesting exudate. Atrial fibrillation controlled on oral diltiazem and metoprolol. 04/19/17 Poor urine output persists for the past 3-4 days, IV fluids discontinued- continue Bumex at present. Discussed with Dr. Matson. Initiate WES hose bilateral lower extremities. Minor improvements PCO2 and respiratory acidosis but BiPAP not being worn consistently. Continue BiPAP as tolerated. Patient remains minimally interactive, unclear if truly encephalopathic at this point. No clear evidence for source of infection-blood cultures negative at almost 5 days, urine unremarkable, respiratory viral panel negative, and pleural fluid culture negative at 2 days. Empiric treatment with ceftriaxone and clindamycin-generalized weakness present , at risk for aspiration pneumonia. 1500 mL bloody pleural fluid removed from left chest 04/17, rapid recurrence of fluid-cytology negative currently and last October. Potassium elevated today after replacement for several days-supplementation discontinued.
--- NOTE | 2017-04-19 15:30 | Pulmonology Progress Note ---
Subjective Principal diagnosis: shortness of breath Interval history: has been tolerating bipap at night and prn. She states she does not like it and wants her nasal cannula. Her latest ABG is somewhat improved, PCO2 is down to 77. O2 sat is excellent. CXR reviewed. Post thoracentesis she had entrapped lung noted, now the fluid has recurred. Fluid analysis is unremarkable Exam Vital signs: Temperature 97.0 F 04/19/17 12:00 Pulse Rate 82 04/19/17 14:00 Respiratory Rate 29 H 04/19/17 14:00 Blood Pressure 117/56 04/19/17 14:00 Pulse Oximetry 97 04/19/17 14:00 - Constitutional Comments: weak, lethargic. answers simple questions - Routine HEENT Exam Eye: Absent: conjunctival icterus - Routine Neck Exam Present: supple - Routine Respiratory Exam Present: decreased breath sounds. 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 original cause is unknown, but effusion is unlikely to resolve without more aggressive intervention such as placement of PleurX vs decortication with pleurodesis Current Visit: Yes (2) Encephalopathy acute Status: Acute Assessment and plan: due to acute on chronic hypercapnic respiratory failure. tolerating BIPAP. Current Visit: Yes - Assessment and Plan Acute on Chronic Hypoxic Hypercapnic Respiratory Failure Left Pleural effusion due to entrapped lung sepsis - unclear etiology Encephalopathy - improving Atrial fibrillation - Time Spent With Patient Total time spent is greater than 50% in coordination of care (as documented) at patient's floor/unit and/or counseling patient: 25 - 35 minutes
[2017-04-19] MEDS ORDERED: FALL RISK - PHARMACY CONSULT XX ONE (17:28)
[2017-04-19] MEDS: MIRTAZAPINE 15 MG TABLET PO SCH (20:27)
[2017-04-19] MEDS: ATORVASTATIN 20 MG TABLET PO SCH (21:07)
[2017-04-19] MEDS: MAGNESIUM OXIDE 400 MG TABLET PO SCH (21:08)
[2017-04-20] MEDS: CLINDAMYCIN PB 600 MG/50 ML BAG IV SCH ×2 (06:13→14:00)
[2017-04-20] MEDS: HEPARIN SUB-Q 5,000units/0.5ml INJECTION SQ SCH (06:37)
[2017-04-20] MEDS: ALBUTEROL/IPRATROPIUM 2.5mg-0.5mg/3ml NEB AEROSOL PRN (06:50)
[2017-04-20] MEDS: DiltiaZEM CD 360 MG CAPSULE PO SCH (10:00)
[2017-04-20] MEDS: ASPIRIN *EC* 81 MG TABLET PO SCH (10:00)
[2017-04-20] MEDS: CALCIUM CARBONATE 500 MG TABLET PO SCH (10:00)
[2017-04-20] MEDS: ANASTROZOLE 1 MG TABLET PO SCH (10:00)
[2017-04-20] MEDS: FAMOTIDINE 20 MG TABLET PO SCH (10:00)
[2017-04-20] MEDS: SENNA + DOCUSATE TABLET PO SCH (10:01)
[2017-04-20] MEDS: POLYETHYL GLYCOL 3350 17gm PACKET PO SCH (10:01)
[2017-04-20] MEDS: CEFTRIAXONE 1 G in NS 50 ML IV SCH (10:36)
--- NOTE | 2017-04-20 11:10 | Pulmonology Progress Note ---
Subjective Principal diagnosis: shortness of breath Interval history: Pt on bipap, lethargic and grimmacing to pain. at bedside and discussing comfort care measures. Exam Vital signs: Temperature 97.0 F 04/20/17 07:24 Pulse Rate 98 04/20/17 07:24 Respiratory Rate 22 04/20/17 07:24 Blood Pressure 100/65 04/20/17 07:24 Pulse Oximetry 95 04/20/17 07:24 - Constitutional no acute distress, well developed, somnolent - Routine HEENT Exam Head: Present: normocephalic, atraumatic - Routine Neck Exam Present: supple, full ROM, trachea midline - Routine Respiratory Exam Present: decreased breath sounds - Routine Cardiovascular Exam Present: S1, S2, no murmur - Routine Abdominal Exam Present: soft, normoactive bowel sounds - Routine Extremities Exam Present: no edema, non tender, full ROM Comments: passive rom - Routine Skin Exam Present: intact, dry - Routine Neurological Exam Present: altered mental status lethargic on bipap - Routine Psychiatric Exam Present: unable to assess Assessment and Plan - Assessment and Plan Acute on Chronic Hypoxic Hypercapnic Respiratory Failure Left Pleural effusion due to entrapped lung sepsis - unclear etiology Encephalopathy - improving Atrial fibrillation Plan: Pt currently on bipap f12, 02/21, lethargic, ABG yesterday with Pco2 77. at bedside and talking about comfort care measures, wanting to await family arrival prior to making her comfort care. Agree with comfort care as she has a poor prognosis at this time, talked with Dr. Brand. - Time Spent With Patient Total time spent is greater than 50% in coordination of care (as documented) at patient's floor/unit and/or counseling patient: less than 15 minutes
[2017-04-20] MEDS ORDERED: FERROUS SULFATE 324 MG TABLET PO SCH (12:00)
[2017-04-20] MEDS ORDERED: MORPHINE SULFATE 10mg/0.5ml ORAL LIQ PO PRN (12:23)
--- NOTE | 2017-04-20 13:25 | Progress Note ---
- Date 04/20/17 Subjective: Sayda seen the late this morning follow-up, she is currently on BiPAP and she is nonverbal, she does not arouse at all to any verbal stimulation. Her is at the bedside. We had a lengthy discussion about Belen's severity of illness and prognosis. He does indicate that him and their children feel that it is time to make changes to comfort care/hospice. Objective Vital signs: Temperature 97.0 F 04/20/17 07:24 Pulse Rate 95 04/20/17 08:00 Respiratory Rate 22 04/20/17 07:24 Blood Pressure 100/65 04/20/17 07:24 Pulse Oximetry 95 04/20/17 07:24 Height/Weight/BMI: Height 1.68 m Weight 65.9 kg Body Mass Index 22.5 - Constitutional Present: mild distress, well nourished, well developed - Routine Respiratory Exam Present: diminished air movement. Absent: wheezes - Routine Cardiovascular Exam Present: RRR, S1, S2. Absent: murmur - Routine Abdominal Exam Present: soft, non distended. Absent: tenderness - Routine Extremities Exam Present: edema - Routine Skin Exam Present: intact, dry, warm - Routine Neurological Exam Present: altered mental status - Routine Lymphatic Exam Lymphatic: Absent: adenopathy - Routine Psychiatric Exam Present: unable to assess Results - Labs CBC & Chem 7: 04/20/17 04:19 04/20/17 04:19 Microbiology Results: Microbiology 04/17/17 14:49 Thoracic Fluid Gram Stain - Final 04/17/17 14:49 Thoracic Fluid Body Fluid Culture - Preliminary No Growth After 2 Days - ABG Interpretation ABG results: 04/19/17 07:25 ABG pH 7.280 L ABG pCO2 77 H* ABG pO2 75 L ABG HCO3 36 H ABG Total CO2 38.6 H ABG O2 Saturation 93.0 L ABG Base Excess 6.9 H Assessment and Plan (1) Atrial fibrillation with RVR Current visit: No Status: Acute (2) Encephalopathy acute Current visit: Yes Status: Acute (3) Acute respiratory failure with hypercapnia Current visit: Yes Status: Acute Assessment and Plan: Impression: Encephalopathy, acute Acute respiratory failure with hypercarbia SIRS-WBC 14.6, tachycardia, tachypnea Atrial fibrillation with RVR Acute/chronic hypoxic respiratory failure Hypokalemia-04/17/17 Hyperkalemia-04/19/17 Left pleural effusion (recurrent)-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 Encephalopathy- Non responsive today. Unable to stimulate during exam states that he and their children are ready to proceeded with comfort care or hospice. He does request to meet with hospice after 2 pm today when his children will be present Discussed possible inpt hospice versus going to [facility]. All questions answered. Spoke with case management, hospice consult placed. [facility] will meet patient family at 3 p.m. today. Case discussed with Dr Brand - Physician Narrative Physician: Cele Brand MD Narrative: Date: 04/20/17 Time: 2014 I have independently evaluated and examined this patient. I reviewed the chart, the patient's history, and the SLIP DUMPER/PA's documented findings as above. We discussed and formulated the assessment and plan as above with additions as below: Mrs. Machado was unresponsive to voice and examination today. She was on BiPAP at the time of my evaluation this morning and was not resisting it. Her and son were present and Mr. Machado indicated that he was ready to have BiPAP removed and just keep his comfortable. NAD, unresponsive, extremities have persistent +2 edema Patient does not follow commands but some motor tone is present Diminished breath sounds throughout Comfort care initiated, hospice consult scheduled with [facility] this afternoon per family request. Multiple medications discontinued-patient not taking anything orally today. Comfort orders/medications written. DO NOT RESUSCITATE order written. Hospital Course Summary Disclaimer: The visit summary below is not to be considered part of the above Progress Note. Hospital Course: 04/14/16 Mrs. Machado remains unresponsive in the etiology of her encephalopathy is uncertain. She does meet sirs criteria and with her fluid condition being both intravascularly dry and yet edematous with pleural effusion, there are conflicting issues with treatment. Have ordered a respiratory panel and ABG. TSH the reflex T4. Echocardiogram. This will give us better guidance as to further treatment. Empirically, we will start with antibiotic coverage and respiratory support as well as general hydration to attempt to improve her overall condition. 04/15/2017 Mrs. Machado is a little more responsive but remains extremely ill in the intensive care unit. She does have moderate pleural effusion, and for this reason I have spoken to Dr. Khanna about the possibility of a thoracentesis. ( My appreciation to Dr. Khanna.) The patient and the family are comfortable with this. We will continue antibiotics this time with clindamycin and Rocephin. Attempting to wean down the Cardizem drip for the tachycardia. Converting to oral diltiazem. Getting a large initial dose of 360 mg CD and will reassess in the morning. 04/16/17 Weaning from Cardizem drip to high-dose oral Cardizem left the patient with a heart rate that climbed back into the 120s. Dr Matson was consulted, and they are familiar with her. They note that the patient did show significant improvement after a thoracentesis. Appreciation to cardiology for their participation. Her most concerning feature at this point is her oliguria and climbing renal lab values. I've expressed to the that these are not reassuring. I spoken to the about code status and he is interested in seeing that if she actually does require resuscitation that she be given an initial trial but does not want her maintained on a ventilator does I'm putting in order for no intubation DNI. 04/17/17 Poor urine output for most of the past 24+ hours, no response to fluid boluses morning and moderate edema on exam. Resume furosemide at 20 mg IV every 12 hours with continued IV fluids due to poor oral intake. Single dose of oral Bumex given this morning-home diuretic. HCO3 elevated throughout the hospitalization-suspect hypercarbia present. Blood gas to be obtained. Encephalopathy has improved progressively, no clear indication of underlying infection. Oral diltiazem resumed for management of atrial fibrillation with adequate rate control at present. Thoracentesis planned this afternoon-discussed with Dr. Khanna. Moderate weight loss in the past 6 months-nutritional supplements initiated. 04/18/17 Poor urine output for most of the past 48+ hours, Bumex given IV this afternoon and will schedule twice daily. Blood gas with respiratory acidosis and profound hypercarbia yesterday-PCO2 104 ; BiPAP initiated-continue. Reassess ABG in a.m. Encephalopathy has improved but patient remains minimally interactive. No clear evidence for source of infection-blood cultures negative at almost 5 days, urine unremarkable, respiratory viral panel negative, and pleural fluid Gram stain was not suggestive of infection. 1500 mL bloody pleural fluid removed from left chest yesterday, reassess chest x -ray in a.m. as there was increasing right pleural effusion on films yesterday. LDH elevated suggesting exudate. Atrial fibrillation controlled on oral diltiazem and metoprolol. 04/19/17 Poor urine output persists for the past 3-4 days, IV fluids discontinued- continue Bumex at present. Discussed with Dr. Matson. Initiate WES hose bilateral lower extremities. Minor improvements PCO2 and respiratory acidosis but BiPAP not being worn consistently. Continue BiPAP as tolerated. Patient remains minimally interactive, unclear if truly encephalopathic at this point. No clear evidence for source of infection-blood cultures negative at almost 5 days, urine unremarkable, respiratory viral panel negative, and pleural fluid culture negative at 2 days. Empiric treatment with ceftriaxone and clindamycin-generalized weakness present , at risk for aspiration pneumonia. 1500 mL bloody pleural fluid removed from left chest 04/17, rapid recurrence of fluid-cytology negative currently and last October. Potassium elevated today after replacement for several days-supplementation discontinued. 2/ Continues to require bipap and she does not appear to be breathing with bipap. Encephalopathy- Non responsive today. Unable to stimulate during exam states that he and their children are ready to proceeded with comfort care or hospice. Spoke with case management, hospice consult placed. [facility] will meet patient family at 3 p.m. today.
--- NOTE | 2017-04-20 16:20 | Cardiology Progress Note ---
Subjective Principal diagnosis: Afib RVR Interval history: Sayda is seen in follow up for AFib RVR. She is unresponsive to exam. Her family is at the bedside. They understand her prognosis and feel like she has decided to give up. Exam Vital signs: Temperature 97.0 F 04/20/17 07:24 Pulse Rate 95 04/20/17 08:00 Respiratory Rate 22 04/20/17 07:24 Blood Pressure 100/65 04/20/17 07:24 Pulse Oximetry 95 04/20/17 07:24 - Constitutional no acute distress, well nourished, somnolent - Routine HEENT Exam Head: Present: normocephalic - Routine Neck Exam Absent: JVD - Routine Chest/Breast/Axilla Exam Chest wall: Absent: tenderness - Routine Respiratory Exam Present: decreased breath sounds, CTA bilaterally - Routine Cardiovascular Exam Present: tachycardia - Routine Abdominal Exam Present: soft - Routine Extremities Exam Present: pulses intact - Routine Skin Exam Present: intact, dry, warm - Routine Neurological Exam Present: altered mental status - Routine Psychiatric Exam Present: unable to assess - Additional findings Additional findings: Albuterol/Ipratropium (Duoneb) 3 ml AEROSOL RTQID PRN Last Admin: 04/20/17 06:50 Dose: 3 ml Lorazepam (Ativan Inj) 0.5 mg IVP Q2H PRN PRN Reason: Anxiety/Agitation/restlessness Metoprolol Tartrate (Lopressor) 5 mg IVP Q6H PRN Morphine Sulfate (Morphine Sulfate Inj) 2 - 4 mg IVP Q15M PRN PRN Reason: Agitation/Air hunger/Pain Morphine Sulfate (Roxanol Oral Liq) 10 mg PO Q2H PRN PRN Reason: Anxiety/Air hunger/Agitation Nitroglycerin (Nitrostat) 0.4 mg SL Q5MIN3 PRN PRN Reason: Chest pain Ondansetron HCl (Zofran) 4 mg IVP Q6H PRN PRN Reason: Nausea &/or vomiting Last Admin: 04/18/17 13:45 Dose: 4 mg Sodium Chloride (Iv Flush) 10 - 80 ml IVF PRN PRN PRN Reason: Flushing Last Admin: 04/19/17 14:41 Dose: 10 ml Sodium Chloride (Normal Saline) 500 ml IV PRN PRN - Urinary Catheter Management Urethral Cath placed during this visit: yes Insertion date: 04/15/17 Results 04/20/17 04:19 04/20/17 04:19 CBC 04/20/17 Range/Units 04:19 WBC 12.7 H (4.5-11.0) T/MM3 RBC 3.63 L (4.00-5.20) M/MM3 Hgb 10.7 L (12-16) GM/DL Hct 37.8 (36-46) % Plt Count 193 (130-400) T/MM3 Neut # (Auto) 9.7 H (1.8-7.7) T/MM3 Lymph # (Auto) 1.4 (1-4.8) T/MM3 [place] # (Auto) 1.2 H (0-0.8) T/MM3 Eos # (Auto) 0.2 (0-0.5) T/MM3 Baso # (Auto) 0.1 (0-0.2) T/MM3 Comprehensive Metabolic Panel 04/19/17 04/20/17 Range/Units 16:50 04:19 Sodium 146 H (134-144) MEQ/L Potassium 5.4 H 4.9 (3.6-5) MEQ/L Chloride 104 (98-107) MEQ/L Carbon Dioxide 37 H (22-30) MEQ/L BUN 37.0 H (7-17) MG/DL Creatinine 0.8 (0.7-1.2) MG/DL Glucose 117 H (65-110) MG/DL Calcium 9.5 (8.4-10.2) MG/DL Albumin 3.0 L (3.5-5.0) G/DL Intake and Output 04/20/17 04/20/17 04/20/17 06:59 14:59 22:59 Intake Total 100 / 100 50 / 50 Output Total 450 / 450 500 / 500 Balance -350 / -350 -450 / -450 Intake: IV 100 / 100 50 / 50 Ceftriaxone 1 g In Ns 50 ml @ 50 / 50 100 mls/hr IV DAILY RICHARD Rx#: [id number] Clindamycin Pb 600 mg In 50 ml 100 / 100 @ 100 mls/hr IV Q6H RICHARD Rx#: [id number] Output: Urine Amount (Catheter) 450 / 450 500 / 500 Other: Urine Appearance Clear Urine Color Yellow Urine Odor Normal Stool Color Black Stool Consistency Liquid Size of Bowel Movement Copious # Incontinent Bowel Movements 1 Weight 145 lb 4.554 oz Patient Weight 04/21/17 06:59 Weight 145 lb 4.554 oz Assessment and Plan - Assessment and Plan (1) Encephalopathy Status: Acute (2) Pleural effusion, left Status: Chronic (3) Atrial fibrillation Status: Chronic (4) HTN (hypertension) Status: Chronic (5) Dyslipidemia Status: Chronic (6) Coronary artery disease Status: Chronic - Assessment and Plan 04/16/17 Encephalopathy: Speech evaluate swallow please - Hold oral Cardizem, Xarelto and Metoprolol for now Pleural effusion:Recommend draining fluid from pleural space - Responded well when drained in October of 2016 - Hold Xarelto AFib with RVR: Cardizem drip for rate control with metoprolol IV. - Has [employer] PPM, interrogate please - Increased Lovenox to 1mg/kg dose tonight, hold in am if thoracentesis is planned Thank you for allowing us to participate in the care of this patient. 04/17/17 Encephalopathy: Improved. Resume home meds except Xarelto. Hold Xarelto. May need thoracentesis for moderate left pleural effusion. AFib RVR: Cardizem CD 340mg daily, stop Cardizem drip after given - Give home metoprolol 100mg BID for rate control - Hold Xarelto, will continue Lovenox SQ if not procedure today 04/18/16 AFib:Rate well controlled on oral Cardizem and Metoprolol - Heparin 5000 SQ Q8h incase another thoracentesis is needed on right - Hold Xarelto for now - Monitor HGB and Platelets 04/19/17 Left pleural effusion returned. Heart rate remains well controlled on Oral, may need IV if remains unresponsive. 04/20/17 Unresponsive, not taking oral medications - Family discussing Hospice Hospital Course Summary Disclaimer: The visit summary below is not to be considered part of the above Progress Note. Hospital Course: 04/15/2017 Mrs. Machado is a little more responsive but remains extremely ill in the intensive care unit. She does have moderate pleural effusion, and for this reason I have spoken to Dr. Khanna about the possibility of a thoracentesis. ( My appreciation to Dr. Khanna.) The patient and the family are comfortable with this. We will continue antibiotics this time with clindamycin and Rocephin. Attempting to wean down the Cardizem drip for the tachycardia. Converting to oral diltiazem. Getting a large initial dose of 360 mg CD and will reassess in the morning. DISPOSITION: continue in the ICU 04/14/2017 Mrs. Machado remains unresponsive in the etiology of her encephalopathy is uncertain. She does meet sirs criteria and with her fluid condition being both intravascularly dry and yet edematous with pleural effusion, there are conflicting issues with treatment. Have ordered a respiratory panel and ABG. TSH the reflex T4. Echocardiogram. This will give us better guidance as to further treatment. Empirically, we will start with antibiotic coverage and respiratory support as well as general hydration to attempt to improve her overall condition. DISPOSITION: patient is medically complicated and will require at least 48 hours to properly sort her condition. She will need consultation with cardiology , she is patient of . She may need a thoracentesis in which case I will discuss this with Dr. Khanna upon his return tomorrow 5:30pm called back to ICU for declining sats and tachycardia with multifocal PVCs. Giving 10mg IVP cardizem and switching to simple mask. 45 minutes of critical care and decision-making time. No procedures performed 2/2 Continues to require bipap and she does not appear to be breathing with bipap. Encephalopathy- Non responsive today. Unable to stimulate during exam states that he and their children are ready to proceeded with comfort care or hospice. He does request to meet with hospice after 2 pm today when his children will be present Discussed possible inpt hospice versus going to [facility]. All questions answered. Spoke with case management, hospice consult placed. [facility] will meet patient family at 3 p.m. today. Case discussed with Dr Brand
[2017-04-21] MEDS: MORPHINE SULFATE 2mg INJECTION IVP PRN ×2 (03:32→06:11)
[2017-04-21] MEDS: SALINE FLUSH 10ml SYRINGE IVF PRN (03:32)
[2017-04-21] MEDS: METOPROLOL 5mg/5ml INJECTION IVP PRN ×2 (10:38→23:49)
--- NOTE | 2017-04-21 17:54 | Progress Note ---
- Date 04/21/17 Subjective: 81-year-old female presented to the emergency department on 04/14/17 with the chief complaint of not feeling well and palpitations over the past several days to couple of weeks. She denies any current pain or discomfort. Patient has difficulty supplying historical data. He does see Dr. Matson of cardiology. Patient states that she just does not feel well but cannot elaborate on the symptoms. Symptoms have been persistent in nature since onset. She does not note any exacerbating or remitting factors. Mrs. Machado has been essentially unresponsive anything but direct stimulation for the last 48 hours. Her relates the story that she has stated the last several days that she has just felt terrible. She has had some transient cough but no fevers nausea vomiting or diarrhea. No associated medication changes or any recognizable sick contacts from the family's viewpoint. This time she cannot answer questions. She was treated for pneumonia with Levaquin and clindamycin. She is on home to at 2 L. She has been seen by Dr. Khanna and Dr. Matson since admission. On April 17 she was able to reposition herself. She was sitting up. She was conversing staff. On April 19 she had [place] instant breakfast in the morning. She was less verbal staff and her . She has had poor urine output. By April 20 she was more unresponsive. At that point the family decided to make her comfort care. Today, she continues to be unresponsive to me. Hospice did reevaluate today and agree that she does meet inpatient criteria for hospice. Objective Vital signs: Temperature 95.7 F L 04/21/17 07:44 Pulse Rate 131 H 04/21/17 13:08 Respiratory Rate 28 H 04/21/17 13:08 Blood Pressure 128/78 04/21/17 13:08 Pulse Oximetry 94 04/21/17 13:08 Rhythm: Atrial Fibrillation with Normal Ventricular Rate (occasional RVR) Height/Weight/BMI: Height 1.68 m Weight 65.9 kg Body Mass Index 22.5 Comments: Gen: unresponsive. She does move her hand to her neck when I tried to listen to the right carotid. She appears comfortable Skin: warm and dry. HEENT: NC/AT dry MM. OP clear. Neck: supple. No JVD. Carotids 2+ with load Left bruit Lungs: diminshed, No rales, rhonchi or wheezes CV: irregular, rate and rhythm. 2/6 murmur. 2+ edema, Pedal pulses are good Abd: soft. +BS. ND Neuro: Not able to test, she is unresponsive. Results - Labs CBC & Chem 7: 04/20/17 04:19 04/20/17 04:19 Microbiology Results: Microbiology 04/17/17 14:49 Thoracic Fluid Gram Stain - Final 04/17/17 14:49 Thoracic Fluid Body Fluid Culture - Preliminary No Growth After 4 Days Assessment and Plan (1) Atrial fibrillation with RVR Current visit: No Status: Acute (2) Encephalopathy acute Current visit: Yes Status: Acute (3) Acute respiratory failure with hypercapnia Current visit: Yes Status: Acute Assessment and Plan: Impression and Plan: 1. Encephalopathy, acute -persistent 2. Acute respiratory failure with hypercarbia 3. SIRS-WBC 14.6, tachycardia, tachypnea 4. Atrial fibrillation with RVR 5. Acute/chronic hypoxic respiratory failure 6. Hypokalemia-04/17/17 7. Hyperkalemia-04/19/17 8. Left pleural effusion (recurrent)-exudative 9. 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 Weight loss 11. Failure to thrive 12. Depression 13. HTN, 14. HLP 15. Iron def anemia Pt has been made comfort care and Hospice evaluated her today and state she is going to be able to qualify for inpt hospice. - Physician Narrative Narrative: Date: 04/21/17 Time: 1744 Hospital Course Summary Disclaimer: The visit summary below is not to be considered part of the above Progress Note. Hospital Course: 04/14/16 Mrs. Machado remains unresponsive in the etiology of her encephalopathy is uncertain. She does meet sirs criteria and with her fluid condition being both intravascularly dry and yet edematous with pleural effusion, there are conflicting issues with treatment. Have ordered a respiratory panel and ABG. TSH the reflex T4. Echocardiogram. This will give us better guidance as to further treatment. Empirically, we will start with antibiotic coverage and respiratory support as well as general hydration to attempt to improve her overall condition. 04/15/2017 Mrs. Machado is a little more responsive but remains extremely ill in the intensive care unit. She does have moderate pleural effusion, and for this reason I have spoken to Dr. Khanna about the possibility of a thoracentesis. ( My appreciation to Dr. Khanna.) The patient and the family are comfortable with this. We will continue antibiotics this time with clindamycin and Rocephin. Attempting to wean down the Cardizem drip for the tachycardia. Converting to oral diltiazem. Getting a large initial dose of 360 mg CD and will reassess in the morning. 04/16/17 Weaning from Cardizem drip to high-dose oral Cardizem left the patient with a heart rate that climbed back into the 120s. Dr Matson was consulted, and they are familiar with her. They note that the patient did show significant improvement after a thoracentesis. Appreciation to cardiology for their participation. Her most concerning feature at this point is her oliguria and climbing renal lab values. I've expressed to the that these are not reassuring. I spoken to the about code status and he is interested in seeing that if she actually does require resuscitation that she be given an initial trial but does not want her maintained on a ventilator does I'm putting in order for no intubation DNI. 04/17/17 Poor urine output for most of the past 24+ hours, no response to fluid boluses morning and moderate edema on exam. Resume furosemide at 20 mg IV every 12 hours with continued IV fluids due to poor oral intake. Single dose of oral Bumex given this morning-home diuretic. HCO3 elevated throughout the hospitalization-suspect hypercarbia present. Blood gas to be obtained. Encephalopathy has improved progressively, no clear indication of underlying infection. Oral diltiazem resumed for management of atrial fibrillation with adequate rate control at present. Thoracentesis planned this afternoon-discussed with Dr. Khanna. Moderate weight loss in the past 6 months-nutritional supplements initiated. 04/18/17 Poor urine output for most of the past 48+ hours, Bumex given IV this afternoon and will schedule twice daily. Blood gas with respiratory acidosis and profound hypercarbia yesterday-PCO2 104 ; BiPAP initiated-continue. Reassess ABG in a.m. Encephalopathy has improved but patient remains minimally interactive. No clear evidence for source of infection-blood cultures negative at almost 5 days, urine unremarkable, respiratory viral panel negative, and pleural fluid Gram stain was not suggestive of infection. 1500 mL bloody pleural fluid removed from left chest yesterday, reassess chest x -ray in a.m. as there was increasing right pleural effusion on films yesterday. LDH elevated suggesting exudate. Atrial fibrillation controlled on oral diltiazem and metoprolol. 04/19/17 Poor urine output persists for the past 3-4 days, IV fluids discontinued- continue Bumex at present. Discussed with Dr. Matson. Initiate WES hose bilateral lower extremities. Minor improvements PCO2 and respiratory acidosis but BiPAP not being worn consistently. Continue BiPAP as tolerated. Patient remains minimally interactive, unclear if truly encephalopathic at this point. No clear evidence for source of infection-blood cultures negative at almost 5 days, urine unremarkable, respiratory viral panel negative, and pleural fluid culture negative at 2 days. Empiric treatment with ceftriaxone and clindamycin-generalized weakness present , at risk for aspiration pneumonia. 1500 mL bloody pleural fluid removed from left chest 04/17, rapid recurrence of fluid-cytology negative currently and last October. Potassium elevated today after replacement for several days-supplementation discontinued. 04/20 Continues to require bipap and she does not appear to be breathing with bipap. Encephalopathy- Non responsive today. Unable to stimulate during exam states that he and their children are ready to proceeded with comfort care or hospice. Spoke with case management, hospice consult placed. [facility] will meet patient family at 3 p.m. today.
[2017-04-22 08:27] VITALS: BP 176/66; RESP 24; TEMP 95; O2SAT 89
[2017-04-22 08:33] VITALS: PULSE 145
[2017-04-22] MEDS: MORPHINE SULFATE 10mg/0.5ml ORAL LIQ SL SCH ×2 (10:22→13:49)
--- NOTE | 2017-04-22 12:17 | Progress Note ---
- Date 04/22/17 Subjective: 81-year-old female presented to the emergency department on 04/14/17 with the chief complaint of not feeling well and palpitations over the past several days to couple of weeks. She denies any current pain or discomfort. Patient has difficulty supplying historical data. He does see Dr. Matson of cardiology. Patient states that she just does not feel well but cannot elaborate on the symptoms. Symptoms have been persistent in nature since onset. She does not note any exacerbating or remitting factors. Mrs. Machado has been essentially unresponsive anything but direct stimulation for the last 48 hours. Her relates the story that she has stated the last several days that she has just felt terrible. She has had some transient cough but no fevers nausea vomiting or diarrhea. No associated medication changes or any recognizable sick contacts from the family's viewpoint. This time she cannot answer questions. She was treated for pneumonia with Levaquin and clindamycin. She is on home to at 2 L. She has been seen by Dr. Khanna and Dr. Matson since admission. On April 17 she was able to reposition herself. She was sitting up. She was conversing staff. On April 19 she had [place] instant breakfast in the morning. She was less verbal staff and her . She has had poor urine output. By April 20 she was more unresponsive. At that point the family decided to make her comfort care. Hospice did reevaluate agree that she does meet inpatient criteria for hospice. Today, she continues to be unresponsive. She does move upper ext spontaneously. She has generalized 2+edema. She is tachycardic. She is on appropriate hospice medications for comfort. Objective Vital signs: Temperature 95.0 F L 04/22/17 08:00 Pulse Rate 145 H 04/22/17 08:00 Respiratory Rate 24 04/22/17 08:00 Blood Pressure 176/66 H 04/22/17 08:00 Pulse Oximetry 89 L 04/22/17 08:00 Rhythm: Atrial Fibrillation with Normal Ventricular Rate (occasional RVR) Height/Weight/BMI: Height 1.68 m Weight 65.9 kg Body Mass Index 22.5 Comments: Gen: unresponsive. Skin: warm and dry. HEENT: NC/AT dry MM. OP clear. Neck: supple. No JVD. Carotids 2+ with loud Left bruit Lungs: diminshed, No rales, rhonchi or wheezes CV: irregular, tachycardic. 2/6 murmur. 2+ generalized edema Abd: soft. +BS. ND Neuro: Not able to test, she is unresponsive. Results - Labs CBC & Chem 7: 04/20/17 04:19 04/20/17 04:19 Microbiology Results: Microbiology 04/17/17 14:49 Thoracic Fluid Gram Stain - Final 04/17/17 14:49 Thoracic Fluid Body Fluid Culture - Preliminary No Growth After 4 Days Assessment and Plan (1) Atrial fibrillation with RVR Current visit: No Status: Acute (2) Encephalopathy acute Current visit: Yes Status: Acute (3) Acute respiratory failure with hypercapnia Current visit: Yes Status: Acute Assessment and Plan: Impression and Plan: 1. Encephalopathy, acute -persistent 2. Acute respiratory failure with hypercarbia 3. SIRS-WBC 14.6, tachycardia, tachypnea 4. Atrial fibrillation with RVR 5. Acute/chronic hypoxic respiratory failure 6. Hypokalemia-04/17/17 7. Hyperkalemia-04/19/17 8. Left pleural effusion (recurrent)-exudative 9. 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 Weight loss 11. Failure to thrive 12. Depression 13. HTN, 14. HLP 15. Iron def anemia Pt has been made comfort care and qualifies for inpt Hospice. Will continue to provide comfort measures. - Physician Narrative Narrative: Date: 04/22/17 Time: 1213 Hospital Course Summary Disclaimer: The visit summary below is not to be considered part of the above Progress Note. Hospital Course: 04/14/16 Mrs. Machado remains unresponsive in the etiology of her encephalopathy is uncertain. She does meet sirs criteria and with her fluid condition being both intravascularly dry and yet edematous with pleural effusion, there are conflicting issues with treatment. Have ordered a respiratory panel and ABG. TSH the reflex T4. Echocardiogram. This will give us better guidance as to further treatment. Empirically, we will start with antibiotic coverage and respiratory support as well as general hydration to attempt to improve her overall condition. 04/15/2017 Mrs. Machado is a little more responsive but remains extremely ill in the intensive care unit. She does have moderate pleural effusion, and for this reason I have spoken to Dr. Khanna about the possibility of a thoracentesis. ( My appreciation to Dr. Khanna.) The patient and the family are comfortable with this. We will continue antibiotics this time with clindamycin and Rocephin. Attempting to wean down the Cardizem drip for the tachycardia. Converting to oral diltiazem. Getting a large initial dose of 360 mg CD and will reassess in the morning. 04/16/17 Weaning from Cardizem drip to high-dose oral Cardizem left the patient with a heart rate that climbed back into the 120s. Dr Matson was consulted, and they are familiar with her. They note that the patient did show significant improvement after a thoracentesis. Appreciation to cardiology for their participation. Her most concerning feature at this point is her oliguria and climbing renal lab values. I've expressed to the that these are not reassuring. I spoken to the about code status and he is interested in seeing that if she actually does require resuscitation that she be given an initial trial but does not want her maintained on a ventilator does I'm putting in order for no intubation DNI. 04/17/17 Poor urine output for most of the past 24+ hours, no response to fluid boluses morning and moderate edema on exam. Resume furosemide at 20 mg IV every 12 hours with continued IV fluids due to poor oral intake. Single dose of oral Bumex given this morning-home diuretic. HCO3 elevated throughout the hospitalization-suspect hypercarbia present. Blood gas to be obtained. Encephalopathy has improved progressively, no clear indication of underlying infection. Oral diltiazem resumed for management of atrial fibrillation with adequate rate control at present. Thoracentesis planned this afternoon-discussed with Dr. Khanna. Moderate weight loss in the past 6 months-nutritional supplements initiated. 04/18/17 Poor urine output for most of the past 48+ hours, Bumex given IV this afternoon and will schedule twice daily. Blood gas with respiratory acidosis and profound hypercarbia yesterday-PCO2 104 ; BiPAP initiated-continue. Reassess ABG in a.m. Encephalopathy has improved but patient remains minimally interactive. No clear evidence for source of infection-blood cultures negative at almost 5 days, urine unremarkable, respiratory viral panel negative, and pleural fluid Gram stain was not suggestive of infection. 1500 mL bloody pleural fluid removed from left chest yesterday, reassess chest x -ray in a.m. as there was increasing right pleural effusion on films yesterday. LDH elevated suggesting exudate. Atrial fibrillation controlled on oral diltiazem and metoprolol. 04/19/17 Poor urine output persists for the past 3-4 days, IV fluids discontinued- continue Bumex at present. Discussed with Dr. Matson. Initiate WES hose bilateral lower extremities. Minor improvements PCO2 and respiratory acidosis but BiPAP not being worn consistently. Continue BiPAP as tolerated. Patient remains minimally interactive, unclear if truly encephalopathic at this point. No clear evidence for source of infection-blood cultures negative at almost 5 days, urine unremarkable, respiratory viral panel negative, and pleural fluid culture negative at 2 days. Empiric treatment with ceftriaxone and clindamycin-generalized weakness present , at risk for aspiration pneumonia. 1500 mL bloody pleural fluid removed from left chest 04/17, rapid recurrence of fluid-cytology negative currently and last October. Potassium elevated today after replacement for several days-supplementation discontinued. / Continues to require bipap and she does not appear to be breathing with bipap. Encephalopathy- Non responsive today. Unable to stimulate during exam states that he and their children are ready to proceeded with comfort care or hospice. Spoke with case management, hospice consult placed. [facility] will meet patient family at 3 p.m. today.
--- NOTE | 2017-04-22 15:07 | Death Note ---
Pronouncement Note - Date and Time of Date of : 04/22/17 Time of : 14:55 - PCOD Preliminary cause of : Respiratory failure with hypercapnia - Additional Data Confirmation of : no pulse, no respirations, no heart sounds, pupils fixed and dilated Family: at bedside Attending/PCP notified?: Yes Attending physician: Cele Brand MD Was code activated?: No Autopsy requested?: No x ray examiner of aircraft notified?: No Organ bank notified?: Yes Advance directives: Yes
--- NOTE | 2017-04-22 15:13 | Death Note ---
Providers - Provider Primary care physician: Deepak Flores MD Admitting clinician: Cele Brand Attending Physician: Cele Brand Consults: 04/15/17 13:56 Physician Consult [CONS] Routine Consulting Provider: Santosh Khanna Reason For Exam: pulmonary Ordering Provider has Notified [place] Folder: Yes 04/16/17 13:28 Physician Consult [CONS] Routine Consulting Provider: Franky Gutierrez Reason For Exam: CONT CARE Ordering Provider has Notified [place] Folder: Yes 04/16/17 13:39 Physician Consult [CONS] Routine Consulting Provider: Rodolfo Matson Reason For Exam: CONT CARE Ordering Provider has Notified [place] Folder: Yes 04/18/17 10:22 [facility] Consult [CONS] Routine 04/20/17 11:46 Hospice Consult [CONS] Routine Comment: [facility] hospice Pronouncing clinician: Isamar Engle Diagnosis - PCOD Cause of : Respiratory failure with hypercapnia - Contributing Factors (1) Atrial fibrillation with RVR Status: Acute (2) Encephalopathy acute Status: Acute (3) Acute respiratory failure with hypercapnia Status: Acute Summary - Date and Time Date of admission: 04/14/17 16:16 Date of : 04/22/17 Time of : 14:55 - Summary Details: 81-year-old female presented to the emergency department on 04/14/17 with the chief complaint of not feeling well and palpitations over the past several days to couple of weeks. She denies any current pain or discomfort. Patient has difficulty supplying historical data. He does see Dr. Matson of cardiology. Patient states that she just does not feel well but cannot elaborate on the symptoms. Symptoms have been persistent in nature since onset. She does not note any exacerbating or remitting factors. Mrs. Machado has been essentially unresponsive to anything but direct stimulation for the last 48 hours. Her relates the story that she stated the last several days that she has just felt terrible. She has had some transient cough but no fevers, nausea, vomiting, or diarrhea. No associated medication changes or any recognizable sick contacts from the family's viewpoint. This time she cannot answer questions. She was treated for pneumonia with Levaquin and clindamycin. She is on home to at 2 . She has been seen by Dr. Khanna and Dr. Amirani since admission. On April 17 she was able to reposition herself. She was sitting up. She was conversing staff. On April 19 she had [place] instant breakfast in the morning. She was less verbal staff and her . She has had poor urine output. By April 20 she was more unresponsive. At that point the family decided to make her comfort care. Hospice had evaluated her sunday but did not think she met criteria for inpt hospice at that time. They retuned on Sat and agreed she did indeed meet criteria for inpt hospice. She was made comfortable with medications. - Additional Data Confirmation of as documented by pronouncing clinician: no pulse, no respirations, no heart sounds, pupils fixed and dilated Family: at bedside Attending/PCP notified?: Yes Attending physician: Cele Brand MD Was code activated?: No Autopsy requested?: No grazing examiner notified?: No Organ bank notified?: Yes Advance directives: Yes Hospice patient?: Yes
== END 2017-04-22 18:00 | disposition expired | DRG 70 ==
LOC: ED 12:39 → SUATTDRO 16:16 → CCU 16:16 → UNDODISIN 04-17 04:34 → MED 04-19 19:04
PROVIDERS: ADMIT Family Medicine; ATTEND Internal Medicine